=== PATIENT | female | born 1950 | race Caucasian/White ===

== ENCOUNTER → 2017-05-03 | Outpatient (CLI) | payer BC, SELFPAY | PROVIDERS: Visit Provider Family Medicine | DX: I35.9 Nonrheumatic aortic valve disorder, unspecified (principal); Z79.01 Long term (current) use of anticoagulants; Z51.81 Encounter for therapeutic drug level monitoring | CPT/HCPCS: 36415; 85610; 85651; 86140 ==

== ENCOUNTER → 2017-05-12 13:24 | Outpatient (CLI) | payer BC, SELFPAY ==
[2017-05-12 14:46] LABS: INR 2.76 (0.9-1.1); Prothrombin Time 30.1 seconds (9.4-11.8)
== END ==
PROVIDERS: PCP Family Medicine; Visit Provider Family Medicine
DX: I35.9 Nonrheumatic aortic valve disorder, unspecified (principal)
CPT/HCPCS: 36415; 85610

== ENCOUNTER → 2017-05-18 11:58 | Outpatient (CLI) | payer BC, SELFPAY ==
[2017-05-18 13:49] LABS: INR 5.01 (0.9-1.1)
[2017-05-18 14:46] LABS: C-Reactive Protein 1.4 mg/L (0.0-0.9)
[2017-05-18 15:28] LABS: Erythrocyte Sedimentation Rate 68 mm/hr (0-30)
== END ==
PROVIDERS: PCP Family Medicine; Visit Provider Orthopaedic Surgery
DX: T84.84XA Pain due to internal orthopedic prosthetic devices, implants and grafts, initial encounter (principal)
CPT/HCPCS: 36415; 85610; 85651; 86140

== ENCOUNTER → 2017-06-12 11:39 | Outpatient (CLI) | payer BC, SELFPAY ==
[2017-06-12 12:30] LABS: Basophils # 0.1 K/mm3 (0-0.2); Basophils % 0.6 % (0.1-2.0); Eosinophils # 0.3 K/mm3 (0.0-0.4); Eosinophils % 3.2 % (0.1-12.0); Hematocrit 36.3 % (37.0-47.0); Hemoglobin 11.8 g/dL (12.2-16.2); Lymphocytes # 1.3 K/mm3 (0.7-4.5); Lymphocytes % 16.1 K/mm3 (10-50); Mean Corpuscular HGB Conc 32.4 g/dL (31.8-35.4); Mean Corpuscular Hemoglobin 26.3 pg (27.0-31.2); Mean Corpuscular Volume 81.1 fl (81-99); Monocytes # 0.5 K/mm3 (0.1-1.0); Neutrophils # 6.1 K/mm3 (1.8-7.8); Neutrophils % 74.2 % (37.0-80.0); Platelet Count 300 K/mm3 (142-424); Red Blood Count 4.48 M/mm3 (4.20-5.40); White Blood Count 8.3 K/mm3 (4.8-10.8)
[2017-06-12 13:26] LABS: Creatinine,Urine Random 122 mg/dL (20-320); Total Protein,Urine Random 15.8 mg/dL (0.0-11.9)
[2017-06-12 13:35] LABS: Albumin Level 3.8 gm/dL (3.4-5.0); Anion Gap 11.2 mEq/L (5-15); Blood Urea Nitrogen 20 mg/dL (7-18); Calcium 8.7 mg/dL (8.5-10.1); Carbon Dioxide 29 mmol/L (21.0-32.0); Chloride 102 mmol/L (98-107); Creatinine,Serum 1.58 mg/dL (0.55-1.02); Estimated Glomerular Filt Rate 33 ml/min (>60); GFR (African American) 40 ML/MIN (>60); Glucose 98 mg/dL (74-106); Phosphorous 5.1 mg/dL (2.4-4.9); Potassium 4.2 mmoL/L (3.5-5.1); Sodium 138 mmol/L (136-145)
[2017-06-14 18:19] LABS: Antinuclear Antibodies, IFA Positive (.)
== END ==
PROVIDERS: PCP Family Medicine; Visit Provider Internal Medicine Nephrology
DX: N17.9 Acute kidney failure, unspecified (principal)
CPT/HCPCS: 36415; 80069; 82570; 84155; 85025; 86038; 87205

== ENCOUNTER 2017-08-09 08:25 | Outpatient (CLI) | payer MEDICARE, OTHER, SELFPAY ==
[2017-08-09] VITALS (21 sets, daily range): BP systolic 129–180; BP diastolic 66–84; PULSE 53–69; RESP 16–20; TEMP 36.3–36.8; O2SAT 95–98; BMI 29.2
[2017-08-09 08:54] LABS: Hematocrit 26.7 % (37.0-47.0); Hemoglobin 8.2 g/dL (12.2-16.2)
[2017-08-09 15:07] LABS: Hematocrit 32.1 % (37.0-47.0)
[2017-08-09 15:11] LABS: Hemoglobin 10.1 g/dL (12.2-16.2)
--- NOTE | 2017-08-09 15:17 | PC.NURSE ---
report called to [facility] and spoke with pt's nurse reji. updated report of pt condition given, pt is currently in route to the facility per private vehicle. 1 hour post h/h results noted as 10.1/32.1.
== END 2017-08-09 14:45 ==
PROVIDERS: Family Provider Family Medicine; PCP Family Medicine; Visit Provider Emergency Medicine
DX: D64.9 Anemia, unspecified (principal)
CPT/HCPCS: 36415; 36430; 85014; 85018; 86850; P9016

== ENCOUNTER → 2017-08-13 10:35 | Outpatient (REF) | payer MEDICARE, SELFPAY ==
[2017-08-13 11:06] LABS: Occult Blood,Stool Negative (Negative)
== END ==
LOC: LAB 10:35
PROVIDERS: Visit Provider Emergency Medicine
DX: D64.9 Anemia, unspecified (principal)
CPT/HCPCS: 82272; G0328

== ENCOUNTER → 2017-08-22 15:14 | Outpatient (CLI) | payer MEDICARE, SELFPAY ==
[2017-08-22 15:21] LABS: Microscopic, Urine URINE MICROSCOPIC (MICROSCOPIC)
[2017-08-22 15:38] LABS: Appearance,Urine CLEAR (Clear); Bilirubin,Urine Negative (Negative); Blood, Urine TRACE-L (Negative); Color,Urine YELLOW (Yellow); Glucose,Urine (UA) Negative (Negative); Ketones,Urine Negative (Negative); Leukocyte Esterase,Urine Negative (Negative); Nitrate,Urine Negative (Negative); PH,Urine 5.5 (5.0-8.5); Protein,Urine TRACE (Negative); Specific Gravity, Urine 1.015 (1.005-1.030); Urobilinogen,Urine 0.2 EU/dl (0.2)
[2017-08-22 15:42] LABS: Basophils % 0.4 % (0.1-2.0); Eosinophils # 0.2 K/mm3 (0.0-0.4); Eosinophils % 3.4 % (0.1-12.0); Hematocrit 35.3 % (37.0-47.0); Hemoglobin 11.1 g/dL (12.2-16.2); Lymphocytes # 1.2 K/mm3 (0.7-4.5); Lymphocytes % 17.6 K/mm3 (10-50); Mean Corpuscular HGB Conc 31.4 g/dL (31.8-35.4); Mean Corpuscular Volume 89.3 fl (81-99); Mean Platelet Volume 8.3 fl (7.4-10.4); Monocytes # 0.5 K/mm3 (0.1-1.0); Monocytes % 6.6 % (1.7-9.3); Neutrophils # 5.1 K/mm3 (1.8-7.8); Platelet Count 257 K/mm3 (142-424); Red Blood Count 3.95 M/mm3 (4.20-5.40); Red Cell Distribution Width 15.4 % (11.5-17.5)
[2017-08-22 16:06] LABS: Bacteria,Urine Trace /lpf; RBC,Urine Occasional #/hpf (0-3)
[2017-08-22 19:25] LABS: Albumin Level 3.7 gm/dL (3.4-5.0); Anion Gap 16.2 mEq/L (5-15); Blood Urea Nitrogen 15 mg/dL (7-18); Calcium 8.6 mg/dL (8.5-10.1); Carbon Dioxide 25 mmol/L (21.0-32.0); Chloride 104 mmol/L (98-107); Creatinine,Serum 1.18 mg/dL (0.55-1.02); Estimated Glomerular Filt Rate 46 ml/min (>60); GFR (African American) 56 ML/MIN (>60); Glucose 86 mg/dL (74-106); Phosphorous 4.2 mg/dL (2.4-4.9); Potassium 4.2 mmoL/L (3.5-5.1); Sodium 141 mmol/L (136-145)
== END ==
PROVIDERS: PCP Internal Medicine Nephrology; Visit Provider Internal Medicine Nephrology
DX: N17.9 Acute kidney failure, unspecified (principal)
CPT/HCPCS: 36415; 80069; 81001; 85025

== ENCOUNTER → 2017-09-22 12:54 | Outpatient (CLI) | payer MEDICARE, BC, SELFPAY ==
[2017-09-22 13:31] LABS: INR 1.55 (0.9-1.1); Prothrombin Time 16.8 seconds (9.4-11.8)
[2017-09-22 14:14] LABS: Erythrocyte Sedimentation Rate 66 mm/hr (0-30)
[2017-09-22 14:55] LABS: C-Reactive Protein 1.5 mg/L (0.0-0.9)
== END ==
PROVIDERS: Family Medicine; Visit Provider Orthopaedic Surgery
DX: Z79.01 Long term (current) use of anticoagulants (principal); Z51.81 Encounter for therapeutic drug level monitoring; I35.9 Nonrheumatic aortic valve disorder, unspecified; T84.84XA Pain due to internal orthopedic prosthetic devices, implants and grafts, initial encounter
CPT/HCPCS: 36415; 85610; 85651; 86140

== ENCOUNTER → 2017-09-28 15:02 | Outpatient (CLI) | payer MEDICARE, SELFPAY ==
[2017-09-28 15:29] LABS: INR 2.46 (0.9-1.1); Prothrombin Time 26.8 seconds (9.4-11.8)
[2017-09-28 16:42] LABS: Erythrocyte Sedimentation Rate 73 mm/hr (0-30)
[2017-09-28 17:28] LABS: C-Reactive Protein 3.3 mg/L (0.0-0.9)
== END ==
PROVIDERS: Family Medicine; Visit Provider Orthopaedic Surgery
DX: Z79.01 Long term (current) use of anticoagulants (principal); Z51.81 Encounter for therapeutic drug level monitoring; I35.9 Nonrheumatic aortic valve disorder, unspecified
CPT/HCPCS: 36415; 85610; 85651; 86140

== ENCOUNTER → 2018-01-23 14:25 | Outpatient (CLI) | payer MEDICARE, SELFPAY ==
[2018-01-23 14:56] LABS: INR 1.97 (0.9-1.1); Prothrombin Time 19.9 seconds (9.4-11.8)
== END ==
PROVIDERS: PCP Family Medicine; Visit Provider Family Medicine
DX: Z51.81 Encounter for therapeutic drug level monitoring (principal); Z79.01 Long term (current) use of anticoagulants; Z95.2 Presence of prosthetic heart valve; I35.9 Nonrheumatic aortic valve disorder, unspecified
CPT/HCPCS: 36415; 85610

== ENCOUNTER → 2018-02-05 10:12 | Outpatient (CLI) | payer MEDICARE, SELFPAY ==
[2018-02-05 10:51] LABS: INR 1.59 (0.9-1.1); Prothrombin Time 16.2 seconds (9.4-11.8)
== END ==
PROVIDERS: PCP Family Medicine; Visit Provider Family Medicine
DX: Z51.81 Encounter for therapeutic drug level monitoring (principal); Z79.01 Long term (current) use of anticoagulants; I35.9 Nonrheumatic aortic valve disorder, unspecified
CPT/HCPCS: 36415; 85610

== ENCOUNTER → 2018-02-16 10:13 | Outpatient (CLI) | payer MEDICARE, SELFPAY ==
[2018-02-16 10:44] LABS: INR 1.72 (0.9-1.1); Prothrombin Time 17.4 seconds (9.4-11.8)
== END ==
PROVIDERS: PCP Family Medicine; Visit Provider Family Medicine
DX: I35.9 Nonrheumatic aortic valve disorder, unspecified (principal)
CPT/HCPCS: 36415; 85610

== ENCOUNTER → 2018-02-26 15:20 | Outpatient (POV) | payer MEDICARE, SELFPAY ==
[2018-02-26 15:34] VITALS: BP 146/66; PULSE 67; RESP 18; O2SAT 98
--- NOTE | 2018-02-26 16:05 | HMH.PMCON ---
Assessment and Plan (1) Opioid dependence Current visit: Yes Status: Chronic Category: Medical Code(s): F11.20 - Opioid dependence, uncomplicated (2) Knee pain Current visit: Yes Status: Chronic Category: Medical Code(s): M25.569 - Pain in unspecified knee - Assessment and plan all Dx Assessment and Plan for all problems:: We will send the patient for urine drug screen after reviewing this I believe we can start her on 10 mg of oxycodone up to 5 times a day for 2 weeks after 2 weeks return and be reassessed and drop a pill every 2-4 weeks. I explained to the patient that I have to speak with Dr. Valderrama in regards to this also we have to review the drug screen. We will be in touch with the patient. This note was dictated using voice recognition software and may contain errors or omissions HPI - Data of Consult Consult date: 02/26/18 Requesting Physician: Janee Garay APRN Primary Care Provider: Lauren Mcbride - Consult Narrative Reason for consult: To wean off her oxycodone History of present illness: Ms. Tripp is a 67 year old female who presents today for a weaning schedule for her oxycodone. Patient had knee surgery back in 2017 with her most recent one being October 28, 2017. Dr. Sheets had put her on oxycodone she is taking 15 mg 1 p.o. 4 times a day. Patient states that she has no pain however she feels like it is difficult to cut down on her medication. Patient and I had a long discussion in regards to this. I discussed with the patient we do not typically take over medication however she is trying to get off of her medication I told her we would aggressively wean her. At any point if she was having issues we would immediately send her for psychological evaluation. Patient also understands that we are doing pill counts and urine drug screening at all times. 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 Gastrointestinal: no incontinence, normal bowel movements reported Genitourinary: no incontinence Musculoskeletal: Knee pain at times Psychiatric: normal mood/ affect Neurological: [denies weakness in extremities], [denies balance issues] Meds Home Medications Medication Instructions Recorded Confirmed Type Ceftriaxone in Is-Osm Dextrose 2 gm IV DAILY 08/09/17 09/04/17 History [Ceftriaxone 2 gm-D5w Bag] Escitalopram Oxalate [Lexapro] 10 mg PO DAILY 08/09/17 09/04/17 History Levothyroxine Sodium [Synthroid 175 mcg PO DAILY 08/09/17 09/04/17 History 175mcg (0.175mg) tablet] Metoprolol Succinate 100 mg PO DAILY 08/09/17 09/04/17 History Multivitamin [Multivitamins] 1 each PO DAILY 08/09/17 09/04/17 History Oxycodone HCl [Oxycodone (IR) 20mg 20 mg PO Q4HP PRN 08/09/17 09/04/17 History Tab] Pantoprazole Sodium [Protonix 40mg 40 mg PO DAILY 08/09/17 09/04/17 History tablet] Simvastatin [Zocor] 20 mg PO DAILY 08/09/17 09/04/17 History Tramadol HCl [Ultram 50mg 50 mg PO Q6HP PRN 08/09/17 09/04/17 History tablet] Warfarin Sodium [Coumadin 2mg 3 mg PO DAILY 08/09/17 09/04/17 History tablet]
--- NOTE | 2018-02-26 16:08 | P.CONS_ITS ---
Assessment and Plan (1) Opioid dependence Current visit: Yes Status: Chronic Category: Medical Code(s): F11.20 - Opioid dependence, uncomplicated (2) Knee pain Current visit: Yes Status: Chronic Category: Medical Code(s): M25.569 - Pain in unspecified knee - Assessment and plan all Dx Assessment and Plan for all problems:: We will send the patient for urine drug screen after reviewing this I believe we can start her on 10 mg of oxycodone up to 5 times a day for 2 weeks after 2 week s return and be reassessed and drop a pill every 2-4 weeks. I explained to the patient that I have to speak with Dr. Valderrama in regards to this also we have to review the drug screen. We will be in touch with the patient. This note was dictated using voice recognition software and may contain errors or omissions HPI - Data of Consult Consult date: 02/26/18 Requesting Physician: Janee Garay APRN Primary Care Provider: Lauren Mcbride - Consult Narrative Reason for consult: To wean off her oxycodone History of present illness: Ms. Tripp is a 67 year old female who presents today for a weaning schedule for her oxycodone. Patient had knee surgery back in 2017 with her most recent one being October 28, 2017. Dr. Sheets had put her on oxycodone she is taking 15 mg 1 p.o. 4 times a day. Patient states that she has no pain however she feels like it is difficult to cut down on her medication. Patient and I had a long discussion in regards to this. I discussed with the patient we do not typically take over medication however she is trying to get off of her medication I told her we would aggressively wean her. At any point if she was having issues we would immediately send her for psychological evaluation. Patient also understands that we are doing pill counts and urine drug screening at all times. 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 Gastrointestinal: no incontinence, normal bowel movements reported Genitourinary: no incontinence Musculoskeletal: Knee pain at times Psychiatric: normal mood/ affect Neurological: [denies weakness in extremities], [denies balance issues] Meds Home Medications Medication Instructions Recorded Confirmed Type Ceftriaxone in Is-Osm Dextrose 2 gm IV DAILY 08/09/17 09/04/17 History [Ceftriaxone 2 gm-D5w Bag] Escitalopram Oxalate [Lexapro] 10 mg PO DAILY 08/09/17 09/04/17 History Levothyroxine Sodium [Synthroid 175 mcg PO DAILY 08/09/17 09/04/17 History 175mcg (0.175mg) tablet] Metoprolol Succinate 100 mg PO DAILY 08/09/17 09/04/17 History
== END ==
PROVIDERS: PCP Nurse Practitioner Family; Visit Provider Clinical Nurse Specialist Family Health
DX: M25.569 Pain in unspecified knee (principal); F11.20 Opioid dependence, uncomplicated
CPT/HCPCS: 99202

== ENCOUNTER → 2018-02-26 16:35 | Outpatient (CLI) | payer MEDICARE, OTHER, SELFPAY ==
[2018-02-26 17:14] LABS: Amphetamine/Metha Screen,Urine Negative ng/mL (<1000); Barbiturates Screen,Urine Negative ng/mL (<200); Benzodiazepines Screen,Urine Negative ng/mL (<200); Cannabinoid Screen,Urine Negative ng/mL (<50); Cocaine Screen,Urine Negative ng/mL (<300); Methadone Screen,Urine Negative ng/mL (<300); Opiate Screen,Urine Positive ng/mL (<300); Phencyclidine Screen,Urine Negative ng/mL (<25)
[2018-03-04 18:16] LABS: Oxycodone (GC/MS) >3000 ng/mL (Cutoff=100)
[2018-03-06 06:29] LABS: Opiates Negative (Cutoff=100); Oxymorphone (GC/MS) >3000 ng/mL (Cutoff=100)
== END ==
PROVIDERS: PCP Family Medicine; Visit Provider Clinical Nurse Specialist Family Health
DX: I35.9 Nonrheumatic aortic valve disorder, unspecified (principal); Z79.899 Other long term (current) drug therapy
CPT/HCPCS: 80305; 80361; 80365; 99202; G0480

== ENCOUNTER → 2018-03-12 11:16 | Outpatient (POV) | payer MEDICARE, SELFPAY ==
[2018-03-12 11:32] VITALS: BP 100/54; PULSE 78; RESP 18; O2SAT 98; BMI 25.6
--- NOTE | 2018-03-12 11:45 | P.CONS_ITS ---
[facility] Pain Management SOAP Note Subjective:: Patient is a pleasant 67-year-old white male who presents today for follow-up. Patient has begun her weaning schedule off her oxycodone. Patient is currently on oxycodone milligrams 5 times a day. Patient states she was able to do several days of 4 times a day. We will decrease again today. She denies side effects and is doing well. Patient's ultimate goal is to be off of her oxycodone completely. She rates her pain a 0 out of 10 today. Patient's JAIME #[id number] reviewed and appropriate. Patient's urine drug screen has been appropriate. I spoke with Dr. Valderrama in regards to this and he is in agreement. ROS General: no recent weight change, no fever, no sleep disturbances Respiratory: no cough, no shortness of air, no recurring pulmonary infections Cardiovascular/Peripheral Vascular: No chest pain, No palpitations, no edema, no shortness of breath. Gastrointestinal: no incontinence, normal bowel movements reported Genitourinary: no incontinence Musculoskeletal: Knee pain at times Psychiatric: normal mood/ affect Neurological: [denies weakness in extremities], [denies balance issues] Objective:: Physical Exam General: Alert and oriented x3, no acute distress, pleasant and cooperative, [on room air] Lungs: Resps E/U, Symmetrical chest expansion, Eyes: PERRL Musculoskeletal: Range of motion right knee somewhat guarded secondary to pain, deep tendon reflexes normal, strength in upper and lower extremities [5/5], slightly antalgic gait noted Neurological: speech clear, land lease information clerk equal, no gross sensory deficits Assessment:: Opioid dependence, knee pain Plan:: We will decrease the patient today to oxycodone 10 mg 1 p.o. 4 times daily and give her 1 month worth of medication. I will follow-up with her in 1 month. Patient is going to try to drop another pill if she can during this time. Her goal will be to decrease a pill every month until she is completely weaned off her medication. Dr. Valderrama is reviewed this chart and agrees with this plan of care. Patient has been prescribed a controlled substance after being counseled on the medication, medication safety, and possible side effects. JAIME report has been obtained and reviewed prior to prescription and found to be appropriate. Opioid contract was reviewed and signed by the patient, and that they have agreed to all of the terms set forth by our compliance program. This note was dictated using voice recognition software and may contain errors or omissions
== END ==
PROVIDERS: PCP Family Medicine; Visit Provider Clinical Nurse Specialist Family Health
DX: F11.20 Opioid dependence, uncomplicated (principal); M25.569 Pain in unspecified knee
CPT/HCPCS: 99213

== ENCOUNTER → 2018-03-20 12:26 | Outpatient (CLI) | payer MEDICARE, SELFPAY ==
[2018-03-20 14:02] LABS: INR 5.33 (0.9-1.1); Prothrombin Time 52.3 seconds (9.4-11.8)
[2018-03-20 14:14] LABS: Thyroid Stimulating Hormone 2.46 uIU/ml (0.358-3.740)
== END ==
PROVIDERS: PCP Internal Medicine Adolescent Medicine; Visit Provider Nurse Practitioner Family
DX: Z51.81 Encounter for therapeutic drug level monitoring (principal); Z79.01 Long term (current) use of anticoagulants; E03.9 Hypothyroidism, unspecified
CPT/HCPCS: 36415; 84443; 85610; 99211; G0463

== ENCOUNTER 2018-03-23 12:22 | Outpatient (CLI) | payer MEDICARE, OTHER, SELFPAY ==
[2018-03-23 13:42] LABS: PHA INR Fingerstick 3.4 (0.9-1.1)
== END 2018-03-23 14:37 | disposition home or self-care (01) ==
PROVIDERS: PCP Nurse Practitioner Family; Visit Provider Nurse Practitioner Family
DX: Z51.81 Encounter for therapeutic drug level monitoring (principal); Z79.01 Long term (current) use of anticoagulants; Z95.2 Presence of prosthetic heart valve
CPT/HCPCS: 85610; 99211; G0463

== ENCOUNTER 2018-03-30 14:43 | Outpatient (CLI) | payer MEDICARE, OTHER, SELFPAY ==
--- NOTE | 2018-03-30 14:50 | MM_ITS ---
MM Dig screening mamm BI w/CAD CAD Screening COMPARISON: Outside Digital mammograms with CAD 02/26/2016 with no report attached INDICATION: There is a history of breast cancer in patient's sister diagnosed after menopause TECHNIQUE: Standard CC and MLO images were obtained. R2 CAD reviewed. FINDINGS: Scattered diffuse fibroglandular densities are seen throughout both breasts. There are numerous scattered benign-appearing microcalcifications in each breast along with minimal arterial calcification in each breast. There is a mole marker on each breast. There is a biopsy clip outer quadrant right breast. There is no suspicious lesion and there are no suspicious microcalcifications. IMPRESSION: Fibrofatty parenchyma with no suspicious lesion seen BI-RADS Category: 2 Benign Finding(s) RECOMMENDED FOLLOW-UP: 1YR - 1 YEAR FOLLOW-UP (A letter has been sent to the patient regarding results of the study.)
[2018-03-30 15:50] LABS: PHA INR Fingerstick 3.9 (0.9-1.1)
== END 2018-03-30 15:52 | disposition home or self-care (01) ==
LOC: RAD 14:44
PROVIDERS: Internal Medicine Adolescent Medicine; PCP Nurse Practitioner Family; Visit Provider Nurse Practitioner Family
DX: Z12.31 Encounter for screening mammogram for malignant neoplasm of breast (principal); Z51.81 Encounter for therapeutic drug level monitoring; Z79.01 Long term (current) use of anticoagulants; I35.9 Nonrheumatic aortic valve disorder, unspecified
CPT/HCPCS: 77067; 85610; 99211; G0463

== ENCOUNTER → 2018-04-02 13:23 | Outpatient (CLI) | payer MEDICARE, OTHER, SELFPAY ==
--- NOTE | 2018-04-02 13:26 | XR_ITS ---
XR DEXA axial skeleton HISTORY: ITS.REASON: POSTMENOPAUSAL ORDERING PHYSICIAN: Atiya Etienne PATIENT AGE: 67 years COMPARISON: None FINDINGS: The BMD measured at the left femoral neck is 0.805 g/cm squared with a T score of -1.7. This is considered Osteopenic according to the World Health Organization criteria. Fracture risk is Moderate. Treatment is advised. The L1 L4 density has a T score of 4.1 IMPRESSION: Osteopenia with moderate fracture risk. Treatment is advised. Recommend follow-up exam in March 2020
== END ==
PROVIDERS: PCP Nurse Practitioner Family; Visit Provider Nurse Practitioner Family
DX: Z13.820 Encounter for screening for osteoporosis (principal); Z78.0 Asymptomatic menopausal state
CPT/HCPCS: 77080

== ENCOUNTER → 2018-04-09 10:08 | Outpatient (POV) | payer MEDICARE, OTHER, SELFPAY ==
[2018-04-09 10:22] VITALS: BP 129/69; PULSE 78; RESP 18; O2SAT 98; BMI 28.1
--- NOTE | 2018-04-09 10:30 | HMH.PAINSOAP ---
[facility] Pain Management SOAP Note Subjective:: Patient is a pleasant 67-year-old white female who presents today for follow-up. Patient has begun her weaning schedule off her oxycodone. Patient is currently on oxycodone 10 mg 1 p.o. 4 times daily. We have decreased her twice so far. And she is doing well. She denies side effects. She rates her pain a 3 out of 10 however she recently fell on her knee that she had surgery. Patient is going to be calling the surgeon. Jaime reviewed and appropriate. Today we had a long discussion in regards to our next step weaning. ROS General: no recent weight change, no fever, no sleep disturbances Respiratory: no cough, no shortness of air, no recurring pulmonary infections Cardiovascular/Peripheral Vascular: No chest pain, No palpitations, no edema, no shortness of breath. Gastrointestinal: no incontinence, normal bowel movements reported Genitourinary: no incontinence Musculoskeletal: Knee pain Psychiatric: normal mood/ affect Neurological: [denies weakness in extremities], [denies balance issues] Objective:: Physical Exam General: Alert and oriented x3, no acute distress, pleasant and cooperative, [on room air] Lungs: Resps E/U, Symmetrical chest expansion, Eyes: PERRL Musculoskeletal: Range of motion left knee somewhat guarded secondary to pain, deep tendon reflexes normal, strength in upper and lower extremities [5/5], [abnormal gait noted] Neurological: speech clear, highway patrol commander equal, no gross sensory deficits Assessment:: Opioid dependence, knee pain Plan:: We will decrease the patient's oxycodone 10 mg 1 p.o. 3 times daily. We will give her a month 1 month worth of medication. Patient is going to try to take 5 mg at a time and see how she does with this. At her next visit we will decrease to 5 mg. Patient is in agreement. Dr. Valderrama is reviewed this chart is with this plan of care. Patient has been prescribed a controlled substance after being counseled on the medication, medication safety, and possible side effects. JAIME report has been obtained and reviewed prior to prescription and found to be appropriate. Opioid contract was reviewed and signed by the patient, and that they have agreed to all of the terms set forth by our compliance program. This note was dictated using voice recognition software and may contain errors or omissions
== END ==
PROVIDERS: PCP Nurse Practitioner Family; Visit Provider Clinical Nurse Specialist Family Health
DX: F11.20 Opioid dependence, uncomplicated; M25.569 Pain in unspecified knee
CPT/HCPCS: 99213

== ENCOUNTER 2018-04-12 14:28 | Outpatient (CLI) | payer MEDICARE, OTHER, SELFPAY ==
[2018-04-12 15:32] LABS: PHA INR Fingerstick 3.7 (0.9-1.1)
== END 2018-04-12 15:33 | disposition home or self-care (01) ==
LOC: ACC 14:28
PROVIDERS: PCP Nurse Practitioner Family; Visit Provider Nurse Practitioner Family
DX: Z51.81 Encounter for therapeutic drug level monitoring (principal); Z79.01 Long term (current) use of anticoagulants; I35.9 Nonrheumatic aortic valve disorder, unspecified
CPT/HCPCS: 85610; 99211; G0463

== ENCOUNTER 2018-05-02 13:53 | Outpatient (CLI) | payer MEDICARE, OTHER, SELFPAY ==
[2018-05-02 15:09] LABS: PHA INR Fingerstick 4.3 (0.9-1.1)
[2018-05-02 15:17] LABS: Prothrombin Time 46.2 seconds (9.4-11.8)
[2018-05-02 15:18] LABS: INR 4.69 (0.9-1.1)
== END 2018-05-02 15:11 | disposition home or self-care (01) ==
LOC: ACC 13:54
PROVIDERS: PCP Nurse Practitioner Family; Visit Provider Nurse Practitioner Family
DX: Z51.81 Encounter for therapeutic drug level monitoring (principal); Z79.01 Long term (current) use of anticoagulants; I35.9 Nonrheumatic aortic valve disorder, unspecified
CPT/HCPCS: 36415; 85610; 99211; G0463

== ENCOUNTER → 2018-05-07 10:07 | Outpatient (POV) | payer MEDICARE, OTHER, SELFPAY ==
[2018-05-07 10:26] VITALS: BP 126/76; PULSE 76; RESP 18; O2SAT 99; BMI 27.3
--- NOTE | 2018-05-07 10:39 | HMH.PAINSOAP ---
[facility] Pain Management SOAP Note Subjective:: Patient is a pleasant 67-year-old white female who presents today for follow-up. She is begin weaning off of her oxycodone. She is currently on oxycodone 10 mg 1 tab p.o. 4 times daily however she has been cutting it in half and doing well with this. She rates her pain a 3 out of 10 today. Jaime reviewed and appropriate. ROS General: no recent weight change, no fever, no sleep disturbances Respiratory: no cough, no shortness of air, no recurring pulmonary infections Cardiovascular/Peripheral Vascular: No chest pain, No palpitations, no edema, no shortness of breath. Gastrointestinal: no incontinence, normal bowel movements reported Genitourinary: no incontinence Musculoskeletal: Knee pain Psychiatric: normal mood/ affect, [denies depression], [denies anxiety] Neurological: [denies weakness in extremities], [denies balance issues] Objective:: Physical Exam General: Alert and oriented x3, no acute distress, pleasant and cooperative, [on room air] Lungs: Resps E/U, Symmetrical chest expansion, Eyes: PERRL Musculoskeletal: Range of Motion left knee somewhat guarded secondary to pain, deep tendon reflexes normal, strength in upper and lower extremities [5/5], [abnormal gait noted] Neurological: speech clear, surgical elastic knitter equal, no gross sensory deficits Assessment:: Opioid dependence, knee pain Plan:: We will change the patient's oxycodone to 5 mg 1 p.o. up to 5 times a day. We will give her 1 month worth of medication and we will see her back in 1 month at her next visit we will decrease her by one pill. Dr. Valderrama is reviewed this chart and agrees with this plan of care. Patient has been prescribed a controlled substance after being counseled on the medication, medication safety, and possible side effects. JAIME report has been obtained and reviewed prior to prescription and found to be appropriate. Opioid contract was reviewed and signed by the patient, and that they have agreed to all of the terms set forth by our compliance program. This note was dictated using voice recognition software and may contain errors or omissions
== END ==
PROVIDERS: PCP Nurse Practitioner Family; Visit Provider Clinical Nurse Specialist Family Health
DX: F11.20 Opioid dependence, uncomplicated; M25.562 Pain in left knee
CPT/HCPCS: 99213

== ENCOUNTER 2018-05-11 13:24 | Outpatient (CLI) | payer MEDICARE, OTHER, SELFPAY ==
[2018-05-11 14:24] LABS: PHA INR Fingerstick 1.9 (0.9-1.1)
== END 2018-05-11 14:37 | disposition home or self-care (01) ==
LOC: ACC 13:26
PROVIDERS: PCP Nurse Practitioner Family; Visit Provider Nurse Practitioner Family
DX: Z51.81 Encounter for therapeutic drug level monitoring (principal); Z79.01 Long term (current) use of anticoagulants; I35.9 Nonrheumatic aortic valve disorder, unspecified
CPT/HCPCS: 85610; 99211; G0463

== ENCOUNTER 2018-05-24 11:51 | Outpatient (CLI) | payer MEDICARE, OTHER, SELFPAY ==
[2018-05-24 13:50] LABS: PHA INR Fingerstick 3.3 (0.9-1.1)
== END 2018-05-24 15:02 | disposition home or self-care (01) ==
LOC: ACC 11:53
PROVIDERS: PCP Nurse Practitioner Family; Visit Provider Nurse Practitioner Family
DX: Z51.81 Encounter for therapeutic drug level monitoring (principal); Z79.01 Long term (current) use of anticoagulants; I35.9 Nonrheumatic aortic valve disorder, unspecified
CPT/HCPCS: 85610; 99211; G0463

== ENCOUNTER 2018-06-01 11:28 | Outpatient (CLI) | payer MEDICARE, OTHER, SELFPAY | END 2018-06-01 13:43 | disposition home or self-care (01) | LOC: ACC 11:29 | PROVIDERS: PCP Internal Medicine Adolescent Medicine; Visit Provider Nurse Practitioner Family | DX: Z51.81 Encounter for therapeutic drug level monitoring (principal); Z79.01 Long term (current) use of anticoagulants; I35.9 Nonrheumatic aortic valve disorder, unspecified | CPT/HCPCS: 99211; G0463 ==

== ENCOUNTER → 2018-06-04 11:09 | Outpatient (POV) | payer MEDICARE, OTHER, SELFPAY ==
[2018-06-04 11:23] VITALS: BP 158/69; PULSE 64; RESP 18; O2SAT 99; BMI 28.9
--- NOTE | 2018-06-04 11:23 | HMH.PAINSOAP ---
[facility] Pain Management SOAP Note Subjective:: Patient is a pleasant 67-year-old white female who presents today for follow-up. She is weaning off her oxycodone. She is currently on oxycodone 5 mg 1 p.o. 5 times a day. She states most of the day she only takes 4. She rates her pain a 0 out of 10 today and is excited because she will be going on a [place] cruise soon. ROS General: no recent weight change, no fever, no sleep disturbances Respiratory: no cough, no shortness of air, no recurring pulmonary infections Cardiovascular/Peripheral Vascular: No chest pain, No palpitations, no edema, no shortness of breath. Gastrointestinal: no incontinence, normal bowel movements reported Genitourinary: no incontinence Musculoskeletal: Knee pain at times Psychiatric: normal mood/ affect Neurological: [denies weakness in extremities], [denies balance issues] Objective:: Physical Exam General: Alert and oriented x3, no acute distress, pleasant and cooperative, [on room air] Lungs: Resps E/U, Symmetrical chest expansion, Eyes: PERRL Musculoskeletal: Range of motion bilateral knees somewhat guarded secondary to pain, deep tendon reflexes normal, strength in upper and lower extremities [5/5], slightly antalgic gait noted Neurological: speech clear, shower attendant equal, no gross sensory deficits Assessment:: Opioid dependence, knee pain Plan:: 1 month of oxycodone 5 mg 1 p.o. 4 times daily. We will see her back in 1 month and at that time we will change her to Percocet. Patient's been instructed to call the office if she has any issues prior to her next appointment. Patient has been prescribed a controlled substance after being counseled on the medication, medication safety, and possible side effects. JAIME report has been obtained and reviewed prior to prescription and found to be appropriate. Opioid contract was reviewed and signed by the patient, and that they have agreed to all of the terms set forth by our compliance program. Dr. Valderrama has reviewed this note and agrees with this plan of care. This note was dictated using voice recognition software and may contain errors or omissions
[2018-06-04 12:20] LABS: Amphetamine/Metha Screen,Urine Negative ng/mL (<1000); Barbiturates Screen,Urine Negative ng/mL (<200); Benzodiazepines Screen,Urine Negative ng/mL (<200); Cannabinoid Screen,Urine Negative ng/mL (<50); Cocaine Screen,Urine Negative ng/mL (<300); Methadone Screen,Urine Negative ng/mL (<300); Opiate Screen,Urine Negative ng/mL (<300); Phencyclidine Screen,Urine Negative ng/mL (<25)
[2018-06-09 03:37] LABS: Oxycodone (GC/MS) 471 ng/mL (Cutoff=100)
[2018-06-09 12:57] LABS: Opiates Negative (Cutoff=100); Oxymorphone (GC/MS) 460 ng/mL (Cutoff=100)
== END ==
PROVIDERS: PCP Nurse Practitioner Family; Visit Provider Clinical Nurse Specialist Family Health
DX: Z79.899 Other long term (current) drug therapy (principal); M25.569 Pain in unspecified knee; F11.20 Opioid dependence, uncomplicated; I35.9 Nonrheumatic aortic valve disorder, unspecified; I10 Essential (primary) hypertension
CPT/HCPCS: 80305; 80361; 80365; 99213; G0480

== ENCOUNTER 2018-06-22 11:36 | Outpatient (CLI) | payer MEDICARE, OTHER, SELFPAY ==
[2018-06-22 12:14] LABS: PHA INR Fingerstick 3.1 (0.9-1.1)
== END 2018-06-22 14:29 | disposition home or self-care (01) ==
LOC: ACC 11:38
PROVIDERS: PCP Nurse Practitioner Family; Visit Provider Nurse Practitioner Family
DX: Z51.81 Encounter for therapeutic drug level monitoring (principal); Z79.01 Long term (current) use of anticoagulants; I35.9 Nonrheumatic aortic valve disorder, unspecified
CPT/HCPCS: 85610; 99211; G0463

== ENCOUNTER → 2018-07-03 11:11 | Outpatient (POV) | payer MEDICARE, OTHER, SELFPAY ==
[2018-07-03 11:33] VITALS: BP 120/65; PULSE 81; RESP 18; O2SAT 98; BMI 29.6
--- NOTE | 2018-07-03 11:43 | P.CONS_ITS ---
[facility] Pain Management SOAP Note Subjective:: Patient is a pleasant 67-year-old white female who presents today for follow-up. She is weaning off her oxycodone. She is currently on oxycodone 5 mg 1 p.o. 4 times a day. She has been try to take 3 a day most times. Patient rates her pain at this time is 0 out of 10. Patient will be weaned Percocet today. ROS General: no recent weight change, no fever, no sleep disturbances Respiratory: no cough, no shortness of air, no recurring pulmonary infections Cardiovascular/Peripheral Vascular: No chest pain, No palpitations, no edema, no shortness of breath. Gastrointestinal: no incontinence, normal bowel movements reported Genitourinary: no incontinence Musculoskeletal: Knee pain at times Psychiatric: normal mood/ affect, Neurological: [denies weakness in extremities], [denies balance issues] Objective:: Physical Exam General: Alert and oriented x3, no acute distress, pleasant and cooperative, [on room air] Lungs: Resps E/U, Symmetrical chest expansion, [CTA bilateral] Eyes: PERRL Musculoskeletal: Range of motion bilateral knees somewhat guarded secondary to pain, deep tendon reflexes normal, strength in upper and lower extremities [5/5], slightly antalgic gait noted Neurological: speech clear, traffic maintenance officer equal, no gross sensory deficits Assessment:: Opioid dependence, knee pain Plan:: We will change patient to Percocet 5 mg 1 tab p.o. 4 times daily. We will follow-up with her in 1 month and reassess her symptoms at that time at her next visit we will decrease this to 2-3 times a day. Patient has been prescribed a controlled substance after being counseled on the medication, medication safety, and possible side effects. JAIME report has been obtained and reviewed prior to prescription and found to be appropriate. Opioid contract was reviewed and signed by the patient, and that they have agreed to all of the terms set forth by our compliance program. Dr. Valderrama has reviewed this note and agrees with this plan of care. This note was dictated using voice recognition software and may contain errors or omissions
== END ==
PROVIDERS: PCP Nurse Practitioner Family; Visit Provider Clinical Nurse Specialist Family Health
DX: F11.20 Opioid dependence, uncomplicated (principal); M25.569 Pain in unspecified knee
CPT/HCPCS: 99213

== ENCOUNTER 2018-07-19 12:41 | Outpatient (CLI) | payer MEDICARE, OTHER, SELFPAY ==
[2018-07-19 14:00] LABS: PHA INR Fingerstick 3.8 (0.9-1.1)
== END 2018-07-19 14:07 | disposition home or self-care (01) ==
LOC: ACC 12:41
PROVIDERS: PCP Internal Medicine Adolescent Medicine; Visit Provider Nurse Practitioner Family
DX: Z51.81 Encounter for therapeutic drug level monitoring (principal); Z79.01 Long term (current) use of anticoagulants; I35.9 Nonrheumatic aortic valve disorder, unspecified
CPT/HCPCS: 85610; 99211; G0463

== ENCOUNTER → 2018-07-31 11:00 | Outpatient (POV) | payer MEDICARE, OTHER, SELFPAY ==
[2018-07-31 11:07] VITALS: BP 144/78; PULSE 82; RESP 18; O2SAT 98; BMI 30.9
--- NOTE | 2018-07-31 11:07 | HMH.PAINSOAP ---
[facility] Pain Management SOAP Note Subjective:: Patient is a very pleasant 68-year-old white female who presents today for follow-up. Patient is being weaned off of her vacation. She is currently on Percocet 5 mg 1 p.o. 4 times daily. She is mostly taking 3 a day. She is doing quite well. She is down her morphine equivalent of 225-30. Patient rates her pain a 0 out of 10 today. We will wean her down more today. ROS General: no recent weight change, no fever, no sleep disturbances Respiratory: no cough, no shortness of air, no recurring pulmonary infections Cardiovascular/Peripheral Vascular: No chest pain, No palpitations, no edema, no shortness of breath. Gastrointestinal: no incontinence, normal bowel movements reported Genitourinary: no incontinence Musculoskeletal: Knee pain at times Psychiatric: normal mood/ affect Neurological: [denies weakness in extremities], [denies balance issues] Objective:: Physical Exam General: Alert and oriented x3, no acute distress, pleasant and cooperative, [on room air] Lungs: Resps E/U, Symmetrical chest expansion, Eyes: PERRL Musculoskeletal: Range of motion bilateral knees somewhat guarded secondary to pain, deep tendon reflexes normal, strength in upper and lower extremities [5/5], slightly antalgic gait noted Neurological: speech clear, basket hand weaver equal, no gross sensory deficits Assessment:: Opioid dependence, knee pain Plan:: We will decrease her to Percocet 5 mg 1 p.o. 3 times daily give her 1 month worth of medication. We will see her back in 1 month and decrease her down lower. Patient has been prescribed a controlled substance after being counseled on the medication, medication safety, and possible side effects. JAIME report has been obtained and reviewed prior to prescription and found to be appropriate. Opioid contract was reviewed and signed by the patient, and that they have agreed to all of the terms set forth by our compliance program. Dr. Valderrama has reviewed this note and agrees with this plan of care. This note was dictated using voice recognition software and may contain errors or omissions
--- NOTE | 2018-07-31 11:10 | P.CONS_ITS ---
[facility] Pain Management SOAP Note Subjective:: Patient is a very pleasant 68-year-old white female who presents today for follow-up. Patient is being weaned off of her vacation. She is currently on Percocet 5 mg 1 p.o. 4 times daily. She is mostly taking 3 a day. She is doing quite well. She is down her morphine equivalent of 225-30. Patient rates her pain a 0 out of 10 today. We will wean her down more today. ROS General: no recent weight change, no fever, no sleep disturbances Respiratory: no cough, no shortness of air, no recurring pulmonary infections Cardiovascular/Peripheral Vascular: No chest pain, No palpitations, no edema, no shortness of breath. Gastrointestinal: no incontinence, normal bowel movements reported Genitourinary: no incontinence Musculoskeletal: Knee pain at times Psychiatric: normal mood/ affect Neurological: [denies weakness in extremities], [denies balance issues] Objective:: Physical Exam General: Alert and oriented x3, no acute distress, pleasant and cooperative, [on room air] Lungs: Resps E/U, Symmetrical chest expansion, Eyes: PERRL Musculoskeletal: Range of motion bilateral knees somewhat guarded secondary to pain, deep tendon reflexes normal, strength in upper and lower extremities [5/5], slightly antalgic gait noted Neurological: speech clear, government program manager equal, no gross sensory deficits Assessment:: Opioid dependence, knee pain Plan:: We will decrease her to Percocet 5 mg 1 p.o. 3 times daily give her 1 month worth of medication. We will see her back in 1 month and decrease her down lower. Patient has been prescribed a controlled substance after being counseled on the medication, medication safety, and possible side effects. JAIME report has been obtained and reviewed prior to prescription and found to be appropriate. Opioid contract was reviewed and signed by the patient, and that they have agreed to all of the terms set forth by our compliance program. Dr. Valderrama has reviewed this note and agrees with this plan of care. This note was dictated using voice recognition software and may contain errors or omissions
== END ==
PROVIDERS: PCP Nurse Practitioner Family; Visit Provider Clinical Nurse Specialist Family Health
DX: F11.20 Opioid dependence, uncomplicated (principal); M25.569 Pain in unspecified knee
CPT/HCPCS: 99212; 99213

== ENCOUNTER 2018-08-02 10:52 | Outpatient (CLI) | payer MEDICARE, OTHER, SELFPAY ==
[2018-08-02 12:17] LABS: Prothrombin Time 44.6 seconds (9.4-11.8)
[2018-08-02 12:21] LABS: INR 4.52 (0.9-1.1)
[2018-08-02 13:49] LABS: PHA INR Fingerstick 4.4 (0.9-1.1)
== END 2018-08-02 13:52 | disposition home or self-care (01) ==
LOC: ACC 10:53
PROVIDERS: PCP Nurse Practitioner Family; Visit Provider Nurse Practitioner Family
DX: Z51.81 Encounter for therapeutic drug level monitoring (principal); Z79.01 Long term (current) use of anticoagulants; I35.9 Nonrheumatic aortic valve disorder, unspecified
CPT/HCPCS: 36415; 85610; 99211; G0463

== ENCOUNTER 2018-08-08 12:52 | Outpatient (CLI) | payer MEDICARE, OTHER, SELFPAY ==
[2018-08-08 15:43] LABS: PHA INR Fingerstick 2.5 (0.9-1.1)
== END 2018-08-08 15:45 | disposition home or self-care (01) ==
LOC: ACC 12:53
PROVIDERS: PCP Nurse Practitioner Family; Visit Provider Nurse Practitioner Family
DX: Z51.81 Encounter for therapeutic drug level monitoring (principal); Z79.01 Long term (current) use of anticoagulants; I35.9 Nonrheumatic aortic valve disorder, unspecified
CPT/HCPCS: 85610; 99211; G0463

== ENCOUNTER 2018-08-22 14:07 | Outpatient (CLI) | payer MEDICARE, OTHER, SELFPAY ==
[2018-08-22 15:07] LABS: PHA INR Fingerstick 4.5 (0.9-1.1)
[2018-08-22 16:36] LABS: Prothrombin Time 47.4 seconds (9.4-11.8)
[2018-08-22 16:39] LABS: INR 4.82 (0.9-1.1)
== END 2018-08-22 15:48 | disposition home or self-care (01) ==
LOC: ACC 14:08
PROVIDERS: PCP Internal Medicine Adolescent Medicine; Visit Provider Nurse Practitioner Family
DX: Z51.81 Encounter for therapeutic drug level monitoring (principal); Z79.01 Long term (current) use of anticoagulants; I35.9 Nonrheumatic aortic valve disorder, unspecified
CPT/HCPCS: 36415; 85610; 99211; G0463

== ENCOUNTER 2018-08-31 09:11 | Outpatient (CLI) | payer MEDICARE, OTHER, SELFPAY ==
[2018-08-31 10:36] LABS: PHA INR Fingerstick 3.9 (0.9-1.1)
== END 2018-08-31 10:42 | disposition home or self-care (01) ==
LOC: ACC 09:12
PROVIDERS: PCP Internal Medicine Adolescent Medicine; Visit Provider Nurse Practitioner Family
DX: Z51.81 Encounter for therapeutic drug level monitoring (principal); Z79.01 Long term (current) use of anticoagulants; I35.9 Nonrheumatic aortic valve disorder, unspecified
CPT/HCPCS: 85610; 99211; G0463

== ENCOUNTER → 2018-09-04 08:52 | Outpatient (POV) | payer MEDICARE, OTHER, SELFPAY ==
[2018-09-04 09:21] VITALS: BP 121/60; PULSE 114; RESP 18; O2SAT 99; BMI 29.9
--- NOTE | 2018-09-04 15:19 | HMH.PAINSOAP ---
[facility] Pain Management SOAP Note Subjective:: This is a pleasant 68-year-old white female who presents today for follow-up. Patient is being weaned off of her oxycodone. She is currently on Percocet 5 mg 1 p.o. 3 times daily. She is doing well we will decrease her to twice a day. She is down from a morphine equivalent of 225-23. Patient is done extremely well her only complaint today is some arthritis pain. Discussed topical anti-inflammatories due to the fact that she cannot have oral ones. ROS General: no recent weight change, no fever, no sleep disturbances Respiratory: no cough, no shortness of air, no recurring pulmonary infections Cardiovascular/Peripheral Vascular: No chest pain, No palpitations, no edema, no shortness of breath. Gastrointestinal: no incontinence, normal bowel movements reported Genitourinary: no incontinence Musculoskeletal: Knee pain, joint pain Psychiatric: normal mood/ affect Neurological: [denies weakness in extremities], [denies balance issues] Objective:: Physical Exam General: Alert and oriented x3, no acute distress, pleasant and cooperative, [on room air] Lungs: Resps E/U, Symmetrical chest expansion, Eyes: PERRL Musculoskeletal: Flexion and extension of lumbar spine somewhat guarded secondary to pain, deep tendon reflexes normal, strength in upper and lower extremities [5/5], [abnormal gait noted] Neurological: speech clear, core driller helper equal, no gross sensory deficits Assessment:: Opioid dependence, knee pain Plan:: We will decrease her today to Percocet 5 mg 1 p.o. twice daily. We will see her back in 1 month reassess her at that time. We talked about topical anti-inflammatories she can let us know if it is beneficial. Follow-up with her after this reassess her symptoms. Patient has been prescribed a controlled substance after being counseled on the medication, medication safety, and possible side effects. JAIME report has been obtained and reviewed prior to prescription and found to be appropriate. Opioid contract was reviewed and signed by the patient, and that they have agreed to all of the terms set forth by our compliance program. Dr. Valderrama has reviewed this note and agrees with this plan of care. This note was dictated using voice recognition software and may contain errors or omissions
--- NOTE | 2018-09-04 15:22 | P.CONS_ITS ---
[facility] Pain Management SOAP Note Subjective:: This is a pleasant 68-year-old white female who presents today for follow-up. Patient is being weaned off of her oxycodone. She is currently on Percocet 5 mg 1 p.o. 3 times daily. She is doing well we will decrease her to twice a day. She is down from a morphine equivalent of 225-23. Patient is done extremely well her only complaint today is some arthritis pain. Discussed topical anti- inflammatories due to the fact that she cannot have oral ones. ROS General: no recent weight change, no fever, no sleep disturbances Respiratory: no cough, no shortness of air, no recurring pulmonary infections Cardiovascular/Peripheral Vascular: No chest pain, No palpitations, no edema, no shortness of breath. Gastrointestinal: no incontinence, normal bowel movements reported Genitourinary: no incontinence Musculoskeletal: Knee pain, joint pain Psychiatric: normal mood/ affect Neurological: [denies weakness in extremities], [denies balance issues] Objective:: Physical Exam General: Alert and oriented x3, no acute distress, pleasant and cooperative, [on room air] Lungs: Resps E/U, Symmetrical chest expansion, Eyes: PERRL Musculoskeletal: Flexion and extension of lumbar spine somewhat guarded secondary to pain, deep tendon reflexes normal, strength in upper and lower extremities [5/5], [abnormal gait noted] Neurological: speech clear, harm reduction worker equal, no gross sensory deficits Assessment:: Opioid dependence, knee pain Plan:: We will decrease her today to Percocet 5 mg 1 p.o. twice daily. We will see her back in 1 month reassess her at that time. We talked about topical anti- inflammatories she can let us know if it is beneficial. Follow-up with her after this reassess her symptoms. Patient has been prescribed a controlled substance after being counseled on the medication, medication safety, and possible side effects. JAIME report has been obtained and reviewed prior to prescription and found to be appropriate. Opioid contract was reviewed and signed by the patient, and that they have agreed to all of the terms set forth by our compliance program. Dr. Valderrama has reviewed this note and agrees with this plan of care. This note was dictated using voice recognition software and may contain errors or omissions
== END ==
PROVIDERS: PCP Nurse Practitioner Family; Visit Provider Clinical Nurse Specialist Family Health
DX: M25.569 Pain in unspecified knee (principal); F11.20 Opioid dependence, uncomplicated
CPT/HCPCS: 99212

== ENCOUNTER 2018-09-14 09:19 | Outpatient (CLI) | payer MEDICARE, OTHER, SELFPAY ==
[2018-09-14 15:34] LABS: PHA INR Fingerstick 3.9 (0.9-1.1)
== END 2018-09-14 16:11 | disposition home or self-care (01) ==
LOC: ACC 09:21
PROVIDERS: PCP Internal Medicine Adolescent Medicine; Visit Provider Internal Medicine Adolescent Medicine
DX: Z51.81 Encounter for therapeutic drug level monitoring (principal); Z79.01 Long term (current) use of anticoagulants; I35.9 Nonrheumatic aortic valve disorder, unspecified
CPT/HCPCS: 85610; 99211; G0463

== ENCOUNTER → 2018-09-18 08:58 | Outpatient (CLI) | payer MEDICARE, OTHER, SELFPAY ==
[2018-09-18 09:20] LABS: Basophils % 0.5 % (0.1-2.0); Eosinophils # 0.1 K/mm3 (0.0-0.4); Eosinophils % 2.4 % (0.1-12.0); Hemoglobin 11.1 g/dL (12.2-16.2); Lymphocytes # 0.8 K/mm3 (0.7-4.5); Lymphocytes % 13.1 % (10-50); Mean Corpuscular HGB Conc 32.6 g/dL (31.8-35.4); Mean Corpuscular Hemoglobin 27.5 pg (27.0-31.2); Mean Corpuscular Volume 84.3 fl (81-99); Monocytes # 0.4 K/mm3 (0.1-1.0); Monocytes % 6.6 % (1.7-9.3); Neutrophils # 4.6 K/mm3 (1.8-7.8); Neutrophils % 77.5 % (37.0-80.0); Platelet Count 284 K/mm3 (142-424); Red Blood Count 4.04 M/mm3 (4.20-5.40); Red Cell Distribution Width 14.5 % (11.5-17.5)
[2018-09-18 11:00] LABS: Alanine Aminotransferase 17 U/L (12-78); Albumin Level 3.6 gm/dL (3.4-5.0); Albumin/Globulin Ratio 0.9 (1.1-1.8); Alkaline Phosphatase 80 U/L (46-116); Anion Gap 14.7 mEq/L (5-15); Aspartate Amino Transferase 19 U/L (15-37); Bilirubin,Total 0.3 mg/dL (0.2-1.0); Blood Urea Nitrogen 12 mg/dL (7-18); Calcium 8.2 mg/dL (8.5-10.1); Carbon Dioxide 24 mmol/L (21.0-32.0); Chloride 106 mmol/L (98-107); Chol/HDL Ratio 5.7 (1-3.5); Cholesterol 217 mg/dL (140-200); Creatinine,Serum 1.55 mg/dL (0.55-1.02); Estimated Glomerular Filt Rate 33 ml/min (>60); GFR (African American) 40 ML/MIN (>60); Glucose 108 mg/dL (74-106); HDL Cholesterol 38 mg/dL (29-89); LDL Cholesterol 138 mg/dL (0-130); Potassium 3.7 mmoL/L (3.5-5.1); Sodium 141 mmol/L (136-145); Thyroid Stimulating Hormone 0.19 uIU/ml (0.358-3.740); Total Protein,Serum 7.6 gm/dL (6.4-8.2); Triglycerides 206 mg/dL (30-200); VLDL Cholesterol 41 mg/dL (0-40)
[2018-09-19 08:18] LABS: Vitamin D 25 Hydroxy 38.3 ng/mL (30.0-100.0)
== END ==
PROVIDERS: Visit Provider Nurse Practitioner Family
DX: I10 Essential (primary) hypertension (principal); E03.9 Hypothyroidism, unspecified; L40.50 Arthropathic psoriasis, unspecified; M85.80 Other specified disorders of bone density and structure, unspecified site; Z95.2 Presence of prosthetic heart valve
CPT/HCPCS: 36415; 80053; 80061; 82652; 84443; 85025

== ENCOUNTER → 2018-09-20 09:05 | Outpatient (CLI) | payer MEDICARE, OTHER, SELFPAY ==
--- NOTE | 2018-09-20 09:18 | XR_ITS ---
XR wrist LT min 3V Ordering Physician: Atiya Etienne APRN Patient Age: 68 years: Female HISTORY: ITS.REASON: LT WRIST PAIN Left wrist pain and swelling. No injury reported TECHNIQUE: Left wrist 3 views COMPARISON :None FINDINGS Moderate pronounced degenerative Arthritic changes at the first carpal metacarpal joint. Narrowing, sclerosis and early hypertrophic changes about this joint. Appears to be moderate widening at the scaphoid-lunate joint. This measures up to 3.6 mm in its proximal aspect. This suggest scapholunate dissociation, and likely reflect underlying disruption or tear and result of the scapholunate ligament. The lunate does not appear to be abnormally tilted or rotated on the lateral view. I would question some subtle proximal positioning of the capitate towards this widened scapholunate joint.. Also note Slight foreshortening of the scaphoid which could reflect the changes at the scapholunate joint.. Slight tilt on this fair PA image which could exaggerate some these features. The distal radial ulna intact.. Radiocarpal joint well-maintained. Only Borderline negative ulnar variance . Fingers are only partially imaged on this wrist study-but note prominent degenerative arthritic changes at DIP joint of the index finger and notable arthritic changes at some of the PIP joints as well. Consider hand radiograph follow-up IMPRESSION: ......... 1. Moderately pronounced Degenerative changes first carpal-metacarpal joint 2... Widening at the scapholunate joint.-Suggest scapholunate dissociation. Suspect underlying scapholunate ligament injury/tear 3. Prominent arthritic changes within the IP joints of the fingers.
== END ==
PROVIDERS: PCP Internal Medicine Adolescent Medicine; Visit Provider Nurse Practitioner Family
DX: M25.532 Pain in left wrist (principal)
CPT/HCPCS: 73110

== ENCOUNTER 2018-09-27 11:31 | Outpatient (CLI) | payer MEDICARE, OTHER, SELFPAY ==
[2018-09-27 14:11] LABS: INR 5.01 (0.9-1.1); Prothrombin Time 48.3 seconds (9.4-11.8)
[2018-09-27 14:18] LABS: PHA INR Fingerstick 4.3 (0.9-1.1)
== END 2018-09-27 14:20 | disposition home or self-care (01) ==
LOC: ACC 11:35
PROVIDERS: PCP Nurse Practitioner Family; Visit Provider Internal Medicine Adolescent Medicine
DX: Z51.81 Encounter for therapeutic drug level monitoring (principal); Z79.01 Long term (current) use of anticoagulants
CPT/HCPCS: 36415; 85610; 99211; G0463

== ENCOUNTER → 2018-10-02 10:45 | Outpatient (POV) | payer MEDICARE, OTHER, SELFPAY ==
[2018-10-02 10:53] VITALS: BP 116/71; PULSE 80; RESP 18; O2SAT 98; BMI 30.9
--- NOTE | 2018-10-02 11:10 | P.CONS_ITS ---
[facility] Pain Management SOAP Note Subjective:: This is a pleasant 8-year-old female who presents today for follow-up. We are currently weaning her off of her oxycodone. She is currently on Percocet 5 mg 1 p.o. 2 times daily. She is doing well, however she is concerned about decreasing to 1 p.o. daily. She would like to go little slower this month as we wean her down. She is down from a morphine equivalent of 225?15. Patient has done extremely well, and rates her pain a 2 out of 10 today. ROS General: no recent weight change, no fever, no sleep disturbances Respiratory: no cough, no shortness of air, no recurring pulmonary infections Cardiovascular/Peripheral Vascular: No chest pain, No palpitations, no edema, no shortness of breath. Gastrointestinal: no incontinence, normal bowel movements reported Genitourinary: no incontinence Musculoskeletal: Knee pain, joint pain Psychiatric: normal mood/ affect, [denies depression], [denies anxiety] Neurological: [denies weakness in extremities], [denies balance issues] . Objective:: Physical Exam General: Alert and oriented x3, no acute distress, pleasant and cooperative, [on room air] Lungs: Resps E/U, Symmetrical chest expansion, Eyes: PERRL Musculoskeletal: Flexion and extension of bilateral knees somewhat guarded secondary to pain, deep tendon reflexes normal, strength in upper and lower extremities [5/5], [slightly antalgic gait noted] Neurological: speech clear, scientific research associate equal, no gross sensory deficits Assessment:: Opioid dependence, knee pain Plan:: We will decrease her Percocet today to 5 mg 1-1/2 tabs p.o. daily. We will see her back in 1 month to reassess her at that time. She has been instructed to call the office if she has any issues prior to her next appointment. Patient has been prescribed a controlled substance after being counseled on the medication, medication safety, and possible side effects. JAIME report has been obtained and reviewed prior to prescription and found to be appropriate. Opioid contract was reviewed and signed by the patient, and that they have agreed to all of the terms set forth by our compliance program. Dr. Valderrama has reviewed this note and agrees with this plan of care. This note was dictated using voice recognition software and may contain errors or omissions
== END ==
PROVIDERS: PCP Nurse Practitioner Family; Visit Provider Clinical Nurse Specialist Family Health
DX: M25.569 Pain in unspecified knee (principal); F11.20 Opioid dependence, uncomplicated
CPT/HCPCS: 99212

== ENCOUNTER 2018-10-09 11:09 | Outpatient (CLI) | payer MEDICARE, OTHER, SELFPAY ==
[2018-10-09 12:05] LABS: PHA INR Fingerstick 2.6 (0.9-1.1)
== END 2018-10-09 12:07 | disposition home or self-care (01) ==
LOC: ACC 11:10
PROVIDERS: PCP Nurse Practitioner Family; Visit Provider Nurse Practitioner Family
DX: Z51.81 Encounter for therapeutic drug level monitoring (principal); Z79.01 Long term (current) use of anticoagulants; Z95.2 Presence of prosthetic heart valve; I10 Essential (primary) hypertension; M00.9 Pyogenic arthritis, unspecified; L40.50 Arthropathic psoriasis, unspecified; Z79.2 Long term (current) use of antibiotics
CPT/HCPCS: 85610; 99211; G0463

== ENCOUNTER 2018-10-18 10:57 | Outpatient (CLI) | payer MEDICARE, OTHER, SELFPAY ==
[2018-10-18 14:26] LABS: PHA INR Fingerstick 3.6 (0.9-1.1)
== END 2018-10-18 14:28 | disposition home or self-care (01) ==
LOC: ACC 10:58
PROVIDERS: PCP Internal Medicine Adolescent Medicine; Visit Provider Internal Medicine Adolescent Medicine
DX: I35.9 Nonrheumatic aortic valve disorder, unspecified (principal)
CPT/HCPCS: 85610; 99211; G0463

== ENCOUNTER → 2018-10-30 10:09 | Outpatient (POV) | payer MEDICARE, OTHER, SELFPAY ==
[2018-10-30 10:45] VITALS: BP 152/73; PULSE 74; RESP 18; O2SAT 98; BMI 29.9
--- NOTE | 2018-10-30 10:53 | P.CONS_ITS ---
[facility] Pain Management SOAP Note Subjective:: Patient is a pleasant 68-year-old female who presents today for follow-up after medication change. We are currently weaning her off of her oxycodone. She is currently on Percocet 5 mg 1-1/2 tablets p.o. daily. She says she is doing well, and rates her pain a 0 out of 10 today. She does state that she has occasional knee pain with increased activity, that she is able to tolerate this. ROS General: no recent weight change, no fever, no sleep disturbances Respiratory: no cough, no shortness of air, no recurring pulmonary infections Cardiovascular/Peripheral Vascular: No chest pain, No palpitations, no edema, no shortness of breath. Gastrointestinal: no incontinence, normal bowel movements reported Genitourinary: no incontinence Musculoskeletal: Knee pain, joint pain Psychiatric: normal mood/ affect, [denies depression], [denies anxiety] Neurological: [denies weakness in extremities], [denies balance issues] Objective:: Physical Exam General: Alert and oriented x3, no acute distress, pleasant and cooperative, [on room air] Lungs: Resps E/U, Symmetrical chest expansion, Eyes: PERRL Musculoskeletal: Range of motion to left knee somewhat guarded secondary to pain, deep tendon reflexes normal, strength in upper and lower extremities [5/5], [abnormal gait noted] Neurological: speech clear, movie shot camera operator equal, no gross sensory deficits Assessment:: Opioid dependence, knee pain Plan:: The patient is in agreement that she would like to wean down further with her medication. We will change her Percocet to 5 mg 1 tablet p.o. daily. We will see her back in 1 month to reassess her symptoms at that time. Her Kyaw #[id number] has been reviewed and is appropriate. She is been instructed to call the office if she has any concerns prior to her next appointment.
== END ==
PROVIDERS: PCP Nurse Practitioner Family; Visit Provider Clinical Nurse Specialist Family Health
DX: M25.562 Pain in left knee (principal); F11.20 Opioid dependence, uncomplicated
CPT/HCPCS: 99212

== ENCOUNTER 2018-11-02 10:29 | Outpatient (CLI) | payer MEDICARE, OTHER, SELFPAY ==
[2018-11-02 15:21] LABS: PHA INR Fingerstick 2.7 (0.9-1.1)
== END 2018-11-02 15:59 | disposition home or self-care (01) ==
LOC: ACC 10:30
PROVIDERS: PCP Internal Medicine Adolescent Medicine; Visit Provider Nurse Practitioner Family
DX: Z51.81 Encounter for therapeutic drug level monitoring (principal); Z79.01 Long term (current) use of anticoagulants; I35.9 Nonrheumatic aortic valve disorder, unspecified
CPT/HCPCS: 85610; 99211; G0463

== ENCOUNTER 2018-11-13 13:57 | Outpatient (CLI) | payer MEDICARE, OTHER, SELFPAY ==
[2018-11-13 15:20] LABS: PHA INR Fingerstick 3.5 (0.9-1.1)
== END 2018-11-13 15:22 | disposition home or self-care (01) ==
LOC: ACC 13:58
PROVIDERS: PCP Nurse Practitioner Family; Visit Provider Nurse Practitioner Family
DX: Z51.81 Encounter for therapeutic drug level monitoring (principal); Z79.01 Long term (current) use of anticoagulants; I35.9 Nonrheumatic aortic valve disorder, unspecified
CPT/HCPCS: 85610; 99211; G0463

== ENCOUNTER → 2018-11-26 09:10 | Outpatient (POV) | payer MEDICARE, OTHER, SELFPAY ==
--- NOTE | 2018-11-26 09:23 | HMH.PAINSOAP ---
[facility] Pain Management SOAP Note Subjective:: Patient is a pleasant 68-year-old white female who presents today changes. She is currently weaning off of her oxycodone and is doing extremely well her Jaime #[id number] reviewed and appropriate. She is effectively wean down to 5 mg of Percocet daily. She is to cut this to half pill a day. She rates her pain a 1 out of 10 and she has occasional knee pain with increased activities. She is unable to take NSAIDs She denies any side effects from her medication her urine drug screens have been appropriate. Review of Systems General: No recent weight changes, no fever, no sleep disturbances Respiratory: No cough, no shortness of air, no recurring pulmonary infections Cardiovascular/peripheral vascular: No chest pain, no palpitations, no edema, no shortness of breath Gastrointestinal: No new onset incontinence, normal bowel movements reported Genitourinary: No new onset incontinence Musculoskeletal: Knee pain, joint pain Psychiatric: Normal mood/affect Neurological: [Denies weakness in extremities], [denies balance issues] Objective:: Physical exam General: Alert and oriented x3, no acute distress, pleasant and cooperative, [on room air] Lungs: Respirations even and unlabored, symmetrical chest expansion Eyes: PERRL Musculoskeletal: Flexion and extension of left knee somewhat guarded secondary to pain, deep tendon reflexes normal, strength in upper and lower extremities [5/5], [abnormal gait noted] Neurological: Speech clear, glass ribbon machine operator equal, no gross sensory deficit Assessment:: Opioid dependence, knee pain Plan:: We will refill the patient's Percocet 5 mg one half tab p.o. nightly. We will dispense 15. Patient is to be seen back in 1 month we will also add gabapentin 100 mg at bedtime. Patient's been instructed to call the office if she has any issues prior to her next appointment. Patient has been prescribed a controlled substance after being counseled on the medication, medication safety, and possible side effects. JAIME report has been obtained and reviewed prior to prescription and found to be appropriate. Opioid contract was reviewed and signed by the patient, and that they have agreed to all of the terms set forth by our compliance program. Dr. Valderrama has reviewed this note and agrees with this plan of care. This note was dictated using voice recognition software and make contain errors or omissions.
[2018-11-26 09:28] VITALS: BP 123/78; PULSE 83; RESP 18; O2SAT 98; BMI 30.7
--- NOTE | 2018-11-26 09:31 | P.CONS_ITS ---
[facility] Pain Management SOAP Note Subjective:: Patient is a pleasant 68-year-old white female who presents today changes. She is currently weaning off of her oxycodone and is doing extremely well her Jaime #[id number] reviewed and appropriate. She is effectively wean down to 5 mg of Percocet daily. She is to cut this to half pill a day. She rates her pain a 1 out of 10 and she has occasional knee pain with increased activities. She is unable to take NSAIDs She denies any side effects from her medication her urine drug screens have been appropriate. Review of Systems General: No recent weight changes, no fever, no sleep disturbances Respiratory: No cough, no shortness of air, no recurring pulmonary infections Cardiovascular/peripheral vascular: No chest pain, no palpitations, no edema, no shortness of breath Gastrointestinal: No new onset incontinence, normal bowel movements reported Genitourinary: No new onset incontinence Musculoskeletal: Knee pain, joint pain Psychiatric: Normal mood/affect Neurological: [Denies weakness in extremities], [denies balance issues] Objective:: Physical exam General: Alert and oriented x3, no acute distress, pleasant and cooperative, [on room air] Lungs: Respirations even and unlabored, symmetrical chest expansion Eyes: PERRL Musculoskeletal: Flexion and extension of left knee somewhat guarded secondary to pain, deep tendon reflexes normal, strength in upper and lower extremities [5/5], [abnormal gait noted] Neurological: Speech clear, promotions manager equal, no gross sensory deficit Assessment:: Opioid dependence, knee pain Plan:: We will refill the patient's Percocet 5 mg one half tab p.o. nightly. We will dispense 15. Patient is to be seen back in 1 month we will also add gabapentin 100 mg at bedtime. Patient's been instructed to call the office if she has any issues prior to her next appointment. Patient has been prescribed a controlled substance after being counseled on the medication, medication safety, and possible side effects. JAIME report has been obtained and reviewed prior to prescription and found to be appropriate. Opioid contract was reviewed and signed by the patient, and that they have agreed to all of the terms set forth by our compliance program. Dr. Valderrama has reviewed this note and agrees with this plan of care. This note was dictated using voice recognition software and make contain errors or omissions.
== END ==
PROVIDERS: PCP Nurse Practitioner Family; Visit Provider Clinical Nurse Specialist Family Health
DX: M25.569 Pain in unspecified knee (principal); F11.20 Opioid dependence, uncomplicated
CPT/HCPCS: 99212

== ENCOUNTER 2018-11-27 13:23 | Outpatient (CLI) | payer MEDICARE, OTHER, SELFPAY | END 2018-11-27 14:34 | disposition home or self-care (01) | LOC: ACC 13:25 | PROVIDERS: PCP Nurse Practitioner Family; Visit Provider Nurse Practitioner Family | DX: Z51.11 Encounter for antineoplastic chemotherapy (principal); Z79.01 Long term (current) use of anticoagulants; I35.9 Nonrheumatic aortic valve disorder, unspecified | CPT/HCPCS: 85610; 99211; G0463 ==

== ENCOUNTER → 2018-12-07 16:31 | Outpatient (CLI) | payer MEDICARE, OTHER, SELFPAY ==
--- NOTE | 2018-12-07 16:40 | XR_ITS ---
XR ribs RT min 3V w CXR1V HISTORY: Rib pain following injury ITS.REASON: CLOSED FRACTURE OF MULTIPLE RIBS ORDERING PHYSICIAN: Alex Claros MD PATIENT AGE: 68 years Comparison: None FINDINGS: Frontal view of the chest shows prior median sternotomy with aortic valve replacement. The lungs are clear. Multiple views of the right ribs show no displaced fracture. No evidence of pneumothorax or other significant anomalies. There is nondisplaced fracture of the superiormost median sternotomy wire age indeterminate. IMPRESSION: No acute finding, no displaced rib fracture evident. If pain persists, consider follow-up exam or CT with 3-D reformats for further evaluation
== END ==
PROVIDERS: PCP Internal Medicine Adolescent Medicine; Visit Provider Internal Medicine Adolescent Medicine
DX: S22.41XA Multiple fractures of ribs, right side, initial encounter for closed fracture (principal)
CPT/HCPCS: 71101

== ENCOUNTER → 2018-12-17 09:43 | Outpatient (POV) | payer MEDICARE, OTHER, SELFPAY ==
[2018-12-17 09:50] VITALS: BP 144/89; PULSE 84; RESP 18; O2SAT 99; BMI 30.7
--- NOTE | 2018-12-17 09:59 | HMH.PAINSOAP ---
[facility] Pain Management SOAP Note Subjective:: She is a pleasant 68-year-old white female who presents today for vacation refills. Patient is currently being weaned off of her oxycodone and is doing extremely well. Jaime #[id number] reviewed and appropriate. Patient's current lead taking 2.5 mg of Percocet daily. She rates her pain today 3 out of 10 however this is due to a fall she recently had she is unable to take NSAIDs. She is also doing well on her gabapentin 100 mg nightly. Her urine drug screens have been appropriate. ROS General: no recent weight change, no fever, no sleep disturbances Respiratory: no cough, no shortness of air, no recurring pulmonary infections Cardiovascular/Peripheral Vascular: No chest pain, No palpitations, no edema, no shortness of breath. Gastrointestinal: no incontinence, normal bowel movements reported Genitourinary: no incontinence Musculoskeletal: Knee pain Psychiatric: normal mood/ affect Neurological: [denies weakness in extremities], [denies balance issues] Objective:: Physical Exam General: Alert and oriented x3, no acute distress, pleasant and cooperative, [on room air] Lungs: Resps E/U, Symmetrical chest expansion, Eyes: PERRL Musculoskeletal: Flexion and extension of left knee spine somewhat guarded secondary to pain, deep tendon reflexes normal, strength in upper and lower extremities [5/5], [abnormal gait noted] Neurological: speech clear, hospice nurse equal, no gross sensory deficits Assessment:: Opioid dependence, knee pain Plan:: We will start with Percocet 2.5 mg every half a day we will prescribe Percocet 5 mg #10. Patient will increase her gabapentin to 200 mg at bedtime. She is instructed to call the office if she has any issues before her next appointment we will see her back in 1 month. Patient has been prescribed a controlled substance after being counseled on the medication, medication safety, and possible side effects. JAIME report has been obtained and reviewed prior to prescription and found to be appropriate. Opioid contract was reviewed and signed by the patient, and that they have agreed to all of the terms set forth by our compliance program. Dr. Valderrama has reviewed this note and agrees with this plan of care. This note was dictated using voice recognition software and may contain errors or omissions Pain Management Hx Components *Have you ever received a pneumonia vaccine?: Yes *Have you received a flu vaccine this season?: Yes - *Social History *Occupational Status:: other *Travel in the last 8 weeks: None
== END ==
PROVIDERS: PCP Nurse Practitioner Family; Visit Provider Clinical Nurse Specialist Family Health
DX: M25.569 Pain in unspecified knee (principal); F11.20 Opioid dependence, uncomplicated
CPT/HCPCS: 99212

== ENCOUNTER 2018-12-18 11:04 | Outpatient (CLI) | payer MEDICARE, OTHER, SELFPAY ==
[2018-12-18 15:40] LABS: PHA INR Fingerstick 2.6 (0.9-1.1)
== END 2018-12-18 15:46 | disposition home or self-care (01) ==
LOC: ACC 11:05
PROVIDERS: PCP Nurse Practitioner Family; Visit Provider Nurse Practitioner Family
DX: Z51.81 Encounter for therapeutic drug level monitoring (principal); Z79.01 Long term (current) use of anticoagulants; I35.9 Nonrheumatic aortic valve disorder, unspecified
CPT/HCPCS: 85610

== ENCOUNTER → 2019-01-14 14:20 | Outpatient (POV) | payer MEDICARE, OTHER, SELFPAY ==
[2019-01-14 15:03] VITALS: BP 141/78; PULSE 88; RESP 18; O2SAT 98; BMI 31.2
--- NOTE | 2019-01-15 08:27 | HMH.PAINSOAP ---
[facility] Pain Management SOAP Note Subjective:: Is a very pleasant 68-year-old white female who presents today for follow-up. Patient has been weaning off of her oxycodone and doing extremely well however this last wean has had some issues. Patient is disappointed with herself today. Patient and I talked about how good she is done coming down off of her narcotics. At this time she is taking Percocet half tab (2.5 mg) every other day. Patient states on the days that she did not take it she is suffered from quite a bit of anxiety. She states she is not having any pain however she feels that the anxiety is secondary to dependence. Patient and I also talked about adding oxazepam in the evenings to help with this she is interested in moving forward with this. ROS General: no recent weight change, no fever, no sleep disturbances Respiratory: no cough, no shortness of air, no recurring pulmonary infections Cardiovascular/Peripheral Vascular: No chest pain, No palpitations, no edema, no shortness of breath. Gastrointestinal: no incontinence, normal bowel movements reported Genitourinary: no incontinence Musculoskeletal: Knee pain at times Psychiatric: Anxious Neurological: [denies weakness in extremities], [denies balance issues] Objective:: Physical Exam General: Alert and oriented x3, no acute distress, pleasant and cooperative, [on room air] Lungs: Resps E/U, Symmetrical chest expansion, Eyes: PERRL Musculoskeletal: Flexion and extension of bilateral knees somewhat guarded secondary to pain, deep tendon reflexes normal, strength in upper and lower extremities [5/5], [abnormal gait noted] Neurological: speech clear, medical office manager equal, no gross sensory deficits Assessment:: Opioid dependence, knee pain Plan:: We will give her oxazepam 10 mg 1 p.o. nightly. We will see how this does for her we will see her back in a week reassess her symptoms at that time she is been instructed to call the office if she has any issues prior to her next appointment. Dr. Valderrama has reviewed this note and agrees with this plan of care. This note was dictated using voice recognition software and may contain errors or omissions Pain Management Hx Components *Have you ever received a pneumonia vaccine?: Yes *Have you received a flu vaccine this season?: Yes - *Social History *Occupational Status:: other *Travel in the last 8 weeks: None
== END ==
PROVIDERS: PCP Nurse Practitioner Family; Visit Provider Clinical Nurse Specialist Family Health
DX: F11.20 Opioid dependence, uncomplicated (principal); M25.569 Pain in unspecified knee
CPT/HCPCS: 99212

== ENCOUNTER 2019-01-16 13:32 | Outpatient (CLI) | payer MEDICARE, OTHER, SELFPAY ==
[2019-01-16 15:21] LABS: PHA INR Fingerstick 2.6 (0.9-1.1)
== END 2019-01-16 15:32 | disposition home or self-care (01) ==
PROVIDERS: PCP Internal Medicine Adolescent Medicine; Visit Provider Internal Medicine Adolescent Medicine
DX: Z51.81 Encounter for therapeutic drug level monitoring (principal); Z79.01 Long term (current) use of anticoagulants; I35.9 Nonrheumatic aortic valve disorder, unspecified
CPT/HCPCS: 85610; 99211; G0463

== ENCOUNTER → 2019-01-21 11:48 | Outpatient (POV) | payer MEDICARE, OTHER, SELFPAY ==
[2019-01-21 12:19] VITALS: BP 120/68; PULSE 78; RESP 18; O2SAT 98; BMI 30.7
--- NOTE | 2019-01-21 12:35 | HMH.PAINSOAP ---
[facility] Pain Management SOAP Note Subjective:: Patient is a pleasant 68-year-old white female who presents today for follow-up. Patient is being weaned off of her Percocet. Patient was having some anxiety on days that she was not taking her 2.5 mg of Percocet. We added oxazepam and she is doing much better. She is continuing to cut down to 2.5 mg every other day. She has no pain today ROS General: no recent weight change, no fever, no sleep disturbances Respiratory: no cough, no shortness of air, no recurring pulmonary infections Cardiovascular/Peripheral Vascular: No chest pain, No palpitations, no edema, no shortness of breath. Gastrointestinal: no incontinence, normal bowel movements reported Genitourinary: no incontinence Musculoskeletal: Knee pain intermittently Psychiatric: normal mood/ affect Neurological: [denies weakness in extremities], [denies balance issues] Objective:: Physical Exam General: Alert and oriented x3, no acute distress, pleasant and cooperative, [on room air] Lungs: Resps E/U, Symmetrical chest expansion, Eyes: PERRL Musculoskeletal: deep tendon reflexes normal, strength in upper and lower extremities [5/5], slightly antalgic gait noted Neurological: speech clear, drywall hanger equal, no gross sensory deficits Assessment:: Opioid dependence, knee pain Plan:: Patient is to continue to take her Percocet every other day along with her oxazepam I will follow-up with her in 2 weeks reassess her at that time. She is been instructed to call the office if she has any issues prior to her next appointment. Dr. Valderrama has reviewed this note and agrees with this plan of care. This note was dictated using voice recognition software and may contain errors or omissions [facility] History I have reviewed the patient's past medical history: Yes 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: Reports:: Asthma, Atherosclerotic Heart Disease, Cancer (thyroid), Heart Murmur, Hyperlipidemia, Hypertension, Renal Disease, Renal Insufficiency Denies:: Diabetes Mellitus Type 1, Diabetes Mellitus Type 2, MRSA *Have you ever received a pneumonia vaccine?: Yes *Have you received a flu vaccine this season?: Yes Other 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: Reports: Anemia, Arthritis, Thyroid Disease Laterality Cases: Left: Other, Right: Arthroscopy Knee Other Surgeries: Yes: Bariatric Surgery, Cardiac Surgery, Cholecystectomy, Hysterectomy-Partial (ovary), Thyroidectomy, Other Valve Replacement Amputation: No Fractures: No - *Social History Smoking Status: Never smoker Alcohol Intake: never Substance Use Type: painkillers *Occupational Status:: other Housing: house Household Members: other *Travel in the last 8 weeks: None Family Hx:: Cancer, Kidney Disease
--- NOTE | 2019-01-21 12:39 | P.CONS_ITS ---
[facility] Pain Management SOAP Note Subjective:: Patient is a pleasant 68-year-old white female who presents today for follow-up. Patient is being weaned off of her Percocet. Patient was having some anxiety on days that she was not taking her 2.5 mg of Percocet. We added oxazepam and she is doing much better. She is continuing to cut down to 2.5 mg every other day. She has no pain today ROS General: no recent weight change, no fever, no sleep disturbances Respiratory: no cough, no shortness of air, no recurring pulmonary infections Cardiovascular/Peripheral Vascular: No chest pain, No palpitations, no edema, no shortness of breath. Gastrointestinal: no incontinence, normal bowel movements reported Genitourinary: no incontinence Musculoskeletal: Knee pain intermittently Psychiatric: normal mood/ affect Neurological: [denies weakness in extremities], [denies balance issues] Objective:: Physical Exam General: Alert and oriented x3, no acute distress, pleasant and cooperative, [on room air] Lungs: Resps E/U, Symmetrical chest expansion, Eyes: PERRL Musculoskeletal: deep tendon reflexes normal, strength in upper and lower extremities [5/5], slightly antalgic gait noted Neurological: speech clear, heel seat sander equal, no gross sensory deficits Assessment:: Opioid dependence, knee pain Plan:: Patient is to continue to take her Percocet every other day along with her oxazepam I will follow-up with her in 2 weeks reassess her at that time. She is been instructed to call the office if she has any issues prior to her next appointment. Dr. Valderrama has reviewed this note and agrees with this plan of care. This note was dictated using voice recognition software and may contain errors or omissions [facility] History I have reviewed the patient's past medical history: Yes 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: Reports:: Asthma, Atherosclerotic Heart Disease, Cancer (thyroid), Heart Murmur, Hyperlipidemia, Hypertension, Renal Disease, Renal Insufficiency Denies:: Diabetes Mellitus Type 1, Diabetes Mellitus Type 2, MRSA *Have you ever received a pneumonia vaccine?: Yes *Have you received a flu vaccine this season?: Yes Other 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: Reports: Anemia, Arthritis, Thyroid Disease Laterality Cases: Left: Other, Right: Arthroscopy Knee Other Surgeries: Yes: Bariatric Surgery, Cardiac Surgery, Cholecystectomy, Hysterectomy-Partial (ovary), Thyroidectomy, Other Valve Replacement Amputation: No Fractures: No - *Social History Smoking Status: Never smoker Alcohol Intake: never Substance Use Type: painkillers *Occupational Status:: other Housing: house Household Members: other *Travel in the last 8 weeks: None Family Hx:: Cancer, Kidney Disease
== END ==
PROVIDERS: PCP Nurse Practitioner Family; Visit Provider Clinical Nurse Specialist Family Health
DX: F11.20 Opioid dependence, uncomplicated (principal); M25.569 Pain in unspecified knee
CPT/HCPCS: 99212

== ENCOUNTER → 2019-02-04 08:54 | Outpatient (POV) | payer MEDICARE, OTHER, SELFPAY ==
[2019-02-04 09:05] VITALS: BP 123/84; PULSE 80; RESP 18; O2SAT 98; BMI 31.2
--- NOTE | 2019-03-19 08:53 | HMH.PAINSOAP ---
[facility] Pain Management SOAP Note Subjective:: Patient is a pleasant 68-year-old white female who presents today for follow-up. We are continually weaning her Percocet. Patient also is starting CBD oil. Patient is doing overall well. Patient denies side effects to the medication. She does have difficulty with taking only half a pill every other day I encouraged her to utilize CBD oil and we may add some tramadol to help with this. Her overall goal to get her off the Percocet completely. She rates her pain today a 0 out of 10. ROS General: no recent weight change, no fever, no sleep disturbances Respiratory: no cough, no shortness of air, no recurring pulmonary infections Cardiovascular/Peripheral Vascular: No chest pain, No palpitations, no edema, no shortness of breath. Gastrointestinal: no new onset incontinence, normal bowel movements reported Genitourinary: no new onset incontinence Musculoskeletal: Knee pain at times Psychiatric: normal mood/ affect, [denies depression], [denies anxiety] Neurological: [denies new onset weakness in extremities], [denies new onset balance issues] Objective:: Physical Exam General: Alert and oriented x3, no acute distress, pleasant and cooperative, [on room air] Lungs: Resps E/U, Symmetrical chest expansion, Eyes: PERRL Musculoskeletal: Range of motion bilateral knees somewhat guarded secondary to pain, deep tendon reflexes normal, strength in upper and lower extremities [5/5], antalgic gait noted Neurological: speech clear, wolf hunter equal, no gross sensory deficits Assessment:: Opioid dependence, bilateral knee pain at times Plan:: Patient will continue on her Percocet 2.5 mg every other day. I will follow-up with the patient in 2 weeks reassess her symptoms at that time she is been instructed to call the office if she has any issues prior to her next appointment. Dr. Valderrama has reviewed this note and agrees with this plan of care. This note was dictated using voice recognition software and may contain errors or omissions [facility] History I have reviewed the patient's past medical history: Yes 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: Reports:: Asthma, Atherosclerotic Heart Disease, Cancer (thyroid), Heart Murmur, Hyperlipidemia, Hypertension, Renal Disease, Renal Insufficiency Denies:: Diabetes Mellitus Type 1, Diabetes Mellitus Type 2, MRSA *Have you ever received a pneumonia vaccine?: No *Have you received a flu vaccine this season?: No Other 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: Reports: Anemia, Arthritis, Thyroid Disease Laterality Cases: Left: Other, Right: Arthroscopy Knee Other Surgeries: Yes: Bariatric Surgery, Cardiac Surgery, Cholecystectomy, Hysterectomy-Partial (ovary), Thyroidectomy, Other Valve Replacement Amputation: No Fractures: No - *Social History Smoking Status: Never smoker Alcohol Intake: never Substance Use Type: painkillers *Occupational Status:: other Housing: house Household Members: other *Travel in the last 8 weeks: None Family Hx:: Cancer, Kidney Disease
--- NOTE | 2019-03-19 08:56 | P.CONS_ITS ---
[facility] Pain Management SOAP Note Subjective:: Patient is a pleasant 68-year-old white female who presents today for follow-up. We are continually weaning her Percocet. Patient also is starting CBD oil. Patient is doing overall well. Patient denies side effects to the medication. She does have difficulty with taking only half a pill every other day I encouraged her to utilize CBD oil and we may add some tramadol to help with this. Her overall goal to get her off the Percocet completely. She rates her pain today a 0 out of 10. ROS General: no recent weight change, no fever, no sleep disturbances Respiratory: no cough, no shortness of air, no recurring pulmonary infections Cardiovascular/Peripheral Vascular: No chest pain, No palpitations, no edema, no shortness of breath. Gastrointestinal: no new onset incontinence, normal bowel movements reported Genitourinary: no new onset incontinence Musculoskeletal: Knee pain at times Psychiatric: normal mood/ affect, [denies depression], [denies anxiety] Neurological: [denies new onset weakness in extremities], [denies new onset balance issues] Objective:: Physical Exam General: Alert and oriented x3, no acute distress, pleasant and cooperative, [on room air] Lungs: Resps E/U, Symmetrical chest expansion, Eyes: PERRL Musculoskeletal: Range of motion bilateral knees somewhat guarded secondary to pain, deep tendon reflexes normal, strength in upper and lower extremities [5/5], antalgic gait noted Neurological: speech clear, java security architect equal, no gross sensory deficits Assessment:: Opioid dependence, bilateral knee pain at times Plan:: Patient will continue on her Percocet 2.5 mg every other day. I will follow-up with the patient in 2 weeks reassess her symptoms at that time she is been instructed to call the office if she has any issues prior to her next appointment. Dr. Valderrama has reviewed this note and agrees with this plan of care. This note was dictated using voice recognition software and may contain errors or omissions [facility] History I have reviewed the patient's past medical history: Yes 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: Reports:: Asthma, Atherosclerotic Heart Disease, Cancer (thyroid), Heart Murmur, Hyperlipidemia, Hypertension, Renal Disease, Renal Insufficiency Denies:: Diabetes Mellitus Type 1, Diabetes Mellitus Type 2, MRSA *Have you ever received a pneumonia vaccine?: No *Have you received a flu vaccine this season?: No Other 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: Reports: Anemia, Arthritis, Thyroid Disease Laterality Cases: Left: Other, Right: Arthroscopy Knee Other Surgeries: Yes: Bariatric Surgery, Cardiac Surgery, Cholecystectomy, Hysterectomy-Partial (ovary), Thyroidectomy, Other Valve Replacement Amputation: No Fractures: No - *Social History Smoking Status: Never smoker Alcohol Intake: never Substance Use Type: painkillers *Occupational Status:: other Housing: house Household Members: other *Travel in the last 8 weeks: None Family Hx:: Cancer, Kidney Disease
== END ==
PROVIDERS: PCP Nurse Practitioner Family; Visit Provider Clinical Nurse Specialist Family Health
DX: M25.562 Pain in left knee (principal); F11.20 Opioid dependence, uncomplicated; M25.561 Pain in right knee
CPT/HCPCS: 99212

== ENCOUNTER → 2019-02-18 09:10 | Outpatient (POV) | payer MEDICARE, OTHER, SELFPAY ==
[2019-02-18 09:41] VITALS: BP 150/80; PULSE 87; RESP 18; O2SAT 98; BMI 24.8
--- NOTE | 2019-02-18 09:51 | P.CONS_ITS ---
[facility] Pain Management SOAP Note Subjective:: She is pleasant 68-year-old white female who presents today for follow-up. Patient is being weaned off of her narcotic medications. She is overall doing well she is currently on Percocet 2.5 mg every other day. In the meantime she is taking tramadol and oxazepam on the additional days. She also has started CBD oil which has been very beneficial for her. Patient rates her pain a 0 out of 10 today. Overall doing well ROS General: no recent weight change, no fever, no sleep disturbances Respiratory: no cough, no shortness of air, no recurring pulmonary infections Cardiovascular/Peripheral Vascular: No chest pain, No palpitations, no edema, no shortness of breath. Gastrointestinal: no incontinence, normal bowel movements reported Genitourinary: no incontinence Musculoskeletal: Knee pain at times Psychiatric: normal mood/ affect Neurological: [denies weakness in extremities], [denies balance issues] Objective:: Physical Exam General: Alert and oriented x3, no acute distress, pleasant and cooperative, [on room air] Lungs: Resps E/U, Symmetrical chest expansion, Eyes: PERRL Musculoskeletal: Flexion and extension of lumbar spine somewhat guarded secondary to pain, deep tendon reflexes normal, strength in upper and lower extremities [5/5], [abnormal gait noted] Neurological: speech clear, sap hana developer equal, no gross sensory deficits Assessment:: Opioid dependency, knee pain Plan:: We will refill her Percocet 5 mg which she is to cut in half and take every other day. We will also refill her tramadol 50 mg 1 p.o. daily and her oxazepam 10 mg 1 p.o. daily. We will see her back in 1 month reassess her symptoms at that time she is been instructed to call the office if she has any issues prior to her next appointment. Patient has been prescribed a controlled substance after being counseled on the medication, medication safety, and possible side effects. JAIME report has been obtained and reviewed prior to prescription and found to be appropriate. Opioid contract was reviewed and signed by the patient, and that they have agreed to all of the terms set forth by our compliance program. Dr. Valderrama has reviewed this note and agrees with this plan of care. This note was dictated using voice recognition software and may contain errors or omissions [facility] History I have reviewed the patient's past medical history: Yes 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: Reports:: Asthma, Atherosclerotic Heart Disease, Cancer (thyroid), Heart Murmur, Hyperlipidemia, Hypertension, Renal Disease, Renal Insufficiency Denies:: Diabetes Mellitus Type 1, Diabetes Mellitus Type 2, MRSA *Have you ever received a pneumonia vaccine?: Yes *Have you received a flu vaccine this season?: Yes Other 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: Reports: Anemia, Arthritis, Thyroid Disease Laterality Cases: Left: Other, Right: Arthroscopy Knee Other Surgeries: Yes: Bariatric Surgery, Cardiac Surgery, Cholecystectomy, Hysterectomy-Partial (ovary), Thyroidectomy, Other Valve Replacement Amputation: No Fractures: No - *Social History Smoking Status: Never smoker Alcohol Intake: never Substance Use Type: painkillers *Occupational Status:: other Housing: house Household Members: other *Travel in the last 8 weeks: None Family Hx:: Cancer, Kidney Disease
[2019-02-18 17:01] LABS: Amphetamine/Metha Screen,Urine Negative ng/mL (<1000); Barbiturates Screen,Urine Negative ng/mL (<200); Benzodiazepines Screen,Urine Negative ng/mL (<200); Cannabinoid Screen,Urine Negative ng/mL (<50); Cocaine Screen,Urine Negative ng/mL (<300); Methadone Screen,Urine Negative ng/mL (<300); Opiate Screen,Urine Negative ng/mL (<300); Phencyclidine Screen,Urine Negative ng/mL (<25)
[2019-02-23 16:14] LABS: Oxycodone (GC/MS) 161 ng/mL (Cutoff=100)
[2019-02-23 20:01] LABS: Opiates Negative (Cutoff=100); Oxymorphone (GC/MS) 233 ng/mL (Cutoff=100)
--- NOTE | 2019-03-25 14:08 | PC.NURSE ---
called in Rx for Tramadol HCL 50mg daily with no refills per provider order.
== END ==
PROVIDERS: PCP Nurse Practitioner Family; Visit Provider Clinical Nurse Specialist Family Health
DX: M25.569 Pain in unspecified knee (principal); F11.21 Opioid dependence, in remission; Z79.899 Other long term (current) drug therapy
CPT/HCPCS: 80305; 80361; 80365; 99212; G0480

== ENCOUNTER → 2019-02-23 10:28 | Outpatient (CLI) | payer MEDICARE, OTHER, SELFPAY ==
[2019-02-23 11:45] LABS: INR 1.26 (0.9-1.1)
== END ==
PROVIDERS: Visit Provider Internal Medicine Adolescent Medicine
DX: Z51.81 Encounter for therapeutic drug level monitoring (principal); Z79.01 Long term (current) use of anticoagulants
CPT/HCPCS: 36415; 85610

== ENCOUNTER 2019-02-26 10:24 | Outpatient (CLI) | payer MEDICARE, OTHER, SELFPAY ==
[2019-02-26 11:51] LABS: PHA INR Fingerstick 2.2 (0.9-1.1)
== END 2019-02-26 11:55 | disposition home or self-care (01) ==
LOC: ACC 10:25
PROVIDERS: PCP Nurse Practitioner Family; Visit Provider Nurse Practitioner Family
DX: Z51.81 Encounter for therapeutic drug level monitoring (principal); Z79.01 Long term (current) use of anticoagulants; I35.9 Nonrheumatic aortic valve disorder, unspecified
CPT/HCPCS: 85610; 99211; G0463

== ENCOUNTER 2019-03-01 08:58 | Outpatient (CLI) | payer MEDICARE, OTHER, SELFPAY | END 2019-03-01 13:54 | disposition home or self-care (01) | LOC: ACC 08:59 | PROVIDERS: PCP Internal Medicine Adolescent Medicine; Visit Provider Nurse Practitioner Family | DX: Z51.81 Encounter for therapeutic drug level monitoring (principal); Z79.01 Long term (current) use of anticoagulants; I35.9 Nonrheumatic aortic valve disorder, unspecified | CPT/HCPCS: 85610; 99211; G0463 ==

== ENCOUNTER 2019-03-05 11:03 | Outpatient (CLI) | payer MEDICARE, OTHER, SELFPAY ==
[2019-03-05 14:16] LABS: PHA INR Fingerstick 2.4 (0.9-1.1)
== END 2019-03-05 14:20 | disposition home or self-care (01) ==
LOC: ACC 11:06
PROVIDERS: PCP Nurse Practitioner Family; Visit Provider Nurse Practitioner Family
DX: Z51.81 Encounter for therapeutic drug level monitoring (principal); Z79.01 Long term (current) use of anticoagulants; I35.9 Nonrheumatic aortic valve disorder, unspecified
CPT/HCPCS: 85610; 99211; G0463

== ENCOUNTER 2019-03-11 10:23 | Outpatient (CLI) | payer MEDICARE, OTHER, SELFPAY ==
[2019-03-11 11:07] LABS: PHA INR Fingerstick 2.5 (0.9-1.1)
== END 2019-03-11 11:16 | disposition home or self-care (01) ==
LOC: ACC 10:24
PROVIDERS: PCP Nurse Practitioner Family; Visit Provider Nurse Practitioner Family
DX: Z51.81 Encounter for therapeutic drug level monitoring (principal); Z79.01 Long term (current) use of anticoagulants; I35.9 Nonrheumatic aortic valve disorder, unspecified
CPT/HCPCS: 85610; 99211; G0463

== ENCOUNTER 2019-03-18 10:01 | Outpatient (CLI) | payer MEDICARE, OTHER, SELFPAY ==
[2019-03-18 11:23] LABS: PHA INR Fingerstick 2.9 (0.9-1.1)
== END 2019-03-18 11:32 | disposition home or self-care (01) ==
LOC: ACC 10:02
PROVIDERS: PCP Nurse Practitioner Family; Visit Provider Nurse Practitioner Family
DX: Z79.01 Long term (current) use of anticoagulants (principal)
CPT/HCPCS: 85610; 99211; G0463

== ENCOUNTER → 2019-03-18 10:38 | Outpatient (POV) | payer MEDICARE, OTHER, SELFPAY ==
[2019-03-18 10:43] VITALS: BP 135/72; PULSE 74; RESP 18; O2SAT 98; BMI 31.2
--- NOTE | 2019-03-18 13:02 | P.CONS_ITS ---
[facility] Pain Management SOAP Note Subjective:: Patient is a pleasant 68-year-old white female who presents today for follow-up. Patient is being weaned off of her Percocet. Overall she is doing well she is been able to go up to 6 days without Percocet. She is currently on Percocet 2.5 mg every other day. Patient rates her pain a 2 out of 10 however it is due to the fact that she was recently kicked by horse. In the meantime she is also taking tramadol and oxazepam with her CBD oil. Overall doing well ROS General: no recent weight change, no fever, no sleep disturbances Respiratory: no cough, no shortness of air, no recurring pulmonary infections Cardiovascular/Peripheral Vascular: No chest pain, No palpitations, no edema, no shortness of breath. Gastrointestinal: no new onset incontinence, normal bowel movements reported Genitourinary: no new onset incontinence Musculoskeletal: Knee pain at times Psychiatric: normal mood/ affect Neurological: [denies new onset weakness in extremities], [denies new onset balance issues] Objective:: Physical Exam General: Alert and oriented x3, no acute distress, pleasant and cooperative, [on room air] Lungs: Resps E/U, Symmetrical chest expansion, Eyes: PERRL Musculoskeletal: Flexion and extension of lumbar spine somewhat guarded secondary to pain, deep tendon reflexes normal, strength in upper and lower extremities [5/5], slightly antalgic gait noted Neurological: speech clear, crayon grader equal, no gross sensory deficits Assessment:: Opioid dependence, knee pain Plan:: Patient is going to continue to wean. We will prescribe her 1 more month of Percocet 2.5 mg 1 p.o. 3 other night. I will follow-up with the patient 1 month reassess her symptoms at that time she is been instructed to call the office if she has any issues prior to her next appointment. Dr. Valderrama has reviewed this note and agrees with this plan of care. This note was dictated using voice recognition software and may contain errors or omissions [facility] History I have reviewed the patient's past medical history: Yes 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: Reports:: Asthma, Atherosclerotic Heart Disease, Cancer (thyroid), Heart Murmur, Hyperlipidemia, Hypertension, Renal Disease, Renal Insufficiency Denies:: Diabetes Mellitus Type 1, Diabetes Mellitus Type 2, MRSA *Have you ever received a pneumonia vaccine?: No *Have you received a flu vaccine this season?: No Other 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: Reports: Anemia, Arthritis, Thyroid Disease Laterality Cases: Left: Other, Right: Arthroscopy Knee Other Surgeries: Yes: Bariatric Surgery, Cardiac Surgery, Cholecystectomy, Hysterectomy-Partial (ovary), Thyroidectomy, Other Valve Replacement Amputation: No Fractures: No - *Social History Smoking Status: Never smoker Alcohol Intake: never Substance Use Type: painkillers *Occupational Status:: other Housing: house Household Members: other *Travel in the last 8 weeks: None Family Hx:: Cancer, Kidney Disease
== END ==
PROVIDERS: PCP Nurse Practitioner Family; Visit Provider Clinical Nurse Specialist Family Health
DX: F11.20 Opioid dependence, uncomplicated; M25.569 Pain in unspecified knee
CPT/HCPCS: 85610; 99211; 99212; G0463

== ENCOUNTER 2019-04-01 07:58 | Outpatient (CLI) | payer MEDICARE, OTHER, SELFPAY ==
--- NOTE | 2019-04-01 08:15 | CA_ITS ---
APPROVED REPORT EXAM: Comprehensive 2D, Doppler, and color-flow Echocardiogram Hand Shaper: Shoshana Sawant RVT Ht: 5 ft 5 in Wt: 188lbs BSA: 1.93 BP: 132/67 mmHg Indications: AV replacement 20 yrs ago, MVP Murmur, Hyperlipidemia, Hypertension 2D Dimensions LVOT 1.43 cm (M/F) 1.5-2.5 M-Mode Dimensions RVDd 1.61 cm (0.9-2.6) LA Diam 4.10 cm (1.9-4.0) LVDd 5.78 cm (3.5-5.7) Ao Diam 1.30 cm (2.0-3.7) LVDs 3.73 cm (3.5-5.7) IVSd 1.69 cm (0.6-1.1) PWd 1.22 cm (0.6-1.1) EF (Teich) 64.10% FS 35.50% EDV (Teich) 165.20 mL ESV (Teich) 59.30 mL LV Diastology E/A Ratio 1.09 Aortic Valve LVOT Max 257.00 (70-110 cm/s) LVOT VTI 60.83 cm Mitral Valve MV A Velocity 70.00 (40-130 cm/s) Left Ventricle Left atrium is mildly enlarged, left ventricle is normal size, mild concentric left ventricular hypertrophy, visually estimated ejection fraction 55% with no regional wall motion abnormality, endocardial surfaces are poorly visualized, grade 1 diastolic dysfunction seen with tissue Doppler evidence of raise left atrial pressure. Right Ventricle Right atrium and right ventricular normal size and contractility. Aortic Valve There is a bioprosthetic valve noted in the aortic position, the valve is well-seated, the mean gradient across valve is 22 mmHg, valve area is 1.3 cm???. Mitral Valve Mitral valve leaflets are minimally thickened, there is no mitral stenosis, there is mild mitral regurgitation. Tricuspid Valve Tricuspid valve is grossly normal, there is mild tricuspid regurgitation. Pulmonic Valve Pulmonic valve is poorly visualized. Great Vessels Aortic root is normal size. Pericardium No significant pericardial effusion noted. Conclusion 1. Mildly enlarged left atrium, normal left ventricular size, mild concentric left ventricular hypertrophy, visually estimated ejection fraction 55% with no regional wall motion abnormality, endocardial surfaces are poorly visualized, grade 1 diastolic dysfunction seen with tissue Doppler evidence of raise left atrial pressure. 2. Bioprosthetic valve in the aortic position, the valve is well-seated, the mean gradient across valve is 22 mmHg, valve area is 1.3 cm???. There is no aortic insufficiency. 3. Mild mitral and tricuspid regurgitation 4. No significant pericardial effusion noted. Electronically signed by : Neymar Lazo, 04/01/2019 20:54:13
[2019-04-01 09:42] LABS: Basophils % 0.6 % (0.1-2.0); Eosinophils # 0.2 K/mm3 (0.0-0.4); Eosinophils % 2.8 % (0.1-12.0); Hematocrit 34.1 % (37.0-47.0); Hemoglobin 10.6 g/dL (12.2-16.2); Lymphocytes # 0.7 K/mm3 (0.7-4.5); Lymphocytes % 13.2 % (10-50); Mean Corpuscular HGB Conc 31.2 g/dL (31.8-35.4); Mean Corpuscular Hemoglobin 26.4 pg (27.0-31.2); Mean Corpuscular Volume 84.8 fl (81-99); Mean Platelet Volume 7.9 fl (7.4-10.4); Monocytes # 0.3 K/mm3 (0.1-1.0); Monocytes % 5.5 % (1.7-9.3); Neutrophils # 4.3 K/mm3 (1.8-7.8); Neutrophils % 78.1 % (37.0-80.0); Platelet Count 277 K/mm3 (142-424); Red Blood Count 4.02 M/mm3 (4.20-5.40); Red Cell Distribution Width 15.5 % (11.5-17.5); White Blood Count 5.5 K/mm3 (4.8-10.8)
--- NOTE | 2019-04-01 10:00 | MM_ITS ---
PROCEDURE: MM DIG SCREENING MAMM BI W/CAD CLINICAL INDICATION: SCREENING There is a history of breast cancer patient's sister diagnosed after menopause and the patient's niece diagnosed before menopause. COMPARISON: [facility] MAMMO DIAG DIGITL RT from 09/08/2015 [facility] MAMMO SCRN DIGITL BILAT from 02/26/2016 [facility] MM Dig screening mamm BI w/CAD from 03/30/2018 TECHNIQUE: Standard CC and MLO images were obtained. R2 CAD reviewed. FINDINGS: Scattered fibroglandular densities are seen throughout both breasts. There are few scattered benign-appearing micro and macrocalcifications in each breast. There was a curious oval lesion superior aspect of the right breast just beneath the surface of the skin with a somewhat hypodense lesion and hyperdense rim measuring 2 point 1 by 1.1 cm. In view of its appearance and location this likely represents an evolving or developing oil cyst probably secondary to focal trauma at this location. This was not seen on last year's exam. Recommend the patient return for six-month follow-up right breast to evaluate for interval stability or resolution. There is no suspicious lesion and no suspicious microcalcifications. There is a biopsy clip right breast. There is a mole marker each breast. There is faint arterial calcification in each breast. IMPRESSION: Fibrofatty parenchyma with curious but benign-appearing lesion right breast BI-RAD Category: 3 Probably Benign Finding Short Term Follow-up FOLLOW-UP: 6M 6Month Follow-up (A letter has been sent to the patient regarding results of the study.) Dictated by: Dr. Louie Faria MD 04/02/2019 14:[address] Louie Faria MD in [place] 04/02/2019 14:59
[2019-04-01 11:05] LABS: PHA INR Fingerstick 3.6 (0.9-1.1)
[2019-04-01 11:46] LABS: Alanine Aminotransferase 14 U/L (12-78); Albumin Level 3.6 gm/dL (3.4-5.0); Albumin/Globulin Ratio 0.9 (1.1-1.8); Alkaline Phosphatase 91 U/L (46-116); Anion Gap 11.1 mEq/L (5-15); Aspartate Amino Transferase 23 U/L (15-37); Bilirubin,Total 0.2 mg/dL (0.2-1.0); Blood Urea Nitrogen 19 mg/dL (7-18); Calcium 8.3 mg/dL (8.5-10.1); Carbon Dioxide 28 mmol/L (21.0-32.0); Chloride 104 mmol/L (98-107); Chol/HDL Ratio 6.7 (1-3.5); Cholesterol 242 mg/dL (140-200); Creatinine,Serum 1.63 mg/dL (0.55-1.02); Estimated Glomerular Filt Rate 32 ml/min (>60); GFR (African American) 38 ML/MIN (>60); Globulin 3.8 gm/dl (1.3-3.2); Glucose 93 mg/dL (74-106); HDL Cholesterol 36 mg/dL (29-89); LDL Cholesterol 155 mg/dL (0-130); Potassium 4.1 mmoL/L (3.5-5.1); Sodium 139 mmol/L (136-145); Thyroid Stimulating Hormone 3.52 uIU/ml (0.358-3.740); Total Protein,Serum 7.4 gm/dL (6.4-8.2); Triglycerides 253 mg/dL (30-200); VLDL Cholesterol 51 mg/dL (0-40)
[2019-04-03 08:17] LABS: Iron 39 ug/dL (27-139); Iron Saturation 14 % (15-55); UIBC 240 ug/dL (118-369)
[2019-04-03 11:45] LABS: Vitamin B12 589 pg/mL (232-1245)
[2019-04-03 11:46] LABS: Folate >20.0 ng/mL (>3.0)
== END 2019-04-01 11:08 | disposition home or self-care (01) ==
PROVIDERS: PCP Nurse Practitioner Family; Visit Provider Nurse Practitioner Family
DX: Z95.2 Presence of prosthetic heart valve (principal); Z12.31 Encounter for screening mammogram for malignant neoplasm of breast; L40.50 Arthropathic psoriasis, unspecified; N18.3 Chronic kidney disease, stage 3 (moderate); E03.9 Hypothyroidism, unspecified; D64.9 Anemia, unspecified; Z51.81 Encounter for therapeutic drug level monitoring; Z79.01 Long term (current) use of anticoagulants
CPT/HCPCS: 36415; 77067; 80053; 80061; 82607; 82746; 83540; 83550; 84443; 85025; 85610; 93306; 99211; G0463

== ENCOUNTER 2019-04-12 11:01 | Outpatient (CLI) | payer MEDICARE, OTHER, SELFPAY ==
[2019-04-12 14:33] LABS: PHA INR Fingerstick 2.8 (0.9-1.1)
== END 2019-04-12 14:34 | disposition home or self-care (01) ==
LOC: ACC 11:03
PROVIDERS: PCP Nurse Practitioner Family; Visit Provider Nurse Practitioner Family
DX: Z51.81 Encounter for therapeutic drug level monitoring (principal); Z79.01 Long term (current) use of anticoagulants; I35.9 Nonrheumatic aortic valve disorder, unspecified
CPT/HCPCS: 85610; 99211; G0463

== ENCOUNTER → 2019-04-23 10:42 | Outpatient (POV) | payer MEDICARE, OTHER, SELFPAY ==
[2019-04-23 10:51] VITALS: BP 147/76; PULSE 78; RESP 18; O2SAT 98; BMI 31.2
--- NOTE | 2019-04-23 11:08 | HMH.PAINSOAP ---
[facility] Pain Management SOAP Note Subjective:: Patient is a pleasant 68-year-old white female who presents today for medication refill. She is being treated for bilateral knee pain. Patient has been waiting on her Percocets, and is taking CBD oil. She is also taking tramadol and gabapentin. Patient is medically managed with gabapentin 100 mg 1 tablet p.o. daily, Percocet 5 mg 1 tablet p.o. daily and tramadol 50 mg 1 tablet p.o. daily. Patient was given 15 pills at her last visit and says that she is tolerating this without complications. She denies any side effects to the medicines. Her Kyaw #[id number] has been reviewed and is appropriate. She rates her pain a 0 out of 10 today. Review of Systems General: No recent weight changes, no fever, no sleep disturbances Respiratory: No cough, no shortness of air, no recurring pulmonary infections Cardiovascular/peripheral vascular: No chest pain, no palpitations, no edema, no shortness of breath Gastrointestinal: No new onset incontinence, normal bowel movements reported Genitourinary: No new onset incontinence Musculoskeletal: Bilateral knee pain Psychiatric: Normal mood/affect Neurological: [Denies weakness in extremities], [denies balance issues] Objective:: Physical exam General: Alert and oriented x3, no acute distress, pleasant and cooperative, [on room air] Lungs: Respirations even and unlabored, symmetrical chest expansion Eyes: PERRL Musculoskeletal: Flexion and extension of lumbar spine somewhat guarded secondary to pain, deep tendon reflexes normal, strength in upper and lower extremities [5/5], [abnormal gait noted] Neurological: Speech clear, casting molder equal, no gross sensory deficit Assessment:: Bilateral knee pain Plan:: We will refill the patient's tramadol 50 mg 1 tablet p.o. daily, gabapentin 100 mg 1 tablet p.o. daily, and Percocet 5 mg 1 tablet p.o. with 15 pills given. We will see the patient back in 1 month to reassess her symptoms. She will continue with anti-inflammatories and a home stretching program. Patient has been instructed to contact clinic if she has any concerns before next appointment. Dr. Valderrama has reviewed this note and agrees with this plan of care. This note was dictated using voice recognition software and make contain errors or omissions. [facility] History I have reviewed the patient's past medical history: Yes 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: Reports:: Asthma, Atherosclerotic Heart Disease, Cancer (thyroid), Heart Murmur, Hyperlipidemia, Hypertension, Renal Disease, Renal Insufficiency Denies:: Diabetes Mellitus Type 1, Diabetes Mellitus Type 2, MRSA *Have you ever received a pneumonia vaccine?: Yes *Have you received a flu vaccine this season?: Yes Other 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: Reports: Anemia, Arthritis, Thyroid Disease Laterality Cases: Left: Other, Right: Arthroscopy Knee, Bilateral: Carpal Tunnel Release Other Surgeries: Yes: Bariatric Surgery, Cardiac Surgery, Cholecystectomy, Hysterectomy-Partial (ovary), Thyroidectomy, Other Valve Replacement Amputation: No Fractures: No - *Social History Smoking Status: Never smoker Alcohol Intake: never Substance Use Type: painkillers *Occupational Status:: other Housing: house Household Members: other *Travel in the last 8 weeks: None Family Hx:: Cancer, Kidney Disease
== END ==
PROVIDERS: PCP Nurse Practitioner Family; Visit Provider Clinical Nurse Specialist Family Health
DX: M25.561 Pain in right knee; M25.562 Pain in left knee
CPT/HCPCS: 99212

== ENCOUNTER 2019-04-26 11:06 | Outpatient (CLI) | payer MEDICARE, OTHER, SELFPAY ==
[2019-04-26 11:41] LABS: PHA INR Fingerstick 2.8 (0.9-1.1)
== END 2019-04-26 11:43 | disposition home or self-care (01) ==
LOC: ACC 11:07
PROVIDERS: PCP Nurse Practitioner Family; Visit Provider Nurse Practitioner Family
DX: Z51.81 Encounter for therapeutic drug level monitoring (principal); Z79.01 Long term (current) use of anticoagulants
CPT/HCPCS: 85610; 99211; G0463

== ENCOUNTER 2019-05-20 09:26 | Outpatient (CLI) | payer MEDICARE, OTHER, SELFPAY ==
[2019-05-20 11:19] LABS: INR 3.55 (0.9-1.1); Prothrombin Time 34.8 seconds (9.4-11.8)
[2019-05-20 13:14] LABS: Amphetamine/Metha Screen,Urine Negative ng/mL (<1000); Barbiturates Screen,Urine Negative ng/mL (<200); Benzodiazepines Screen,Urine Negative ng/mL (<200); Cannabinoid Screen,Urine Positive ng/mL (<50); Cocaine Screen,Urine Negative ng/mL (<300); Methadone Screen,Urine Negative ng/mL (<300); Opiate Screen,Urine Negative ng/mL (<300); Phencyclidine Screen,Urine Negative ng/mL (<25)
[2019-05-24 16:06] LABS: Opiates Negative (Cutoff=100)
== END 2019-05-20 16:14 | disposition home or self-care (01) ==
PROVIDERS: Clinical Nurse Specialist Family Health; PCP Internal Medicine Adolescent Medicine; Visit Provider Nurse Practitioner Family
DX: Z51.81 Encounter for therapeutic drug level monitoring (principal); Z79.01 Long term (current) use of anticoagulants
CPT/HCPCS: 36415; 80305; 80361; 80365; 85610; 99211; G0463; G0480

== ENCOUNTER → 2019-05-20 09:51 | Outpatient (POV) | payer MEDICARE, OTHER, SELFPAY ==
[2019-05-20 10:05] VITALS: BP 114/75; PULSE 75; RESP 18; O2SAT 98; BMI 31.7
--- NOTE | 2019-05-20 10:19 | P.CONS_ITS ---
[facility] Pain Management SOAP Note Subjective:: Patient is a very pleasant 68-year-old white female who presents today for follow-up. Patient is being treated for bilateral knee pain. Patient has been taking Percocets and we have been weaning her down gradually. She has now transitioned completely to tramadol 50 mg 1 tab daily and gabapentin 100 mg twice daily. Patient still continuing her CBD oil and overall doing extremely well. She rates her pain today a 0 out of 10 her Kyaw #[id number] reviewed and appropriate. ROS General: no recent weight change, no fever, no sleep disturbances Respiratory: no cough, no shortness of air, no recurring pulmonary infections Cardiovascular/Peripheral Vascular: No chest pain, No palpitations, no edema, no shortness of breath. Gastrointestinal: no new onset incontinence, normal bowel movements reported Genitourinary: no new onset incontinence Musculoskeletal: Knee pain at times Psychiatric: normal mood/ affect Neurological: [denies new onset weakness in extremities], [denies new onset balance issues] Objective:: Physical Exam General: Alert and oriented x3, no acute distress, pleasant and cooperative, [on room air] Lungs: Resps E/U, Symmetrical chest expansion, Eyes: PERRL Musculoskeletal: deep tendon reflexes normal, strength in upper and lower extremities [5/5], slightly antalgic gait noted Neurological: speech clear, protection specialist equal, no gross sensory deficits Assessment:: Knee pain Plan:: We will refill her tramadol 50 mg 1 p.o. daily and gabapentin 100 mg twice daily see her back in 3 months reassess her symptoms at that time she is been instructed to call the office if she has any issues prior to her next appointment. Dr. Valderrama has reviewed this note and agrees with this plan of care. This note was dictated using voice recognition software and may contain errors or omissions [facility] History I have reviewed the patient's past medical history: Yes 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: Reports:: Asthma, Atherosclerotic Heart Disease, Cancer (thyroid), Heart Murmur, Hyperlipidemia, Hypertension, Renal Disease, Renal Insufficiency Denies:: Diabetes Mellitus Type 1, Diabetes Mellitus Type 2, MRSA *Have you ever received a pneumonia vaccine?: Yes *Have you received a flu vaccine this season?: Yes Other 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: Reports: Anemia, Arthritis, Thyroid Disease Laterality Cases: Left: Other, Right: Arthroscopy Knee, Bilateral: Carpal Tunnel Release Other Surgeries: Yes: Bariatric Surgery, Cardiac Surgery, Cholecystectomy, Hysterectomy-Partial (ovary), Thyroidectomy, Other Valve Replacement Amputation: No Fractures: No - *Social History Smoking Status: Never smoker Alcohol Intake: never Substance Use Type: painkillers *Occupational Status:: other Housing: house Household Members: other *Travel in the last 8 weeks: None Family Hx:: Cancer, Kidney Disease
== END ==
PROVIDERS: PCP Nurse Practitioner Family; Visit Provider Clinical Nurse Specialist Family Health
DX: M25.569 Pain in unspecified knee (principal); J45.909 Unspecified asthma, uncomplicated; I25.10 Atherosclerotic heart disease of native coronary artery without angina pectoris; R01.1 Cardiac murmur, unspecified; E78.5 Hyperlipidemia, unspecified; I10 Essential (primary) hypertension; N28.9 Disorder of kidney and ureter, unspecified
CPT/HCPCS: 36415; 80305; 80361; 80365; 85610; 99211; 99212; G0463; G0480

== ENCOUNTER → 2019-05-23 09:45 | Outpatient (CLI) | payer MEDICARE, OTHER, SELFPAY ==
[2019-05-23 09:48] LABS: Microscopic, Urine URINE MICROSCOPIC (MICROSCOPIC)
[2019-05-23 10:18] LABS: Appearance,Urine CLEAR (Clear); Blood, Urine Negative (Negative); Color,Urine DK YELLOW (Yellow); Glucose,Urine (UA) Negative (Negative); Ketones,Urine Negative (Negative); Leukocyte Esterase,Urine Negative (Negative); Nitrate,Urine Negative (Negative); PH,Urine 5.5 (5.0-8.5); Protein,Urine TRACE (Negative); Specific Gravity, Urine 1.025 (1.005-1.030); Urobilinogen,Urine 0.2 EU/dl (0.2)
[2019-05-23 10:20] LABS: Bilirubin,Urine Negative (Negative)
[2019-05-23 10:27] LABS: Bacteria,Urine Trace /lpf; Mucus,Urine 1+ /lpf; RBC,Urine Occasional #/hpf (0-3)
[2019-05-23 10:38] LABS: Basophils % 0.4 % (0.1-2.0); Eosinophils # 0.1 K/mm3 (0.0-0.4); Hematocrit 30.8 % (37.0-47.0); Hemoglobin 9.6 g/dL (12.2-16.2); Lymphocytes # 0.5 K/mm3 (0.7-4.5); Lymphocytes % 6.6 % (10-50); Mean Corpuscular HGB Conc 31.1 g/dL (31.8-35.4); Mean Corpuscular Hemoglobin 25.4 pg (27.0-31.2); Mean Corpuscular Volume 81.9 fl (81-99); Mean Platelet Volume 8.2 fl (7.4-10.4); Monocytes # 0.4 K/mm3 (0.1-1.0); Monocytes % 4.7 % (1.7-9.3); Neutrophils # 7.2 K/mm3 (1.8-7.8); Neutrophils % 87.3 % (37.0-80.0); Platelet Count 306 K/mm3 (142-424); Red Blood Count 3.76 M/mm3 (4.20-5.40); Red Cell Distribution Width 15.2 % (11.5-17.5); White Blood Count 8.2 K/mm3 (4.8-10.8)
[2019-05-23 10:42] LABS: MANUAL DIFFERENTIAL MANUAL DIFFERENTIAL (MANUAL DIFF)
[2019-05-23 12:14] LABS: Alanine Aminotransferase 16 U/L (12-78); Albumin Level 3.3 gm/dL (3.4-5.0); Albumin/Globulin Ratio 0.9 (1.1-1.8); Alkaline Phosphatase 82 U/L (46-116); Anion Gap 14.6 mEq/L (5-15); Aspartate Amino Transferase 21 U/L (15-37); Bilirubin,Total 0.2 mg/dL (0.2-1.0); Blood Urea Nitrogen 22 mg/dL (7-18); Calcium 8.2 mg/dL (8.5-10.1); Carbon Dioxide 26 mmol/L (21.0-32.0); Chloride 104 mmol/L (98-107); Creatinine,Serum 1.92 mg/dL (0.55-1.02); Estimated Glomerular Filt Rate 26 ml/min (>60); GFR (African American) 32 ML/MIN (>60); Globulin 3.7 gm/dl (1.3-3.2); Glucose 107 mg/dL (74-106); Potassium 3.6 mmoL/L (3.5-5.1); Sodium 141 mmol/L (136-145)
[2019-05-23 12:18] LABS: Lymphocytes % 11 % (10-50); Monocytes % 7 % (2-9); Neutrophils % 80 % (42-76); Total Cells Counted 100
[2019-05-23 12:19] LABS: Acanthocytes 1+; Hypochromasia 1+; Platelet Estimate Normal; Poikilocytosis 1+
== END ==
PROVIDERS: Visit Provider Nurse Practitioner Family
DX: R50.9 Fever, unspecified (principal)
CPT/HCPCS: 36415; 80053; 81001; 85007; 85025; 87040; 87086; 87088; 87186

== ENCOUNTER 2019-05-31 10:18 | Observation (INO) ==
[2019-05-31 14:31] LABS: Basophils % 0.6 % (0.1-2.0); Eosinophils # 0.1 K/mm3 (0.0-0.4); Eosinophils % 1.1 % (0.1-12.0); Hematocrit 31.4 % (37.0-47.0); Hemoglobin 9.6 g/dL (12.2-16.2); Lymphocytes # 0.7 K/mm3 (0.7-4.5); Lymphocytes % 9.2 % (10-50); Mean Corpuscular HGB Conc 30.6 g/dL (31.8-35.4); Mean Corpuscular Volume 77.7 fl (81-99); Mean Platelet Volume 7.7 fl (7.4-10.4); Monocytes # 0.4 K/mm3 (0.1-1.0); Monocytes % 4.5 % (1.7-9.3); Neutrophils # 6.7 K/mm3 (1.8-7.8); Neutrophils % 84.7 % (37.0-80.0); Platelet Count 387 K/mm3 (142-424); Red Blood Count 4.05 M/mm3 (4.20-5.40); Red Cell Distribution Width 16.3 % (11.5-17.5); White Blood Count 7.9 K/mm3 (4.8-10.8)
[2019-05-31 14:36] LABS: Albumin Level 3.6 gm/dL (3.4-5.0); Albumin/Globulin Ratio 0.9 (1.1-1.8); Anion Gap 13.9 mEq/L (5-15); Bilirubin,Total 0.3 mg/dL (0.2-1.0); Calcium 8.6 mg/dL (8.5-10.1); Globulin 4.2 gm/dl (1.3-3.2); Total Protein,Serum 7.8 gm/dL (6.4-8.2)
[2019-05-31 17:17] LABS: Microscopic, Urine URINE MICROSCOPIC (MICROSCOPIC)
[2019-05-31 17:20] LABS: Appearance,Urine CLEAR (Clear); Bilirubin,Urine Negative (Negative); Blood, Urine TRACE-L (Negative); Color,Urine YELLOW (Yellow); Glucose,Urine (UA) Negative (Negative); Ketones,Urine Negative (Negative); Leukocyte Esterase,Urine Negative (Negative); Protein,Urine Negative (Negative); Specific Gravity, Urine 1.025 (1.005-1.030); Urobilinogen,Urine 0.2 EU/dl (0.2)
[2019-05-31 17:28] LABS: RBC,Urine Occasional #/hpf (0-3)
--- NOTE | 2019-05-31 18:18 | History & Physical Report ---
*Admission Date: 05/31/19 *Chief complaint: generalized pain, suspected kidney infection *History of present illness: Ms. Tripp is a 68-year-old female with multiple comorbidities consisting of aortic valve replacement, stage III chronic kidney disease, hypertension, psoriatic arthritis, who presented to clinic due to continued myalgia and chills. Of note she was seen last week in our office where she was diagnosed with a UTI and started on a course of doxycycline, urine culture showed sensitivity to this antibiotic. She completed antibiotics and however still feels ill. States she still getting feverish at night. Denies any nausea, dysuria, vomiting, diarrhea, shortness of breath, chest pain. She is on daily amoxicillin for infection prophylaxis with her prosthetic valve and history of infected prosthetic knee. She states her pain hurts all the way into her shoulders. Was found to have some CVA tenderness on exam and given her general appearance of being ill and concern for failure of outpatient therapy for UTI, decision was made for direct admission for further work-up, fluid resuscitation, and monitoring overnight. Of note she follows with pain management for history of chronic pain issues. Has been weaned off of her pain meds over the past several months and is no longer on opiate therapy. Work-up with chronic anemia, no elevation in white count, afebrile. Kidney disease stable at baseline creatinine. CT abdomen pending. [facility] History I have reviewed the patient's past medical history: Yes 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: Reports:: Asthma, Atherosclerotic Heart Disease, Cancer (thyroid), Heart Murmur, Hyperlipidemia, Hypertension, Renal Disease, Renal Insufficiency Denies:: Diabetes Mellitus Type 1, Diabetes Mellitus Type 2, MRSA *Have you ever received a pneumonia vaccine?: Yes *Have you received a flu vaccine this season?: Yes Other 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: Reports: Anemia, Arthritis, Thyroid Disease Laterality Cases: Left: Other, Right: Arthroscopy Knee, Bilateral: Carpal Tunnel Release Other Surgeries: Yes: Bariatric Surgery, Cardiac Surgery, Cholecystectomy, Hyste rectomy-Partial (ovary), Thyroidectomy, Other Valve Replacement Amputation: No Fractures: No - *Social History Smoking Status: Never smoker Alcohol Intake: never Substance Use Type: painkillers *Occupational Status:: other Housing: house Household Members: other *Travel in the last 8 weeks: None Family Hx:: Cancer, Kidney Disease Review of Systems - Review of Systems Review of systems:: pertinent systems reviewed and negative unless documented below (14 point review of systems performed, pertinent positives and negatives per HPI) Meds Home Medications Medication Instructions Recorded Confirmed Type Levothyroxine Sodium [Synthroid 150 mcg PO DAILY 08/09/17 05/31/19 History 175mcg (0.175mg) tablet] Multivitamin [Multivitamins] 1 each PO DAILY 08/09/17 09/04/17 History Tramadol HCl [Ultram 50mg 50 mg PO HS 08/09/17 05/31/19 History tablet] Warfarin Sodium [Coumadin 2mg 3 mg PO DAILY 08/09/17 09/04/17 History tablet] hydroCHLOROthiazide 12.5 mg PO DAILYP PRN 08/09/17 09/04/17 History [Hydrochlorothiazide 12.5mg Tab] Amlodipine Besylate 10 mg PO DAILY 05/31/19 05/31/19 History Amoxicillin [Amoxicillin 875MG 875 mg PO HS 05/31/19 05/31/19 History Tab] Gabapentin [Neurontin 100mg 100 mg PO HS 05/31/19 05/31/19 History cap] Hydralazine HCl [Apresoline 10mg 5 mg PO BID 05/31/19 05/31/19 History tablet] Pantoprazole Sodium [Protonix 40mg 40 mg PO DAILY 05/31/19 05/31/19 History tablet] Rosuvastatin Calcium 5 mg PO HS 05/31/19 05/31/19 History Sertraline HCl [Zoloft] 50 mg PO DAILY 05/31/19 05/31/19 History Tramadol HCl [Tramadol 50mg 50 mg PO DAILY 05/31/19 History Tab] Trazodone HCl 150 mg PO HS 05/31/19 05/31/19 History Allergies Allergy/AdvReac Type Severity Reaction Status Date / Time No Known Allergies Allergy Verified 09/04/17 21:38 Exam Vital signs and Labs for Last 24 Hours: Temp Pulse Resp BP Pulse Ox 98.6 F 85 18 153/94 H 96 05/31/19 13:43 05/31/19 13:43 05/31/19 13:43 05/31/19 13:43 05/31/19 13:43 Laboratory Results - last 24 hr 05/31/19 14:00: WBC 7.9, RBC 4.05 L, Hgb 9.6 L, Hct 31.4 L, MCV 77.7 L, MCH 23.8 L, MCHC 30.6 L, RDW 16.3, Plt Count 387, MPV 7.7, Neut % (Auto) 84.7 H, Lymph % (Auto) 9.2 L, [place] % (Auto) 4.5, Eos % (Auto) 1.1, Baso % (Auto) 0.6, Neut # (Auto) 6.7, Lymph # (Auto) 0.7, [place] # (Auto) 0.4, Eos # (Auto) 0.1, Baso # (Auto) 0.0 05/31/19 14:00: Sodium 141, Potassium 3.9, Chloride 105, Carbon Dioxide 26, An ion Gap 13.9, BUN 22 H, Creatinine 1.82 H, Estimated Creat Clear 42, Estimated GFR 28 L, Est GFR ( Amer) 34 L, Glucose 102, Calcium 8.6, Magnesium 1.9, Total Bilirubin 0.3, AST 25, ALT 18, Alkaline Phosphatase 76, Total Protein 7.8, Albumin 3.6, Globulin 4.2 H, Albumin/Globulin Ratio 0.9 L 05/31/19 14:00: INR (Fingerstick) 3.0 H 05/31/19 17:10: Urine Color Yellow, Urine Appearance Clear, Urine pH 6.0, Ur Specific [place] 1.025, Urine Protein Negative, Urine Glucose (UA) Negative, Urine Ketones Negative, Urine Blood Trace-l, Urine Nitrate Negative, Urine Bilirubin Negative, Urine Urobilinogen 0.2, Ur Leukocyte Esterase Negative, Urine RBC Occasional, Urine WBC 3-5, Ur Squamous Epith Cells 3-5, Urine Bacteria None I & O for Last 24 hours: Intake & Output 05/28/19 05/29/19 05/30/19 05/31/19 23:59 23:59 23:59 23:59 Weight 86.806 kg - Constitutional mild distress, obese, chronically ill appearing - *Routine HEENT Exam Head: Present: normocephalic Eye: Present: EOMI, PERRL ENT: Present: mucous membranes moist - *Routine Neck Exam Present: supple. Absent: lymphadenopathy - *Routine Respiratory Exam Present: CTA bilaterally - *Routine Cardiovascular Exam Present: RRR - *Routine Abdominal Exam Present: soft, normoactive bowel sounds, tenderness (Diffuse tenderness, worse in epigastric region and right lower quadrant.) - *Routine Extremities Exam Absent: cyanosis, clubbing, edema - Routine Back/Spine/Pelvis Exam Back/Spine: Present: CVA tenderness (Positive on the right, negative on the left), paraspinal tenderness - *Routine Skin Exam Present: warm. Absent: rash - *Routine Neurological Exam Present: alert, oriented X3. Absent: altered mental status Assessment and Plan (1) Flank pain Current visit: Yes Status: Acute Category: Medical Code(s): R10.9 - Unspecified abdominal pain Recent UTI, completed doxycycline. Repeat UA pending that showed trace red cells, no white cells. Does not appear to have recurrent UTI or pyelonephritis. CT abdomen pending to assess for Pyelo or stones. Further management pending report. Will add inflammatory markers consisting of CRP and ESR to assess for inflammation. (2) Anemia Current visit: No Status: Chronic Qualifiers: Anemia type: unspecified type Qualified Code(s): D64.9 - Anemia, unspecified Category: Medical Code(s): D64.9 - Anemia, unspecified Microcytic. Suspect iron deficient in the setting of mechanical heart valve. Stable however. Will monitor with labs. No transfusion indicated, hemoglobin goal greater than 7 (3) HTN (hypertension) Current visit: No Status: Chronic Qualifiers: Hypertension type: other secondary hypertension Qualified Code(s): I15.8 - Other secondary hypertension Category: Medical Code(s): I10 - Essential (primary) hypertension Continue home regimen (4) Hypothyroid Current visit: No Status: Chronic Qualifiers: Hypothyroidism type: other Qualified Code(s): E03.8 - Other specified hypothyroidism Category: Medical Code(s): E03.9 - Hypothyroidism, unspecified Continue home regimen (5) Mechanical heart valve present Problem details: add lovenox until theraputic with coumidin Current visit: No Status: Chronic Category: Surgical Code(s): Z95.2 - Presence of prosthetic heart valve Continue warfarin., INR in AM, therapeutic on admission in 2.5-3.5 range (6) Obesity (BMI 30.0-34.9) Current visit: Yes Status: Chronic Category: Medical Code(s): E66.9 - Obesity, unspecified Complicates all aspects of her care - Assessment and plan all Dx Assessment and Plan for all problems:: 68-year-old female with flank pain, concern for recurrent infection or failure of outpatient treatment. Will monitor overnight, fluid resuscitation. Await formal read from CT. If no new source of infection is found, plan for discharge home tomorrow. Remains hemodynamically stable. Cardiac diet ordered.
[2019-06-01 06:39] LABS: Basophils % 0.3 % (0.1-2.0); Eosinophils # 0.1 K/mm3 (0.0-0.4); Eosinophils % 1.7 % (0.1-12.0); Hematocrit 27.4 % (37.0-47.0); Hemoglobin 8.8 g/dL (12.2-16.2); Lymphocytes # 0.7 K/mm3 (0.7-4.5); Lymphocytes % 11.7 % (10-50); Mean Corpuscular HGB Conc 32.3 g/dL (31.8-35.4); Mean Corpuscular Volume 77.6 fl (81-99); Mean Platelet Volume 8.9 fl (7.4-10.4); Monocytes # 0.3 K/mm3 (0.1-1.0); Monocytes % 4.7 % (1.7-9.3); Neutrophils # 4.9 K/mm3 (1.8-7.8); Neutrophils % 81.6 % (37.0-80.0); Platelet Count 282 K/mm3 (142-424); Red Blood Count 3.52 M/mm3 (4.20-5.40); Red Cell Distribution Width 15.1 % (11.5-17.5)
[2019-06-01 06:47] LABS: Anion Gap 11.9 mEq/L (5-15); Calcium 8.1 mg/dL (8.5-10.1)
[2019-06-01 06:54] LABS: INR 2.42 (0.9-1.1); Prothrombin Time 24.1 seconds (9.4-11.8)
--- NOTE | 2019-06-01 09:02 | Discharge Summary ---
General - General Admission date:: 05/31/19 Discharge date: 06/01/19 HPI HPI: Ms. Tripp is a 68-year-old female with multiple comorbidities consisting of aortic valve replacement, stage III chronic kidney disease, hypertension, psoriatic arthritis, who presented to clinic due to continued myalgia and chills. Of note she was seen last week in our office where she was diagnosed with a UTI and started on a course of doxycycline, urine culture showed sensitivity to this antibiotic. She completed antibiotics and however still feels ill. States she still getting feverish at night. Denies any nausea, dysuria, vomiting, diarrhea, shortness of breath, chest pain. She is on daily amoxicillin for infection prophylaxis with her prosthetic valve and history of infected prosthetic knee. She states her pain hurts all the way into her monika ulders. Was found to have some CVA tenderness on exam and given her general appearance of being ill and concern for failure of outpatient therapy for UTI, decision was made for direct admission for further work-up, fluid resuscitation, and monitoring overnight. Of note she follows with pain management for history of chronic pain issues. Has been weaned off of her pain meds over the past several months and is no longer on opiate therapy. Work-up with chronic anemia, no elevation in white count, afebrile. Kidney disease stable at baseline creatinine. CT abdomen pending. Hospital Course Hospital Course: Patient was admitted, CT of abdomen was done which revealed no evidence of pyelonephritis or urinary tract obstruction or stone. Patient did well, white count remained normal, she remained afebrile. Urine culture is pending at the time of discharge but so far is negative. This morning patient was comfortable. She will be discharged home to finish up her outpatient course of doxycycline and we will follow her in the office on Monday to reassess other etiologies of back pain besides kidney disease. Objective Vital signs: Temp Pulse Resp BP Pulse Ox 97.9 F 76 16 128/68 95 06/01/19 08:00 06/01/19 08:00 06/01/19 08:00 06/01/19 08:00 06/01/19 08:00 Narrative: Pleasant, oriented x3, comfortable, breathing easily. Normal vital signs. Lungs have smoker's rhonchi but otherwise good air movement. Heart rate regular. Abdomen soft and nontender. No CVA tenderness. No edema or clubbing. Neurologically intact. ENT exam clear. No JVD. Results Labs on day of discharge: Labs from last 24 hours 06/01/19 06/01/19 06/01/19 06:15 06:15 06:15 WBC 6.0 RBC 3.52 L Hgb 8.8 L Hct 27.4 L MCV 77.6 L MCH 25.1 L MCHC 32.3 RDW 15.1 Plt Count 282 D MPV 8.9 Neut % (Auto) 81.6 H Lymph % (Auto) 11.7 [place] % (Auto) 4.7 Eos % (Auto) 1.7 Baso % (Auto) 0.3 Neut # (Auto) 4.9 Lymph # (Auto) 0.7 [place] # (Auto) 0.3 Eos # (Auto) 0.1 Baso # (Auto) 0.0 ESR PT 24.1 H INR (Fingerstick) INR 2.42 H Sodium 141 Potassium 3.9 Chloride 105 Carbon Dioxide 28 Anion Gap 11.9 BUN 19 H Creatinine 1.53 H Estimated Creat Clear 49 Estimated GFR 34 L Est GFR ( Amer) 41 L D Glucose 88 Calcium 8.1 L Magnesium Total Bilirubin AST ALT Alkaline Phosphatase C-Reactive Protein Total Protein Albumin Globulin Albumin/Globulin Ratio Urine Color Urine Appearance Urine pH Ur Specific [place] Urine Protein Urine Glucose (UA) Urine Ketones Urine Blood Urine Nitrate Urine Bilirubin Urine Urobilinogen Ur Leukocyte Esterase Urine RBC Urine WBC Ur Squamous Epith Cells Urine Bacteria 05/31/19 05/31/19 05/31/19 17:10 14:00 14:00 WBC RBC Hgb Hct MCV MCH MCHC RDW Plt Count MPV Neut % (Auto) Lymph % (Auto) [place] % (Auto) Eos % (Auto) Baso % (Auto) Neut # (Auto) Lymph # (Auto) [place] # (Auto) Eos # (Auto) Baso # (Auto) ESR > 140 H PT INR (Fingerstick) INR Sodium Potassium Chloride Carbon Dioxide Anion Gap BUN Creatinine Estimated Creat Clear Estimated GFR Est GFR ( Amer) Glucose Calcium Magnesium Total Bilirubin AST ALT Alkaline Phosphatase C-Reactive Protein 3.2 H Total Protein Albumin Globulin Albumin/Globulin Ratio Urine Color Yellow Urine Appearance Clear Urine pH 6.0 Ur Specific [place] 1.025 Urine Protein Negative Urine Glucose (UA) Negative Urine Ketones Negative Urine Blood Trace-l Urine Nitrate Negative Urine Bilirubin Negative Urine Urobilinogen 0.2 Ur Leukocyte Esterase Negative Urine RBC Occasional Urine WBC 3-5 Ur Squamous Epith Cells 3-5 Urine Bacteria None 05/31/19 05/31/19 05/31/19 14:00 14:00 14:00 WBC 7.9 RBC 4.05 L Hgb 9.6 L Hct 31.4 L MCV 77.7 L MCH 23.8 L MCHC 30.6 L RDW 16.3 Plt Count 387 MPV 7.7 Neut % (Auto) 84.7 H Lymph % (Auto) 9.2 L [place] % (Auto) 4.5 Eos % (Auto) 1.1 Baso % (Auto) 0.6 Neut # (Auto) 6.7 Lymph # (Auto) 0.7 [place] # (Auto) 0.4 Eos # (Auto) 0.1 Baso # (Auto) 0.0 ESR PT INR (Fingerstick) 3.0 H INR Sodium 141 Potassium 3.9 Chloride 105 Carbon Dioxide 26 Anion Gap 13.9 BUN 22 H Creatinine 1.82 H Estimated Creat Clear 42 Estimated GFR 28 L Est GFR ( Amer) 34 L Glucose 102 Calcium 8.6 Magnesium 1.9 Total Bilirubin 0.3 AST 25 ALT 18 Alkaline Phosphatase 76 C-Reactive Protein Total Protein 7.8 Albumin 3.6 Globulin 4.2 H Albumin/Globulin Ratio 0.9 L Urine Color Urine Appearance Urine pH Ur Specific [place] Urine Protein Urine Glucose (UA) Urine Ketones Urine Blood Urine Nitrate Urine Bilirubin Urine Urobilinogen Ur Leukocyte Esterase Urine RBC Urine WBC Ur Squamous Epith Cells Urine Bacteria DS: Diagnosis - Discharge Diagnosis (1) Flank pain Status: Chronic (2) Anemia Status: Chronic (3) HTN (hypertension) Status: Chronic (4) Hypothyroid Status: Chronic (5) Mechanical heart valve present Status: Chronic Problem details: add lovenox until theraputic with coumidin (6) Obesity (BMI 30.0-34.9) Status: Chronic Discharge Plan - Patient Discharge Instructions ACTIVITY: Continue current activity DIET: continue same diet Patient Instructions: DI for Flank Pain - Follow up Plan Follow up with: Atiya Etienne APRN [Nurse Practitioner] - 06/03/19 Disposition: Home, Self-Intermediate Medications: Home Medications Medication Instructions Recorded Confirmed Type Levothyroxine Sodium [Synthroid 150 mcg PO DAILY 08/09/17 05/31/19 History 175mcg (0.175mg) tablet] Multivitamin [Multivitamins] 1 each PO DAILY 08/09/17 09/04/17 History Tramadol HCl [Ultram 50mg 50 mg PO HS 08/09/17 05/31/19 History tablet] Warfarin Sodium [Coumadin 2mg 3 mg PO HS 08/09/17 09/04/17 History tablet] Amlodipine Besylate 10 mg PO DAILY 05/31/19 05/31/19 History Amoxicillin [Amoxicillin 875MG 875 mg PO HS 05/31/19 05/31/19 History Tab] Gabapentin [Neurontin 100mg 100 mg PO HS 05/31/19 05/31/19 History cap] Hydralazine HCl [Apresoline 10mg 5 mg PO BID 05/31/19 05/31/19 History tablet] Pantoprazole Sodium [Protonix 40mg 40 mg PO DAILY 05/31/19 05/31/19 History tablet] Rosuvastatin Calcium 5 mg PO HS 05/31/19 05/31/19 History Sertraline HCl [Zoloft] 50 mg PO DAILY 05/31/19 05/31/19 History Tramadol HCl [Tramadol 50mg 50 mg PO DAILY 05/31/19 History Tab] Trazodone HCl 150 mg PO HS 05/31/19 05/31/19 History Prescriptions/Medication Reconciliation: Continued Warfarin Sodium [Coumadin 2mg tablet] 3 mg PO HS Tramadol HCl [Ultram 50mg tablet] 50 mg PO HS Multivitamin [Multivitamins] 1 each PO DAILY Levothyroxine Sodium [Synthroid 175mcg (0.175mg) tablet] 150 mcg PO DAILY Gabapentin [Neurontin 100mg cap] 100 mg PO HS Pantoprazole Sodium [Protonix 40mg tablet] 40 mg PO DAILY Trazodone HCl 150 mg PO HS Rosuvastatin Calcium 5 mg PO HS Amlodipine Besylate 10 mg PO DAILY Amoxicillin [Amoxicillin 875MG Tab] 875 mg PO HS Tramadol HCl [Tramadol 50mg Tab] 50 mg PO DAILY Sertraline HCl [Zoloft] 50 mg PO DAILY Hydralazine HCl [Apresoline 10mg tablet] 5 mg PO BID - Problem Reconciliation Problems Reviewed?: Yes
== END 2019-06-01 09:58 | disposition home or self-care (01) ==
LOC: ACC 10:18 → 2ND 12:20 → INTOOBSV 13:26
PROVIDERS: ADMIT Internal Medicine Adolescent Medicine; ATTEND Internal Medicine Adolescent Medicine
CPT/HCPCS: 36415; 74176; 80048; 80053; 81001; 83735; 85025; 85610; 85651; 86140; 87086; 99211; G0378; G0463

== ENCOUNTER → 2019-06-03 10:08 | Outpatient (CLI) | payer MEDICARE, OTHER, SELFPAY ==
--- NOTE | 2019-06-03 10:14 | XR_ITS ---
PROCEDURE: XR MULTIPLE SPINE 6+V CLINICAL INDICATION: SEVERE BACK PAIN, FEVER, PSORIATIC ARTRITIS COMPARISON: No exams were available for comparison FINDINGS: The thoracic spine: AP and lateral views of the thoracic spine show multilevel degenerative disc disease throughout the thoracic spine worse in the mid lower aspect. No obvious fracture or dislocation. There is ankylosis in the lower thoracic spine anteriorly. No lytic or blastic change. There is slight loss of height anteriorly involving what appears to represent T2. This may be chronic. Lumbar spine: Five views of lumbar spine show prominent left paravertebral osteophyte at T12-L1. no obvious fracture or dislocation. There is mild degenerative disc disease at T12-L1. There is mild anterolisthesis of L4 on L5 6 mm with facet arthritic changes at L4-L5 and S1. There are mild degenerative changes of the SI joints. Hyperdensity noted within the feces within a nondistended rectum. IMPRESSION: Degenerative changes, no acute finding Dictated by: Dustin Booth MD 06/03/2019 12:22 Electronically signed by Dustin Booth MD in [place] 06/03/2019 12:22
== END ==
PROVIDERS: PCP Nurse Practitioner Family; Visit Provider Nurse Practitioner Family
DX: M54.9 Dorsalgia, unspecified (principal); R50.9 Fever, unspecified; L40.50 Arthropathic psoriasis, unspecified
CPT/HCPCS: 72084

== ENCOUNTER → 2019-06-07 10:24 | Outpatient (CLI) | payer MEDICARE, OTHER, SELFPAY ==
--- NOTE | 2019-06-07 10:29 | US_ITS ---
PROCEDURE: US TRANSVAGINAL CLINICAL INDICATION: LT OVARIAN ENLARGEMENT Follow-up enlarged ovary COMPARISON: CT ABDOMEN PELVIS WO CON from 05/31/2019 FINDINGS: UTERUS: 6cm x 5cmx 3cm with a combined endometrial thickness of 4.2mm LEFT OVARY: [id number] with a volume of 7.2ml. Prior right oophorectomy There is a 2.7 x 2 cm left ovarian cyst. There is a 0.7 cm hyperechoic nodule along the posterior aspect of the cyst. IMPRESSION: 1. There is a complex left ovarian cyst measuring 2.7 x 2 cm with a hyperechoic mural nodule. Recommend 8-12 week follow-up to confirm stability of this complex lesion. Dictated by: Dustin Booth MD 06/07/2019 12:31 Electronically signed by Dustin Booth MD in [place] 06/07/2019 12:31
--- NOTE | 2019-06-07 10:29 | US_ITS ---
PROCEDURE: US ABDOMEN COMPLETE CLINICAL INDICATION: LESION OF SPLEEN COMPARISON: CT ABDOMEN PELVIS WO CON from 05/31/2019 FINDINGS: PANCREAS: Unremarkable. No obvious mass or abnormal fluid collection. No ductal dilatation LIVER: No focal liver lesions demonstrated. Homogeneous echogenicity. No intrahepatic biliary ductal dilatation evident. There is appropriate direction of blood flow within a non dilated portal vein RIGHT KIDNEY: There is a 9 mm right cyst in the mid polar region LEFT KIDNEY: Unremarkable. Normal size and echogenicity. No hydronephrosis GALLBLADDER: Prior cholecystectomy without ductal dilatation AORTA: No evidence of aneurysmal dilatation. SPLEEN: Normal spleen size. There is a 1 cm by 1.2 cm cystic nodule within the anterior aspect of the spleen with some peripheral calcifications. This is nonspecific. ASCITES: None demonstrated. IMPRESSION: 1. Nonspecific cystic lesion of the spleen with some peripheral calcifications. Recommend 3 to six-month follow-up to confirm short term stability. 2. Prior cholecystectomy Dictated by: Dustin Booth MD 06/07/2019 12:09 Electronically signed by Dustin Booth MD in [place] 06/07/2019 12:09
== END ==
PROVIDERS: PCP Nurse Practitioner Family; Visit Provider Nurse Practitioner Family
DX: N83.8 Other noninflammatory disorders of ovary, fallopian tube and broad ligament (principal); D73.9 Disease of spleen, unspecified
CPT/HCPCS: 76700; 76830

== ENCOUNTER → 2019-06-26 11:54 | Outpatient (CLI) | payer MEDICARE, OTHER, SELFPAY ==
[2019-06-26 12:29] LABS: Hematocrit 32.4 % (37.0-47.0); Hemoglobin 10.2 g/dL (12.2-16.2)
[2019-06-26 15:34] LABS: Prothrombin Time 32.4 seconds (9.4-11.8)
== END ==
PROVIDERS: Visit Provider Nurse Practitioner Family
DX: D64.9 Anemia, unspecified (principal); D50.9 Iron deficiency anemia, unspecified
CPT/HCPCS: 36415; 85014; 85018; 85610

== ENCOUNTER 2019-07-15 09:37 | Outpatient (CLI) | payer MEDICARE, OTHER, SELFPAY ==
[2019-07-15 11:24] LABS: INR 2.43 (0.9-1.1); Prothrombin Time 24.2 seconds (9.4-11.8)
[2019-07-15 15:22] LABS: PHA INR Fingerstick 6.4 (0.9-1.1)
== END 2019-07-15 15:25 | disposition home or self-care (01) ==
PROVIDERS: PCP Nurse Practitioner Family; Visit Provider Nurse Practitioner Family
DX: Z51.81 Encounter for therapeutic drug level monitoring (principal); Z79.01 Long term (current) use of anticoagulants; I35.9 Nonrheumatic aortic valve disorder, unspecified
CPT/HCPCS: 36415; 85610; 99211; G0463

== ENCOUNTER → 2019-07-22 11:47 | Outpatient (POV) | payer MEDICARE, OTHER, SELFPAY ==
[2019-07-22 12:09] VITALS: BP 125/73; PULSE 73; RESP 18; O2SAT 99; BMI 23.9
--- NOTE | 2019-07-22 12:32 | HMH.PAINSOAP ---
[facility] Pain Management SOAP Note Subjective:: Patient is a very pleasant 68-year-old white female who presents today for follow-up. Since her last visit she has been diagnosed with colon cancer. Patient has a procedure to remove this next month. Patient is continuing her CBD oil and tramadol. She is also on gabapentin. She did begin to take half of a Percocet 5 nightly. I discussed with her that we will continue this for 1 month. She is then get a wean back off of it. She rates her pain a 0 out of 10 at this time. ROS General: no recent weight change, no fever, no sleep disturbances Respiratory: no cough, no shortness of air, no recurring pulmonary infections Cardiovascular/Peripheral Vascular: No chest pain, No palpitations, no edema, no shortness of breath. Gastrointestinal: no new onset incontinence, normal bowel movements reported Genitourinary: no new onset incontinence Musculoskeletal: Abdominal pain Psychiatric: normal mood/ affect Neurological: [denies new onset weakness in extremities], [denies new onset balance issues] Objective:: Physical Exam General: Alert and oriented x3, no acute distress, pleasant and cooperative, [on room air] Lungs: Resps E/U, Symmetrical chest expansion, Eyes: PERRL Musculoskeletal: Flexion and extension of spine within normal limits deep tendon reflexes normal, strength in upper and lower extremities [5/5], slightly antalgic gait noted Neurological: speech clear, armed security guard equal, no gross sensory deficits Assessment:: Colon cancer, status post knee replacements. Opioid use Plan:: Patient and I had a long discussion about weaning back off of her Percocet. We will give her one prescription for Percocet 5 mg a half tab p.o. nightly. I will follow-up with her in 1 month. I also discussed with her to have a flory discussion with the surgeon prior to her being prescribed any pain medication from her surgery. Dr. Valderrama has reviewed this note and agrees with this plan of care. This note was dictated using voice recognition software and may contain errors or omissions [facility] History I have reviewed the patient's past medical history: Yes 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: Reports:: Asthma, Atherosclerotic Heart Disease, Gastroesophageal Reflux Disease(GERD), Heart Murmur, Hyperlipidemia, Hypertension, Renal Disease, Renal Insufficiency, Valvular Heart Disease Denies:: Cancer, Diabetes Mellitus Type 1, Diabetes Mellitus Type 2, Internal Pacemaker, MRSA, Seizures *Have you ever received a pneumonia vaccine?: Yes *Have you received a flu vaccine this season?: Yes Other 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: Reports: Anemia, Arthritis, Hypothyroidism, Thyroid Disease Laterality Cases: Left: Other, Bilateral: Arthroscopy Knee, Carpal Tunnel Release Other Surgeries: Yes: Bariatric Surgery, Cardiac Surgery, Cholecystectomy, Hysterectomy-Partial, Thyroidectomy, Tubal Ligation, Other Valve Replacement. No: Pacemaker Amputation: No Fractures: No - *Social History Smoking Status: Never smoker Alcohol Intake: never Substance Use Type: marijuana, painkillers *Occupational Status:: other Housing: house Household Members: other *Travel in the last 8 weeks: None Family Hx:: Cancer
--- NOTE | 2019-07-26 14:05 | PC.PHONENOTE ---
called in Rx for Tramadol HCL 50mg one PO daily with 2 refills to [facility] per provider order.
== END ==
PROVIDERS: PCP Nurse Practitioner Family; Visit Provider Clinical Nurse Specialist Family Health
DX: Z96.659 Presence of unspecified artificial knee joint (principal); C18.9 Malignant neoplasm of colon, unspecified; F11.90 Opioid use, unspecified, uncomplicated
CPT/HCPCS: 99212

== ENCOUNTER 2019-07-22 14:27 | Outpatient (CLI) | payer MEDICARE, OTHER, SELFPAY ==
[2019-07-22 16:39] LABS: PHA INR Fingerstick 2.5 (0.9-1.1)
== END 2019-07-22 16:41 | disposition home or self-care (01) ==
LOC: ACC 14:28
PROVIDERS: PCP Nurse Practitioner Family; Visit Provider Nurse Practitioner Family
DX: Z51.81 Encounter for therapeutic drug level monitoring (principal); Z79.01 Long term (current) use of anticoagulants; I35.9 Nonrheumatic aortic valve disorder, unspecified
CPT/HCPCS: 85610; 99211; 99212; G0463

== ENCOUNTER 2019-08-12 14:31 | Outpatient (CLI) | payer MEDICARE, OTHER, SELFPAY | END 2019-08-12 16:52 | disposition home or self-care (01) | LOC: ACC 14:32 | PROVIDERS: PCP Internal Medicine Adolescent Medicine; Visit Provider Internal Medicine Adolescent Medicine | DX: Z51.81 Encounter for therapeutic drug level monitoring (principal); Z79.01 Long term (current) use of anticoagulants; I35.9 Nonrheumatic aortic valve disorder, unspecified | CPT/HCPCS: 85610; 99211; G0463 ==

== ENCOUNTER → 2019-08-19 09:37 | Outpatient (POV) | payer MEDICARE, OTHER, SELFPAY ==
--- NOTE | 2019-08-19 09:44 | HMH.VVPMSO ---
[facility] PM Virtual Visit SOAP Consent for virtual visit:: With the recent concerns about the COVID-19, we are trying to minimize exposure to you by shifting to telehealth appointments whenever possible. It restricts me from seeing you in person, but the trade off is protecting you during this pandemic. Can you see and hear me okay, and do you consent to this option? If not, I would be happy to see if we can reschedule your appointment in the future, when feasible. Has patient consented to this virtual visit?: Yes Subjective:: Patient is a pleasant 69-year-old white female who presents today for follow-up. Patient has been diagnosed with colon cancer and due to the pandemic she is currently awaiting treatment. Patient has continued her CBD oil tramadol gabapentin and 2.5 mg of Percocet nightly. Her total morphine equivalent today is 9. Patient is doing overall well. Patient rates her pain a 0 out of 10 at this time. Patient and I discussed waiting till after her surgery for cancer removal to start decreasing her Percocet again. ROS General: no recent weight change, no fever, no sleep disturbances Respiratory: no cough, no shortness of air, no recurring pulmonary infections Cardiovascular/Peripheral Vascular: No chest pain, No palpitations, no edema, no shortness of breath. Gastrointestinal: no new onset incontinence, normal bowel movements reported Genitourinary: no new onset incontinence Musculoskeletal: Back pain, knee pain Psychiatric: normal mood/ affect Neurological: [denies new onset weakness in extremities], [denies new onset balance issues] Objective:: Physical exam: Constitutional: Healthy appearing, well-developed, alert, in no acute distress Psychiatric: Judgment and insight intact, Alert and oriented x4 Mood and affect: Mood normal, affect appropriate Head and face: Inspection: Normocephalic atraumatic, extraocular movement intact Respiratory: Breathing nonlabored, nondyspneic Cardiovascular: No cyanosis, clubbing, or edema observed Skin: Head and neck: Skin with no lesions or rash observed Gait: Able to walk without assistive device: Able to heel and toe walk Neurologic: Sensation grossly intact per patient Musculoskeletal: Range of motion bilateral knees appear within normal limits Assessment:: Chronic opioid use, colon cancer, status post knee replacement Plan:: We will continue her medications as is for the time being. After her cancer removal surgery we will decrease her Percocet use. I will see the patient back in 2 months reassess her symptoms at that time she has been instructed to call the office if she has any issues prior to her next appointment. This encounter was performed as a telemedicine visit via secure 2 way video and audio to minimize risk and transmission of Covid-19. The patient and we understand the limitations of a telemedicine visit including inability to check reflexes, possibly missing subtle findings on physical exam. Alternative options were presented to the patient and the patient elected to proceed with the visit. We specifically discussed risk factors for Covid-19 including age, heart or lung disease, diabetes, immunosuppression and travel. We also discussed that NSAIDs may worsen Covid-19 infection symptoms and that they should not be used to treat Covid-19 symptoms. Patient was also informed that corticosteroids in any form oral or injectable will decrease immune response and may increase risk of Covid-[address] Valderrama has reviewed this patient's chart and this note and agrees with plan of care. Patient has been instructed to call the office if they have any issues prior to the next appointment. This note was dictated using voice recognition software and may contain errors or omissions Time In:: 09:25 Time Out:: 09:35 [facility] History I have reviewed the patient's past medical history: Yes 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: Reports:: Asthma, Atherosclerotic Heart Disease, Gastroesopha
== END ==
PROVIDERS: Visit Provider Clinical Nurse Specialist Family Health
DX: F11.20 Opioid dependence, uncomplicated (principal); C18.9 Malignant neoplasm of colon, unspecified; Z96.659 Presence of unspecified artificial knee joint
CPT/HCPCS: 99212

== ENCOUNTER 2019-09-23 14:31 | Outpatient (CLI) | payer MEDICARE, OTHER, SELFPAY ==
[2019-09-23 15:38] LABS: INR 4.95 (0.9-1.1); Prothrombin Time 47.7 seconds (9.4-11.8)
[2019-09-23 16:05] LABS: PHA INR Fingerstick 5.5 (0.9-1.1)
== END 2019-09-23 16:06 | disposition home or self-care (01) ==
PROVIDERS: PCP Nurse Practitioner Family; Visit Provider Internal Medicine Adolescent Medicine
DX: Z51.81 Encounter for therapeutic drug level monitoring (principal); Z79.01 Long term (current) use of anticoagulants; I35.9 Nonrheumatic aortic valve disorder, unspecified
CPT/HCPCS: 36415; 85610; 99211; G0463

== ENCOUNTER 2019-10-03 11:32 | Outpatient (CLI) | payer MEDICARE, OTHER, SELFPAY ==
[2019-10-03 16:06] LABS: PHA INR Fingerstick 3.4 (0.9-1.1)
== END 2019-10-03 16:09 | disposition home or self-care (01) ==
LOC: ACC 11:33
PROVIDERS: PCP Nurse Practitioner Family; Visit Provider Nurse Practitioner Family
DX: Z51.81 Encounter for therapeutic drug level monitoring (principal); Z79.01 Long term (current) use of anticoagulants; I35.9 Nonrheumatic aortic valve disorder, unspecified
CPT/HCPCS: 85610; 99211; G0463

== ENCOUNTER → 2019-10-07 13:06 | Outpatient (CLI) | payer MEDICARE, OTHER, SELFPAY ==
--- NOTE | 2019-10-07 13:07 | US_ITS ---
PROCEDURE: US TRANSVAGINAL CLINICAL INDICATION: US T/V- Left Ovarian Cyst f/u COMPARISON: US TRANSVAGINAL from 06/07/2019 FINDINGS: UTERUS: 6cm x x 3cm with a combined endometrial thickness of 4.6mm LEFT OVARY: [id number] with a volume of 19.2ml. RIGHT OVARY: Removed No cul-de-sac fluid evident. There remains a 2 cm cystic area in the left ovary with hyperechoic focus which is not significantly changed IMPRESSION: Stable appearance of the pelvis with a small 2 cm left ovarian cyst with small hyperechoic nodule. Continued six-month follow-up suggested Dictated by: Dustin Booth MD 10/07/2019 14:39 Electronically signed by Dustin Booth MD in [place] 10/07/2019 14:39
== END ==
PROVIDERS: PCP Internal Medicine Adolescent Medicine; Visit Provider Obstetrics & Gynecology
DX: N83.202 Unspecified ovarian cyst, left side (principal)
CPT/HCPCS: 76830

== ENCOUNTER 2019-10-18 11:30 | Outpatient (CLI) | payer MEDICARE, OTHER, SELFPAY ==
[2019-10-18 13:57] LABS: PHA INR Fingerstick 3.3 (0.9-1.1)
== END 2019-10-18 14:03 | disposition home or self-care (01) ==
LOC: ACC 11:32
PROVIDERS: PCP Nurse Practitioner Family; Visit Provider Nurse Practitioner Family
DX: Z51.81 Encounter for therapeutic drug level monitoring (principal); Z79.01 Long term (current) use of anticoagulants; I35.9 Nonrheumatic aortic valve disorder, unspecified
CPT/HCPCS: 85610; 99211; G0463

== ENCOUNTER → 2019-10-21 09:25 | Outpatient (POV) | payer MEDICARE, OTHER, SELFPAY ==
--- NOTE | 2019-10-21 09:42 | HMH.VVPMSO ---
[facility] PM Virtual Visit SOAP Consent for virtual visit:: With the recent concerns about the COVID-19, we are trying to minimize exposure to you by shifting to telehealth appointments whenever possible. It restricts me from seeing you in person, but the trade off is protecting you during this pandemic. Can you see and hear me okay, and do you consent to this option? If not, I would be happy to see if we can reschedule your appointment in the future, when feasible. Has patient consented to this virtual visit?: Yes Subjective:: Patient is a pleasant 69-year-old white female who presents today for follow-up. She is been diagnosed with colon cancer and due to the pandemic she still awaiting treatment. She has surgery scheduled for December 02. She is continuing her CBD oil/tramadol/gabapentin and 2.5 mg of Percocet nightly. Her total morphine equivalent is 9 overall doing well. She rates her pain a 0 out of 10. She is having increased knee pain she is in a touch base with her surgeon to see if there are any underlying issues. [facility] #[id number] ROS General: no recent weight change, no fever, no sleep disturbances Respiratory: no cough, no shortness of air, no recurring pulmonary infections Cardiovascular/Peripheral Vascular: No chest pain, No palpitations, no edema, no shortness of breath. Gastrointestinal: no new onset incontinence, normal bowel movements reported Genitourinary: no new onset incontinence Musculoskeletal: Knee pain at times Psychiatric: normal mood/ affect Neurological: [denies new onset weakness in extremities], [denies new onset balance issues] Objective:: Physical exam: Constitutional: Healthy appearing, well-developed, alert, in no acute distress Psychiatric: Judgment and insight intact, Alert and oriented x4 Mood and affect: Mood normal, affect appropriate Head and face: Inspection: Normocephalic atraumatic, extraocular movement intact Respiratory: Breathing nonlabored, nondyspneic Cardiovascular: No cyanosis, clubbing, or edema observed Skin: Head and neck: Skin with no lesions or rash observed Gait: Able to walk without assistive device: Able to heel and toe walk Neurologic: Sensation grossly intact per patient Musculoskeletal: Decreased range of motion knees noted Assessment:: Bilateral knee pain, chronic opioid use, colon cancer Plan:: We will continue her medications for the time being. After cancer removal surgery we will decrease her Percocet use. I will see the patient back in 2 months in the office. If she has any issues prior to her next appointment she has been instructed to call the office. This encounter was performed as a telemedicine visit via secure 2 way video and audio to minimize risk and transmission of Covid-19. The patient and we understand the limitations of a telemedicine visit including inability to check reflexes, possibly missing subtle findings on physical exam. Alternative options were presented to the patient and the patient elected to proceed with the visit. We specifically discussed risk factors for Covid-19 including age, heart or lung disease, diabetes, immunosuppression and travel. We also discussed that NSAIDs may worsen Covid-19 infection symptoms and that they should not be used to treat Covid-19 symptoms. Patient was also informed that corticosteroids in any form oral or injectable will decrease immune response and may increase risk of Covid-[address] Valderrama has reviewed this patient's chart and this note and agrees with plan of care. Patient has been instructed to call the office if they have any issues prior to the next appointment. Time In:: 09:30 Time Out:: 09:40 [facility] History I have reviewed the patient's past medical history: Yes 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: Reports:: Asthma, Atherosclerotic Heart Disease, Gastroesophageal Reflux Disease(GERD), Heart Murmur, Hyperlipidemia, Hypertension, Renal Disease, Renal Insufficiency, Valvular Heart Disease Denies::
== END ==
PROVIDERS: Visit Provider Clinical Nurse Specialist Family Health
DX: M25.561 Pain in right knee (principal); M25.562 Pain in left knee; C18.9 Malignant neoplasm of colon, unspecified; Z79.891 Long term (current) use of opiate analgesic
CPT/HCPCS: 99212

== ENCOUNTER → 2019-11-27 07:23 | Outpatient (CLI) | payer MEDICARE, OTHER, SELFPAY ==
--- NOTE | 2019-11-27 | CA_ITS ---
APPROVED REPORT Exam: Pharmacologic Technologist: Kasandra Farmer, Ht: 5 ft 5 in Wt: 203 lbs BSA: 1.99 m2 HR: 71 bpm BP: 128/65 mmHg Rhythm: NSR,PAC,NS IVCD,LAD,,CANNOT R/O OLD SEPTAL HI 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: HTN, Hyperlipidemia Medications: Amlodipine,,,,, Levothyroxine,,,,, Hydralazine,,,,, Warfarin,,,,, Trazadone,,,,, Gabapentin,,,,, Tramadol,,,,, Calcium,,,,, Protonix,,,,, OxYCODONE,,,,, MVA,,,,, VoRtioxetine,,,,, Allergies: No known drug allergies Cardiac Risk Factors: HTN, Hyperlipidemia Stress Test Details Test: LEXISCAN HR Resting HR: 76 bpm Max Heart Rate (APMHR): 153 bpm Max HR Achieved: 114 bpm Target HR (85% APMHR): 130 bpm % of APMHR: 74 Recovery HR: 94 bpm BP Resting BP: 128.0/65.0 mmHg Max BP: 139.0/61.0 mmHg Recovery BP: 123.0/57.0 mmHg ECG Resting ECG: NSR,PAC,NS IVCD,LAD,CANNOT R/O OLD SEPTAL HI Clinical Exercise duration: 04:03 min Highest Stage Achieved: Stress ECG Conclusion DURING INFUSION PATIENT HAD NO SYMPTOMS. OCCASIONAL PAC. RARE PVC. NO SIGNIFICANT ST-T CHANGES. UNREMARKABLE LEXISCAN STRESS. MYOVIEW IMAGES REPORTED SEPARATELY. Electronically signed by : Neymar Lazo, 11/28/2019 09:14:17
--- NOTE | 2019-11-27 07:23 | NM_ITS ---
APPROVED REPORT Exam: Nuclear Stress Test Indication: short of breath..fatigue Patient Location: Outpatient Stress Tech: Divya Farmer NM Tech:KRYSTLE Aguilera RT(R)(N) Ht: 5 ft 5 in Wt: 203 lbs Bra Size: 42dd HR: 71 bpm BP: 128/65 mmHg BSA: 1.99 m2 BMI: 33.7 History: short of breath..fatigue Procedure: Patient received a 0.4 mg of intravenous Lexiscan, resting heart rate 71 bpm, resting blood pressure 128/65 mmHg, with Lexiscan maximum heart rate achived was 111 bpm which is Less than 85 % of the maximum predicted heart rate and blood pressure was 135/62 mmHg. With Lexiscan, patient denied any complaint of chest pain. Electrocardiogram Resting electrocardiogram showed sinus rhythm, with Lexiscan there is less than 1.[address] segment depression noted from the baseline EKG. the EKG portion of the Lexiscan Myoview is nondiagnostic. Cardiac Stress and Resting SPECT Images: Cardiac Stress and Resting SPECT images were obtained using technetium 99m Myoview 30.9 mCi stress and 10.08 mCi at rest. Gated SPECT for the analysis of segmental wall motion and calculation of the ejection fraction also done. Cardiac stress and resting SPECT images show large area of fixed defect involving the anterior, anterolateral and lateral wall consistent with area of myocardial scarring computer derived ejection fraction 32% with marked hypokinesis involving the anterior, anterolateral and lateral wall. Right ventricle is not well visualized. This is study is technically very limited due to patient's body habitus. Conclusion: 1. The EKG portion of the Lexiscan Myoview is nondiagnostic. 2. Scintigraphic evidence of myocardial scarring involving the anterior, anterolateral and lateral wall without significant mary-infarct ischemia, computer derived ejection fraction 32% with segmental wall motion abnormality described above, right ventricle is not well visualized. This study is technically very limited due to patient's body habitus. 3. Likely abnormal Lexiscan Myoview study. Electronically signed by : Neymar Lazo, 11/28/2019 09:22:15
--- NOTE | 2019-11-27 11:00 | HMH.ITSHM ---
Current Home Medications as stated by this patient Elba Tripp or outbound telemarketing representative. [] warfarin tramadol protonix neurontin amlodipine
== END ==
PROVIDERS: PCP Nurse Practitioner Family; Visit Provider Urology
DX: E78.5 Hyperlipidemia, unspecified (principal); I10 Essential (primary) hypertension; R94.31 Abnormal electrocardiogram [ECG] [EKG]; Z01.810 Encounter for preprocedural cardiovascular examination; Z86.79 Personal history of other diseases of the circulatory system; Z95.2 Presence of prosthetic heart valve
CPT/HCPCS: 78452; 93017; A9502; J2785

== ENCOUNTER 2019-11-29 09:00 | Outpatient (RCR) | payer MEDICARE, OTHER, SELFPAY | END 2019-11-29 09:05 | disposition home or self-care (01) | LOC: PT 09:00 | PROVIDERS: Visit Provider Orthopaedic Surgery | DX: M25.562 Pain in left knee (principal); Z96.652 Presence of left artificial knee joint | CPT/HCPCS: 97010; 97014; 97110; 97163; G0283 ==

== ENCOUNTER 2019-12-16 11:24 | Outpatient (CLI) | payer MEDICARE, OTHER, SELFPAY ==
[2019-12-16 14:40] LABS: PHA INR Fingerstick 2.5 (0.9-1.1)
== END 2019-12-16 14:41 | disposition home or self-care (01) ==
LOC: ACC 11:27
PROVIDERS: PCP Nurse Practitioner Family; Visit Provider Nurse Practitioner Family
DX: Z51.81 Encounter for therapeutic drug level monitoring (principal); Z79.01 Long term (current) use of anticoagulants; I35.9 Nonrheumatic aortic valve disorder, unspecified
CPT/HCPCS: 85610; 99211; G0463

== ENCOUNTER → 2019-12-17 13:49 | Outpatient (CLI) | payer MEDICARE, OTHER, SELFPAY ==
[2019-12-17 13:58] LABS: Microscopic, Urine URINE MICROSCOPIC (MICROSCOPIC)
[2019-12-17 14:14] LABS: Appearance,Urine CLEAR (Clear); Bilirubin,Urine Negative (Negative); Blood, Urine 2+ (Negative); Color,Urine YELLOW (Yellow); Glucose,Urine (UA) Negative (Negative); Ketones,Urine Negative (Negative); Leukocyte Esterase,Urine Negative (Negative); Nitrate,Urine Negative (Negative); PH,Urine 5.5 (5.0-8.5); Protein,Urine Negative (Negative); Urobilinogen,Urine 0.2 EU/dl (0.2)
[2019-12-17 14:38] LABS: Bacteria,Urine 1+ /lpf
== END ==
PROVIDERS: Visit Provider Nurse Practitioner Family
DX: M54.5 Low back pain (principal); Z87.440 Personal history of urinary (tract) infections; R82.90 Unspecified abnormal findings in urine
CPT/HCPCS: 81001; 87086

== ENCOUNTER → 2019-12-23 10:40 | Outpatient (POV) | payer MEDICARE, OTHER, SELFPAY ==
[2019-12-23 10:50] VITALS: BP 142/78; PULSE 85; RESP 18; TEMP 36.9; O2SAT 99; BMI 32.9
--- NOTE | 2019-12-23 12:36 | HMH.PAINSOAP ---
[facility] Pain Management SOAP Note Subjective:: Patient is a pleasant 69-year-old white female who presents today for follow-up. Since her last visit patient has undergone 2 colon resections due to neoplasm. Patient had issues with her H&H post her first surgery which led to her second. Patient rates her pain today 2 out of 10 however it does worsen at nighttime. She is currently on Percocet 5 mg a half a tab at bedtime. She is also on tramadol 50 mg daily and gabapentin 100 mg 1 p.o. twice daily. Patient and I discussed increasing her tramadol for short amount of time. She is interested in doing this. ROS General: no recent weight change, no fever, no sleep disturbances Respiratory: no cough, no shortness of air, no recurring pulmonary infections Cardiovascular/Peripheral Vascular: No chest pain, No palpitations, no edema, no shortness of breath. Gastrointestinal: no new onset incontinence, normal bowel movements reported Genitourinary: no new onset incontinence Musculoskeletal: Abdominal pain, knee pain at times Psychiatric: normal mood/ affect Neurological: [denies new onset weakness in extremities], [denies new onset balance issues] Objective:: Physical Exam General: Alert and oriented x3, no acute distress, pleasant and cooperative, [on room air] Lungs: Resps E/U, Symmetrical chest expansion, Eyes: PERRL Musculoskeletal: Flexion and extension of lumbar spine somewhat guarded secondary to pain, deep tendon reflexes normal, strength in upper and lower extremities [5/5], [abnormal gait noted] Neurological: speech clear, infirmary attendant equal, no gross sensory deficits Assessment:: Colon cancer, chronic opioid use, bilateral knee pain Plan:: We will schedule the patient for a follow-up in 2 months reassess her symptoms at that time we will continue her Percocet 5 mg 1/2 pill daily, will increase her tramadol 50 mg to 3 times a day and will continue her gabapentin 100 mg twice daily. Patient's Jaime #[id number] reviewed and appropriate urine drug screens have been appropriate. She has been instructed to call the office if she has any issues prior to her next appointment. D Patient has been prescribed a controlled substance after being counseled on the medication, medication safety, and possible side effects. JAIME report has been obtained and reviewed prior to prescription and found to be appropriate. Opioid contract was reviewed and signed by the patient, and that they have agreed to all of the terms set forth by our compliance program.juan [email or web address] Valderrama has reviewed this note and agrees with this plan of care. This note was dictated using voice recognition software and may contain errors or omissions [facility] History I have reviewed the patient's past medical history: Yes 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: Reports:: Asthma, Atherosclerotic Heart Disease, Atrial Fibrillation, Cancer, Gastroesophageal Reflux Disease(GERD), Heart Murmur, Hyperlipidemia, Hypertension, Renal Disease, Renal Insufficiency, Valvular Heart Disease Denies:: Diabetes Mellitus Type 1, Diabetes Mellitus Type 2, Internal Pacemaker, MRSA, Seizures *Have you ever received a pneumonia vaccine?: Yes *Have you received a flu vaccine this season?: Yes Other 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: Reports: Anemia, Arthritis, Hypothyroidism, Thyroid Disease Laterality Cases: Left: Other, Bilateral: Arthroscopy Knee, Carpal Tunnel Release Other Surgeries: Yes: Bariatric Surgery, Cardiac Surgery, Cholecystectomy, Hysterectomy-Partial, Thyroidectomy, Tubal Ligation, Other Valve Replacement. No: Pacemaker Amputation: No Fractures: No - *Social History Smoking Status: Former smoker Alcohol Intake: never Substance Use Type: painkillers *Occupational Status:: other Housing: house Household Members: other *Travel in the last 8 weeks: None Family Hx:: Cancer
== END ==
PROVIDERS: PCP Nurse Practitioner Family; Visit Provider Clinical Nurse Specialist Family Health
DX: C18.9 Malignant neoplasm of colon, unspecified (principal); Z79.891 Long term (current) use of opiate analgesic; M25.562 Pain in left knee; M25.561 Pain in right knee
CPT/HCPCS: 99212

== ENCOUNTER 2019-12-30 11:28 | Outpatient (CLI) | payer MEDICARE, OTHER, SELFPAY ==
[2019-12-30 13:06] LABS: PHA INR Fingerstick 3.6 (0.9-1.1)
== END 2019-12-30 13:07 | disposition home or self-care (01) ==
LOC: ACC 11:30
PROVIDERS: PCP Nurse Practitioner Family; Visit Provider Nurse Practitioner Family
DX: Z51.81 Encounter for therapeutic drug level monitoring (principal); Z79.01 Long term (current) use of anticoagulants; I35.9 Nonrheumatic aortic valve disorder, unspecified
CPT/HCPCS: 85610; 99211; G0463

== ENCOUNTER → 2020-01-14 11:48 | Outpatient (CLI) | payer MEDICARE, OTHER, SELFPAY ==
[2020-01-14 12:08] LABS: Basophils # 0.1 K/mm3 (0-0.2); Basophils % 0.8 % (0.1-2.0); Eosinophils # 0.3 K/mm3 (0.0-0.4); Eosinophils % 3.7 % (0.1-12.0); Hematocrit 36.4 % (37.0-47.0); Hemoglobin 12.1 g/dL (12.2-16.2); Lymphocytes % 12.7 % (10-50); Mean Corpuscular HGB Conc 33.3 g/dL (31.8-35.4); Mean Corpuscular Hemoglobin 28.7 pg (27.0-31.2); Mean Corpuscular Volume 86.1 fl (81-99); Mean Platelet Volume 8.3 fl (7.4-10.4); Monocytes # 0.4 K/mm3 (0.1-1.0); Monocytes % 4.5 % (1.7-9.3); Neutrophils % 78.2 % (37.0-80.0); Platelet Count 269 K/mm3 (142-424); Red Blood Count 4.22 M/mm3 (4.20-5.40); Red Cell Distribution Width 14.8 % (11.5-17.5); White Blood Count 7.7 K/mm3 (4.8-10.8)
[2020-01-14 12:18] LABS: INR 2.79 (0.9-1.1); Prothrombin Time 26.9 seconds (9.4-11.8)
[2020-01-14 14:02] LABS: Alanine Aminotransferase 14 U/L (12-78); Albumin Level 4.4 g/dl (3.5-5.0); Albumin/Globulin Ratio 1.5 (1.1-1.8); Alkaline Phosphatase 68 U/L (38-126); Anion Gap 14.8 mEq/L (5-15); Aspartate Amino Transferase 34 U/L (14-36); Bilirubin,Total 0.4 mg/dl (0.2-1.3); Blood Urea Nitrogen 18 mg/dl (7-17); Calcium 9.6 mg/dl (8.4-10.2); Carbon Dioxide 30 mmol/L (22.0-30.0); Chloride 100 mmol/L (98-107); Estimated Glomerular Filt Rate 38 ml/min (>60); GFR (African American) 45 ML/MIN (>60); Glucose 102 mg/dl (74-100); Potassium 4.8 mmoL/L (3.5-5.1); Sodium 140 mmol/L (136-145); Total Protein,Serum 7.4 g/dl (6.3-8.2)
== END ==
PROVIDERS: Visit Provider Nurse Practitioner Family
DX: R53.81 Other malaise (principal); N18.3 Chronic kidney disease, stage 3 (moderate); D50.9 Iron deficiency anemia, unspecified; Z79.01 Long term (current) use of anticoagulants; E03.9 Hypothyroidism, unspecified; Z95.2 Presence of prosthetic heart valve
CPT/HCPCS: 36415; 80053; 84443; 85025; 85610

== ENCOUNTER 2020-02-04 10:54 | Outpatient (CLI) | payer MEDICARE, OTHER, SELFPAY ==
[2020-02-04 15:11] LABS: Prothrombin Time 40.1 seconds (9.4-11.8)
[2020-02-04 15:12] LABS: INR 4.11 (0.9-1.1)
[2020-02-04 15:30] LABS: PHA INR Fingerstick 4.2 (0.9-1.1)
== END 2020-02-04 15:34 | disposition home or self-care (01) ==
PROVIDERS: PCP Nurse Practitioner Family; Visit Provider Internal Medicine Adolescent Medicine
DX: Z51.81 Encounter for therapeutic drug level monitoring (principal); Z79.01 Long term (current) use of anticoagulants; I35.9 Nonrheumatic aortic valve disorder, unspecified
CPT/HCPCS: 36415; 85610; 99211; G0463

== ENCOUNTER 2020-02-19 13:19 | Outpatient (CLI) | payer MEDICARE, OTHER, SELFPAY ==
[2020-02-19 13:55] LABS: PHA INR Fingerstick 3.3 (0.9-1.1)
== END 2020-02-19 13:57 | disposition home or self-care (01) ==
LOC: ACC 13:21
PROVIDERS: PCP Internal Medicine Adolescent Medicine; Visit Provider Internal Medicine Adolescent Medicine
DX: Z51.81 Encounter for therapeutic drug level monitoring (principal); Z79.01 Long term (current) use of anticoagulants; I35.9 Nonrheumatic aortic valve disorder, unspecified
CPT/HCPCS: 85610; 99211; G0463

== ENCOUNTER → 2020-02-24 10:11 | Outpatient (POV) | payer MEDICARE, OTHER, SELFPAY ==
[2020-02-24 10:22] VITALS: BP 138/89; PULSE 89; RESP 18; O2SAT 98; BMI 29.9
--- NOTE | 2020-02-24 10:48 | P.CONS_ITS ---
[facility] Pain Management SOAP Note Subjective:: Patient is a pleasant 69-year-old white female who presents today for follow-up. Patient is undergone 2 colon resections due to neoplasm today she is doing well with no current neoplasm. Patient rates her pain a 0 out of 10. She has weaned herself completely off her Percocet she is taking 2 tramadol 50 mg at bedtime and 1 during the day. Patient is also on gabapentin 100 mg 1 p.o. twice daily. [facility] #[id number] reviewed and appropriate. Urine drug screens have been appropriate. ROS General: no recent weight change, no fever, no sleep disturbances Respiratory: no cough, no shortness of air, no recurring pulmonary infections Cardiovascular/Peripheral Vascular: No chest pain, No palpitations, no edema, no shortness of breath. Gastrointestinal: no new onset incontinence, normal bowel movements reported Genitourinary: no new onset incontinence Musculoskeletal: Knee pain, back pain Psychiatric: normal mood/ affect Neurological: [denies new onset weakness in extremities], [denies new onset balance issues] Objective:: Physical Exam General: Alert and oriented x3, no acute distress, pleasant and cooperative, [on room air] Lungs: Resps E/U, Symmetrical chest expansion, Eyes: PERRL Musculoskeletal: Flexion and extension of lumbar spine somewhat guarded secondary to pain, deep tendon reflexes normal, strength in upper and lower extremities [5/5], antalgic gait noted Neurological: speech clear, clinical applications specialist equal, no gross sensory deficits Assessment:: Back pain, chronic opioid use, colon cancer history, bilateral knee pain Plan:: We will continue her tramadol and her gabapentin we will give her 3 months worth of medication. We will see her back in 3 months reassess her symptoms at that time she has been instructed to call the office if she has any issues prior to next appointment. Dr. Valderrama has reviewed this note and agrees with this plan of care. This note was dictated using voice recognition software and may contain errors or omissions [facility] History I have reviewed the patient's past medical history: Yes 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: Reports:: Asthma, Atherosclerotic Heart Disease, Atrial Fibrillation, Cancer, Gastroesophageal Reflux Disease(GERD), Heart Murmur, Hyperlipidemia, Hypertension, Renal Disease, Renal Insufficiency, Valvular Heart Disease Denies:: Diabetes Mellitus Type 1, Diabetes Mellitus Type 2, Internal P acemaker, MRSA, Seizures *Have you ever received a pneumonia vaccine?: Yes *Have you received a flu vaccine this season?: Yes Other 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: Reports: Anemia, Arthritis, Hypothyroidism, Thyroid Disease Laterality Cases: Left: Other, Bilateral: Arthroscopy Knee, Carpal Tunnel Release Other Surgeries: Yes: Bariatric Surgery, Cardiac Surgery, Cholecystectomy, Hysterectomy-Partial, Thyroidectomy, Tubal Ligation, Other Valve Replacement. No: Pacemaker Amputation: No Fractures: No - *Social History Smoking Status: Former smoker Alcohol Intake: never Substance Use Type: painkillers *Occupational Status:: other Housing: house Household Members: other *Travel in the last 8 weeks: None Family Hx:: Cancer
== END ==
PROVIDERS: PCP Internal Medicine Adolescent Medicine; Visit Provider Clinical Nurse Specialist Family Health
DX: M54.9 Dorsalgia, unspecified (principal); M25.562 Pain in left knee; M25.561 Pain in right knee; Z85.038 Personal history of other malignant neoplasm of large intestine; Z79.891 Long term (current) use of opiate analgesic
CPT/HCPCS: 99212

== ENCOUNTER 2020-03-19 11:00 | Outpatient (CLI) | payer MEDICARE, OTHER, SELFPAY ==
[2020-03-19 13:19] LABS: PHA INR Fingerstick 3.3 (0.9-1.1)
== END 2020-03-19 13:25 | disposition home or self-care (01) ==
LOC: ACC 11:02
PROVIDERS: Internal Medicine Adolescent Medicine; PCP Nurse Practitioner Family; Visit Provider Nurse Practitioner Family
DX: I35.9 Nonrheumatic aortic valve disorder, unspecified (principal)
CPT/HCPCS: 85610; 99211; G0463

== ENCOUNTER 2020-04-29 10:55 | Outpatient (CLI) | payer MEDICARE, OTHER, SELFPAY ==
[2020-04-29 13:39] LABS: PHA INR Fingerstick 3.5 (0.9-1.1)
== END 2020-04-29 13:48 | disposition home or self-care (01) ==
LOC: ACC 10:58
PROVIDERS: PCP Nurse Practitioner Family; Visit Provider Nurse Practitioner Family
DX: Z51.81 Encounter for therapeutic drug level monitoring (principal); Z79.01 Long term (current) use of anticoagulants; I35.9 Nonrheumatic aortic valve disorder, unspecified
CPT/HCPCS: 85610; 99211; G0463

== ENCOUNTER → 2020-04-30 11:48 | Outpatient (CLI) | payer MEDICARE, OTHER, SELFPAY ==
--- NOTE | 2020-04-30 11:52 | XR_ITS ---
PROCEDURE: XR HUMERUS LT CLINICAL INDICATION: CONTUSION OF LT UPPER ARM, PAIN OF LT UPPER EXTREMITY Posttraumatic pain COMPARISON: No exams were available for comparison FINDINGS: There are mild osteoarthritic changes of the glenohumeral joint and acromioclavicular joint. There is hypertrophic change of the inferior aspect of the acromion with subacromial stenosis. No acute fracture or dislocation. At the elbow, there is a well-circumscribed rounded calcific density overlying the olecranon fossa measuring 14 mm consistent with a loose body. Osteoarthritic changes are present at the elbow joint with an ununited ossification center or old fracture at the radial head region. 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 No acute fracture Dictated by: Dustin Booth MD 05/01/2020 07:10 Dustin Booth MD in [place] 05/01/2020 07:10
== END ==
PROVIDERS: PCP Nurse Practitioner Family; Visit Provider Nurse Practitioner Family
DX: S40.022A Contusion of left upper arm, initial encounter (principal); M79.602 Pain in left arm
CPT/HCPCS: 73060

== ENCOUNTER → 2020-05-18 10:42 | Outpatient (POV) | payer MEDICARE, OTHER, SELFPAY ==
--- NOTE | 2020-05-18 11:09 | P.CONS_ITS ---
[facility] Pain Management SOAP Note Subjective:: Patient is a pleasant 69-year-old white female who presents today for follow-up. Patient is undergone 2 colon resections due to neoplasm today she is doing well with no current problems. Patient rates her pain today a 3 out of 10. Mostly in her left shoulder. Patient hurt her left shoulder getting out of a truck sometime back. She has had x-rays that showed arthritis. She has difficulty lifting her arm. Patient has completely weaned off her Percocet she is taking 2 tramadol 50 mg at bedtime and 1 during the day. She is also beginning to wean this as well. She is also on gabapentin 100 mg 1 p.o. twice daily. Her [facility] #[id number] reviewed and appropriate. Drug screens of been appropriate. She is interested in potentially a left shoulder injection prior to going to see sports medicine in [place]. ROS General: no recent weight change, no fever, no sleep disturbances Respiratory: no cough, no shortness of air, no recurring pulmonary infections Cardiovascular/Peripheral Vascular: No chest pain, No palpitations, no edema, no shortness of breath. Gastrointestinal: no new onset incontinence, normal bowel movements reported Genitourinary: no new onset incontinence Musculoskeletal: Shoulder pain Psychiatric: normal mood/ affect Neurological: [denies new onset weakness in extremities], [denies new onset balance issues] Objective:: Physical Exam General: Alert and oriented x3, no acute distress, pleasant and cooperative, [on room air] Lungs: Resps E/U, Symmetrical chest expansion, Eyes: PERRL Musculoskeletal: Range of motion left shoulder guarded secondary to pain, deep tendon reflexes normal, strength in upper and lower extremities [5/5], slightly antalgic gait noted Neurological: speech clear, 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 We will also continue her tramadol and gabapentin. We will see her back after her injection reassess her symptoms at that time she has been instructed to call the office if she has any issues prior to her next appointment. Dr. Valderrama has reviewed this note and agrees with this plan of care. This note was dictated using voice recognition software and may contain errors or omissions [facility] History I have reviewed the patient's past medical history: Yes 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: Reports:: Asthma, Atherosclerotic Heart Disease, Atrial Fibrillation, Cancer (thryoid ca), Gastroesophageal Reflux Disease(GERD), Heart Murmur, Hyperlipidemia, Hypertension, Renal Disease, Renal Insufficiency, Valvular Heart Disease Denies:: Diabetes Mellitus Type 1, Diabetes Mellitus Type 2, Internal Pacemaker, MRSA, Seizures *Have you ever received a pneumonia vaccine?: Yes *Have you received a flu vaccine this season?: Yes Other 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: Reports: Anemia, Arthritis, Hypothyroidism, Thyroid Disease Laterality Cases: Left: Other, Bilateral: Arthroscopy Knee, Carpal Tunnel Release Other Surgeries: Yes: Bariatric Surgery, Cardiac Surgery, Cholecystectomy, Hysterectomy-Partial, Thyroidectomy, Tubal Ligation, Other Valve Replacement. No: Pacemaker Amputation: No Fractures: No - *Social History Smoking Status: Never smoker Alcohol Intake: never Substance Use Type: painkillers *Occupational Status:: retired, other Housing: house Household Members: none, other *Travel in the last 8 weeks: None Family Hx:: Cancer, Unable to obtain
[2020-05-18 12:34] VITALS: BP 128/75; PULSE 88; RESP 18; TEMP 36.6; O2SAT 98; BMI 35.2
== END ==
PROVIDERS: PCP Nurse Practitioner Family; Visit Provider Clinical Nurse Specialist Family Health
DX: M54.9 Dorsalgia, unspecified (principal); F11.90 Opioid use, unspecified, uncomplicated; C18.9 Malignant neoplasm of colon, unspecified; M25.562 Pain in left knee; M25.561 Pain in right knee; M25.512 Pain in left shoulder
CPT/HCPCS: 99212; G0463

== ENCOUNTER 2020-05-20 10:55 | Outpatient (CLI) | payer MEDICARE, OTHER, SELFPAY ==
[2020-05-20 14:05] LABS: PHA INR Fingerstick 4.2 (0.9-1.1)
== END 2020-05-20 14:13 | disposition home or self-care (01) ==
LOC: ACC 10:56
PROVIDERS: PCP Nurse Practitioner Family; Visit Provider Internal Medicine Adolescent Medicine
DX: Z51.81 Encounter for therapeutic drug level monitoring (principal); Z79.01 Long term (current) use of anticoagulants; Z95.2 Presence of prosthetic heart valve
CPT/HCPCS: 36415; 85610; 99211; G0463

== ENCOUNTER → 2020-05-20 11:16 | Outpatient (CLI) | payer MEDICARE, OTHER, SELFPAY ==
[2020-05-20 12:14] LABS: INR 3.75 (0.9-1.1); Prothrombin Time 36.9 seconds (9.4-11.8)
== END ==
PROVIDERS: Visit Provider Internal Medicine Adolescent Medicine
DX: Z51.81 Encounter for therapeutic drug level monitoring (principal)
CPT/HCPCS: 36415; 85610

== ENCOUNTER 2020-05-22 11:08 | Day surgery (SDC) | payer MEDICARE, OTHER, SELFPAY ==
[2020-05-22 12:15] VITALS: BP 134/79; PULSE 91; RESP 18; TEMP 36.7; O2SAT 94; BMI 29.9
[2020-05-22 13:07] VITALS: BP 142/78; BP 143/79; PULSE 79; PULSE 89; RESP 18; O2SAT 98; O2SAT 99
[2020-05-22 13:15] VITALS: BP 135/84; PULSE 92; RESP 20; O2SAT 94
--- NOTE | 2020-05-22 13:51 | HMH.PMPROC ---
- Procedure Date: 05/22/20 Time: 13:51 Anesthesiologist:: Daniel Valderrama MD Complications:: None Pre-procedure Diagnosis:: Left shoulder pain Post-procedure Diagnosis:: Same Indications for Procedure:: This patient is a pleasant 69-year-old white female who we are treating for left shoulder pain. We are currently prescribing her gabapentin 1 mg twice a day and tramadol. She did have a urine drug screen which showed a positive for oxycodone. I did confront the patient about this. She says she did take an old Percocet that was prescribed by us back in January. I told her she cannot take any of her old medications. She is only to take what is currently prescribed. We will continue to monitor her urine and do a random pill count. We will also do a left shoulder injection today and suprascapular nerve block. Procedure Details:: Left shoulder injection Informed consent was obtained and the risk and benefits of the procedure were explained to the patient. The patient was taken to the procedure room left shoulder was prepped using ChloraPrep. 25-gauge needle was used first anteriorly and laterally and over the left suprascapular nerve to inject 10 mL bupivacaine 0.25% and Depo-Medrol 40 mg into the left shoulder and left suprascapular nerve area. Patient tolerated procedure well with no complications. Plan and Disposition:: We will follow-up with her in 2 weeks. Will reevaluate symptoms at that time. We will continue to monitor her urine to monitor for any discrepancies. I told her not to take any old medication and to only take what is currently prescribed.
== END 2020-05-22 13:15 | disposition home or self-care (01) ==
PROVIDERS: PCP Nurse Practitioner Family; Visit Provider Anesthesiology
DX: M25.512 Pain in left shoulder (principal); I10 Essential (primary) hypertension; E78.5 Hyperlipidemia, unspecified; E03.9 Hypothyroidism, unspecified; I48.91 Unspecified atrial fibrillation; N28.9 Disorder of kidney and ureter, unspecified; F41.9 Anxiety disorder, unspecified; F32.9 Major depressive disorder, single episode, unspecified
CPT/HCPCS: 20610; J1040

== ENCOUNTER 2020-06-10 11:11 | Outpatient (CLI) | payer MEDICARE, OTHER, SELFPAY ==
[2020-06-10 14:56] LABS: PHA INR Fingerstick 2.8 (0.9-1.1)
== END 2020-06-10 14:57 | disposition home or self-care (01) ==
LOC: ACC 11:12
PROVIDERS: PCP Internal Medicine Adolescent Medicine; Visit Provider Internal Medicine Adolescent Medicine
DX: Z51.81 Encounter for therapeutic drug level monitoring (principal); Z79.01 Long term (current) use of anticoagulants; Z95.2 Presence of prosthetic heart valve
CPT/HCPCS: 85610; 99211; G0463

== ENCOUNTER → 2020-06-11 12:58 | Outpatient (POV) | payer MEDICARE, OTHER, SELFPAY ==
--- NOTE | 2020-06-11 13:34 | P.CONS_ITS ---
[facility] Pain Management SOAP Note Subjective:: Patient is a pleasant 69-year-old white female who we are treating for opiate dependency and left shoulder pain. Patient had a left shoulder injection with no relief. Patient is going to see a specialist in the coming weeks. She rates the pain a 0 out of 10. She is weaning off her tramadol taking 1 a day. She is also on gabapentin 100 mg 1 p.o. twice daily. Patient did throw away her old oxycodone. We will continue to monitor this. ROS General: no recent weight change, no fever, no sleep disturbances Respiratory: no cough, no shortness of air, no recurring pulmonary infections Cardiovascular/Peripheral Vascular: No chest pain, No palpitations, no edema, no shortness of breath. Gastrointestinal: no new onset incontinence, normal bowel movements reported Genitourinary: no new onset incontinence Musculoskeletal: Left shoulder pain Psychiatric: normal mood/ affect Neurological: [denies new onset weakness in extremities], [denies new onset balance issues] Objective:: Physical Exam General: Alert and oriented x3, no acute distress, pleasant and cooperative, [on room air] Lungs: Resps E/U, Symmetrical chest expansion, Eyes: PERRL Musculoskeletal: Range of motion left shoulder somewhat guarded secondary to pain, deep tendon reflexes normal, strength in upper and lower extremities [5/5], [abnormal gait noted] Neurological: speech clear, a and p mechanic equal, no gross sensory deficits Assessment:: Left shoulder pain, opioid dependence Plan:: At her next refill we will decrease her tramadol to 50 mg 1 p.o. twice daily. We will continue her gabapentin 100 mg 1 p.o. twice daily. Patient instructed to call the office if she has any issues prior to her next appointment. Dr. Valderrama has reviewed this note and agrees with this plan of care. This note was dictated using voice recognition software and may contain errors or omissions [facility] History I have reviewed the patient's past medical history: Yes 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: Reports:: Asthma, Atherosclerotic Heart Disease, Atrial Fibrillation, Gastroesophageal Reflux Disease(GERD), Heart Murmur, Hyperlipidemia, Hypertension, Renal Disease, Renal Insufficiency, Valvular Heart Disease Denies:: Cancer, Diabetes Mellitus Type 1, Diabetes Mellitus Type 2, Internal Pacemaker, MRSA, Seizures *Have you ever received a pneumonia vaccine?: No *Have you received a flu vaccine this season?: No Other 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: Reports: Anemia, Arthritis, Hypothyroidism, Thyroid Disease Laterality Cases: Left: Other, Bilateral: Arthroscopy Knee, Carpal Tunnel Release Other Surgeries: Yes: Bariatric Surgery, Cancer Surgery (thyroid and colon), Cardiac Catheterization, Cardiac Surgery, Cholecystectomy, Colonoscopy, Colon Resection, Hysterectomy-Partial, Thyroidectomy, Tubal Ligation, Other Valve Replacement, Other. No: Pacemaker Amputation: No Fractures: No - *Social History Smoking Status: Never smoker Alcohol Intake: never Substance Use Type: painkillers *Occupational Status:: retired Housing: house Household Members: none, other *Travel in the last 8 weeks: None Family Hx:: Cancer, Unable to obtain
[2020-06-11 14:08] VITALS: BP 132/88; PULSE 85; RESP 18; TEMP 36.8; O2SAT 99; BMI 30.7
== END ==
PROVIDERS: PCP Nurse Practitioner Family; Visit Provider Clinical Nurse Specialist Family Health
DX: M25.512 Pain in left shoulder (principal); F11.20 Opioid dependence, uncomplicated
CPT/HCPCS: 99212; G0463

== ENCOUNTER 2020-07-07 13:00 | Outpatient (CLI) | payer MEDICARE, OTHER, SELFPAY ==
[2020-07-07 14:00] LABS: PHA INR Fingerstick 2.7 (0.9-1.1)
== END 2020-07-07 14:01 | disposition home or self-care (01) ==
LOC: ACC 13:01
PROVIDERS: PCP Internal Medicine Adolescent Medicine; Visit Provider Internal Medicine Adolescent Medicine
DX: Z51.81 Encounter for therapeutic drug level monitoring (principal); Z79.01 Long term (current) use of anticoagulants; Z95.2 Presence of prosthetic heart valve
CPT/HCPCS: 85610; 99211; G0463

== ENCOUNTER 2020-08-18 10:54 | Outpatient (CLI) | payer MEDICARE, OTHER, SELFPAY ==
[2020-08-18 11:41] LABS: PHA INR Fingerstick 3.9 (0.9-1.1)
== END 2020-08-18 11:43 | disposition home or self-care (01) ==
LOC: ACC 10:55
PROVIDERS: PCP Internal Medicine Adolescent Medicine; Visit Provider Internal Medicine Adolescent Medicine
DX: Z51.81 Encounter for therapeutic drug level monitoring (principal); Z79.01 Long term (current) use of anticoagulants; Z95.2 Presence of prosthetic heart valve
CPT/HCPCS: 85610; 99211; G0463

== ENCOUNTER 2020-08-27 12:12 | Outpatient (CLI) | payer MEDICARE, OTHER, SELFPAY ==
[2020-08-27 15:13] LABS: PHA INR Fingerstick 2.6 (0.9-1.1)
== END 2020-08-27 15:33 | disposition home or self-care (01) ==
LOC: ACC 12:12
PROVIDERS: PCP Internal Medicine Adolescent Medicine; Visit Provider Internal Medicine Adolescent Medicine
DX: Z51.81 Encounter for therapeutic drug level monitoring (principal); Z79.01 Long term (current) use of anticoagulants; Z95.2 Presence of prosthetic heart valve
CPT/HCPCS: 85610; 99211; G0463

== ENCOUNTER → 2020-09-07 12:50 | Outpatient (POV) | payer MEDICARE, OTHER, SELFPAY ==
[2020-09-07 12:59] VITALS: BP 132/88; PULSE 85; RESP 18; TEMP 36.8; O2SAT 98; BMI 31.2
--- NOTE | 2020-09-07 13:14 | P.CONS_ITS ---
[facility] Pain Management SOAP Note Subjective:: Patient is a pleasant 70-year-old white female who presents today for medication refills. Patient is being treated for opiate dependency. Patient is doing extremely well rating her pain a 0 out of 10 she is currently taking tramadol twice daily and gabapentin 100 mg twice daily. Her Kyaw #[id number] reviewed and appropriate. She would like to discuss the potential decrease in her tramadol. ROS General: no recent weight change, no fever, no sleep disturbances Respiratory: no cough, no shortness of air, no recurring pulmonary infections Cardiovascular/Peripheral Vascular: No chest pain, No palpitations, no edema, no shortness of breath. Gastrointestinal: no new onset incontinence, normal bowel movements reported Genitourinary: no new onset incontinence Musculoskeletal: Knee pain at times Psychiatric: normal mood/ affect Neurological: [denies new onset weakness in extremities], [denies new onset balance issues] Objective:: Physical Exam General: Alert and oriented x3, no acute distress, pleasant and cooperative, [on room air] Lungs: Resps E/U, Symmetrical chest expansion, Eyes: PERRL Musculoskeletal: deep tendon reflexes normal, strength in upper and lower extremities [5/5], antalgic gait noted Neurological: speech clear, railroad track 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 twice daily and gabapentin 100 mg 1 p.o. twice daily. She is going to self wean to 1 tramadol a day. We will see her back in 3 months reassess her symptoms at that time. Dr. Valderrama has reviewed this note and agrees with this plan of care. This note was dictated using voice recognition software and may contain errors or omissions [facility] History I have reviewed the patient's past medical history: Yes 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: Reports:: Asthma, Atherosclerotic Heart Disease, Atrial Fibrillation, Gastroesophageal Reflux Disease(GERD), Heart Murmur, Hyperlipidemia, Hypertension, Renal Disease, Renal Insufficiency, Valvular Heart Disease Denies:: Cancer, Diabetes Mellitus Type 1, Diabetes Mellitus Type 2, Internal Pacemaker, MRSA, Seizures *Have you ever received a pneumonia vaccine?: Yes *Have you received a flu vaccine this season?: Yes Other 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: Reports: Anemia, Arthritis, Hypothyroidism, Thyroid Disease Laterality Cases: Left: Other, Bilateral: Arthroscopy Knee, Carpal Tunnel Release Other Surgeries: Yes: Bariatric Surgery, Cancer Surgery (thyroid and colon), Cardiac Catheterization, Cardiac Surgery, Cholecystectomy, Colonoscopy, Colon Resection, Hysterectomy-Partial, Thyroidectomy, Tubal Ligation, Other Valve Replacement, Other. No: Pacemaker Amputation: No Fractures: No - *Social History Smoking Status: Never smoker Alcohol Intake: never Substance Use Type: painkillers *Occupational Status:: other Housing: house Household Members: none, other *Travel in the last 8 weeks: None Family Hx:: Cancer, Unable to obtain
== END ==
PROVIDERS: Visit Provider Clinical Nurse Specialist Family Health
DX: M25.569 Pain in unspecified knee (principal); F11.20 Opioid dependence, uncomplicated
CPT/HCPCS: 99212; G0463

== ENCOUNTER 2020-09-21 12:41 | Outpatient (CLI) | payer MEDICARE, OTHER, SELFPAY ==
[2020-09-21 14:56] LABS: PHA INR Fingerstick 2.5 (0.9-1.1)
== END 2020-09-21 13:23 | disposition home or self-care (01) ==
LOC: ACC 12:42
PROVIDERS: PCP Nurse Practitioner Family; Visit Provider Internal Medicine Adolescent Medicine
DX: Z51.81 Encounter for therapeutic drug level monitoring (principal); Z79.01 Long term (current) use of anticoagulants
CPT/HCPCS: 85610; 99211; G0463

== ENCOUNTER 2020-10-19 12:21 | Outpatient (CLI) | payer MEDICARE, OTHER, SELFPAY ==
[2020-10-19 13:23] LABS: PHA INR Fingerstick 3.1 (0.9-1.1)
== END 2020-10-19 14:56 | disposition home or self-care (01) ==
LOC: ACC 12:22
PROVIDERS: PCP Internal Medicine Adolescent Medicine; Visit Provider Internal Medicine Adolescent Medicine
DX: Z51.81 Encounter for therapeutic drug level monitoring (principal); Z79.01 Long term (current) use of anticoagulants
CPT/HCPCS: 85610; 99211; G0463

== ENCOUNTER 2020-10-23 14:21 | Outpatient (CLI) | payer MEDICARE, OTHER, SELFPAY ==
[2020-10-23 14:48] LABS: PHA INR Fingerstick 3.3 (0.9-1.1)
== END 2020-10-23 14:49 | disposition home or self-care (01) ==
LOC: ACC 14:22
PROVIDERS: PCP Internal Medicine Adolescent Medicine; Visit Provider Internal Medicine Adolescent Medicine
DX: Z51.81 Encounter for therapeutic drug level monitoring (principal); Z79.01 Long term (current) use of anticoagulants; Z95.2 Presence of prosthetic heart valve
CPT/HCPCS: 85610; 99211; G0463

== ENCOUNTER → 2020-11-18 08:20 | Outpatient (CLI) | payer MEDICARE, OTHER, SELFPAY ==
--- NOTE | 2020-11-18 08:25 | MM_ITS ---
PROCEDURE: MM DIG SCREENING MAMM BI W/CAD Digital Breast Tomosynthesis Included CLINICAL INDICATION: SCREENING COMPARISON: MG MA MAMMO SCRN DIGITL BILAT from 02/26/2016 MG SCBI MM Dig screening mamm BI w/CAD from 03/30/2018 MG MM DIG SCREENING MAMM BI W/CAD from 04/01/2019 TECHNIQUE: Standard CC and MLO images and 3D Tomosynthesis was obtained. R2 CAD reviewed. FINDINGS: Average fibroglandular tissue. Bilateral benign-appearing nodules and calcifications. 2 x 1.4 cm lucent lesion involves the right breast in the upper outer aspect consistent with a lipoma. This is smaller compared to the previous exam.. Skin fold artifact present in the axillary region of both breasts. No malignant appearing mass or malignant-appearing microcalcification. IMPRESSION: Benign findings BI-RAD Category: 2 Benign Finding FOLLOW-UP: 1 YR 1 Year Follow-up (A letter has been sent to the patient regarding results of the study.) Dictated by: Dustin Booth MD 11/19/2020 08:41 Dustin Booth MD in [place] 11/19/2020 08:41
--- NOTE | 2020-11-18 08:26 | XR_ITS ---
PROCEDURE: XR DEXA AXIAL SKELETON CLINICAL HISTORY: POST MENOPAUSAL COMPARISON: CR DEXAAX XR DEXA axial skeleton from 04/02/2018 FINDINGS: The right hip BMD is 0.727 with a T-score of -1.1. The left hip BMD is 0.676 with a T-score of -1.6. The lumbar spine BMD is 1.319 with a T-score of 2.5. IMPRESSION: This patient is considered osteopenic according to the World Health Organization criteria. Bone density is between 10 and 25 percent below young normal. Fracture risk is moderate. Treatment is advised. Based on these results a follow-up exam is recommended in 2 year. Dictated by: Dusitn Booth MD 11/18/2020 20:10 Dustin Booth MD in [place] 11/19/2020 07:31
[2020-11-18 09:51] LABS: Basophils # 0.1 K/mm3 (0-0.2); Basophils % 0.9 % (0.1-2.0); Eosinophils # 0.2 K/mm3 (0.0-0.4); Eosinophils % 2.6 % (0.1-12.0); Hematocrit 35.6 % (37.0-47.0); Hemoglobin 11.7 g/dL (12.2-16.2); Lymphocytes # 1.5 K/mm3 (0.7-4.5); Lymphocytes % 20.5 % (10-50); Mean Corpuscular HGB Conc 32.7 g/dL (31.8-35.4); Mean Corpuscular Volume 79.5 fl (81-99); Monocytes # 0.4 K/mm3 (0.1-1.0); Monocytes % 5.3 % (1.7-9.3); Neutrophils # 5.2 K/mm3 (1.8-7.8); Neutrophils % 70.8 % (37.0-80.0); Platelet Count 308 K/mm3 (142-424); Red Blood Count 4.49 M/mm3 (4.20-5.40); Red Cell Distribution Width 15.9 % (11.5-17.5); White Blood Count 7.4 K/mm3 (4.8-10.8)
[2020-11-18 11:14] LABS: Alanine Aminotransferase 19 U/L (12-78); Albumin Level 4.9 g/dl (3.5-5.0); Albumin/Globulin Ratio 1.5 (1.1-1.8); Alkaline Phosphatase 81 U/L (38-126); Anion Gap 14.8 mEq/L (5-15); Aspartate Amino Transferase 34 U/L (14-36); Bilirubin,Total 0.5 mg/dl (0.2-1.3); Blood Urea Nitrogen 17 mg/dl (7-17); Calcium 8.7 mg/dl (8.4-10.2); Carbon Dioxide 27 mmol/L (22.0-30.0); Chloride 106 mmol/L (98-107); Chol/HDL Ratio 2.9 (1-3.5); Cholesterol 198 mg/dl (140-200); Estimated Glomerular Filt Rate 41 ml/min (>60); GFR (African American) 49 ML/MIN (>60); Globulin 3.3 g/dL (1.3-3.2); Glucose 98 mg/dl (74-100); HDL Cholesterol 69 mg/dl (40-60); Potassium 3.8 mmoL/L (3.5-5.1); Sodium 144 mmol/L (136-145); Total Protein,Serum 8.2 g/dl (6.3-8.2); Triglycerides 163 mg/dl (30-150); VLDL Cholesterol 33 mg/dL (0-40)
[2020-11-18 11:26] LABS: Direct LDL Cholesterol 82.89 mg/dL (100-129)
[2020-11-18 11:32] LABS: 25-OH Vitamin D, Total 56.5 ng/mL (30-100)
== END ==
PROVIDERS: PCP Nurse Practitioner Family; Visit Provider Nurse Practitioner Family
DX: Z12.31 Encounter for screening mammogram for malignant neoplasm of breast (principal); Z13.820 Encounter for screening for osteoporosis; Z78.0 Asymptomatic menopausal state; I10 Essential (primary) hypertension; E78.2 Mixed hyperlipidemia; E03.9 Hypothyroidism, unspecified; E66.3 Overweight; Z68.30 Body mass index [BMI] 30.0-30.9, adult
CPT/HCPCS: 36415; 77063; 77067; 77080; 80053; 80061; 82306; 84443; 85025

== ENCOUNTER 2020-12-01 15:52 | Outpatient (CLI) | payer MEDICARE, OTHER, SELFPAY ==
[2020-12-01 16:41] LABS: PHA INR Fingerstick 2.4 (0.9-1.1)
== END 2020-12-01 16:45 | disposition home or self-care (01) ==
LOC: ACC 15:53
PROVIDERS: PCP Nurse Practitioner Family; Visit Provider Nurse Practitioner Family
DX: Z51.81 Encounter for therapeutic drug level monitoring (principal); Z79.01 Long term (current) use of anticoagulants
CPT/HCPCS: 85610; 99211; G0463

== ENCOUNTER → 2020-12-07 13:32 | Outpatient (POV) | payer MEDICARE, OTHER, SELFPAY ==
--- NOTE | 2020-12-07 13:49 | P.CONS_ITS ---
[facility] Pain Management SOAP Note Subjective:: Patient is a pleasant 70-year-old white female who presents today for follow-up and medication refills. She is currently being treated for knee pain as well as opioid dependency. Patient states that her pain is well controlled today. She has been weaned in the past from a Percocet prescription she is now prescribed tramadol twice daily and gabapentin 100 mg twice a day. Patient denies any side effects from this medication. Overall she is doing well with her current regimen and does not request any changes today. Her Kyaw number is [id number] she has an active morphine equivalent of 10 her previous drug screens have been reviewed and appropriate Review of Systems General: No recent weight changes, no fever, no sleep disturbances Respiratory: No cough, no shortness of air, no recurring pulmonary infections Cardiovascular/peripheral vascular: No chest pain, no palpitations, no edema, no shortness of breath Gastrointestinal: No new onset incontinence, normal bowel movements reported Genitourinary: No new onset incontinence Musculoskeletal: [Knee pain] Psychiatric: [Normal mood/affect] Neurological: [Denies weakness in extremities], [denies balance issues] Objective:: Physical exam General: Alert and oriented x3 no acute distress, pleasant and cooperative, [on room air] Lungs: Respirations even and unlabored, symmetrical chest expansion Eyes: PERRL Musculoskeletal: Flexion and extension of the right knee spine nonguarded, deep tendon reflexes normal, strength in upper and lower extremities 5 out of 5 normal gait noted, patient is wearing a brace today on the right Neurological: Speech clear, printer's assistant equal, no gross sensory deficit Assessment:: Opioid dependency, knee pain Plan:: We will continue the patient's tramadol 50 mg twice daily and gabapentin 100 mg twice a day. We will give the patient 3 months worth of medication refills. She will need to follow-up in 3 months. If she has any questions or concerns she is welcome to contact the clinic prior to her next appointment date. Dr. Valderrama has reviewed this note and agrees with this plan of care. This note was dictated using voice recognition software and make contain errors or omissions. [facility] History 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: Reports:: Asthma, Atherosclerotic Heart Disease, Atrial Fibrillation, Gastroesophageal Reflux Disease(GERD), Heart Murmur, Hyperlipidemia, Hypertension, Renal Disease, Renal Insufficiency, Valvular Heart Disease Denies:: Cancer, Diabetes Mellitus Type 1, Diabetes Mellitus Type 2, Internal Pacemaker, MRSA, Seizures *Have you ever received a pneumonia vaccine?: Yes *Have you received a flu vaccine this season?: Yes Other 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: Reports: Anemia, Arthritis, Hypothyroidism, Thyroid Disease Laterality Cases: Left: Other, Bilateral: Arthroscopy Knee, Carpal Tunnel Release Other Surgeries: Yes: Bariatric Surgery, Cancer Surgery (thyroid and colon), Cardiac Catheterization, Cardiac Surgery, Cholecystectomy, Colonoscopy, Colon Resection, Hysterectomy-Partial, Thyroidectomy, Tubal Ligation, Other Valve Replacement, Other. No: Pacemaker Amputation: No Fractures: No - *Social History Smoking Status: Never smoker Alcohol Intake: never Substance Use Type: painkillers *Occupational Status:: other Housing: house Household Members: none, other *Travel in the last 8 weeks: None Family Hx:: Cancer, Unable to obtain
[2020-12-07 13:58] VITALS: BP 137/80; PULSE 79; RESP 18; O2SAT 98; BMI 29.9
== END ==
PROVIDERS: Visit Provider Family Medicine
DX: M25.569 Pain in unspecified knee (principal); F11.20 Opioid dependence, uncomplicated
CPT/HCPCS: 99212; G0463

== ENCOUNTER → 2021-01-06 17:55 | Outpatient (CLI) | payer MEDICARE, OTHER, SELFPAY ==
[2021-01-06 18:36] LABS: Prothrombin Time 22.7 seconds (10.1-12.5)
[2021-01-06 18:37] LABS: INR 2.03 (0.9-1.1)
== END ==
PROVIDERS: Visit Provider Internal Medicine Adolescent Medicine
DX: Z51.81 Encounter for therapeutic drug level monitoring (principal); Z79.01 Long term (current) use of anticoagulants; Z95.2 Presence of prosthetic heart valve
CPT/HCPCS: 36415; 85610

== ENCOUNTER → 2021-01-25 16:29 | Outpatient (CLI) | payer MEDICARE, OTHER, SELFPAY ==
[2021-01-25 17:10] LABS: Basophils % 0.3 % (0.1-2.0); Eosinophils % 0.1 % (0.1-12.0); Hematocrit 35.1 % (37.0-47.0); Hemoglobin 11.1 g/dL (12.2-16.2); Lymphocytes # 1.2 K/mm3 (0.7-4.5); Lymphocytes % 10.4 % (10-50); Mean Corpuscular HGB Conc 31.6 g/dL (31.8-35.4); Mean Corpuscular Hemoglobin 26.3 pg (27.0-31.2); Mean Corpuscular Volume 83.3 fl (81-99); Mean Platelet Volume 8.6 fl (7.4-10.4); Monocytes # 0.4 K/mm3 (0.1-1.0); Monocytes % 3.4 % (1.7-9.3); Neutrophils # 9.9 K/mm3 (1.8-7.8); Neutrophils % 85.8 % (37.0-80.0); Platelet Count 353 K/mm3 (142-424); Red Blood Count 4.21 M/mm3 (4.20-5.40); Red Cell Distribution Width 15.7 % (11.5-17.5); White Blood Count 11.5 K/mm3 (4.8-10.8)
[2021-01-25 17:15] LABS: MANUAL DIFFERENTIAL MANUAL DIFFERENTIAL (MANUAL DIFF); Prothrombin Time 43.9 seconds (10.1-12.5)
[2021-01-25 17:18] LABS: INR 4.13 (0.9-1.1)
[2021-01-25 17:40] LABS: Chloride 102 mmol/L (98-107); Potassium 3.9 mmoL/L (3.5-5.1); Sodium 137 mmol/L (136-145)
[2021-01-25 17:43] LABS: Alanine Aminotransferase 20 U/L (12-78); Albumin Level 4.1 g/dl (3.5-5.0); Albumin/Globulin Ratio 1.5 (1.1-1.8); Alkaline Phosphatase 71 U/L (38-126); Anion Gap 14.9 mEq/L (5-15); Aspartate Amino Transferase 34 U/L (14-36); Bilirubin,Total 0.2 mg/dl (0.2-1.3); Blood Urea Nitrogen 17 mg/dl (7-17); Carbon Dioxide 24 mmol/L (22.0-30.0); Cholesterol 178 mg/dl (140-200); Estimated Glomerular Filt Rate 45 ml/min (>60); GFR (African American) 54 ML/MIN (>60); Globulin 2.8 g/dL (1.3-3.2); Total Protein,Serum 6.9 g/dl (6.3-8.2); Triglycerides 204 mg/dl (30-150); VLDL Cholesterol 41 mg/dL (0-40)
[2021-01-25 17:44] LABS: Calcium 9.2 mg/dl (8.4-10.2); Glucose 123 mg/dl (74-100); HDL Cholesterol 65 mg/dl (40-60)
[2021-01-25 17:53] LABS: Chol/HDL Ratio 2.7 (1-3.5)
[2021-01-25 17:59] LABS: 25-OH Vitamin D, Total 55.8 ng/mL (30-100)
[2021-01-25 18:03] LABS: Lymphocytes % 6 % (10-50); Microcytosis 1+; Monocytes % 2 % (2-9); Neutrophils % 92 % (42-76); Platelet Estimate Normal; Spherocytes 1+; Total Cells Counted 100
[2021-01-25 18:15] LABS: Thyroid Stimulating Hormone 0.04 uIU/mL (0.465-4.68)
--- NOTE | 2021-01-27 10:41 | HMH.PHAINT ---
01/27/21-ACC INR 4.13 ON 01/25/21 VIA VENIPUNCTURE. RECOMMENDED PATIENT TAKE 1.5 MG TODAY, THEN SWITCH DOSE TO 3 MG ON MON/MON/MON; 1.5 MG ON MON/MON/MON/MON. WILL FOLLOW UP NEXT WEEK.
== END ==
PROVIDERS: Nurse Practitioner Family; Visit Provider Internal Medicine Adolescent Medicine
DX: I10 Essential (primary) hypertension (principal); E78.2 Mixed hyperlipidemia; E03.9 Hypothyroidism, unspecified; Z86.2 Personal history of diseases of the blood and blood-forming organs and certain disorders involving the immune mechanism; M85.89 Other specified disorders of bone density and structure, multiple sites
CPT/HCPCS: 36415; 80053; 80061; 82306; 84443; 85007; 85025; 85610

== ENCOUNTER 2021-02-04 08:41 | Outpatient (CLI) | payer MEDICARE, OTHER, SELFPAY ==
[2021-02-04 10:48] LABS: Prothrombin Time 55.5 seconds (9.2-12.1)
[2021-02-04 16:39] LABS: PHA INR Fingerstick 5.7 (0.9-1.1)
== END 2021-02-04 17:04 | disposition home or self-care (01) ==
PROVIDERS: Internal Medicine Adolescent Medicine; PCP Nurse Practitioner Family; Visit Provider Nurse Practitioner Family
DX: Z51.81 Encounter for therapeutic drug level monitoring (principal); Z79.01 Long term (current) use of anticoagulants; Z95.2 Presence of prosthetic heart valve
CPT/HCPCS: 36415; 85610; 99211; G0463

== ENCOUNTER → 2021-02-08 12:15 | Outpatient (CLI) | payer MEDICARE, OTHER, SELFPAY ==
[2021-02-08 13:04] LABS: INR 2.62 (0.9-1.1); Prothrombin Time 27.6 seconds (10.1-12.5)
== END ==
PROVIDERS: Visit Provider Internal Medicine Adolescent Medicine
DX: Z51.81 Encounter for therapeutic drug level monitoring (principal); Z79.01 Long term (current) use of anticoagulants; Z95.2 Presence of prosthetic heart valve; R79.1 Abnormal coagulation profile
CPT/HCPCS: 36415; 85610

== ENCOUNTER → 2021-02-16 17:14 | Outpatient (CLI) | payer MEDICARE, OTHER, SELFPAY ==
[2021-02-16 17:39] LABS: INR 3.17 (0.9-1.1); Prothrombin Time 32.9 seconds (10.1-12.5)
== END ==
PROVIDERS: Visit Provider Internal Medicine Adolescent Medicine
DX: Z51.81 Encounter for therapeutic drug level monitoring (principal); Z79.01 Long term (current) use of anticoagulants; Z95.2 Presence of prosthetic heart valve
CPT/HCPCS: 36415; 85610

== ENCOUNTER 2021-02-23 10:31 | Outpatient (CLI) | payer MEDICARE, OTHER, SELFPAY ==
[2021-02-23 15:26] LABS: PHA INR Fingerstick 3.2 (0.9-1.1)
== END 2021-02-23 16:06 | disposition home or self-care (01) ==
LOC: ACC 10:33
PROVIDERS: PCP Nurse Practitioner Family; Visit Provider Nurse Practitioner Family
DX: Z51.81 Encounter for therapeutic drug level monitoring (principal); Z79.01 Long term (current) use of anticoagulants; Z95.2 Presence of prosthetic heart valve
CPT/HCPCS: 85610; 99211; G0463

== ENCOUNTER 2021-03-05 16:25 | Emergency (ER) | payer OTHER, SELFPAY ==
[2021-03-05] VITALS (7 sets, daily range): BP systolic 145–179; BP diastolic 78–94; PULSE 68–93; RESP 16–18; TEMP 36.8–37.1; O2SAT 95–97; BMI 29.4
--- NOTE | 2021-03-05 17:14 | CT_ITS ---
PROCEDURE INFORMATION: Exam: CT Cervical Spine Without Contrast Exam date and time: 03/05/2021 5:14 PM Age: 70 years old Clinical indication: Injury or trauma; Fall; Blunt trauma TECHNIQUE: Imaging protocol: Computed tomography images of the cervical spine without contrast. Radiation optimization: All CT scans at this facility use at least one of these dose optimization techniques: automated exposure control; mA and/or kV adjustment per patient size (includes targeted exams where dose is matched to clinical indication); or iterative reconstruction. COMPARISON: No comparison studies were made available at the time of interpretation. FINDINGS: Vertebrae: Diffuse bony demineralization. Grade 1 retrolisthesis of C5 on C6. No acute fracture detected on this study. Multilevel degenerative changes of the visualized spine including facet and uncovertebral arthropathy. Multilevel disc degenerative disease of the visualized spine. Other bones/joints: Degenerative changes of the acromioclavicular joints. Soft tissues: Ossification within the nuchal ligament. Thyroid: The thyroid gland is not clearly visualized and may be diminutive or absent. Vasculature: Atherosclerosis of the visualized portion of the aortic arch. Atherosclerosis of the great vessels. Atherosclerotic calcification of the bilateral carotid bifurcation and internal carotid artery. Airways and lungs: The visualized airway is patent. The visualized lung apices are unremarkable. IMPRESSION: No acute fracture of the cervical spine detected on this study. Grade 1 retrolisthesis of C5 on C6. Multilevel spondylosis and disc degenerative disease. Other findings noted above.
--- NOTE | 2021-03-05 17:14 | CT_ITS ---
PROCEDURE INFORMATION: Exam: CT Head Without Contrast Exam date and time: 03/05/2021 5:14 PM Age: 70 years old Clinical indication: Injury or trauma; Fall; Blunt trauma (contusions or hematomas) TECHNIQUE: Imaging protocol: Computed tomography of the head without contrast. Radiation optimization: All CT scans at this facility use at least one of these dose optimization techniques: automated exposure control; mA and/or kV adjustment per patient size (includes targeted exams where dose is matched to clinical indication); or iterative reconstruction. COMPARISON: No comparison studies were made available at the time of interpretation. FINDINGS: Brain: Low attenuating white matter changes, most pronounced in the bilateral parietal lobes. 2 x 3 x 5 mm (AP x TRV x CC) hyperattenuation located in the subcortical white matter of the right frontal lobe could reflect intra-axial mineralization or blood products. No acute, large vascular territory ischemic infarct detected on this CT study. No evidence for a mass on this noncontrast head CT. No midline shift. Globus pallidus mineralization noted bilaterally. Cerebral ventricles: Slightly prominent ventricles, prominent sulci and cisterns are suggestive of mild brain atrophy. Paranasal sinuses: Mucosal thickening in the bilateral maxillary sinus and right frontal lobe. Mastoid air cells: Opacification of multiple right mastoid air cells, which could be a sign of Eustachian tube dysfunction or be infectious/inflammatory in etiology. Vasculature: Atherosclerosis of the vessels at the skull base. Bones/joints: Postsurgical changes of the occipital skull causing mild, obscuring beam hardening artifact. No acute fracture detected on this study. Soft tissues: Unremarkable. Dental: The patient is edentulous. IMPRESSION: 2 x 3 x 5 mm (AP x TRV x CC) hyperattenuation located in the subcortical white matter of the right frontal lobe could reflect intra-axial mineralization or blood products. Comparison with prior studies is recommended. Low attenuating white matter changes, most pronounced in the bilateral parietal lobes, a nonspecific finding that could reflect sequela of chronic small vessel ischemic disease; posterior reversible encephalopathy syndrome (PRES) could also have this appearance in the appropriate clinical setting. Other findings noted above.
--- NOTE | 2021-03-05 18:12 | PC.NURSE ---
SUSAN JARQUIN speaking with ALFONZO
--- NOTE | 2021-03-05 18:20 | PC.NURSE ---
placed call to [facility] for trauma transfer
--- NOTE | 2021-03-05 18:23 | PC.NURSE ---
Dr Gomes speaking with [facility]
--- NOTE | 2021-03-05 18:24 | HMH.EDGENADL ---
ED Disposition Condition on Discharge: Good - Critical Care Critical Care Time: No <Darien Gomes - Last Filed: 03/05/21 18:59> <Paulino Jett - Last Filed: 03/05/21 22:11> Clinical Impression: Abnormal CT of brain Fall Qualifiers: Encounter type: initial encounter Qualified Code(s): W19.XXXA - Unspecified fall, initial encounter Disposition: Home, Self-Care Instructions: DI for Concussion Additional Instructions: continue meds and see pcp for follow up Referrals: Atiya Etienne APRN [Primary Care Provider] - Attestation: On 03/05/21, the high probability of a clinically significant, sudden or life threatening deterioration of the following system(s) required my full and direct attention, intervention and personal management. The time I documented below is in addition to time spent performing reported procedures but includes the following listed in this critical care notation. Medical Decision Making - Medical Records Medical records reviewed: Yes: I reviewed the patient's medical records. - Kyaw Inquiry Pt receiving controlled substance: No - Lab Data Result diagrams: 03/05/21 18:27 03/05/21 18:27 <Darien Gomes - Last Filed: 03/05/21 18:59> - Lab Data Lab results reviewed: Yes: I reviewed the patient's lab results. Result diagrams: 03/05/21 18:27 03/05/21 18:27 - CT Data CT Scan: Head Time Received: 22:[address] Reviewed: Yes: I have viewed the radiologist's interpretation Preliminary Findings: Abnormal (unchanged) <Paulino Jett - Last Filed: 03/05/21 22:11> Vital Signs: 03/05/21 16:27 03/05/21 18:22 03/05/21 18:31 Temperature 98.7 F Temperature Source Oral Pulse Rate 82 78 Pulse Rate [Right] 93 H Respiratory Rate 16 18 Blood Pressure 170/91 H 171/90 H Blood Pressure [Right Arm] 172/90 H Blood Pressure Mean 118 Blood Pressure Mean [Right Arm] 117 Blood Pressure Source [Right Arm] Automatic Cuff Blood Pressure Position [Right Arm] Sitting 02 Sat by Pulse Oximetry 95 96 97 Oxygen Delivery Method Room Air Room Air 03/05/21 19:01 03/05/21 19:30 03/05/21 21:41 Temperature Temperature Source Pulse Rate 71 68 72 Pulse Rate [Right] Respiratory Rate Blood Pressure 179/94 H 176/89 H 145/78 H Blood Pressure [Right Arm] Blood Pressure Mean 122 Blood Pressure Mean [Right Arm] Blood Pressure Source [Right Arm] Blood Pressure Position [Right Arm] 02 Sat by Pulse Oximetry 97 96 96 Oxygen Delivery Method Room Air Room Air Room Air - Lab Data Lab Results 03/05/21 18:27: WBC 10.4, RBC 4.13 L, Hgb 11.0 L, Hct 35.6 L, MCV 86.2, MCH 26.6 L, MCHC 30.9 L, RDW 16.8, Plt Count 330, MPV 8.4, Neut % (Auto) 78.4, Lymph % (Auto) 15.4, Brewster % (Auto) 4.8, Eos % (Auto) 1.0, Baso % (Auto) 0.4, Neut # (Auto) 8.1 H, Lymph # (Auto) 1.6, Brewster # (Auto) 0.5, Eos # (Auto) 0.1, Baso # (Auto) 0.0 03/05/21 18:27: PT 18.7 H, INR 1.72 H 03/05/21 18:27: Sodium 141, Potassium 3.9, Chloride 104, Carbon Dioxide 28, Anion Gap 12.9, BUN 20 H, Creatinine 1.20 H, Estimated Creat Clear 57, Estimated GFR 45 L, Est GFR ( Amer) 54 L, Glucose 90, Calcium 8.7 Orders (Tests/Meds): ED MEDICATIONS Discontinued Medications Generic Name Dose Route Start Last Admin Trade Name Freq PRN Reason Stop Dose Admin Tetanus/Diphtheria Toxoids 0.5 ml 03/05/21 18:32 03/05/21 19:25 Tetanus-Diphth Toxoid, Adult 0.5ml Syr IM 03/05/21 18:33 0.5 ml .ONCE ONE Administration Medical Decision Narrative: 70yo F presents emergency department after a fall. Patient no acute distress on initial evaluation. 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 Sent for CT of the head and C-spine. CT concerning for possible 5 mm bleed in the right frontal lobe. Case discussed with neurosurgery at the [facility] for possible trauma transfer. Radiologist notes that in 1 plane of the imaging, this seems more mineralized deposits but in
[2021-03-05 18:34] LABS: Basophils % 0.4 % (0.1-2.0); Eosinophils # 0.1 K/mm3 (0.0-0.4); Hematocrit 35.6 % (37.0-47.0); Lymphocytes # 1.6 K/mm3 (0.7-4.5); Lymphocytes % 15.4 % (10-50); Mean Corpuscular HGB Conc 30.9 g/dL (31.8-35.4); Mean Corpuscular Hemoglobin 26.6 pg (27.0-31.2); Mean Corpuscular Volume 86.2 fl (81-99); Mean Platelet Volume 8.4 fl (7.4-10.4); Monocytes # 0.5 K/mm3 (0.1-1.0); Monocytes % 4.8 % (1.7-9.3); Neutrophils # 8.1 K/mm3 (1.8-7.8); Neutrophils % 78.4 % (37.0-80.0); Platelet Count 330 K/mm3 (142-424); Red Blood Count 4.13 M/mm3 (4.20-5.40); Red Cell Distribution Width 16.8 % (11.5-17.5); White Blood Count 10.4 K/mm3 (4.8-10.8)
[2021-03-05 18:42] LABS: Chloride 104 mmol/L (98-107); Potassium 3.9 mmoL/L (3.5-5.1); Sodium 141 mmol/L (136-145)
[2021-03-05 18:45] LABS: Anion Gap 12.9 mEq/L (5-15); Blood Urea Nitrogen 20 mg/dl (7-17); Calcium 8.7 mg/dl (8.4-10.2); Carbon Dioxide 28 mmol/L (22.0-30.0); Creatinine Clearance Estimated 57 mL/min (50-200); Estimated Glomerular Filt Rate 45 ml/min (>60); GFR (African American) 54 ML/MIN (>60); Glucose 90 mg/dl (74-100)
[2021-03-05 18:47] LABS: INR 1.72 (0.9-1.1); Prothrombin Time 18.7 seconds (10.1-12.5)
--- NOTE | 2021-03-05 19:59 | PC.NURSE ---
Patient was ordered a tetanus vaccination. Consent was signed and patient was educated on injection and possible side effects. Patient had no questions or concerns. Patient tolerated injection well.
--- NOTE | 2021-03-05 20:07 | PC.NURSE ---
Dr. Gomes placed order for repeat CT to be completed at 2115, 4 hr per [facility]. Radiology notified.
--- NOTE | 2021-03-05 21:15 | CT_ITS ---
PROCEDURE INFORMATION: Exam: CT Head Without Contrast Exam date and time: 03/05/2021 9:15 PM Age: 70 years old Clinical indication: Injury or trauma; Fall; Blunt trauma (contusions or hematomas); Without loss of consciousness; Injury date: 03/05/2021; Additional info: Repeat eval, R frontal lesion TECHNIQUE: Imaging protocol: Computed tomography of the head without contrast. Radiation optimization: All CT scans at this facility use at least one of these dose optimization techniques: automated exposure control; mA and/or kV adjustment per patient size (includes targeted exams where dose is matched to clinical indication); or iterative reconstruction. COMPARISON: 1. CT HEAD/BRAIN WO CON 03/05/2021 5:28 PM 2. No other comparison studies were made available at the time of interpretation. FINDINGS: Brain: Low attenuating white matter changes, most pronounced in the bilateral parietal lobes. 2 x 3 x 5 mm (AP x TRV x CC) hyperattenuation located in the subcortical white matter of the right frontal lobe could reflect intra-axial mineralization or acute intra-axial blood products, unchanged compared to the prior head CT performed earlier today. No acute, large vascular territory ischemic infarct detected on this CT study. No evidence for a mass on this noncontrast head CT. No midline shift. Globus pallidus mineralization noted bilaterally. Cerebral ventricles: Slightly prominent ventricles, prominent sulci and cisterns are suggestive of mild brain atrophy. Paranasal sinuses: Mucosal thickening in the bilateral maxillary sinus and right frontal lobe. Mastoid air cells: Opacification of multiple right mastoid air cells, which could be a sign of Eustachian tube dysfunction or be infectious/inflammatory in etiology. Vasculature: Atherosclerosis of the vessels at the skull base. Bones/joints: Postsurgical changes of the occipital skull causing mild obscuring beam hardening artifact. No acute fracture detected on this study. Soft tissues: Unremarkable. Dental: The patient is edentulous. IMPRESSION: 2 x 3 x 5 mm (AP x TRV x CC) hyperattenuation located in the subcortical white matter of the right frontal lobe could reflect intra-axial mineralization or acute intra-axial blood products, unchanged compared to the prior head CT performed earlier today. Low attenuating white matter changes, most pronounced in the bilateral parietal lobes, a nonspecific finding that could reflect sequela of chronic small vessel ischemic disease; posterior reversible encephalopathy syndrome (PRES) could also have this appearance in the appropriate clinical setting. Please correlate clinically. Other findings noted above.
== END 2021-03-05 22:23 | disposition home or self-care (01) ==
PROVIDERS: Emergency Provider Family Medicine; PCP Nurse Practitioner Family
DX: S01.511A Laceration without foreign body of lip, initial encounter (principal); W10.9XXA Fall (on) (from) unspecified stairs and steps, initial encounter; Y92.019 Unspecified place in single-family (private) house as the place of occurrence of the external cause; Z23 Encounter for immunization
CPT/HCPCS: 12011; 70450; 72125; 80048; 85025; 85610; 90714; 99283

== ENCOUNTER 2021-03-08 13:22 | Outpatient (CLI) | payer MEDICARE, OTHER, SELFPAY ==
[2021-03-08 14:08] LABS: INR 3.07 (0.9-1.1); Prothrombin Time 31.9 seconds (10.1-12.5)
[2021-03-08 16:03] LABS: PHA INR Fingerstick 3.8 (0.9-1.1)
== END 2021-03-08 16:07 | disposition home or self-care (01) ==
PROVIDERS: PCP Nurse Practitioner Family; Visit Provider Internal Medicine Adolescent Medicine
DX: Z51.81 Encounter for therapeutic drug level monitoring (principal); Z79.01 Long term (current) use of anticoagulants; Z95.2 Presence of prosthetic heart valve
CPT/HCPCS: 36415; 85610; 99211; G0463

== ENCOUNTER → 2021-03-11 13:53 | Outpatient (POV) | payer MEDICARE, OTHER, SELFPAY ==
[2021-03-11 14:24] VITALS: BP 175/94; PULSE 100; RESP 18; O2SAT 96; BMI 33.0
--- NOTE | 2021-03-11 14:37 | HMH.PAINSOAP ---
[facility] Pain Management SOAP Note Subjective:: Patient is a 70 year old white female who presents today for medication refills. Patient does rate pain a 5 out of 10. The patient does have chronic pain in her bilateral knees. She is doing well with the medication. She denies any side effects. She is managed with tramadol 50 mg 1 tablet p.o. twice daily and gabapentin 9 mg 1 tablet p.o. twice daily. Emergency room. She does report that she did have a fall at work striking her face. She did have to go to the patient has tried conservative therapies of physical therapy, home stretching, and ice and heat therapies. Minimal relief was achieved with these therapies. Patient's medication regimen helps at [address] [facility] number [id number] has been reviewed and is appropriate. Morphine equivalent is 10. Drug screens have been appropriate. Review of Systems General: No recent weight changes, no fever, no sleep disturbances Respiratory: No cough, no shortness of air, no recurring pulmonary infections Cardiovascular/peripheral vascular: No chest pain, no palpitations, no edema, no shortness of breath Gastrointestinal: No new onset incontinence, normal bowel movements reported Genitourinary: No new onset incontinence Musculoskeletal: Bilateral knee pain Psychiatric: [Normal mood/affect] Neurological: [Denies weakness in extremities], [denies balance issues] Objective:: Physical exam General: Alert and oriented x3, no acute distress, pleasant and cooperative Lungs: Respirations even and unlabored, symmetrical chest expansion Eyes: PERRL Musculoskeletal: Flexion and extension of bilateral lower extremities somewhat guarded secondary to pain, [antalgic gait noted] Neurological: Speech clear, no gross sensory deficit Assessment:: Degenerative osteoarthritis bilateral knees Plan:: We will continue the patient on tramadol 50 mg 1 tablet p.o. twice daily and gabapentin 9 mg 1 tablet p.o. twice daily. We will give the patient 3 months of medication and plan to see her back in the clinic in 3 months. Risks and benefits of the medication have been explained in detail to the patient. The patient does understand the risk of dependence on the medication when given over a prolonged period. Patient has been advised of risks of oversedation with the prescribed medication. Narcan has been offered to the paitent in the event of oversedation. Patient has been advised that a family member should also be educated regarding administration of Narcan. The patient has been advised to consult with his/her primary care provider and pharmacist regarding drug-drug interaction of medications currently prescribed. Patient has been prescribed a controlled substance after being counseled on the medication, medication safety, and possible side effects. JAIME report has been obtained and reviewed prior to prescription and found to be appropriate. Opioid contract was reviewed and signed by the patient, and that they have agreed to all of the terms set forth by our compliance program. Patient has been instructed to contact the clinic with any concerns before the next appointment. Dr. Valderrama has reviewed this note and agrees with this plan of care. This note was dictated using voice recognition software and make contain errors or omissions. [facility] History I have reviewed the patient's past medical history: Yes 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: Reports:: Asthma, Atherosclerotic Heart Disease, Atrial Fibrillation, Gastroesophageal Reflux Disease(GERD), Heart Murmur, Hyperlipidemia, Hypertension, Renal Disease, Renal Insufficiency, Valvular Heart Disease Denies:: Cancer, Diabetes Mellitus Type 1, Diabetes Mellitus Type 2, Internal Pacemaker, MRSA, Seizures *Have you ever received a pneumonia vaccine?: Yes *Have you received a flu vaccine this season?: Yes Other 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: Reports: Anemia, Arthritis, Hypothyroidism, Thyroid Disease Laterality Cases: Left: Other, Bilat
== END ==
PROVIDERS: Visit Provider Clinical Nurse Specialist Family Health
DX: M17.0 Bilateral primary osteoarthritis of knee (principal)
CPT/HCPCS: 99212; G0463

== ENCOUNTER 2021-03-16 11:13 | Outpatient (CLI) | payer MEDICARE, OTHER, SELFPAY ==
[2021-03-16 15:05] LABS: PHA INR Fingerstick 3.8 (0.9-1.1)
== END 2021-03-16 15:15 | disposition home or self-care (01) ==
LOC: ACC 11:14
PROVIDERS: PCP Internal Medicine Adolescent Medicine; Visit Provider Internal Medicine Adolescent Medicine
DX: Z51.81 Encounter for therapeutic drug level monitoring (principal); Z79.01 Long term (current) use of anticoagulants; Z95.2 Presence of prosthetic heart valve
CPT/HCPCS: 85610; 99211; G0463

== ENCOUNTER 2021-03-25 09:47 | Outpatient (CLI) | payer MEDICARE, OTHER, SELFPAY ==
[2021-03-25 10:51] LABS: PHA INR Fingerstick 3.2 (0.9-1.1)
== END 2021-03-25 10:54 | disposition home or self-care (01) ==
LOC: ACC 09:48
PROVIDERS: PCP Internal Medicine Adolescent Medicine; Visit Provider Internal Medicine Adolescent Medicine
DX: Z51.81 Encounter for therapeutic drug level monitoring (principal); Z79.01 Long term (current) use of anticoagulants; Z95.2 Presence of prosthetic heart valve
CPT/HCPCS: 85610; 99211; G0463

== ENCOUNTER 2021-03-30 16:28 | Emergency (ER) | payer MEDICARE, OTHER, SELFPAY ==
[2021-03-30 16:53] VITALS: BP 163/94; PULSE 91; RESP 20; TEMP 36.6; O2SAT 98; BMI 29.9
--- NOTE | 2021-03-30 17:01 | HMH.EDUTC ---
[facility] Impression: Sciatic leg pain Disposition: Home, Self-Care Condition on Discharge: Good Instructions: Sciatica, DI for Sciatica, DI for Chronic Pain -- Adult, Methocarbamol Additional Instructions: * Tylenol every 4 hours as needed for pain *Ice 20 minutes every 2 hours for the first 48 hours after the initial injury followed by moist heat every 20 minutes 3-4 times a day to affected area *Muscle relaxer every 12 hours as needed for muscle spasms but remember, it WILL cause drowsiness You cannot take it and drive, operate machinery or care for small children. *Keep this area active, no movement leads to more stiffness, However take it easy and avoid heavy lifting pushing or pulling *Follow up with you family doctor if no improvement for further treatment Warm soak in warm water and epson salt may help with pain Follow up with Family Doctor or Dr Valderrama office if pain continues and no improvement Prescriptions: methocarbamoL [Methocarbamol 500mg Tablet] 500 mg PO BID PRN #10 tab PRN Reason: Muscle Spasm Transmission Status: Received by [facility] Referrals: Atiya Etienne APRN [Primary Care Provider] - As needed Forms: Work/School Release Time of Disposition: 17:16 Medical Decision Making - Kyaw Inquiry Pt receiving controlled substance: No Kyaw was queried for this patient: No Vital Signs: 03/30/21 16:53 03/30/21 17:15 Temperature 97.8 F 97.8 F Temperature Source Oral Pulse Rate 91 H Pulse Rate [Left] 91 H Respiratory Rate 20 20 Blood Pressure 163/94 H Blood Pressure [Right Arm] 163/94 H Blood Pressure Mean [Right Arm] 117 02 Sat by Pulse Oximetry 98 Orders (Tests/Meds): ED MEDICATIONS Discontinued Medications Generic Name Dose Route Start Last Admin Trade Name Freq PRN Reason Stop Dose Admin Methylprednisolone Sodium Succinate 125 mg 03/30/21 17:08 03/30/21 17:14 Methylprednisolone Sod Succ 125mg Vial IM 03/30/21 17:09 125 mg ONCE ONE Administration [facility] [place] - General Stated complaint: Pain left leg Time Seen by Provider: 03/30/21 17:01 Mode of Arrival: Ambulatory Source of Information: Patient Limitations: No Limitations Description of Symptoms (Recalled from Triage Doc. by RN): pt c/o pain in her L buttocks radiating down her L leg. this has been ongoing x3 days. pt states the pain is exacerbated with ambulation. HEENT Symptoms (Recalled from RN notes): No Resp Symptoms (Recalled from RN notes): No Skin Symptoms (Recalled from RN notes): No MS Symptoms (Recalled from RN notes): Yes (L buttock pain radiating down L leg pain) Functional Status (Recalled from RN notes): wnl - History of Present Illness Provider Complaint: Patient states that she was at work and turned to walk and started having pain in her left buttock area that radiates down left upper leg States that pain is worse when she is walking or sitting on that side States that she come in because someone told her she may have sciatica - Related Data Home Medications Medication Instructions Recorded Confirmed Multivitamin [Multivitamins] 1 each PO DAILY 08/09/17 05/22/20 Amlodipine Besylate 10 mg PO DAILY 05/31/19 05/22/20 Rosuvastatin Calcium 5 mg PO HS 05/31/19 05/22/20 Trazodone HCl 150 mg PO HS 05/31/19 05/22/20 Hydralazine HCl 50 mg PO DAILY 07/03/19 05/22/20 Levothyroxine Sodium 150 mcg PO DAILY 07/03/19 05/22/20 [Levothyroxine 150mcg (0.15mg) Tab] Warfarin Sodium [Jantoven] 3 mg PO 5XDAY 07/03/19 05/22/20 Warfarin Sodium [Jantoven] 4 mg PO 5XDAY 07/03/19 05/22/20 calcium carbonate 600 mg calcium 600 mg PO DAILY 11/25/19 05/22/20 (1,500 mg) tablet vortioxetine 10 mg tablet 10 mg PO DAILY 11/25/19 05/22/20 Gabapentin [Neurontin 100mg 100 mg PO BID 05/22/20 05/22/20 cap] Amlodipine Besylate [Amlodipine 10 mg PO DAILY 03/05/21 03/05/21 10mg Tab] Amoxicillin [Amoxicillin 875MG 875 mg PO DAILY 03/05/21 03/05/21 Tab] Hydralazine HCl 5
[2021-03-30 17:15] VITALS: BP 163/94; PULSE 91; RESP 20; TEMP 36.6
== END 2021-03-30 17:32 | disposition home or self-care (01) ==
PROVIDERS: Emergency Provider Nurse Practitioner; PCP Nurse Practitioner Family
DX: M54.32 Sciatica, left side (principal); I48.0 Paroxysmal atrial fibrillation; K21.9 Gastro-esophageal reflux disease without esophagitis; R01.1 Cardiac murmur, unspecified; I10 Essential (primary) hypertension; E03.9 Hypothyroidism, unspecified; E78.5 Hyperlipidemia, unspecified
CPT/HCPCS: G0463; 96372; 99202

== ENCOUNTER → 2021-04-05 12:41 | Outpatient (CLI) | payer MEDICARE, OTHER, SELFPAY ==
--- NOTE | 2021-04-05 12:45 | XR_ITS ---
PROCEDURE: XR FEMUR LT 2V XR hip left two views the CLINICAL INDICATION: LT HIP PAIN COMPARISON: CR XR HIP LT 2-3V W/PELVIS from 04/05/2021 FINDINGS: AP view of the pelvis demonstrates mild osteoarthritic changes of both hips. Two views of the left hip show mild osteoarthritic change. No acute fracture or dislocation. No lytic or blastic change. There is generalized vascular calcification. Left femur: There is a total knee prosthesis present with along femoral stem extending to the midshaft of the femur. There is good alignment of the prosthesis at least at the femoral component. The tibial component is incompletely imaged. No acute fracture or dislocation. IMPRESSION: 1. Mild osteoarthritic change of the hips 2. Status post total knee replacement. No acute femur abnormality. Dictated by: Dustin Booth MD 04/05/2021 13:23 Dustin Booth MD in [place] 04/05/2021 13:23
== END ==
PROVIDERS: PCP Nurse Practitioner Family; Visit Provider Nurse Practitioner Family
DX: M25.552 Pain in left hip (principal)
CPT/HCPCS: 73502; 73552

== ENCOUNTER 2021-04-08 09:50 | Outpatient (CLI) | payer MEDICARE, OTHER, SELFPAY ==
[2021-04-08 14:28] LABS: PHA INR Fingerstick 3.5 (0.9-1.1)
== END 2021-04-08 14:57 | disposition home or self-care (01) ==
PROVIDERS: Internal Medicine Adolescent Medicine; PCP Nurse Practitioner Family; Visit Provider Nurse Practitioner Family
DX: Z51.81 Encounter for therapeutic drug level monitoring (principal); Z79.01 Long term (current) use of anticoagulants
CPT/HCPCS: 85610; 99211; G0463

== ENCOUNTER 2021-04-29 12:50 | Outpatient (CLI) | payer MEDICARE, OTHER, SELFPAY ==
[2021-04-29 16:44] LABS: PHA INR Fingerstick 2.3 (0.9-1.1)
== END 2021-04-29 16:46 | disposition home or self-care (01) ==
LOC: ACC 12:51
PROVIDERS: PCP Nurse Practitioner Family; Visit Provider Nurse Practitioner Family
DX: Z51.81 Encounter for therapeutic drug level monitoring (principal); Z79.01 Long term (current) use of anticoagulants; Z95.2 Presence of prosthetic heart valve
CPT/HCPCS: 85610; 99211; G0463

== ENCOUNTER 2021-05-13 09:30 | Outpatient (RCR) | payer MEDICARE, OTHER, SELFPAY ==
--- NOTE | 2021-04-08 09:37 | HMH.PTOPEV ---
PT Outpatient Evaluation Rehab PT Outpatient Evaluation Start: 04/08/21 09:05 Freq: Status: Active Protocol: Document 04/08/21 09:18 TRIXIEGERDA (Rec: 04/08/21 09:37 TRIXIEGERDA [email or web address]) Electronically Signed By Edgar Williamson PT 04/08/21 09:18 Outpatient Therapy Subjective History Subjective History This is the initial OP PT evaluation for Elba Tripp. Pt is a 70 y/o female referred to PT for c/o L post hip/ buttocks pain. Pt reports ~ 10 days ago she was standing at work at [employer] and bam, just had a sharp pain in L posterior leg/thigh. Pt rpeorts she went to MD and was diagnosed with muscle strain. Pt reports she has taken muscle relaxers for last week w/out relief. Pt does report pain has moved up into L gluteal muscle area now. Chief Complaint Pain,Stiff Symptom Type Sharp,Stabbing Symptoms Relieved By Rest/Positioning,Ice Symptoms Aggravated By Physical Activity,Walking Prior Functional Limitations None Current Functional Limitations Housework,Squatting,Recreation Activity,Walking,Stairs Symptom Description Intermittent Level of pain today (0-10) 8 Pain scale - at its best (0-10) 0 Pain scale - at its worst (0-10) 8 Lumbopelvic Eval Palapation tenderness left buttock tenderness Yes: piriformis muscle Lumbar/Sacral Palpation Findings Tenderness Lumbar/Sacral Palpation Overall Comment TTP along L SIJ Range of Motion Lumbar Spine ROM Reason Not Measured Within Functional Limits Manual Muscle Test Bilateral Knee Extension Strength Grade 5 Normal Knee Flexion Strength Grade 5 Normal Hip Abduction Strength Grade 4 Good Hip Adduction Strength Grade 4 Good Hip External Rotation Strength Grade 4 Good Hip Internal Rotation Strength Grade 4 Good Special Tests Lumbar Spine Screen Negative Forward Bending Test- Sitting Negative Left,Negative Right Hip Scouring (Quadrant) Test Negative Left Hip Piriformis Test Positive Left Sciatic Nerve Tension Test Negative Left Hip 90-90 Straight Leg Raise Test Negative Left Unilateral Straight Leg Raise (Lasegue) Negative Left Test Sacroiliac Joint Compression Test Positive Left Sacroiliac Joint Distraction Test Positive Left Outpatient Therapy Assessment Impairments Problems/Impairmments Palpation Tenderness,Impaired
== END 2021-05-13 09:35 | disposition home or self-care (01) ==
LOC: PT 09:30
PROVIDERS: PCP Nurse Practitioner Family; Visit Provider Nurse Practitioner Family
DX: S76.012A Strain of muscle, fascia and tendon of left hip, initial encounter (principal)
CPT/HCPCS: 97010; 97014; 97110; 97140; 97163; 97164; G0283

== ENCOUNTER 2021-05-25 09:59 | Outpatient (CLI) | payer MEDICARE, OTHER, SELFPAY ==
[2021-05-25 10:28] LABS: PHA INR Fingerstick 3.1 (0.9-1.1)
== END 2021-05-25 10:30 | disposition home or self-care (01) ==
LOC: ACC 10:00
PROVIDERS: PCP Internal Medicine Adolescent Medicine; Visit Provider Internal Medicine Adolescent Medicine
DX: Z51.81 Encounter for therapeutic drug level monitoring (principal); Z79.01 Long term (current) use of anticoagulants; Z95.2 Presence of prosthetic heart valve
CPT/HCPCS: 85610; 99211; G0463

== ENCOUNTER → 2021-05-31 13:00 | Outpatient (CLI) | payer MEDICARE, OTHER, SELFPAY ==
[2021-05-31 13:33] LABS: Basophils # 0.1 K/mm3 (0-0.2); Basophils % 0.7 % (0.1-2.0); Eosinophils # 0.1 K/mm3 (0.0-0.4); Eosinophils % 0.5 % (0.1-12.0); Hemoglobin 9.3 g/dL (12.2-16.2); Lymphocytes # 1.5 K/mm3 (0.7-4.5); Lymphocytes % 12.8 % (10-50); Mean Corpuscular HGB Conc 30.1 g/dL (31.8-35.4); Mean Corpuscular Hemoglobin 24.1 pg (27.0-31.2); Mean Corpuscular Volume 80.3 fl (81-99); Mean Platelet Volume 8.6 fl (7.4-10.4); Monocytes # 0.5 K/mm3 (0.1-1.0); Neutrophils # 9.3 K/mm3 (1.8-7.8); Neutrophils % 81.9 % (37.0-80.0); Platelet Count 320 K/mm3 (142-424); Red Blood Count 3.86 M/mm3 (4.20-5.40); Red Cell Distribution Width 16.9 % (11.5-17.5); White Blood Count 11.3 K/mm3 (4.8-10.8)
[2021-05-31 13:39] LABS: INR 1.59 (0.9-1.1); Prothrombin Time 17.4 seconds (10.1-12.5)
[2021-05-31 15:07] LABS: Alanine Aminotransferase 19 U/L (12-78); Albumin Level 4.1 g/dl (3.5-5.0); Albumin/Globulin Ratio 1.7 (1.1-1.8); Alkaline Phosphatase 144 U/L (38-126); Anion Gap 10.3 mEq/L (5-15); Aspartate Amino Transferase 34 U/L (14-36); Bilirubin,Total 0.3 mg/dl (0.2-1.3); Blood Urea Nitrogen 22 mg/dl (7-17); Calcium 8.8 mg/dl (8.4-10.2); Carbon Dioxide 30 mmol/L (22.0-30.0); Chloride 102 mmol/L (98-107); Estimated Glomerular Filt Rate 41 ml/min (>60); GFR (African American) 49 ML/MIN (>60); Globulin 2.4 g/dL (1.3-3.2); Glucose 147 mg/dl (74-100); Potassium 3.3 mmoL/L (3.5-5.1); Sodium 139 mmol/L (136-145); Total Protein,Serum 6.5 g/dl (6.3-8.2)
[2021-05-31 15:38] LABS: Thyroid Stimulating Hormone 2.01 uIU/mL (0.465-4.68)
[2021-05-31 17:00] LABS: Free T4 (Free Thyroxine) 1.55 ng/dl (0.78-2.19)
== END ==
PROVIDERS: PCP Nurse Practitioner Family; Visit Provider Internal Medicine
DX: Z01.812 Encounter for preprocedural laboratory examination (principal); Z11.52 Encounter for screening for COVID-19; Z51.81 Encounter for therapeutic drug level monitoring; Z79.01 Long term (current) use of anticoagulants; Z12.11 Encounter for screening for malignant neoplasm of colon; Z79.899 Other long term (current) drug therapy
CPT/HCPCS: 36415; 80053; 84439; 84443; 85025; 85610; C9803; U0003; U0005

== ENCOUNTER 2021-06-02 08:02 | Day surgery (SDC) | payer MEDICARE, OTHER, SELFPAY ==
--- NOTE | 2021-05-17 12:51 | SUR.PREOP ---
05/17/21-@ [id number] spoke with Marysol @ [facility] ordered Cristo palencia prep for Dr Whittaker
[2021-05-17 14:11] VITALS: BMI 29.4
--- NOTE | 2021-05-17 14:22 | SUR.PREOP ---
05/17/21 @ [phone]- called Demetri with [facility] after speaking with patient wanted to switch pharmacy to [facility]. Spoke with [facility] pharmicist. Called [facility] to void prep order there
[2021-05-31 10:36] VITALS: BMI 29.9
[2021-06-02 08:22] VITALS: BP 162/69; PULSE 94; RESP 18; TEMP 36.4; O2SAT 99
[2021-06-02 09:05] VITALS: O2SAT 98
[2021-06-02 09:25] VITALS: BP 144/93; PULSE 81; RESP 16; TEMP 36.6; O2SAT 98
--- NOTE | 2021-06-02 09:26 | HMH.SCOPE ---
- Procedure: Date: 06/02/21 Patient Date of :: 1950 Procedure Performed:: Colonoscopy Indications:: 70 year old female with history of colon cancer. She had a ascending colon mass found on colonoscopy in July 2019 determined to be adenocarinoma. She has had right hemicolectomy. Performing Provider:: Christopher Whittaker MD Referring Provider:: Nancy Etienne APRN Sedation:: See RN notes Procedure:: After placing the patient in the left lateral decubitus position, the colonoscopy was gently inserted into the rectum and under direct visualization advanced to the surgical anastamosis. Color, texture, mucosa, and anatomy of the colon were carefully examined with the scope. Findings:: Anal canal: normal Rectum: normal Sigmoid colon: Diverticulosis. Fair bowel preparation. Time was spent irrigating and cleansing mucosa Descending colon: normal without polyps or inflammatory changes. Fair bowel preparation. Time was spent irrigating and cleansing mucosa Splenic flexure: normal Transverse colon: normal without polyps or inflammatory changes Hepatic flexure: Surgical changes Ascending colon: Resected Terminal ileum: not visualized Recommendations:: Repeat colonoscopy in 2 years Complications:: None Estimated blood obtained (mL): 0
--- NOTE | 2021-06-02 09:33 | P.PN_ITS ---
[facility] Anesthesia Checklist - Structural Data Admitted From: Home Planned Operative Procedure/s: colonoscopy Consent for Planned Operative Procedure(s) Verified: Yes - Additional verifications Anesthesia Reactions: No Hx Blood Transfusions: No - Airway Assessment C-Spine Mobility Assessed: Yes TMJ Mobility Assessed: Yes Dentition: Edentulous - Neurological Assessment Level of Consciousness: Awake, Alert, Appropriate - Anesthesia Plan Anesthesia Risk discussed: Yes Anesthesia Plan: Verified ASA Class: III Anesthesia Type: MAC [facility] History I have reviewed the patient's past medical history: Yes 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: Reports:: Asthma, Atherosclerotic Heart Disease, Atrial Fibrillation, Gastroesophageal Reflux Disease(GERD), Heart Murmur, Hyperlipidemia, Hypertension, Renal Disease, Renal Insufficiency, Valvular Heart Disease Denies:: Cancer, Diabetes Mellitus Type 1, Diabetes Mellitus Type 2, Internal Pacemaker, MRSA, Seizures *Have you ever received a pneumonia vaccine?: Yes *Have you received a flu vaccine this season?: Yes Other 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: Reports: Anemia, Arthritis, Hypothyroidism, Thyroid Disease Anesthesia experience/problems:: none Laterality Cases: Left: Other, Bilateral: Arthroscopy Knee, Carpal Tunnel Release, Total Knee Replacement Other Surgeries: Yes: Bariatric Surgery, Cancer Surgery (thyroid and colon), Cardiac Catheterization, Cardiac Surgery, Cholecystectomy, Colonoscopy, Colon Resection, Hysterectomy-Partial, Thyroidectomy, Tubal Ligation, Other Valve Replacement, Other. No: Pacemaker Amputation: No Fractures: No - *Social History Last grade of school completed: High school graduate Smoking Status: Never smoker Alcohol Intake: never Substance Use Type: painkillers *Occupational Status:: unemployed Housing: house Household Members: none *Travel in the last 8 weeks: None Family Hx:: Cancer, Kidney Disease
[2021-06-02 09:35] VITALS: BP 149/93; PULSE 84; RESP 18; O2SAT 99
[2021-06-02 09:45] VITALS: BP 144/93; PULSE 84; RESP 18; O2SAT 99
[2021-06-02 10:05] VITALS: BP 142/90; PULSE 86; RESP 16; O2SAT 98
== END 2021-06-02 10:05 | disposition home or self-care (01) ==
LOC: OUTP 08:03
PROVIDERS: PCP Nurse Practitioner Family; Visit Provider Internal Medicine
PROC: 0DJD8ZZ Inspection of Lower Intestinal Tract, Via Natural or Artificial Opening Endoscopic (ICD-10-PCS; CPT 45378; principal; 2021-06-02 09:00)
DX: Z12.11 Encounter for screening for malignant neoplasm of colon (principal); Z85.038 Personal history of other malignant neoplasm of large intestine; Z90.49 Acquired absence of other specified parts of digestive tract; J45.909 Unspecified asthma, uncomplicated; I25.10 Atherosclerotic heart disease of native coronary artery without angina pectoris; I48.91 Unspecified atrial fibrillation; K21.9 Gastro-esophageal reflux disease without esophagitis; R01.1 Cardiac murmur, unspecified; E78.5 Hyperlipidemia, unspecified; I10 Essential (primary) hypertension; N18.9 Chronic kidney disease, unspecified; E03.9 Hypothyroidism, unspecified
CPT/HCPCS: G0105

== ENCOUNTER 2021-06-07 12:49 | Outpatient (CLI) | payer MEDICARE, OTHER, SELFPAY ==
[2021-06-07 14:54] LABS: PHA INR Fingerstick 2.4 (0.9-1.1)
== END 2021-06-07 15:25 | disposition home or self-care (01) ==
LOC: ACC 12:50
PROVIDERS: PCP Nurse Practitioner Family; Visit Provider Internal Medicine Adolescent Medicine
DX: Z51.81 Encounter for therapeutic drug level monitoring (principal); Z79.01 Long term (current) use of anticoagulants
CPT/HCPCS: 85610; 99211; G0463

== ENCOUNTER → 2021-06-15 10:00 | Outpatient (POV) | payer MEDICARE, OTHER, SELFPAY ==
--- NOTE | 2021-06-15 10:30 | HMH.PAINSOAP ---
[facility] Pain Management SOAP Note Subjective:: Patient is a 70-year-old white female who presents today for medication refills. She is managed with tramadol 50 mg 1 tablet p.o. twice daily and gabapentin 100 mg 1 tablet p.o. twice daily. She denies any side effects and is doing well with medications at this time. Patient rates her pain as 4 out of 10. She is treated for chronic knee pain. She has tried physical therapy in the past with minimal relief. She does continue with home stretching. Review of Systems General: No recent weight changes, no fever, no sleep disturbances Respiratory: No cough, no shortness of air, no recurring pulmonary infections Cardiovascular/peripheral vascular: No chest pain, no palpitations, no edema, no shortness of breath Gastrointestinal: No new onset incontinence, normal bowel movements reported Genitourinary: No new onset incontinence Musculoskeletal: [] Intermittent low back pain, intermittent knee pain Psychiatric: [Normal mood/affect] Neurological: [Denies weakness in extremities], [denies balance issues] Objective:: Physical exam General: Alert and oriented x3, no acute distress, pleasant and cooperative Lungs: Respirations even and unlabored, symmetrical chest expansion Eyes: PERRL Musculoskeletal: Flexion and extension of lumbar [spine] and bilateral knees somewhat guarded secondary to pain, [antalgic gait noted] Neurological: Speech clear, no gross sensory deficit Assessment:: Bilateral knee pain, osteoarthritis bilateral knee Plan:: We will continue patient's tramadol 50 mg 1 tablet p.o. twice daily and gabapentin 100 mg 1 tablet p.o. twice daily. Jaime #[id number] has been reviewed and is appropriate. Drug screen is appropriate. Risks and benefits of the medication have been explained in detail to the patient. The patient does understand the risk of dependence on the medication when given over a prolonged period. Patient has been advised of risks of oversedation with the prescribed medication. Narcan has been offered to the paitent in the event of oversedation. Patient has been advised that a family member should also be educated regarding administration of Narcan. The patient has been advised to consult with his/her primary care provider and pharmacist regarding drug-drug interaction of medications currently prescribed. Patient has been prescribed a controlled substance after being counseled on the medication, medication safety, and possible side effects. JAIME report has been obtained and reviewed prior to prescription and found to be appropriate. Opioid contract was reviewed and signed by the patient, and that they have agreed to all of the terms set forth by our compliance program. Patient has been instructed to contact the clinic with any concerns before the next appointment. Dr. Valderrama has reviewed this note and agrees with this plan of care. This note was dictated using voice recognition software and make contain errors or omissions. [facility] History I have reviewed the patient's past medical history: Yes 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: Reports:: Asthma, Atherosclerotic Heart Disease, Atrial Fibrillation, Gastroesophageal Reflux Disease(GERD), Heart Murmur, Hyperlipidemia, Hypertension, Renal Disease, Renal Insufficiency, Valvular Heart Disease Denies:: Cancer, Diabetes Mellitus Type 1, Diabetes Mellitus Type 2, Internal Pacemaker, MRSA, Seizures *Have you ever received a pneumonia vaccine?: Yes *Have you received a flu vaccine this season?: Yes Other 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: Reports: Anemia, Arthritis, Hypothyroidism, Thyroid Disease Laterality Cases: Left: Other, Bilateral: Arthroscopy Knee, Carpal Tunnel Release Other Surgeries: Yes: Bariatric Surgery, Cancer Surgery (thyroid and colon), Cardiac Catheterization, Cardiac Surgery, Cholecystectomy, Colonoscopy, Colon Resection, Hysterectomy-Partial, Thyroidectomy, Tubal Ligation, Other Valve Replacement, Other. No: Pacemaker Amputat
[2021-06-15 10:32] VITALS: BP 151/91; PULSE 88; RESP 18; O2SAT 98; BMI 29.9
== END ==
PROVIDERS: Visit Provider Clinical Nurse Specialist Family Health
DX: M17.0 Bilateral primary osteoarthritis of knee (principal)
CPT/HCPCS: 99212; G0463

== ENCOUNTER 2021-07-01 12:54 | Outpatient (CLI) | payer MEDICARE, OTHER, SELFPAY | END 2021-07-01 14:17 | disposition home or self-care (01) | LOC: ACC 12:55 | PROVIDERS: Internal Medicine Adolescent Medicine; PCP Nurse Practitioner Family; Visit Provider Nurse Practitioner Family | DX: Z51.81 Encounter for therapeutic drug level monitoring (principal); Z79.01 Long term (current) use of anticoagulants; Z95.2 Presence of prosthetic heart valve | CPT/HCPCS: 85610; 99211; G0463 ==

== ENCOUNTER → 2021-08-02 11:08 | Outpatient (CLI) | payer MEDICARE, OTHER, SELFPAY ==
[2021-08-02 12:16] LABS: Basophils % 0.4 % (0.1-2.0); Eosinophils # 0.1 K/mm3 (0.0-0.4); Eosinophils % 0.5 % (0.1-12.0); Hematocrit 31.6 % (37.0-47.0); Lymphocytes # 1.2 K/mm3 (0.7-4.5); Lymphocytes % 12.4 % (10-50); Mean Corpuscular HGB Conc 31.8 g/dL (31.8-35.4); Monocytes # 0.4 K/mm3 (0.1-1.0); Monocytes % 4.3 % (1.7-9.3); Neutrophils # 7.6 K/mm3 (1.8-7.8); Neutrophils % 82.3 % (37.0-80.0); Platelet Count 295 K/mm3 (142-424); Red Blood Count 3.86 M/mm3 (4.20-5.40); Red Cell Distribution Width 18.9 % (11.5-17.5); White Blood Count 9.2 K/mm3 (4.8-10.8)
[2021-08-02 12:20] LABS: INR 2.32 (0.9-1.1); Prothrombin Time 24.6 seconds (10.1-12.5)
[2021-08-02 16:38] LABS: Anion Gap 7.4 mEq/L (5-15); Blood Urea Nitrogen 17 mg/dl (7-17); Carbon Dioxide 32 mmol/L (22.0-30.0); Chloride 104 mmol/L (98-107); Estimated Glomerular Filt Rate 41 ml/min (>60); GFR (African American) 49 ML/MIN (>60); Glucose 90 mg/dl (74-100); Potassium 3.4 mmoL/L (3.5-5.1); Sodium 140 mmol/L (136-145)
== END ==
PROVIDERS: PCP Nurse Practitioner Family; Visit Provider Nurse Practitioner Family
DX: S00.03XA Contusion of scalp, initial encounter (principal); Z51.81 Encounter for therapeutic drug level monitoring; Z79.01 Long term (current) use of anticoagulants; Z95.2 Presence of prosthetic heart valve
CPT/HCPCS: 36415; 80048; 85025; 85610

== ENCOUNTER 2021-08-12 12:52 | Outpatient (CLI) | payer MEDICARE, OTHER, SELFPAY ==
[2021-08-12 13:30] LABS: PHA INR Fingerstick 1.7 (0.9-1.1)
== END 2021-08-12 13:33 | disposition home or self-care (01) ==
LOC: ACC 12:53
PROVIDERS: PCP Nurse Practitioner Family; Visit Provider Internal Medicine Adolescent Medicine
DX: Z51.81 Encounter for therapeutic drug level monitoring (principal); Z79.01 Long term (current) use of anticoagulants; Z95.2 Presence of prosthetic heart valve
CPT/HCPCS: 85610; 99211; G0463

== ENCOUNTER 2021-08-18 12:59 | Outpatient (CLI) | payer MEDICARE, OTHER, SELFPAY ==
[2021-08-18 13:20] LABS: PHA INR Fingerstick 2.3 (0.9-1.1)
== END 2021-08-18 13:22 | disposition home or self-care (01) ==
LOC: ACC 13:00
PROVIDERS: PCP Nurse Practitioner Family; Visit Provider Nurse Practitioner Family
DX: Z51.81 Encounter for therapeutic drug level monitoring (principal); Z79.01 Long term (current) use of anticoagulants; Z95.2 Presence of prosthetic heart valve
CPT/HCPCS: 85610; 99211; G0463

== ENCOUNTER 2021-09-01 12:55 | Outpatient (CLI) | payer MEDICARE, OTHER, SELFPAY ==
[2021-09-01 14:47] LABS: INR 4.31 (0.9-1.1); Prothrombin Time 43.7 seconds (10.1-12.5)
== END 2021-09-01 15:08 | disposition home or self-care (01) ==
PROVIDERS: PCP Internal Medicine Adolescent Medicine; Visit Provider Internal Medicine Adolescent Medicine
DX: Z51.81 Encounter for therapeutic drug level monitoring (principal); Z79.01 Long term (current) use of anticoagulants
CPT/HCPCS: 36415; 85610; 99211; G0463

== ENCOUNTER 2021-09-14 08:39 | Outpatient (CLI) | payer MEDICARE, OTHER, SELFPAY ==
[2021-09-14 10:38] LABS: PHA INR Fingerstick 3.5 (0.9-1.1)
== END 2021-09-14 10:42 | disposition home or self-care (01) ==
LOC: ACC 08:40
PROVIDERS: PCP Internal Medicine Adolescent Medicine; Visit Provider Internal Medicine Adolescent Medicine
DX: Z51.81 Encounter for therapeutic drug level monitoring (principal); Z79.01 Long term (current) use of anticoagulants; Z95.2 Presence of prosthetic heart valve
CPT/HCPCS: 85610; 99211; G0463

== ENCOUNTER → 2021-09-16 09:10 | Outpatient (POV) | payer MEDICARE, OTHER, SELFPAY ==
[2021-09-16 09:38] VITALS: BP 162/88; PULSE 78; RESP 18; TEMP 36; O2SAT 100; BMI 29.9
--- NOTE | 2021-09-16 10:06 | HMH.PAINSOAP ---
[facility] Pain Management SOAP Note Subjective:: Patient is a pleasant 71-year-old female who is here for medication refill and follow-up. Patient is currently being treated for osteoarthritis of bilateral knees. Patient is being managed with tramadol 50 mg twice a day and gabapentin 100 mg twice a day. Patient denies any side effects from the medications. Patient denies any changes to the location and type of pain. Patient states that this is adequately helping manage their pain. Rates pain as 0 out of 10. [facility] [place] number [id number] with an active morphine equivalent 10. Drug screens have been reviewed and appropriate. Review of Systems: General: No recent weight changes, no fever, no sleep disturbances Respiratory: No cough, no shortness of air, no recurring pulmonary infections Cardiovascular/peripheral vascular: No chest pain, no palpitations, no edema, no shortness of breath Gastrointestinal: No new onset incontinence, normal bowel movements reported Genitourinary: No new onset incontinence Musculoskeletal: Bilateral knee pain Psychiatric: [Normal mood/affect] Neurological: [Denies weakness in extremities], [denies balance issues] Objective:: Physical Exam: General: Alert and oriented x3, no acute distress, pleasant and cooperative Lungs: Respirations even and unlabored, symmetrical chest expansion Eyes: PERRL Musculoskeletal: Limited range of motion of bilateral knees secondary to pain Neurological: Speech clear, no gross sensory deficit Assessment:: Osteoarthritis of bilateral knees Plan:: We will continue the patient's tramadol 50 mg twice a day and gabapentin 100 mg twice a day. We will provide the patient with 3 months of refills. We would like to see the patient back in 3 months for follow-up and reevaluation of chronic pain syndrome. Patient has been advised of risks of oversedation with the prescribed medication. Narcan has been offered to the patient in the event of oversedation. Patient has been advised that a family member should also be educated regarding administration of Narcan. Patient has been instructed to contact the clinic with any concerns before the next appointment. Dr. Valderrama has reviewed this note and agrees with this plan of care. This note was dictated using voice recognition software and make contain errors or omissions. [facility] History 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: Reports:: Asthma, Atherosclerotic Heart Disease, Atrial Fibrillation, Gastroesophageal Reflux Disease(GERD), Heart Murmur, Hyperlipidemia, Hypertension, Renal Disease, Renal Insufficiency, Valvular Heart Disease Denies:: Cancer, Diabetes Mellitus Type 1, Diabetes Mellitus Type 2, Internal Pacemaker, MRSA, Seizures *Have you ever received a pneumonia vaccine?: Yes *Have you received a flu vaccine this season?: Yes Other 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: Reports: Anemia, Arthritis, Hypothyroidism, Thyroid Disease Laterality Cases: Left: Other, Bilateral: Arthroscopy Knee, Carpal Tunnel Release Other Surgeries: Yes: Bariatric Surgery, Cancer Surgery (thyroid and colon), Cardiac Catheterization, Cardiac Surgery, Cholecystectomy, Colonoscopy, Colon Resection, Hysterectomy-Partial, Thyroidectomy, Tubal Ligation, Other Valve Replacement, Other. No: Pacemaker Amputation: No Fractures: No - *Social History Smoking Status: Never smoker Alcohol Intake: never Substance Use Type: painkillers *Occupational Status:: retired Housing: house Household Members: none *Travel in the last 8 weeks: None Family Hx:: Cancer, Kidney Disease
== END ==
PROVIDERS: Visit Provider Student in an Organized Health Care Education/Training Program
DX: M17.0 Bilateral primary osteoarthritis of knee (principal)
CPT/HCPCS: 99212; G0463

== ENCOUNTER 2021-10-05 12:25 | Outpatient (CLI) | payer MEDICARE, OTHER, SELFPAY | END 2021-10-05 13:56 | disposition home or self-care (01) | LOC: ACC 12:26 | PROVIDERS: PCP Nurse Practitioner Family; Visit Provider Internal Medicine Adolescent Medicine | DX: Z51.81 Encounter for therapeutic drug level monitoring (principal); Z79.01 Long term (current) use of anticoagulants; Z95.2 Presence of prosthetic heart valve | CPT/HCPCS: 85610; 99211; G0463 ==

== ENCOUNTER → 2021-10-12 13:12 | Outpatient (CLI) | payer MEDICARE, OTHER, SELFPAY ==
[2021-10-12 14:02] LABS: Basophils # 0.1 K/mm3 (0-0.2); Basophils % 0.9 % (0.1-2.0); Eosinophils % 0.4 % (0.1-12.0); Hematocrit 34.8 % (37.0-47.0); Hemoglobin 11.2 g/dL (12.2-16.2); Lymphocytes # 0.6 K/mm3 (0.7-4.5); Mean Corpuscular HGB Conc 32.1 g/dL (31.8-35.4); Mean Corpuscular Hemoglobin 27.3 pg (27.0-31.2); Mean Corpuscular Volume 85.2 fl (81-99); Mean Platelet Volume 8.2 fl (7.4-10.4); Monocytes # 0.3 K/mm3 (0.1-1.0); Monocytes % 4.3 % (1.7-9.3); Neutrophils # 6.9 K/mm3 (1.8-7.8); Neutrophils % 86.4 % (37.0-80.0); Platelet Count 242 K/mm3 (142-424); Red Blood Count 4.09 M/mm3 (4.20-5.40); Red Cell Distribution Width 16.6 % (11.5-17.5)
[2021-10-12 14:03] LABS: MANUAL DIFFERENTIAL MANUAL DIFFERENTIAL (MANUAL DIFF)
[2021-10-12 14:20] LABS: Alanine Aminotransferase 24 U/L (12-78); Albumin Level 3.6 g/dl (3.5-5.0); Alkaline Phosphatase 72 U/L (38-126); Aspartate Amino Transferase 42 U/L (14-36); Bilirubin,Unconjugated 0.3 mg/dL (0.0-1.1); Estimated Glomerular Filt Rate 49 ml/min (>60); GFR (African American) 60 ML/MIN (>60); Total Protein,Serum 6.1 g/dl (6.3-8.2)
[2021-10-12 14:22] LABS: Bilirubin,Total < 0.1 mg/dl (0.2-1.3)
[2021-10-12 14:40] LABS: Eosinophils % 1 % (0-3); Lymphocytes % 14 % (10-50); Monocytes % 2 % (2-9); Neutrophils % 83 % (42-76); Total Cells Counted 100
[2021-10-12 14:44] LABS: Bilirubin,Direct 0.1 mg/dl (0.0-0.4); Bilirubin,Indirect 0.2 mg/dL (0.0-0.9); Hypersegmented Neutrophils 2+; Platelet Estimate Normal
[2021-10-12 14:45] LABS: Ovalocytes 1+
== END ==
PROVIDERS: PCP Nurse Practitioner Family; Visit Provider Physician Assistant
DX: Z79.899 Other long term (current) drug therapy (principal)
CPT/HCPCS: 36415; 80076; 82565; 85007; 85025

== ENCOUNTER 2021-10-26 10:06 | Outpatient (CLI) | payer MEDICARE, OTHER, SELFPAY ==
[2021-10-26 12:17] LABS: PHA INR Fingerstick 2.7 (0.9-1.1)
== END 2021-10-26 14:51 | disposition home or self-care (01) ==
LOC: ACC 10:07
PROVIDERS: PCP Nurse Practitioner Family; Visit Provider Internal Medicine Adolescent Medicine
DX: Z51.81 Encounter for therapeutic drug level monitoring (principal); Z79.01 Long term (current) use of anticoagulants; Z95.2 Presence of prosthetic heart valve
CPT/HCPCS: 85610; 99211; G0463

== ENCOUNTER → 2021-11-13 13:19 | Outpatient (CLI) | payer MEDICARE, OTHER, SELFPAY | PROVIDERS: PCP Nurse Practitioner Family; Visit Provider Ophthalmology | DX: Z01.812 Encounter for preprocedural laboratory examination (principal); Z20.822 Contact with and (suspected) exposure to COVID-19 | CPT/HCPCS: C9803; U0003; U0005 ==

== ENCOUNTER 2021-11-16 08:21 | Day surgery (SDC) | payer MEDICARE, OTHER, SELFPAY ==
[2021-11-11 14:17] VITALS: BMI 29.9
[2021-11-16] VITALS (7 sets, daily range): BP systolic 158–185; BP diastolic 71–86; PULSE 63–76; RESP 16–18; TEMP 35.7–36.1; O2SAT 99–100
[2021-11-17 02:22] LABS: POC Glucose,Bedside 105 (70-110)
== END 2021-11-16 10:45 | disposition home or self-care (01) ==
LOC: OR 08:22
PROVIDERS: PCP Nurse Practitioner Family; Visit Provider Ophthalmology
DX: H25.813 Combined forms of age-related cataract, bilateral (principal); I10 Essential (primary) hypertension; I48.91 Unspecified atrial fibrillation; E78.00 Pure hypercholesterolemia, unspecified
CPT/HCPCS: 66984; 82962; V2632

== ENCOUNTER → 2021-11-19 16:19 | Outpatient (CLI) | payer MEDICARE, OTHER, SELFPAY ==
[2021-11-19 16:38] LABS: Basophils # 0.1 K/mm3 (0-0.2); Basophils % 0.7 % (0.1-2.0); Eosinophils # 0.1 K/mm3 (0.0-0.4); Eosinophils % 1.1 % (0.1-12.0); Hematocrit 31.4 % (37.0-47.0); Hemoglobin 9.9 g/dL (12.2-16.2); Lymphocytes # 0.9 K/mm3 (0.7-4.5); Lymphocytes % 8.6 % (10-50); Mean Corpuscular HGB Conc 31.4 g/dL (31.8-35.4); Mean Corpuscular Hemoglobin 27.9 pg (27.0-31.2); Mean Corpuscular Volume 88.8 fl (81-99); Monocytes # 0.5 K/mm3 (0.1-1.0); Monocytes % 4.3 % (1.7-9.3); Neutrophils # 9.3 K/mm3 (1.8-7.8); Neutrophils % 85.3 % (37.0-80.0); Platelet Count 298 K/mm3 (142-424); Red Blood Count 3.54 M/mm3 (4.20-5.40); Red Cell Distribution Width 17.3 % (11.5-17.5); White Blood Count 10.9 K/mm3 (4.8-10.8)
[2021-11-19 16:42] LABS: MANUAL DIFFERENTIAL MANUAL DIFFERENTIAL (MANUAL DIFF)
[2021-11-19 18:02] LABS: Eosinophils % 1 % (0-3); Hypochromasia 1+; Lymphocytes % 10 % (10-50); Monocytes % 2 % (2-9); Neutrophils % 87 % (42-76); Platelet Estimate Normal; Total Cells Counted 100
[2021-11-19 18:31] LABS: Alanine Aminotransferase 26 U/L (12-78); Albumin Level 3.6 g/dl (3.5-5.0); Alkaline Phosphatase 71 U/L (38-126); Aspartate Amino Transferase 42 U/L (14-36); Bilirubin,Unconjugated 0.4 mg/dL (0.0-1.1); Estimated Glomerular Filt Rate 34 ml/min (>60); GFR (African American) 42 ML/MIN (>60); Total Protein,Serum 6.2 g/dl (6.3-8.2)
[2021-11-19 18:33] LABS: Bilirubin,Total < 0.1 mg/dl (0.2-1.3)
[2021-11-19 18:51] LABS: Bilirubin,Direct < 0.1 mg/dl (0.0-0.4)
== END ==
PROVIDERS: PCP Nurse Practitioner Family; Visit Provider Physician Assistant
DX: Z79.899 Other long term (current) drug therapy (principal)
CPT/HCPCS: 36415; 80076; 82565; 85007; 85025

== ENCOUNTER 2021-11-23 16:59 | Emergency (ER) | payer MEDICARE, OTHER, SELFPAY ==
[2021-11-23 17:15] VITALS: BP 106/72; PULSE 76; RESP 17; TEMP 37.6; O2SAT 98; BMI 31.2
--- NOTE | 2021-11-23 17:40 | HMH.EDUTC ---
[facility] [place] Clinical Impression: Viral syndrome, Encounter for laboratory testing for COVID-19 virus Disposition: Home, Self-Care Condition on Discharge: Good Instructions: DI for Fever (Symptom) -- Adult, DI for COVID-19 (Suspected or Confirmed ), Preventing the Spread of Coronavirus Discharge Instructions Additional Instructions: *Monitor Temp, Over the counter Motrin or Tylenol as directed/as needed Tylenol every 4 hours and Motrin every 6 hours (as long as your family doctor has told you that you can take it) for fever or pain. and straight to ER if unable to lower temp less than 101.0 after medication given *Warm salt water gargles may help to soothe the throat *Throat Lozenges *Warm fluids like tea with honey may help to soothe the throat *Sleep elevated *Humidifier/Vaporizer Follow up IMMEDIATELY for new or worsening symptoms or no Noticeable improvement over the next 48-72 hours. 911 for difficulty breathing or swallowing You were tested for today for COVID19 your test result should be back in the next 24-48 hours, you may check your results on the [facility] My Health Portal Make sure to take your Vitamins Vit. C Vit D and Zinc if you can take them Referrals: Atiya Etienne APRN [Primary Care Provider] - As needed Forms: Work/School Release Medical Decision Making - Kyaw Inquiry Pt receiving controlled substance: No Kyaw was queried for this patient: No Vital Signs: 11/23/21 17:15 Temperature 99.7 F H Temperature Source Oral Pulse Rate [Left Brachial] 76 Respiratory Rate 17 Blood Pressure [Left Arm] 106/72 L Blood Pressure Mean [Left Arm] 83 Blood Pressure Source [Left Arm] Automatic Cuff Blood Pressure Position [Left Arm] Sitting 02 Sat by Pulse Oximetry 98 Oxygen Delivery Method Room Air Orders (Tests/Meds): ORDERS Category Date Time Status Covid-19 Nasal PCR ([facility]) Routine Lab 11/23/21 17:08 Ordered [facility] [place] - General Stated complaint: covid test Time Seen by Provider: 11/23/21 17:40 Mode of Arrival: Ambulatory Source of Information: Patient Limitations: No Limitations Description of Symptoms (Recalled from Triage Doc. by RN): PATIENT C/O FATIGUE AND WEAKNESS SINCE YESTERDAY. REQUESTING COVID TEST HEENT Symptoms (Recalled from RN notes): No Resp Symptoms (Recalled from RN notes): No Skin Symptoms (Recalled from RN notes): No MS Symptoms (Recalled from RN notes): No Functional Status (Recalled from RN notes): WNL - History of Present Illness Provider Complaint: Patient states she was recently around someone at work that has since tested positive for COVID States that she has been feeling achy, fatigued and weak so she took an at home test and it was positive so she came in to get checked - Related Data Home Medications Medication Instructions Recorded Confirmed Multivitamin [Multivitamins] 1 each PO DAILY 08/09/17 11/16/21 Amlodipine Besylate 5 mg PO BID 05/31/19 11/16/21 Rosuvastatin Calcium 5 mg PO HS 05/31/19 11/16/21 Trazodone HCl 150 mg PO HS 05/31/19 11/16/21 Levothyroxine Sodium 175 mcg PO DAILY 07/03/19 11/16/21 [Levothyroxine 150mcg (0.15mg) Tab] calcium carbonate 600 mg calcium 600 mg PO DAILY 11/25/19 11/16/21 (1,500 mg) tablet Amoxicillin [Amoxicillin 875MG 875 mg PO DAILY 03/05/21 11/16/21 Tab] Hydralazine HCl 50 mg PO DAILY 03/05/21 11/16/21 Warfarin Sodium [Coumadin 3mg 3 mg PO SUTUWETHFRSA 03/05/21 11/16/21 tablet] Warfarin Sodium 3 mg PO MO 09/01/21 11/16/21 Gabapentin [Neurontin 100mg 100 mg PO BID 09/16/21 11/16/21 cap] Tramadol HCl [Tramadol 50mg 50 mg PO BID 09/16/21 11/16/21 Tab] Ferrous Sulfate 325 mg PO DAILY 11/11/21 11/16/21 Leflunomide 20 mg PO DAILY 11/11/21 11/16/21 predniSONE [Prednisone 20mg 20 mg PO DAILY 11/11/21 11/16/21 Tab] Allergies Allergy/AdvReac Type Severity Reaction Status Date / Time No Known Allergies Allergy Verified 11/16/21 09:15 - Worker's Comp Is this a Worker'
[2021-11-23 17:54] VITALS: BP 106/72; PULSE 76; RESP 17; TEMP 37.6; O2SAT 98
== END 2021-11-23 17:58 | disposition home or self-care (01) ==
PROVIDERS: Emergency Provider Nurse Practitioner; PCP Nurse Practitioner Family
DX: U07.1 COVID-19 (principal)
CPT/HCPCS: 99212; C9803; G0463; U0003; U0005

== ENCOUNTER → 2021-11-26 10:57 | Outpatient (CLI) | payer MEDICARE, OTHER, SELFPAY ==
[2021-11-26 11:30] LABS: INR 2.76 (0.9-1.1); Prothrombin Time 28.9 seconds (10.1-12.5)
== END ==
PROVIDERS: PCP Internal Medicine Adolescent Medicine; Visit Provider Internal Medicine Adolescent Medicine
DX: Z51.81 Encounter for therapeutic drug level monitoring (principal); Z79.01 Long term (current) use of anticoagulants; Z95.2 Presence of prosthetic heart valve
CPT/HCPCS: 36415; 85610

== ENCOUNTER 2021-12-02 15:34 | Emergency (ER) | payer MEDICARE, OTHER, SELFPAY ==
[2021-12-02 16:27] VITALS: BP 125/80; PULSE 90; RESP 18; TEMP 37.2; O2SAT 100; BMI 29.7
--- NOTE | 2021-12-02 16:41 | HMH.EDUTC ---
[facility] [place] Disposition Clinical Impression: Encounter for laboratory testing for COVID-19 virus Disposition: Home, Self-Care Condition on Discharge: Good Instructions: DI for COVID-19 (Suspected or Confirmed ), Preventing the Spread of Coronavirus Discharge Instructions Referrals: Atiya Etienne APRN [Primary Care Provider] - As needed Medical Decision Making - Kyaw Inquiry Pt receiving controlled substance: No Kyaw was queried for this patient: No Vital Signs: 12/02/21 16:27 Temperature 99.0 F Temperature Source Oral Pulse Rate [Radial] 90 Respiratory Rate 18 Blood Pressure [Right Arm] 125/80 Blood Pressure Mean [Right Arm] 95 Blood Pressure Source [Right Arm] Automatic Cuff 02 Sat by Pulse Oximetry 100 Oxygen Delivery Method Room Air Orders (Tests/Meds): ORDERS Category Date Time Status Covid-19 Nasal PCR ([facility]) Routine Lab 12/02/21 16:10 Received Medical Decision Narrative: Patient educated that since she was positive for COVID a week ago she may show positive on COVID swab for up to 3mths and today is day 8 so she may still have symptoms on and off for several weeks and patient advised she was not aware of that but still wanted to do a repeat swab [facility] [place] HPI - General Stated complaint: covid test Time Seen by Provider: 12/02/21 16:41 Mode of Arrival: Ambulatory Source of Information: Patient Description of Symptoms (Recalled from Triage Doc. by RN): BODY ACHES AND CHILLS HEENT Symptoms (Recalled from RN notes): Yes Resp Symptoms (Recalled from RN notes): No Skin Symptoms (Recalled from RN notes): No MS Symptoms (Recalled from RN notes): No Functional Status (Recalled from RN notes): N/A - History of Present Illness Provider Complaint: Patient states that she was positive for COVID about a week ago and today she was feeling tired, achy and having nausea worried that she had been infected with COVID again so she took a home test and it was still positive so she was worried - Related Data Home Medications Medication Instructions Recorded Confirmed Multivitamin [Multivitamins] 1 each PO DAILY 08/09/17 11/16/21 Amlodipine Besylate 5 mg PO BID 05/31/19 11/16/21 Rosuvastatin Calcium 5 mg PO HS 05/31/19 11/16/21 Trazodone HCl 150 mg PO HS 05/31/19 11/16/21 Levothyroxine Sodium 175 mcg PO DAILY 07/03/19 11/16/21 [Levothyroxine 150mcg (0.15mg) Tab] calcium carbonate 600 mg calcium 600 mg PO DAILY 11/25/19 11/16/21 (1,500 mg) tablet Amoxicillin [Amoxicillin 875MG 875 mg PO DAILY 03/05/21 11/16/21 Tab] Hydralazine HCl 50 mg PO DAILY 03/05/21 11/16/21 Warfarin Sodium [Coumadin 3mg 3 mg PO SUTUWETHFRSA 03/05/21 11/16/21 tablet] Warfarin Sodium 3 mg PO MO 09/01/21 11/16/21 Gabapentin [Neurontin 100mg 100 mg PO BID 09/16/21 11/16/21 cap] Tramadol HCl [Tramadol 50mg 50 mg PO BID 09/16/21 11/16/21 Tab] Ferrous Sulfate 325 mg PO DAILY 11/11/21 11/16/21 Leflunomide 20 mg PO DAILY 11/11/21 11/16/21 predniSONE [Prednisone 20mg 20 mg PO DAILY 11/11/21 11/16/21 Tab] Allergies Allergy/AdvReac Type Severity Reaction Status Date / Time No Known Allergies Allergy Verified 11/16/21 09:15 - Worker's Comp Is this a Worker's Comp case?: No [facility] History - Hepatitis A Screen Attestation statement:: This patient has been screened for Hepatitis A risk factors. I have reviewed the patient's past medical history: Yes 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: Reports:: Asthma, Atherosclerotic Heart Disease, Atrial Fibrillation, Cancer, Gastroesophageal Reflux Disease(GERD), Heart Murmur, Hyperlipidemia, Hypertension, MRSA (l knee), Renal Disease, Renal Insufficiency, Valvular Heart Disease Denies:: Diabetes Mellitus Type 1, Diabetes Mellitus Type 2, Internal Pacemaker, Seizures Other 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: Reports: Anemia, Arthritis, Hypothyroidism, Thyroid Disease Comment: chronic pain Laterality Cases: Left: Other, Bilateral: Arthroscopy Knee, Carpal Tunnel Release, Myringotomy (Ear
[2021-12-02 17:01] VITALS: BP 125/80; PULSE 90; RESP 18; TEMP 37.2; O2SAT 100
== END 2021-12-02 17:02 | disposition home or self-care (01) ==
PROVIDERS: Emergency Provider Nurse Practitioner; PCP Nurse Practitioner Family
DX: U07.1 COVID-19 (principal)
CPT/HCPCS: 99212; C9803; G0463; U0003; U0005

== ENCOUNTER 2021-12-13 11:59 | Outpatient (CLI) | payer MEDICARE, OTHER, SELFPAY ==
[2021-12-13 14:47] LABS: PHA INR Fingerstick 7.8 (0.9-1.1)
== END 2021-12-13 15:16 | disposition home or self-care (01) ==
PROVIDERS: PCP Nurse Practitioner Family; Visit Provider Internal Medicine Adolescent Medicine
DX: Z51.81 Encounter for therapeutic drug level monitoring (principal); Z79.01 Long term (current) use of anticoagulants; Z95.2 Presence of prosthetic heart valve
CPT/HCPCS: 36415; 85610; 99211; G0463

== ENCOUNTER 2021-12-15 11:07 | Outpatient (CLI) | payer MEDICARE, OTHER, SELFPAY ==
[2021-12-15 11:39] LABS: PHA INR Fingerstick 4.5 (0.9-1.1)
== END 2021-12-15 11:40 | disposition home or self-care (01) ==
LOC: ACC 11:08
PROVIDERS: PCP Nurse Practitioner Family; Visit Provider Nurse Practitioner Family
DX: Z51.81 Encounter for therapeutic drug level monitoring (principal); Z79.01 Long term (current) use of anticoagulants; Z95.2 Presence of prosthetic heart valve
CPT/HCPCS: 85610; 99211; G0463

== ENCOUNTER → 2021-12-16 08:34 | Outpatient (POV) | payer MEDICARE, OTHER, SELFPAY ==
[2021-12-16 08:39] VITALS: BP 147/74; PULSE 88; RESP 20; BMI 28.3
--- NOTE | 2021-12-16 08:53 | P.CONS_ITS ---
[facility] Pain Management SOAP Note Subjective:: Pleasant 71-year-old female that presents today for medication refill and follow-up. We are currently treating the patient for osteoarthritis of bilateral knees. Today she rates her pain a 0 out of 10. She is being managed with tramadol 50 mg twice a day and gabapentin 100 mg twice a day. Patient denies any side effects from this medication. She denies any change to the location or type of pain she experiences. She states these medications are adequately managing her pain. She did state today that she is feeling rundown and fatigued. She has been to see her primary care provider Evelia Etienne and is anemic and is scheduled to get 2 units of blood tomorrow morning. Her Kyaw is [phone]. It has been reviewed and appropriate. Review of Systems: General: No recent weight changes, no fever, no sleep disturbances Respiratory: No cough, no shortness of air, no recurring pulmonary infections Cardiovascular/peripheral vascular: No chest pain, no palpitations, no edema, no shortness of breath Gastrointestinal: No new onset incontinence, normal bowel movements reported Genitourinary: No new onset incontinence Musculoskeletal: Bilateral knee pain Psychiatric: [Normal mood/affect] Neurological: [Denies weakness in extremities], [denies balance issues] Objective:: Physical Exam: General: Alert and oriented x3, no acute distress, pleasant and cooperative Lungs: Respirations even and unlabored, symmetrical chest expansion Eyes: PERRL Musculoskeletal: Flexion and extension of bilateral knees somewhat guarded secondary to pain, [antalgic gait noted] Neurological: Speech clear, no gross sensory deficit Assessment:: Osteoarthritis of bilateral knees Plan:: Patient's pain today is doing well. I will refill the patient's tramadol 50 mg twice a day and gabapentin 100 mg twice a day. I will give a 3-month supply of this medication. Patient will return to clinic in 3 months for follow-up and reevaluation of symptoms. Patient has been advised of risk of oversedation with the prescribed medication. Patient has been instructed to contact the clinic with any concerns before the next appointment. Dr. Valderrama has reviewed this note and agrees with this plan of care. This note was dictated using voice recognition software and make contain errors or omissions. [facility] History I have reviewed the patient's past medical history: Yes 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: Reports:: Asthma, Atherosclerotic Heart Disease, Atrial Fibrillation, Cancer, Gastroesophageal Reflux Disease(GERD), Heart Murmur, Hyperlipidemia, Hypertension, MRSA (l knee), Renal Disease, Renal Insufficiency, Valvular Heart Disease Denies:: Diabetes Mellitus Type 1, Diabetes Mellitus Type 2, Internal Pacemaker, Seizures *Have you ever received a pneumonia vaccine?: Yes *Have you received a flu vaccine this season?: Yes Other 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: Reports: Anemia, Arthritis, Hypothyroidism, Thyroid Dise ase Laterality Cases: Left: Other, Bilateral: Arthroscopy Knee, Carpal Tunnel Release, Myringotomy (Ear Tubes), Tonsillectomy Other Surgeries: Yes: Bariatric Surgery, Cancer Surgery (thyroid and colon), Cardiac Catheterization, Cardiac Surgery, Cholecystectomy, Colonoscopy, Colon Resection, Hysterectomy-Partial, Thyroidectomy, Tubal Ligation, Other Valve Replacement, Other. No: Pacemaker Amputation: No Fractures: No - *Social History Smoking Status: Never smoker Alcohol Intake: never Substance Use Type: painkillers *Occupational Status:: other Housing: house Household Members: none *Travel in the last 8 weeks: None Family Hx:: Cancer, Kidney Disease
== END ==
PROVIDERS: PCP Nurse Practitioner Family; Visit Provider Nurse Practitioner Family
DX: M17.0 Bilateral primary osteoarthritis of knee (principal)
CPT/HCPCS: 99212; G0463

== ENCOUNTER → 2021-12-16 08:52 | Outpatient (CLI) | payer MEDICARE, OTHER, SELFPAY ==
[2021-12-16 12:45] LABS: Amphetamine/Metha Screen,Urine Negative ng/ml (<1000)
[2021-12-16 12:46] LABS: Barbiturates Screen,Urine Negative ng/ml (<200)
[2021-12-16 12:47] LABS: Benzodiazepines Screen,Urine Negative ng/ml (<200); Cannabinoid Screen,Urine Negative ng/ml (<50)
[2021-12-16 12:48] LABS: Cocaine Screen,Urine Negative ng/ml (<300); Methadone Screen,Urine Negative ng/ml (<300)
[2021-12-16 12:49] LABS: Opiate Screen,Urine Negative ng/ml (<300)
[2021-12-16 12:50] LABS: Phencyclidine Screen,Urine Negative ng/ml (<25)
[2021-12-22 18:09] LABS: Opiates Negative (Cutoff=100)
== END ==
PROVIDERS: PCP Nurse Practitioner Family; Visit Provider Nurse Practitioner Family
DX: Z79.891 Long term (current) use of opiate analgesic (principal); D64.9 Anemia, unspecified
CPT/HCPCS: 36415; 80305; 80361; 80365; 86850; 99212; G0463; G0480

== ENCOUNTER 2021-12-17 08:26 | Outpatient (CLI) | payer MEDICARE, OTHER, SELFPAY ==
[2021-12-17] VITALS (20 sets, daily range): BP systolic 120–164; BP diastolic 52–90; PULSE 51–95; RESP 18; TEMP 35.9–36.3; O2SAT 95–99; BMI 28.4
[2021-12-17 08:59] LABS: Hematocrit 22.4 % (37.0-47.0)
[2021-12-17 09:02] LABS: Hemoglobin 6.6 g/dL (12.2-16.2)
--- NOTE | 2021-12-17 09:19 | PC.NURSE ---
critical lab result called from robbie in lab. Hgb 6.6, lab result, and name repeated and verified. aware, 2 units PRBC ordered.
[2021-12-17 14:33] LABS: Hematocrit 29.2 % (37.0-47.0)
[2021-12-17 14:35] LABS: Hemoglobin 8.9 g/dL (12.2-16.2)
[2022-01-23 19:43] LABS: Gabapentin,Urine 28.3
== END 2021-12-17 14:22 | disposition home or self-care (01) ==
PROVIDERS: Nurse Practitioner Family; PCP Nurse Practitioner Family; Visit Provider Internal Medicine Adolescent Medicine
DX: D64.9 Anemia, unspecified (principal); Z79.899 Other long term (current) drug therapy
CPT/HCPCS: 36430; 80307; 85014; 85018; P9016

== ENCOUNTER 2021-12-20 10:28 | Outpatient (CLI) | payer MEDICARE, OTHER, SELFPAY ==
[2021-12-20 11:11] LABS: PHA INR Fingerstick 1.9 (0.9-1.1)
== END 2021-12-20 11:16 | disposition home or self-care (01) ==
LOC: ACC 10:29
PROVIDERS: PCP Nurse Practitioner Family; Visit Provider Nurse Practitioner Family
DX: Z51.81 Encounter for therapeutic drug level monitoring (principal); Z79.01 Long term (current) use of anticoagulants; Z95.2 Presence of prosthetic heart valve
CPT/HCPCS: 85610; 99211; G0463

== ENCOUNTER → 2021-12-28 12:43 | Outpatient (CLI) | payer MEDICARE, OTHER, SELFPAY ==
[2021-12-28 13:48] LABS: INR 3.38 (0.9-1.1); Prothrombin Time 34.9 seconds (10.1-12.5)
[2021-12-28 16:32] LABS: Hematocrit 32.4 % (37.0-47.0); Hemoglobin 9.7 g/dL (12.2-16.2)
== END ==
PROVIDERS: Internal Medicine Adolescent Medicine; PCP Nurse Practitioner Family; Visit Provider Nurse Practitioner Family
DX: D62 Acute posthemorrhagic anemia (principal)
CPT/HCPCS: 36415; 85014; 85018; 85610

== ENCOUNTER 2022-01-11 15:26 | Outpatient (CLI) | payer MEDICARE, OTHER, SELFPAY ==
[2022-01-11 16:01] LABS: PHA INR Fingerstick 3.1 (0.9-1.1)
== END 2022-01-11 16:02 ==
LOC: ACC 15:27
PROVIDERS: PCP Nurse Practitioner Family; Visit Provider Internal Medicine Adolescent Medicine
DX: Z51.81 Encounter for therapeutic drug level monitoring (principal); Z79.01 Long term (current) use of anticoagulants
CPT/HCPCS: 85610; 99211; G0463

== ENCOUNTER → 2022-01-29 10:17 | Outpatient (CLI) | payer MEDICARE, OTHER, SELFPAY | PROVIDERS: Visit Provider Ophthalmology | DX: Z01.812 Encounter for preprocedural laboratory examination (principal); Z20.822 Contact with and (suspected) exposure to COVID-19; H25.011 Cortical age-related cataract, right eye | CPT/HCPCS: C9803; U0003; U0005 ==

== ENCOUNTER 2022-01-31 08:06 | Outpatient (CLI) | payer MEDICARE, OTHER, SELFPAY ==
[2022-01-31 08:54] LABS: INR 2.87 (0.9-1.1); Prothrombin Time 29.2 seconds (10.1-12.5)
== END 2022-01-31 10:49 ==
PROVIDERS: Pharmacist; PCP Nurse Practitioner Family; Visit Provider Internal Medicine Adolescent Medicine
DX: Z51.81 Encounter for therapeutic drug level monitoring (principal); Z79.01 Long term (current) use of anticoagulants
CPT/HCPCS: 36415; 85610; 99211; G0463

== ENCOUNTER 2022-02-01 06:32 | Day surgery (SDC) | payer MEDICARE, OTHER, SELFPAY ==
[2022-01-27 09:21] VITALS: BMI 28.9
[2022-02-01 06:57] VITALS: BP 167/86; PULSE 94; RESP 18; TEMP 36.4; O2SAT 95
[2022-02-01 08:03] VITALS: BP 170/88; PULSE 70; RESP 16; O2SAT 97
[2022-02-01 08:08] VITALS: BP 175/81; PULSE 72; RESP 16; O2SAT 100
[2022-02-01 08:13] VITALS: BP 183/91; PULSE 74; RESP 16; O2SAT 100
[2022-02-01 08:15] VITALS: BP 176/95; PULSE 72; RESP 16; O2SAT 100
[2022-02-01 08:17] VITALS: BP 126/76; PULSE 80; RESP 16; TEMP 36.3; O2SAT 98
== END 2022-02-01 08:28 | disposition home or self-care (01) ==
LOC: OR 06:33
PROVIDERS: PCP Nurse Practitioner Family; Visit Provider Ophthalmology
DX: H26.9 Unspecified cataract (principal); Z79.899 Other long term (current) drug therapy
CPT/HCPCS: 66984; V2632

== ENCOUNTER 2022-02-18 12:22 | Outpatient (CLI) | payer MEDICARE, OTHER, SELFPAY ==
[2022-02-18 16:07] LABS: PHA INR Fingerstick 3.4 (0.9-1.1)
== END 2022-02-18 16:09 ==
LOC: ACC 12:23
PROVIDERS: PCP Nurse Practitioner Family; Visit Provider Internal Medicine Adolescent Medicine
DX: Z51.81 Encounter for therapeutic drug level monitoring (principal); Z79.01 Long term (current) use of anticoagulants; Z95.2 Presence of prosthetic heart valve
CPT/HCPCS: 85610; 99211; G0463

== ENCOUNTER → 2022-03-17 15:01 | Outpatient (POV) | payer MEDICARE, OTHER, SELFPAY ==
--- NOTE | 2022-03-17 15:21 | EXP.PAIN.SOA ---
[facility] Pain Management SOAP Note Subjective:: Patient is a pleasant 71-year-old female who presents today for medication refill and follow-up. We are currently treating the patient for osteoarthritis of bilateral knees. Today she rates her pain a 3 out of 10. Patient denies any new trauma or injury to the site. Patient denies any change location or type of pain she experiences. Patient is currently prescribed tramadol 50 mg twice a day and gabapentin 100 mg twice a day. Patient denies any side effects from this medication. She states these medications do adequately help manage her pain symptoms. She is requesting a refill at today's visit. At our last visit the patient did have increased feelings of fatigue and was scheduled to get 2 units of blood. Today the patient states she does feel much better since her last visit. Her Kyaw is [id number]. It has been reviewed and appropriate. Review of Systems: General: No recent weight changes, no fever, no sleep disturbances Respiratory: No cough, no shortness of air, no recurring pulmonary infections Cardiovascular/peripheral vascular: No chest pain, no palpitations, no edema, no shortness of breath Gastrointestinal: No new onset incontinence, normal bowel movements reported Genitourinary: No new onset incontinence Musculoskeletal: Bilateral knee pain Psychiatric: [Normal mood/affect] Neurological: [Denies weakness in extremities], [denies balance issues] Objective:: Physical Exam: General: Alert and oriented x3, no acute distress, pleasant and cooperative Lungs: Respirations even and unlabored, symmetrical chest expansion Eyes: PERRL Musculoskeletal: Flexion and extension of bilateral knees somewhat guarded secondary to pain, [antalgic gait noted] Neurological: Speech clear, no gross sensory deficit Assessment:: Osteoarthritis bilateral knees Plan:: Patient continues to have pain in her bilateral knees due to osteoarthritis however she is currently managed well with her current medication regimen. I will refill the patient's tramadol 50 mg twice a day and gabapentin 100 mg twice a day and provide a 1 month supply of these medications. Patient will return to clinic in 1 month for reevaluation of symptoms, medication refill and follow-up. Patient has been advised of risks of oversedation with the prescribed medication. Narcan has been offered to the patient in the event of oversedation. Patient has been advised that a family member should also be educated regarding administration of Narcan. Patient has been instructed to contact the clinic with any concerns before the next appointment. Dr. Valderrama has reviewed this note and agrees with this plan of care. This note was dictated using voice recognition software and make contain errors or omissions. [facility] 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 Arthritis Cataract Cholecystectomy planned Colon cancer Dyslipidemia History of anemia History of cataract HTN (hypertension) Hyperlipidemia Hypothyroid Infection and inflammatory reaction due to internal left knee prosthesis, initial encounter Infection of prosthetic left knee joint Thyroid cancer Urinary retention Surgical History History of carpal tunnel surgery of left wrist History of carpal tunnel surgery of right wrist History of colon resection History of total left knee replacement History of total right knee replacement Hx of thyroidectomy Mechanical heart valve present Status post aortic valve replacement Family History Brother Hypertension Mother Kidney disease Father Cancer Sister Breast cancer Social History Smoking Status: Never smoker second hand exposure: No alcohol intake: never substance use type: prescription drug current occupational status: employed and r
[2022-03-17 15:26] VITALS: BP 138/84; PULSE 98; RESP 18; O2SAT 92; BMI 30.4
== END | disposition home or self-care (01) ==
PROVIDERS: PCP Nurse Practitioner Family; Visit Provider Nurse Practitioner Family
DX: M17.0 Bilateral primary osteoarthritis of knee (principal)
CPT/HCPCS: 99212; G0463

== ENCOUNTER 2022-03-18 11:57 | Outpatient (CLI) | payer MEDICARE, OTHER, SELFPAY ==
[2022-03-18 12:39] LABS: Prothrombin Time 36.2 seconds (10.1-12.5)
[2022-03-18 15:10] LABS: PHA INR Fingerstick 4.3 (0.9-1.1)
== END 2022-03-18 15:39 ==
PROVIDERS: PCP Nurse Practitioner Family; Visit Provider Internal Medicine Adolescent Medicine
DX: Z51.81 Encounter for therapeutic drug level monitoring (principal); Z79.01 Long term (current) use of anticoagulants; I35.9 Nonrheumatic aortic valve disorder, unspecified
CPT/HCPCS: 36415; 85610; 99211; G0463

== ENCOUNTER 2022-03-20 14:32 | Emergency (ER) | payer MEDICARE, OTHER, SELFPAY ==
[2022-03-20 15:57] VITALS: BP 0/0; PULSE 0; RESP 0; TEMP -17.7; TEMP 0
== END 2022-03-20 16:00 | disposition left against medical advice (07) ==
LOC: UTC 14:36
PROVIDERS: Emergency Provider Nurse Practitioner Family; PCP Nurse Practitioner Family
DX: Z53.21 Procedure and treatment not carried out due to patient leaving prior to being seen by health care provider (principal)

== ENCOUNTER 2022-03-20 18:05 | Emergency (ER) | payer MEDICARE, OTHER, SELFPAY ==
[2022-03-20 18:06] VITALS: BP 102/63; PULSE 70; RESP 16; TEMP 36.8; O2SAT 97; BMI 30.4
[2022-03-20 21:00] VITALS: BP 105/61; PULSE 85; O2SAT 97
--- NOTE | 2022-03-20 21:19 | PC.NURSE ---
Labs obtained via straight stick
[2022-03-20 21:30] VITALS: BP 112/72; PULSE 94; O2SAT 98
[2022-03-20 21:32] LABS: Basophils # 0.1 K/mm3 (0-0.2); Eosinophils # 0.1 K/mm3 (0.0-0.4); Eosinophils % 0.4 % (0.1-12.0); Lymphocytes # 1.3 K/mm3 (0.7-4.5); Monocytes # 0.4 K/mm3 (0.1-1.0); Monocytes % 3.5 % (1.7-9.3)
[2022-03-20 21:33] LABS: Basophils % 0.8 % (0.1-2.0); Hematocrit 27.7 % (37.0-47.0); Hemoglobin 8.7 g/dL (12.2-16.2); Lymphocytes % 10.8 % (10-50); Mean Corpuscular HGB Conc 31.4 g/dL (31.8-35.4); Mean Corpuscular Hemoglobin 25.9 pg (27.0-31.2); Mean Corpuscular Volume 82.5 fl (81-99); Mean Platelet Volume 8.4 fl (7.4-10.4); Neutrophils # 10.1 K/mm3 (1.8-7.8); Neutrophils % 84.5 % (37.0-80.0); Platelet Count 292 K/mm3 (142-424); Red Blood Count 3.36 M/mm3 (4.20-5.40); Red Cell Distribution Width 17.6 % (11.5-17.5)
[2022-03-20 21:37] LABS: Alanine Aminotransferase 19 U/L (12-78); Albumin Level 3.2 g/dl (3.5-5.0); Albumin/Globulin Ratio 1.3 (1.1-1.8); Alkaline Phosphatase 76 U/L (38-126); Anion Gap 11.2 mEq/L (5-15); Aspartate Amino Transferase 27 U/L (14-36); Blood Urea Nitrogen 41 mg/dl (7-17); Calcium 8.1 mg/dl (8.4-10.2); Carbon Dioxide 31 mmol/L (22.0-30.0); Chloride 100 mmol/L (98-107); Creatinine Clearance Estimated 48 mL/min (50-200); Estimated Glomerular Filt Rate 37 ml/min (>60); GFR (African American) 45 ML/MIN (>60); Globulin 2.4 g/dL (1.3-3.2); Glucose 155 mg/dl (74-100); Potassium 3.2 mmoL/L (3.5-5.1); Sodium 139 mmol/L (136-145); Total Protein,Serum 5.6 g/dl (6.3-8.2)
[2022-03-20 21:40] LABS: Bilirubin,Total 0.1 mg/dl (0.2-1.3)
[2022-03-20 21:42] LABS: INR 4.74 (0.9-1.1)
[2022-03-20 21:45] LABS: Prothrombin Time 46.9 seconds (10.1-12.5)
--- NOTE | 2022-03-20 21:49 | PC.NURSE ---
Dr. Jett at
--- NOTE | 2022-03-20 21:57 | HMH.EDEPIS ---
Discharge Plan Disposition Patient Disposition: Home, Self-Care Chief Complaint: Epistaxis Prescriptions Prescriptions: No Action calcium carbonate 600 mg calcium (1,500 mg) tablet 600 mg PO DAILY leflunomide 10 mg tablet 10 mg PO DAILY levothyroxine 150 MCG tablet 225 mcg PO DAILY multivitamin 1 EACH capsule 1 each PO DAILY trazodone 150 MG tablet 150 mg PO HS Rx Instructions: PT STATES SHE TAKES 2 TABLETS AT BEDTIME rosuvastatin 5 MG tablet 5 mg PO HS amlodipine 10 mg tablet 10 mg PO DAILY prednisone 20 MG tablet 10 mg PO DAILY hydralazine 50 MG tablet 50 mg PO DAILY warfarin 3 MG tablet 3 mg PO SUTUWETHSA Rx Instructions: 1.5 MG ON MONDAYS AND FRIDAYS, 3 MG DAILY REST OF THE WEEK. warfarin 3 MG tablet 1.5 mg PO MOFR Rx Instructions: 1.5 MG ON MONDAYS AND MONDAY; 3 MG DAILY REST OF THE WEEK. tramadol 50 MG tablet 50 mg PO BID Qty: 60 0RF gabapentin 100 mg capsule 100 mg PO BID Qty: 60 0RF ferrous fumarate 55 mg (18 mg iron) Tablet Extended Release 65 mg PO DAILY Referrals Follow up/Referrals: Atiya Etienne APRN [Primary Care Provider] - See instructions Clinical Impressions Clinical Impression: Epistaxis, Anemia, Mechanical heart valve present, Prolonged pt (prothrombin time), Prolonged INR Instructions Patient Instructions: DI for Nosebleed Discharge ED Provider: Paulino Jett Epistaxis HPI General Chief complaint: Epistaxis Stated complaint: nosebleed Time Seen by Provider: 03/20/22 21:57 Mode of Arrival: Ambulatory Source of Information: Patient, Spouse and Medical Record Limitations: No Limitations Description of Symptoms (Recalled from ER Triage Doc. by RN): pt states that she had a nose bleed that started at noon today the bleeding stopped aprox anhour ago. the pt reports to be on blood thinners for an artifical heart valve the pt reports spiting up blood clots and that she knows alot got into her stomach because of the change in her stool History of Present Illness HPI Narrative: has nosebleed w/o trauma - on coumadin - complaint: epistaxis Location: bilateral nostril Onset (ago): hour(s) Duration: now resolved Context: warfarin use Related Data Home Medications Medication Instructions Recorded Confirmed multivitamin 1 each PO DAILY Supplement 08/09/17 03/17/22 rosuvastatin 5 mg tablet 5 mg PO HS Cholesterol 05/31/19 03/17/22 trazodone 150 mg tablet 150 mg PO HS SLEEP 05/31/19 03/17/22 levothyroxine 150 mcg tablet 225 mcg PO DAILY thyroid 07/03/19 03/17/22 calcium carbonate 600 mg calcium 600 mg PO DAILY Supplement 11/25/19 03/17/22 (1,500 mg) tablet hydralazine 50 mg tablet 50 mg PO DAILY htn 03/05/21 03/17/22 warfarin 3 mg tablet 3 mg PO SUTUWETHSA mechanical valve 03/05/21 03/17/22 warfarin 3 mg tablet 1.5 mg PO MOFR MECHANICAL HEART 09/01/21 03/17/22 VALVE prednisone 20 mg tablet 10 mg PO DAILY Arthritis 11/11/21 03/17/22 ferrous fumarate 55 mg (18 mg 65 mg PO DAILY Supplement 01/27/22 03/17/22 iron) tablet,extended release amlodipine 10 mg tablet 10 mg PO DAILY BLOOD PRESSURE 03/04/22 03/17/22 leflunomide 10 mg tablet 10 mg PO DAILY Rapid heart rate 03/04/22 03/17/22 Previous Rx's Medication Instructions Recorded gabapentin 100 mg capsule 100 mg PO BID Pain #60 caps 03/17/22 tramadol 50 mg tablet 50 mg PO BID Pain #60 tabs 03/17/22 Allergies Allergy/AdvReac Type Severity Reaction Status Date / Time No Known Allergies Allergy Verified 03/07/22 09:07 [facility] 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 Arthritis Cataract Cholecystectomy planned Colon cancer Dyslipidemia History of anemia History of cataract HTN (hypertension) Hyperlipidemia Hypothyroid Infection and inflammatory reaction due to internal left knee prosthesis, initial encounter Infection of prosthetic left knee joint Thyroid cancer U
[2022-03-20 23:14] VITALS: BP 112/72; PULSE 98; RESP 16; TEMP 36.6; O2SAT 98
== END 2022-03-20 21:57 | disposition home or self-care (01) ==
PROVIDERS: Emergency Provider Emergency Medicine; PCP Nurse Practitioner Family
DX: R04.0 Epistaxis (principal); R79.1 Abnormal coagulation profile; D64.9 Anemia, unspecified; Z95.2 Presence of prosthetic heart valve; Z79.899 Other long term (current) drug therapy; I10 Essential (primary) hypertension; M19.90 Unspecified osteoarthritis, unspecified site; E07.9 Disorder of thyroid, unspecified; E78.5 Hyperlipidemia, unspecified; Z85.850 Personal history of malignant neoplasm of thyroid; Z85.038 Personal history of other malignant neoplasm of large intestine; Z80.3 Family history of malignant neoplasm of breast
CPT/HCPCS: 80053; 85025; 85610; 99282

== ENCOUNTER → 2022-03-21 10:37 | Outpatient (CLI) | payer MEDICARE, OTHER, SELFPAY ==
[2022-03-21 11:55] LABS: Basophils # 0.1 K/mm3 (0-0.2); Basophils % 0.7 % (0.1-2.0); Eosinophils # 0.1 K/mm3 (0.0-0.4); Eosinophils % 0.4 % (0.1-12.0); Hematocrit 30.1 % (37.0-47.0); Hemoglobin 9.5 g/dL (12.2-16.2); Lymphocytes # 1.1 K/mm3 (0.7-4.5); Lymphocytes % 8.7 % (10-50); Mean Corpuscular HGB Conc 31.7 g/dL (31.8-35.4); Mean Corpuscular Hemoglobin 26.6 pg (27.0-31.2); Mean Corpuscular Volume 83.8 fl (81-99); Mean Platelet Volume 8.6 fl (7.4-10.4); Monocytes # 0.4 K/mm3 (0.1-1.0); Monocytes % 3.3 % (1.7-9.3); Neutrophils # 10.5 K/mm3 (1.8-7.8); Neutrophils % 86.9 % (37.0-80.0); Platelet Count 303 K/mm3 (142-424); Red Blood Count 3.59 M/mm3 (4.20-5.40); Red Cell Distribution Width 17.7 % (11.5-17.5)
[2022-03-21 12:02] LABS: MANUAL DIFFERENTIAL MANUAL DIFFERENTIAL (MANUAL DIFF)
[2022-03-21 12:05] LABS: INR 3.69 (0.9-1.1)
[2022-03-21 12:07] LABS: Chloride 101 mmol/L (98-107)
[2022-03-21 12:08] LABS: Potassium 3.6 mmoL/L (3.5-5.1); Sodium 140 mmol/L (136-145)
[2022-03-21 12:11] LABS: Anion Gap 11.6 mEq/L (5-15); Blood Urea Nitrogen 43 mg/dl (7-17); Calcium 8.7 mg/dl (8.4-10.2); Carbon Dioxide 31 mmol/L (22.0-30.0); Estimated Glomerular Filt Rate 37 ml/min (>60); GFR (African American) 45 ML/MIN (>60); Glucose 81 mg/dl (74-100)
[2022-03-21 13:06] LABS: Hypochromasia 1+; Lymphocytes % 9 % (10-50); Monocytes % 2 % (2-9); Neutrophils % 88 % (42-76); Platelet Estimate Normal; Total Cells Counted 100
[2022-03-21 13:08] LABS: Ferritin 35.1 ng/ml (11.1-264)
== END ==
PROVIDERS: PCP Nurse Practitioner Family; Visit Provider Nurse Practitioner Family
DX: Z51.81 Encounter for therapeutic drug level monitoring (principal); Z79.01 Long term (current) use of anticoagulants; R04.0 Epistaxis; Z86.2 Personal history of diseases of the blood and blood-forming organs and certain disorders involving the immune mechanism
CPT/HCPCS: 36415; 80048; 82728; 85007; 85025; 85610

== ENCOUNTER 2022-03-29 11:36 | Outpatient (CLI) | payer MEDICARE, OTHER, SELFPAY ==
[2022-03-29 12:02] LABS: PHA INR Fingerstick 1.8 (0.9-1.1)
== END 2022-03-29 12:04 ==
LOC: ACC 11:37
PROVIDERS: PCP Internal Medicine Adolescent Medicine; Visit Provider Internal Medicine Adolescent Medicine
DX: Z51.81 Encounter for therapeutic drug level monitoring (principal); Z79.01 Long term (current) use of anticoagulants
CPT/HCPCS: 85610; 99211; G0463

== ENCOUNTER 2022-04-05 11:23 | Outpatient (CLI) | payer MEDICARE, OTHER, SELFPAY ==
[2022-04-05 15:51] LABS: PHA INR Fingerstick 3.4 (0.9-1.1)
== END 2022-04-05 15:50 ==
PROVIDERS: PCP Nurse Practitioner Family; Visit Provider Internal Medicine Adolescent Medicine
DX: Z51.81 Encounter for therapeutic drug level monitoring (principal); Z79.01 Long term (current) use of anticoagulants; Z95.2 Presence of prosthetic heart valve
CPT/HCPCS: 85610; 99211; G0463

== ENCOUNTER 2022-04-14 14:30 | Observation (INO) | payer MEDICARE, OTHER, SELFPAY ==
[2022-04-14] VITALS (11 sets, daily range): BP systolic 86–142; BP diastolic 48–74; PULSE 83–114; RESP 18–21; TEMP 36.6–38.5; O2SAT 92–95; BMI 30.4; BMI 27.8
--- NOTE | 2022-04-14 14:29 | ECG_ITS ---
APPROVED REPORT Exam: Resting ECG HR:114 bpm ECG Measurements Heart Rate 114 AXES OR 152 P 57 QRSd 133 QRS -43 QT 372 T 128 QTc 440 Conclusion SINUS TACHYCARDIA WITH OCCASIONAL SUPRAVENTRICULAR PREMATURE COMPLEXES LEFT AXIS DEVIATION [QRS AXIS < -30] INTRAVENTRICULAR CONDUCTION DELAY [130+ ms QRS DURATION] LEFT VENTRICULAR HYPERTROPHY AND ST-T CHANGE [VOLTAGE CRITERIA PLUS ST/T ABNORMALITY] ABNORMAL ECG UNCONFIRMED REPORT Electronically signed by : Tal Pantoja MD 04/14/2022 20:15:39
[2022-04-14 14:41] LABS: Coronavirus 19, PCR Not Detected (NotDetected); Influenza A, PCR Not Detected (NotDetected); Influenza B, PCR Not Detected (NotDetected)
--- NOTE | 2022-04-14 14:43 | HMH.EDGENADL ---
Discharge Plan Disposition Patient Disposition: Admitted as Observation Condition: Fair Prescriptions Prescriptions: No Action calcium carbonate 600 mg calcium (1,500 mg) tablet 600 mg PO DAILY leflunomide 10 mg tablet 10 mg PO DAILY levothyroxine 150 MCG tablet 225 mcg PO DAILY multivitamin 1 EACH capsule 1 each PO DAILY trazodone 150 MG tablet 150 mg PO HS Rx Instructions: PT STATES SHE TAKES 2 TABLETS AT BEDTIME rosuvastatin 5 MG tablet 5 mg PO HS amlodipine 10 mg tablet 10 mg PO DAILY prednisone 20 MG tablet 10 mg PO DAILY hydralazine 50 MG tablet 50 mg PO DAILY warfarin 3 MG tablet 3 mg PO SUTUWETHSA Rx Instructions: 1.5 MG ON MONDAYS AND FRIDAYS, 3 MG DAILY REST OF THE WEEK. warfarin 3 MG tablet 1.5 mg PO MOFR Rx Instructions: 1.5 MG ON MONDAYS AND MONDAY; 3 MG DAILY REST OF THE WEEK. tramadol 50 MG tablet 50 mg PO BID Qty: 60 0RF gabapentin 100 mg capsule 100 mg PO BID Qty: 60 0RF ferrous fumarate 55 mg (18 mg iron) Tablet Extended Release 65 mg PO DAILY Clinical Impressions Clinical Impression: Community acquired pneumonia, Sepsis Discharge ED Provider: Justino Azar General Adult HPI General Chief complaint: Shortness of Breath/Dyspnea Stated complaint: Shortness of Breath Time Seen by Provider: 04/14/22 14:50 Mode of Arrival: EMS Source of Information: Patient and EMS Limitations: No Limitations Description of Symptoms (Recalled from ER Triage Doc. by RN): pt states she hasn't felt well for a few days, fever, body aches, nonproductive cough, sob started today History of Present Illness HPI narrative: Patient is brought in by ambulance. States that she started getting sick a couple of days ago. Initially just had a cough., However since waking up this morning feels terrible. She has body aches, fever, shortness of breath, worse cough. 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 She has been vaccinated against flu and COVID. Slight rhinorrhea. Denies sore throat. Denies chest pain. Denies vomiting and diarrhea. She has had pneumonia once many years ago. She is a former smoker, but quit 40 years ago. She has an artificial heart valve and is anticoagulated with Coumadin. She does not have any lung disease. She was given Tylenol and Motrin by EMS during transport. Related Data Home Medications Medication Instructions Recorded Confirmed multivitamin 1 each PO DAILY Supplement 08/09/17 04/14/22 rosuvastatin 5 mg tablet 5 mg PO HS Cholesterol 05/31/19 04/14/22 trazodone 150 mg tablet 150 mg PO HS SLEEP 05/31/19 04/14/22 levothyroxine 150 mcg tablet 225 mcg PO DAILY thyroid 07/03/19 04/14/22 calcium carbonate 600 mg calcium 600 mg PO DAILY Supplement 11/25/19 04/14/22 (1,500 mg) tablet hydralazine 50 mg tablet 50 mg PO DAILY htn 03/05/21 03/17/22 warfarin 3 mg tablet 3 mg PO SUTUWETHSA mechanical valve 03/05/21 04/14/22 warfarin 3 mg tablet 1.5 mg PO MOFR MECHANICAL HEART 09/01/21 03/17/22 VALVE prednisone 20 mg tablet 10 mg PO DAILY Arthritis 11/11/21 04/14/22 ferrous fumarate 55 mg (18 mg 65 mg PO DAILY Supplement 01/27/22 04/14/22 iron) tablet,extended release amlodipine 10 mg tablet 10 mg PO DAILY BLOOD PRESSURE 03/04/22 04/14/22 leflunomide 10 mg tablet 10 mg PO DAILY Rapid heart rate 03/04/22 04/14/22 Previous Rx's Medication Instructions Recorded gabapentin 100 mg capsule 100 mg PO BID Pain #60 caps 03/17/22 tramadol 50 mg tablet 50 mg PO BID Pain #60 tabs 03/17/22 Allergies Allergy/AdvReac Type Severity Reaction Status Date / Time No Known Allergies Allergy Verified 03/07/22 09:07 [facility] Disclaimer: The information contained in this section may have been updated after the patient was seen, as this information can be updated by other users. 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 (Reviewed 03/07/22 @ 09:00 by Nishi
--- NOTE | 2022-04-14 14:55 | XR_ITS ---
FINAL REPORT TECHNIQUE: Chest PA & Lateral CLINICAL HISTORY: cough, fever, soa FINDINGS: 2 views of the chest were performed. The heart size is normal. Postoperative changes are seen from median sternotomy. The mediastinum is within normal limits. There are left lung opacities consistent with pneumonia. There are no pleural effusions. There is no pneumothorax. There is moderate degenerative change of the thoracic spine and right shoulder. IMPRESSION: Left lung pneumonia. Reviewed, Interpreted and Dictated by Rosendo Jean III, MD Transcribed by Neeraj Mercado Authenticated and [facility]
[2022-04-14 15:19] LABS: Basophils # 0.1 K/mm3 (0-0.2); Basophils % 0.6 % (0.1-2.0); Eosinophils # 0.1 K/mm3 (0.0-0.4); Eosinophils % 1.2 % (0.1-12.0); Hemoglobin 8.6 g/dL (12.2-16.2); Lymphocytes # 0.4 K/mm3 (0.7-4.5); Lymphocytes % 3.5 % (10-50); Mean Corpuscular Hemoglobin 26.5 pg (27.0-31.2); Mean Platelet Volume 8.8 fl (7.4-10.4); Monocytes # 0.4 K/mm3 (0.1-1.0); Monocytes % 3.5 % (1.7-9.3); Neutrophils # 9.1 K/mm3 (1.8-7.8); Neutrophils % 91.1 % (37.0-80.0); Platelet Count 227 K/mm3 (142-424); Red Blood Count 3.25 M/mm3 (4.20-5.40); Red Cell Distribution Width 17.5 % (11.5-17.5)
[2022-04-14 15:20] LABS: MANUAL DIFFERENTIAL MANUAL DIFFERENTIAL (MANUAL DIFF)
[2022-04-14 15:21] LABS: Chloride 104 mmol/L (98-107); Sodium 138 mmol/L (136-145)
[2022-04-14 15:22] LABS: Potassium 3.2 mmoL/L (3.5-5.1)
[2022-04-14 15:24] LABS: Alanine Aminotransferase 21 U/L (12-78); Alkaline Phosphatase 76 U/L (38-126); Anion Gap 8.2 mEq/L (5-15); Aspartate Amino Transferase 38 U/L (14-36); Bilirubin,Total 0.6 mg/dl (0.2-1.3); Blood Urea Nitrogen 18 mg/dl (7-17); Carbon Dioxide 29 mmol/L (22.0-30.0); Creatinine Clearance Estimated 48 mL/min (50-200); Estimated Glomerular Filt Rate 37 ml/min (>60); GFR (African American) 45 ML/MIN (>60); Lactic Acid 1.1 mmol/L (0.7-2.1)
[2022-04-14 15:25] LABS: Albumin Level 3.4 g/dl (3.5-5.0); Albumin/Globulin Ratio 1.4 (1.1-1.8); Calcium 7.6 mg/dl (8.4-10.2); Globulin 2.5 g/dL (1.3-3.2); Glucose 95 mg/dl (74-100); Total Protein,Serum 5.9 g/dl (6.3-8.2)
--- NOTE | 2022-04-14 15:31 | PC.NURSE ---
Notified lab of PT/INR add on
[2022-04-14 15:40] LABS: Hypochromasia 1+; Lymphocytes % 6 % (10-50); Monocytes % 2 % (2-9); Neutrophils % 91 % (42-76); Platelet Estimate Normal; Total Cells Counted 100
[2022-04-14 15:41] LABS: INR 2.77 (0.9-1.1); Prothrombin Time 28.2 seconds (10.1-12.5)
--- NOTE | 2022-04-14 16:51 | PC.NURSE ---
Dr. Azar speaking with Dr. Alvarado at this time
--- NOTE | 2022-04-14 16:56 | PC.NURSE ---
Spoke with Vicky MERCHANT, KULDIP regarding patient admission
--- NOTE | 2022-04-14 17:51 | PC.NURSE ---
Called report to Heidi MERCHANT.
--- NOTE | 2022-04-14 19:05 | PC.NURSE ---
Pt to floor @ 0828.
[2022-04-15] VITALS (9 sets, daily range): BP systolic 101–145; BP diastolic 56–76; PULSE 75–107; RESP 16–20; TEMP 36.7–37.3; O2SAT 90–94; BMI 28.0
[2022-04-15 06:44] LABS: Basophils % 0.4 % (0.1-2.0); Eosinophils # 0.1 K/mm3 (0.0-0.4); Eosinophils % 1.2 % (0.1-12.0); Lymphocytes # 0.7 K/mm3 (0.7-4.5); Lymphocytes % 8.7 % (10-50); Mean Corpuscular HGB Conc 30.9 g/dL (31.8-35.4); Mean Corpuscular Hemoglobin 26.4 pg (27.0-31.2); Mean Corpuscular Volume 85.3 fl (81-99); Monocytes # 0.3 K/mm3 (0.1-1.0); Monocytes % 4.2 % (1.7-9.3); Neutrophils # 6.9 K/mm3 (1.8-7.8); Neutrophils % 85.5 % (37.0-80.0); Platelet Count 200 K/mm3 (142-424); Red Blood Count 2.81 M/mm3 (4.20-5.40); Red Cell Distribution Width 17.4 % (11.5-17.5); White Blood Count 8.1 K/mm3 (4.8-10.8)
[2022-04-15 06:46] LABS: Chloride 106 mmol/L (98-107); Potassium 3.5 mmoL/L (3.5-5.1); Sodium 139 mmol/L (136-145)
[2022-04-15 06:49] LABS: Anion Gap 7.5 mEq/L (5-15); Blood Urea Nitrogen 19 mg/dl (7-17); Carbon Dioxide 29 mmol/L (22.0-30.0); Creatinine Clearance Estimated 46 mL/min (50-200); Estimated Glomerular Filt Rate 37 ml/min (>60); GFR (African American) 45 ML/MIN (>60)
[2022-04-15 06:50] LABS: Calcium 7.1 mg/dl (8.4-10.2); Glucose 81 mg/dl (74-100)
[2022-04-15 06:54] LABS: Hematocrit 25.9 % (37.0-47.0)
[2022-04-15 06:56] LABS: MANUAL DIFFERENTIAL MANUAL DIFFERENTIAL (MANUAL DIFF)
--- NOTE | 2022-04-15 07:04 | PC.NURSE ---
NO ACUTE CHANGES SINCE PREVIOUS ASSESSMENT. PT HAS RESTED WELL THIS SHIFT. REMAINS ON ROOM AIR AND IS TOLERATING WELL. PT HAS AMBULATED TO THE BATHROOM THIS AM WITH STANDBY ASSIST. SHE HAD ONE EPISODE OF INCONTINENCE OF STOOL THIS SHIFT. SHE STATED, I FEEL LIKE I HAVE GAS BUT THEN IT'S NOT. CALL HOBBS WITHIN REACH. VSS.
[2022-04-15 08:00] LABS: Anisocytosis 1+; Eosinophils % 2 % (0-3); Hypochromasia 1+; Lymphocytes % 9 % (10-50); Monocytes % 3 % (2-9); Neutrophils % 86 % (42-76); Platelet Estimate Normal; Total Cells Counted 100
--- NOTE | 2022-04-15 08:58 | EXP.HP ---
History of Present Illness *Admission Date: 04/14/22 *Reason for visit:: Cough/fever/congestion *History of present illness: 71-year-old female with history of A. fib and anemia, who presented to the emergency department with cough, congestion, was noted to have infiltrate, elevated white count and was admitted to hospital for community-acquired pneumonia with poor p.o. intake and multiple comorbidities. [facility] Disclaimer: The information contained in this section may have been updated after the patient was seen, as this information can be updated by other users. 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 (Updated 04/15/22 @ 09:00 by Tal Pantoja MD) Arthritis Cataract Cholecystectomy planned Colon cancer Dyslipidemia History of anemia History of cataract HTN (hypertension) Hyperlipidemia Hypothyroid Infection and inflammatory reaction due to internal left knee prosthesis, initial encounter Infection of prosthetic left knee joint Thyroid cancer Urinary retention Surgical History (Updated 04/15/22 @ 09:00 by Tal Pantoja MD) History of carpal tunnel surgery of left wrist History of carpal tunnel surgery of right wrist History of colon resection History of total left knee replacement History of total right knee replacement Hx of thyroidectomy Mechanical heart valve present Status post aortic valve replacement Family History Brother Hypertension Mother Kidney disease Father Cancer Sister Breast cancer Social History (Updated 04/14/22 @ 18:26 by Jose Pires RN) Smoking Status: Never smoker second hand exposure: No alcohol intake: never substance use type: prescription drug current occupational status: retired Travel in the last 8 weeks: None household members: none housing: house 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 Review of Systems Review of Systems Review of systems:: pertinent systems reviewed and negative unless documented below Constitutional Constitutional: Reports weakness *Musculoskeletal Musculoskeletal: Denies numbness *Neurologic Neurologic: Denies numbness and Reports weakness Meds Home Medications and Allergies Home Medications Medication Instructions Recorded Confirmed Type multivitamin 1 each PO DAILY Supplement 08/09/17 04/14/22 History rosuvastatin 5 mg tablet 5 mg PO HS Cholesterol 05/31/19 04/14/22 History trazodone 150 mg tablet 300 mg PO HS SLEEP 05/31/19 04/15/22 History calcium carbonate 600 mg calcium 600 mg PO DAILY Supplement 11/25/19 04/14/22 History (1,500 mg) tablet hydralazine 50 mg tablet 50 mg PO BID Hypertension 03/05/21 04/15/22 History warfarin 3 mg tablet 3 mg PO MOWEFR mechanical valve 03/05/21 04/15/22 History ferrous fumarate 55 mg (18 mg 55 mg PO DAILY Supplement 01/27/22 04/15/22 History iron) tablet,extended release amlodipine 10 mg tablet 10 mg PO DAILY Hypertension 03/04/22 04/14/22 History leflunomide 10 mg tablet 10 mg PO DAILY Arthritis 03/04/22 04/14/22 History gabapentin 100 mg capsule 100 mg PO BID Pain #60 caps 03/17/22 04/14/22 Rx tramadol 50 mg tablet 50 mg PO BID Pain #60 tabs 03/17/22 04/14/22 Rx prednisone 10 mg tablet 10 mg PO DAILY STEROID 04/14/22 04/14/22 History levothyroxine 200 mcg tablet 200 mcg PO DAILY THYROID 04/15/22 04/15/22 History warfarin 3 mg tablet 1.5 mg PO SUTUTHSA MECHANICAL VALVE 04/15/22 04/15/22 History New Prescriptions to Start Prescriptions: Allergies Allergy/AdvReac Type Severity Reaction Status Date / Time No Known Allergies Allergy Verified 03/07/22 09:07 Exam Data for Last 24 hours Vital signs and Labs for Last 24 Hours: Temp Pulse Resp BP Pulse Ox 98.0 F 90 19 108/68 L 90 L 04/15/22 04:00 04/15/22 04:00 04/15/22 04:00 04/15/22 04:00 04/15/22 04:00 Laboratory Results - last 24 hr 04/14/22 14:32: SARS-CoV-2 (PCR) Not detected, Influenza A Untyp
--- NOTE | 2022-04-15 11:09 | HMH.OTEV ---
OT Inpatient Evaluation Rehab OT IP Evaluation Start: 04/15/22 08:45 Freq: ONCE Status: Complete Protocol: Document 04/15/22 09:58 MAGDALENOKALYANI (Rec: 04/15/22 11:09 YEMI [id number]) Rehab OT IP Assessment Subjective History 71-year-old female with history of A. fib and anemia, who presented to the emergency department with cough, congestion, was noted to have infiltrate, elevated white count and was admitted to hospital for community- acquired pneumonia with poor p .o. intake and multiple comorbidities. PMH: Arthritis Cataract Cholecystectomy planned Colon cancer Dyslipidemia History of anemia History of cataract HTN (hypertension) Hyperlipidemia Hypothyroid Infection and inflammatory reaction due to internal left knee prosthesis, initial encounter Infection of prosthetic left knee joint Thyroid cancer Urinary retention Patient lives at home alone. Independent with ADLs and fx'l mobility. Works at [employer]. Continues to drive. Subjective I can get up. Analysis Patient's safety, transfers, bed mobility and fx 'l mobility. Patient completed all tasks independently. No LOB. Patient appears to be at baseline at this time. Objective Patient Orientation Person,Name,Age,Year Upper Extremity Gross ROM WFL Bed Mobility bed mobility - supine/sit Assist Level Independent Transfer Training Sit/Stand/Pivot Transfer Assist Level Independent Chair Transfer Ability Independent Chair Transfer Technique Sit to/from Ambulatory Chair Transfer Assistive
--- NOTE | 2022-04-15 11:55 | HMH.PTEV ---
Physical Therapy Evaluation Rehab PT IP Evaluation Start: 04/15/22 08:42 Freq: .once Status: Active Protocol: Document 04/15/22 09:35 JAMES (Rec: 04/15/22 11:55 PHOBRENDAN [id number]) Subjective/History History History 71 yowf adm to [facility] with PNA. She reports she lives alone, 1 step to enter the home, she is independent with all mobility without AD. I still work. Subjective Subjective Pt c/o feeling tired and weak this am, but better overall. Rehab PT IP Eval Objective Appearance Patient Behavior Appropriate Patient Orientation Person,Place,Time Difficulty following instructions none Speech Pattern Clear Ambulation Patient Able to Ambulate Yes Ambulation Observation IP General Gait Pattern Observation No Deviations/Normal Ambulation Distance (feet) 30 Ambulation Assistive Device None Ambulation Ability Independent Balance Ability to Arise Able, uses arms to help Sitting Balance Steady, safe Standing Balance Narrow stance w/o support Dynamic Sitting Balance Ability Good Dynamic Standing Balance Ability Good Transfers Bed Transfer Ability Independent Chair Transfer Ability Independent Sit to Stand Bed Transfer Ability Independent Sit to Stand Chair Transfer Ability Independent ROM All Extremities PT ROM Status WFL MMT All Extremities PT MMT WFL Rehab PT IP prob,goals,plan Problems Date of Evaluation: 04/15/22 Discharge Plan PT Discharge Plan Pt is independent with all mobility, mildly fatigued with ambulation. She is appropriate to return home once medically stable, no current inpatient therapy needs. G -code Required No Eval Complexity Eval Charge Codes 86052 - Moderate Complexity PHYSICIAN CERTIFICATION: I certify the specified therapy services for Elba Tripp are required, authorized, and reviewed every 30 days.
--- NOTE | 2022-04-15 20:40 | PC.NURSE ---
Pt is A/Ox4. She took a shower today. Her o2 dropped around 88 on RA. She was placed on 1 L NC and continuous pulse ox.
[2022-04-16] VITALS (11 sets, daily range): BP systolic 130–165; BP diastolic 60–80; PULSE 66–112; RESP 16–20; TEMP 36.6–36.9; O2SAT 88–96; BMI 28.1
--- NOTE | 2022-04-16 06:51 | PC.NURSE ---
PATIENT INDEPENDENT TO THE BATH ROOM. AMBULATED IN [address]. 02 AT 1 L NC. NO RESP DISTRESS NOTED. HAS HAD A FORCEFUL DRY COUGH. WILL NOT DRINK WATER. REQUIRES ORANGE JUICE TO DRINK. DENIES PAIN. BREATH SOUNDS COARSE BILAT UPPER LOBES/ DECREASED LOWER LOBES.
[2022-04-16 08:36] LABS: INR 4.52 (0.9-1.1); Prothrombin Time 44.8 seconds (10.1-12.5)
--- NOTE | 2022-04-16 09:33 | EXP.ACUTE.PN ---
Subjective *Date: 04/16/22 *Time: 09:33 Interval history: Overall patient did very nicely through the day yesterday. Did require oxygen overnight which is unusual for her. This morning she is able to come off of it and is low 90s on room air. She feels little better except for cough and significant fatigue. Pharmacy is helping monitor her INR levels. Medical Exam Vital signs and Labs for Last 24 Hours: Vital Signs Temp Pulse Pulse Resp BP Pulse Ox 04/16/22 08:00 97.9 F 89 18 130/60 95 04/16/22 06:50 104 H 04/16/22 06:50 112 H 04/16/22 06:50 88 L 04/16/22 04:00 98.1 F 87 16 132/74 91 L 04/15/22 23:56 98.1 F 90 18 125/68 93 L 04/15/22 20:00 90 L 04/15/22 19:03 93 H 04/15/22 19:03 98 H 04/15/22 19:03 90 L 04/15/22 16:00 98.0 F 93 H 18 101/59 L 93 L 04/15/22 14:19 78 18 04/15/22 14:08 78 04/15/22 14:08 82 Intake and Output 04/15/22 04/16/22 04/16/22 19:59 03:59 11:59 Intake Total 720 / 2063 120 / 2063 1223 / 2063 Output Total 0 / 0 0 / 0 0 / 0 Balance 720 / 2063 120 / 2063 1223 / 2063 Intake: Intake, Oral Amount 720 / 960 120 / 960 120 / 960 Intake, Total IV Amount 1103 / 1103 0.9 % Sodium Chloride 1,000 ml 1103 / 1103 @ 75 mls/hr IV .[id number] [facility] Rx# :[id number] Output: Output, Urine Amount 0 / 0 0 / 0 0 / 0 Other: Number of Unmeasured Voids 1 1 1 Weight 169 lb 1.513 oz Patient Weight 04/16/22 11:59 Weight 169 lb 1.513 oz Laboratory Results - last 24 hr 04/16/22 07:58: PT 44.8 H, INR 4.52 H I & O for Labs for Last 24 Hours: Intake & Output 12/07/04/14/22 04/15/22 04/16/22 11:59 11:59 11:59 11:59 Intake Total 360 / 360 2062 Output Total 0 / 0 0 / 0 Balance 360 / 360 2062 Weight 168 lb 3.403 oz 169 lb 1.513 oz Comment:: Patient is pleasant, talkative. Lungs have rhonchi and crackles in the left lower and middle lung field. Right side is fairly clear. Heart rate regular with mechanical valve sound. No extremity edema or clubbing. She is oriented x3. Assessment and Plan *Assessment and plan (1) Community acquired pneumonia: Status: Acute Category: Medical Code(s): J18.9 - Pneumonia, unspecified organism (2) Mechanical heart valve present: Status: Chronic Category: Surgical Code(s): Z95.2 - Presence of prosthetic heart valve (3) History of atrial fibrillation: Status: Chronic Category: Medical Code(s): Z86.79 - Personal history of other diseases of the circulatory system (4) HLD (hyperlipidemia): Status: Chronic Qualifiers: Hyperlipidemia type: mixed hyperlipidemia Qualified Code(s): E78.2 - Mixed hyperlipidemia Category: Medical Code(s): E78.5 - Hyperlipidemia, unspecified (5) HTN (hypertension): Status: Chronic Qualifiers: Hypertension type: other secondary hypertension Qualified Code(s): I15.8 - Other secondary hypertension Category: Medical Code(s): I10 - Essential (primary) hypertension (6) Morbid obesity: Status: Acute Category: Medical Code(s): E66.01 - Morbid (severe) obesity due to excess calories (7) Hypocalcemia: Status: Acute Category: Medical Code(s): E83.51 - Hypocalcemia Plan 1. Community-acquired pneumonia. Agree with admission for azithromycin and ceftriaxone. Sputum culture discussed, incentive spirometer. 2. We will try Mucomyst to help with sputum clearance. Multiple comorbid cardiac conditions that complicate all aspects of her care. We will watch carefully and restart her medications Plan addendum for 04/16/2022-continue antibiotics. Await culture results if she can cough up sputum. Hold warfarin per pharmacy recommendations. PT evaluation went well yesterday. If she maintains off oxygen today and overnight will co
--- NOTE | 2022-04-16 18:16 | PC.NURSE ---
pt had 3 unmeasured voids and 2 BM's this shift
--- NOTE | 2022-04-16 19:03 | PC.NURSE ---
Pt is A/ox4. She has walked around the unit twice today with out o2. She was off o2 for a few hours on RA and o2 sat 88. Placed her back on 1L NC and been doing fine. She has tolerated diet well.
[2022-04-17] VITALS (7 sets, daily range): BP systolic 135–151; BP diastolic 72–79; PULSE 90–111; RESP 18–20; TEMP 36.7–37.1; O2SAT 93–100
--- NOTE | 2022-04-17 02:38 | PC.NURSE ---
patient c/o being very soa. 02 was increased up to 2lnc along with neb treament which helped. patient continues to have a dry persistant cough. wheezes noted bilat lung armstrong. 02 sats 95-96%. patient is ambulatory in her room to the without difficulty. continues to recieve IVABs for pnuemonis.
[2022-04-17 08:05] LABS: Basophils % 0.3 % (0.1-2.0); Eosinophils # 0.2 K/mm3 (0.0-0.4); Eosinophils % 1.9 % (0.1-12.0); Hematocrit 26.6 % (37.0-47.0); Lymphocytes # 0.6 K/mm3 (0.7-4.5); Lymphocytes % 5.9 % (10-50); Mean Corpuscular HGB Conc 30.2 g/dL (31.8-35.4); Mean Corpuscular Hemoglobin 25.4 pg (27.0-31.2); Mean Corpuscular Volume 84.1 fl (81-99); Mean Platelet Volume 8.8 fl (7.4-10.4); Monocytes # 0.3 K/mm3 (0.1-1.0); Monocytes % 2.9 % (1.7-9.3); Neutrophils # 8.6 K/mm3 (1.8-7.8); Platelet Count 256 K/mm3 (142-424); Red Blood Count 3.16 M/mm3 (4.20-5.40); White Blood Count 9.7 K/mm3 (4.8-10.8)
[2022-04-17 08:09] LABS: MANUAL DIFFERENTIAL MANUAL DIFFERENTIAL (MANUAL DIFF)
[2022-04-17 08:13] LABS: Chloride 107 mmol/L (98-107); Potassium 3.9 mmoL/L (3.5-5.1); Sodium 142 mmol/L (136-145)
[2022-04-17 08:16] LABS: Anion Gap 8.9 mEq/L (5-15); Blood Urea Nitrogen 12 mg/dl (7-17); Carbon Dioxide 30 mmol/L (22.0-30.0); Creatinine Clearance Estimated 58 mL/min (50-200); Estimated Glomerular Filt Rate 49 ml/min (>60); GFR (African American) 60 ML/MIN (>60)
[2022-04-17 08:17] LABS: Calcium 7.8 mg/dl (8.4-10.2); Glucose 107 mg/dl (74-100)
[2022-04-17 08:29] LABS: INR 4.49 (0.9-1.1); Prothrombin Time 44.5 seconds (10.1-12.5)
--- NOTE | 2022-04-17 08:38 | XR_ITS ---
PROCEDURE INFORMATION: Exam: XR Chest Exam date and time: 04/17/2022 10:11 AM Age: 71 years old Clinical indication: Shortness of breath; Additional info: F/u icu exam TECHNIQUE: Imaging protocol: Radiologic exam of the chest. Views: 1 view. COMPARISON: CR XR CHEST 2V 04/14/2022 3:23 PM FINDINGS: Lungs: Improving aeration of the left lower lobe, with minimal patchy opacities remaining. Right lung remains clear. Pleural spaces: Unremarkable. No pleural effusion. No pneumothorax. Heart/Mediastinum: Valve prosthesis. Bones/joints: Median sternotomy wires. IMPRESSION: Improving aeration of the left lower lobe, with minimal patchy opacities remaining.
--- NOTE | 2022-04-17 08:39 | EXP.ACUTE.PN ---
Subjective *Date: 04/17/22 *Time: 08:39 Interval history: Patient states that she had a very bad night because she could not breathe. On further questioning it sounds like she feels like her chest is very tight. She continues to cough but is unable to bring up sputum. She relates a history that when she was a child she had some asthma exacerbations and also several years ago before she lost quite a bit of weight she would have asthma exacerbations. Medical Exam Vital signs and Labs for Last 24 Hours: Vital Signs Temp Pulse Pulse Resp BP Pulse Ox FiO2 04/17/22 06:23 90 04/17/22 06:23 92 H 04/17/22 06:23 100 04/17/22 04:00 98.0 F 100 H 20 140/78 97 04/16/22 23:42 97.8 F 99 H 20 165/77 H 95 04/16/22 20:00 95 04/16/22 19:58 98.4 F 101 H 18 138/72 95 04/16/22 18:56 28 04/16/22 18:56 71 04/16/22 18:55 66 04/16/22 16:00 97.9 F 97 H 18 145/80 H 93 L 04/16/22 12:00 98.2 F 94 H 18 132/64 96 04/16/22 13:06 102 H 04/16/22 13:06 97 H 04/16/22 13:06 91 L Intake and Output 04/16/22 04/17/22 04/17/22 19:59 03:59 11:59 Intake Total 840 / 3349 490 / 3349 2018 Output Total 0 / 0 0 / 0 0 / 0 Balance 840 / 3349 490 / 3349 2018 Intake: Intake, Oral Amount 840 / 1080 240 / 1080 Intake, Total IV Amount 250 / 2269 2018 0.9 % Sodium Chloride 1,000 ml 2018 @ 75 mls/hr IV .[id number] [facility] Rx# :[id number] Azithromycin 500 mg In 0.9 % 250 / 250 Sodium Chloride 250 ml @ 250 mls/hr IV Q24H [facility] Rx#:[id number] Output: Output, Urine Amount 0 / 0 0 / 0 0 / 0 Other: Number of Unmeasured Voids 2 1 1 Number of Bowel Movements 2 Laboratory Results - last 24 hr 04/16/22 07:58: PT 44.8 H, INR 4.52 H 04/17/22 07:52: PT 44.5 H, INR 4.49 H 04/17/22 07:52: WBC 9.7, RBC 3.16 L, Hgb 8.0 L, Hct 26.6 L, MCV 84.1, MCH 25.4 L, MCHC 30.2 L, RDW 17.0, Plt Count 256 D, MPV 8.8, Neut % (Auto) 89.0 H, Lymph % (Auto) 5.9 L, [place] % (Auto) 2.9, Eos % (Auto) 1.9, Baso % (Auto) 0.3, Neut # (Auto) 8.6 H, Lymph # (Auto) 0.6 L, [place] # (Auto) 0.3, Eos # (Auto) 0.2, Baso # (Auto) 0.0 04/17/22 07:52: Sodium 142, Potassium 3.9, Chloride 107, Carbon Dioxide 30, Anion Gap 8.9, BUN 12 D, Creatinine 1.10 H D, Estimated Creat Clear 58, Estimated GFR 49 L, Est GFR ( Amer) 60 D, Glucose 107 H, Calcium 7.8 L I & O for Labs for Last 24 Hours: Intake & Output 04/14/22 04/15/22 04/16/22 04/17/22 11:59 11:59 11:59 11:59 Intake Total 360 / 360 2062 3349 / 3349 Output Total 0 / 0 0 / 0 0 / 0 Balance 360 / 360 2062 3349 / 3349 Weight 168 lb 3.403 oz 169 lb 1.513 oz Microbiology Reports for the Last 24 Hours: Microbiology 04/14/22 15:10 Blood Blood Culture - Preliminary NO GROWTH AFTER 48 HOURS 04/14/22 15:10 Blood Blood Culture - Preliminary NO GROWTH AFTER 48 HOURS Comment:: Patient is alert, pleasant. Breathing easily but rhonchorous airway sounds. She does have some expiratory coarseness and tightness but overall air movement is good. Loose rhonchi in the left base. Heart rate regular. Perfusion is good. She continues to have a very minimal oxygen requirement which is not normal for her. Assessment and Plan *Assessment and plan (1) Community acquired pneumonia: Status: Acute Category: Medical Code(s): J18.9 - Pneumonia, unspecified organism (2) Mechanical heart valve present: Status: Chronic Category: Surgical Code(s): Z95.2 - Presence of prosthetic heart valve (3) History of atrial fibrillation: Status: Chronic Category: Medical Code(s): Z86.79 - Personal history of other diseases of the circulatory system (4) HLD (hyperlipidemia): Status: Chronic Qualifiers: Hyperlipidemia type: mixed hyperlipide
[2022-04-17 09:12] LABS: Hypochromasia 2+; Lymphocytes % 7 % (10-50); Neutrophils % 93 % (42-76); Platelet Estimate Normal; Total Cells Counted 100
[2022-04-17 09:57] LABS: Adenovirus,PCR Not Detected (NotDetected); Bordetella Pertussis Not Detected (NotDetected); Chlamydophila Pneumoniae, PCR Not Detected (NotDetected); Coronavirus 19, PCR Not Detected (NotDetected); Coronavirus 229E Not Detected (NotDetected); Coronavirus NL63 Not Detected (NotDetected); Coronavirus OC43 Not Detected (NotDetected); Coronovirus HKU1,PCR Not Detected (NotDetected); Human Metapneumovirus Not Detected (NotDetected); Influenza A, PCR Not Detected (NotDetected); Influenza AH1, 2009 Not Detected (NotDetected); Influenza AH1, PCR Not Detected (NotDetected); Influenza AH3,PCR Not Detected (NotDetected); Influenza B, PCR Not Detected (NotDetected); Mycoplasma Pneumoniae, PCR Not Detected (NotDetected); Parainfluenza 1, PCR Not Detected (NotDetected); Parainfluenza 2, PCR Not Detected (NotDetected); Parainfluenza 3, PCR Not Detected (NotDetected); Parainfluenza 4, PCR Not Detected (NotDetected); Respiratory Syncytial Virus Not Detected (NotDetected)
[2022-04-17 11:14] LABS: Rhinovirus/Enterovirus Detected (NotDetected)
--- NOTE | 2022-04-17 17:40 | PC.NURSE ---
No acute changes. Patient able to walk around the hallway three times during shift on 2LNC. VS stable and patient remained on 2LNC. Lung sounds coarse crackles on ascultation and patient is not producing any sputum when coughing.
[2022-04-18] VITALS: BP 156/83; PULSE 95; RESP 18; TEMP 36.8; O2SAT 96
[2022-04-18 04:00] VITALS: BP 152/88; PULSE 70; RESP 18; TEMP 36.6; O2SAT 96
[2022-04-18 06:40] LABS: Basophils % 0.1 % (0.1-2.0); Eosinophils # 0.1 K/mm3 (0.0-0.4); Eosinophils % 0.7 % (0.1-12.0); Hemoglobin 7.4 g/dL (12.2-16.2); Lymphocytes # 0.3 K/mm3 (0.7-4.5); Mean Corpuscular HGB Conc 31.8 g/dL (31.8-35.4); Mean Corpuscular Hemoglobin 26.1 pg (27.0-31.2); Mean Corpuscular Volume 81.9 fl (81-99); Mean Platelet Volume 8.5 fl (7.4-10.4); Monocytes # 0.4 K/mm3 (0.1-1.0); Monocytes % 3.4 % (1.7-9.3); Neutrophils # 10.3 K/mm3 (1.8-7.8); Neutrophils % 92.8 % (37.0-80.0); Platelet Count 272 K/mm3 (142-424); Red Blood Count 2.82 M/mm3 (4.20-5.40); Red Cell Distribution Width 16.8 % (11.5-17.5)
[2022-04-18 06:44] LABS: Hematocrit 23.1 % (37.0-47.0)
[2022-04-18 06:45] LABS: MANUAL DIFFERENTIAL MANUAL DIFFERENTIAL (MANUAL DIFF)
[2022-04-18 06:48] LABS: Chloride 104 mmol/L (98-107); Potassium 4.6 mmoL/L (3.5-5.1); Sodium 140 mmol/L (136-145)
[2022-04-18 06:50] LABS: INR 3.59 (0.9-1.1); Prothrombin Time 36.1 seconds (10.1-12.5)
[2022-04-18 06:51] LABS: Anion Gap 10.6 mEq/L (5-15); Blood Urea Nitrogen 20 mg/dl (7-17); Carbon Dioxide 30 mmol/L (22.0-30.0); Creatinine Clearance Estimated 64 mL/min (50-200); Estimated Glomerular Filt Rate 55 ml/min (>60); GFR (African American) 67 ML/MIN (>60)
[2022-04-18 06:52] LABS: Glucose 123 mg/dl (74-100)
[2022-04-18 06:55] VITALS: PULSE 94; O2SAT 94
--- NOTE | 2022-04-18 07:04 | PC.NURSE ---
Pt tolerated 2 L nc well with sats >90%. Pt did c/o SOA 2x. Duoneb administered and pt stated favorable results. Call light within reach.
[2022-04-18 08:00] VITALS: BP 154/82; PULSE 107; RESP 18; TEMP 36.6; O2SAT 97
--- NOTE | 2022-04-18 08:17 | EXP.DC.SUM ---
General Admission date:: 04/14/22 Discharge date: 04/18/22 HPI HPI HPI: 71-year-old female with history of A. fib and anemia, who presented to the emergency department with cough, congestion, was noted to have infiltrate, elevated white count and was admitted to hospital for community-acquired pneumonia with poor p.o. intake and multiple comorbidities. Hospital Course Hospital Course Hospital Course: Patient was admitted for community-acquired pneumonia. Given standard community-acquired pneumonia protocol and fluids. The patient really did not improve very much over the next 24 to 48 hours. Began to wheeze a little bit. Nebulizer treatments were started, she required some oxygen and steroids were administered which made her feel much better. Viral PCR was done which revealed a rhino enterovirus positive test which certainly makes sense and makes the diagnosis of viral pneumonitis with exacerbation of underlying asthma very reasonable. This morning the patient was doing much better, we will discharged home on higher dose prednisone than her baseline, Trelegy inhaler that we have instructed her on how to use. DuoNebs 3 times daily and oxygen therapy. We will see her back in the office this week. Close follow-up and we will do prednisone taper at that point. She is finished 5 days of antibiotics will not give antibacterial therapy at home given the viral pneumonia picture. Exam Data for Last 24 hours Vital signs and Labs for Last 24 Hours: Temp Pulse Resp BP Pulse Ox FiO2 97.8 F 94 H 18 152/88 H 94 L 28 04/18/22 04:00 04/18/22 06:55 04/18/22 04:00 04/18/22 04:00 04/18/22 06:55 04/16/22 18:56 Laboratory Results - last 24 hr 04/17/22 07:52: PT 44.5 H, INR 4.49 H 04/17/22 07:52: Total Counted 100, Neutrophils % (Manual) 93 H, Lymphocytes % (Manual) 7 L, Platelet Estimate Normal, Hypochromasia 2+ 04/17/22 07:52: Sodium 142, Potassium 3.9, Chloride 107, Carbon Dioxide 30, Anion Gap 8.9, BUN 12 D, Creatinine 1.10 H D, Estimated Creat Clear 58, Estimated GFR 49 L, Est GFR ( Amer) 60 D, Glucose 107 H, Calcium 7.8 L 04/17/22 09:56: Chlamy pneumoniae PCR Not detected, Adenovirus (PCR) Not detected, B. pertussis DNA (PCR) Not detected, Coronavirus OC43 (PCR) Not detected, Coronavirus HKU1 (PCR) Not detected, Coronavirus 229E (PCR) Not detected, SARS-CoV-2 (PCR) Not detected, Coronavirus NL63 (PCR) Not detected, Human Metapneumovir PCR Not detected, Influenza A (H1) PCR Not detected, Influ A (H1N1/09) PCR Not detected, Influenza A (H3) PCR Not detected, Influenza Type A (PCR) Not detected, Influenza Type B (PCR) Not detected, M. pneumoniae (PCR) Not detected, Parainfluenza 1 (PCR) Not detected, Parainfluenza 2 (PCR) Not detected, Parainfluenza 3 (PCR) Not detected, Parainfluenza 4 (PCR) Not detected, RSV (PCR) Not detected, Entero/Rhino (PCR) Detected A 04/18/22 06:25: PT 36.1 H, INR 3.59 H 04/18/22 06:25: WBC 11.0 H, RBC 2.82 L, Hgb 7.4 L, Hct 23.1 L, MCV 81.9, MCH 26.1 L, MCHC 31.8, RDW 16.8, Plt Count 272, MPV 8.5, Neut % (Auto) 92.8 H, Lymph % (Auto) 3.0 L, [place] % (Auto) 3.4, Eos % (Auto) 0.7, Baso % (Auto) 0.1, Neut # (Auto) 10.3 H, Lymph # (Auto) 0.3 L, [place] # (Auto) 0.4, Eos # (Auto) 0.1, Baso # (Auto) 0.0 04/18/22 06:25: Sodium 140, Potassium 4.6, Chloride 104, Carbon Dioxide 30, Anion Gap 10.6, BUN 20 H D, Creatinine 1.00, Estimated Creat Clear 64, Estimated GFR 55 L, Est GFR ( Amer) 67, Glucose 123 H, Calcium 8.0 L I & O for Last 24 hours: Intake & Output 04/15/22 04/16/22 04/17/22 04/18/22 11:59 11:59 11:59 11:59 Intake Total 360 / 360 2062 4069 / 4069 1320 / 1320 Output Total 0 / 0 0 / 0 0 / 0 0 / 0 Balance 360 / 360 2062 4069 / 4069 1320 / 1320 Weight 168 lb 3.403 oz 169 lb 1.513 oz Constitutional Constitutional: no acute distress *Routine HEENT Exam Head: Present normocephalic Eye: Present EOMI and PERRL ENT: Present mucous membranes moist *Routine Neck Exam Neck: Present suppl
[2022-04-18 08:30] LABS: Lymphocytes % 7 % (10-50); Monocytes % 2 % (2-9); Neutrophils % 91 % (42-76); Platelet Estimate Normal; RBC Morphology Normal; Total Cells Counted 100
--- NOTE | 2022-04-18 09:09 | PC.NURSE ---
pt walking around unit.
--- NOTE | 2022-04-18 09:56 | PC.NURSE ---
Patient stated her son would be able to pick her up but cant until between 4 and 5 pm today.
[2022-04-18 10:28] VITALS: O2SAT 95
--- NOTE | 2022-04-18 13:53 | PC.NURSE ---
pt laying in bed awake
[2022-04-18 16:00] VITALS: BP 147/77; PULSE 98; RESP 18; TEMP 36.9; O2SAT 93
--- NOTE | 2022-04-19 13:50 | CARE MANAGER ---
Spoke with patient related to hospital discharge. She states she is doing some better. She picked up all her meds and is aware of follow up appointment. She denies any questions or concerns at this time.SHONDA Sharma
== END 2022-04-18 17:25 | disposition home or self-care (01) ==
LOC: ER 16:32 → 2ND 17:34
PROVIDERS: Admitting Provider Family Medicine; Emergency Provider Emergency Medicine; PCP Nurse Practitioner Family; Visit Provider Internal Medicine Adolescent Medicine
DX: J18.9 Pneumonia, unspecified organism (principal); Z95.2 Presence of prosthetic heart valve; E78.2 Mixed hyperlipidemia; I48.20 Chronic atrial fibrillation, unspecified; Z79.01 Long term (current) use of anticoagulants; Z79.899 Other long term (current) drug therapy; E66.01 Morbid (severe) obesity due to excess calories; Z68.28 Body mass index [BMI] 28.0-28.9, adult; E83.51 Hypocalcemia; Z20.822 Contact with and (suspected) exposure to COVID-19; I10 Essential (primary) hypertension
CPT/HCPCS: G0378; 36415; 71045; 71046; 80048; 80053; 83605; 85007; 85025; 85610; 87040; 87581; 87632; 87798; 93005; 94640; 94761; 97116; 97162; 97165; 99285; C9803; J0456; J0696; U0003; U0005

== ENCOUNTER 2022-04-22 12:57 | Outpatient (CLI) | payer MEDICARE, OTHER, SELFPAY | END 2022-04-22 13:36 | LOC: ACC 12:58 | PROVIDERS: PCP Nurse Practitioner Family; Visit Provider Internal Medicine Adolescent Medicine | DX: Z51.81 Encounter for therapeutic drug level monitoring (principal); Z79.01 Long term (current) use of anticoagulants; Z95.2 Presence of prosthetic heart valve | CPT/HCPCS: 85610; 99211; G0463 ==

== ENCOUNTER → 2022-04-28 10:43 | Outpatient (POV) | payer MEDICARE, OTHER, SELFPAY ==
[2022-04-28 11:18] VITALS: BP 129/73; PULSE 92; RESP 18; O2SAT 97; BMI 28.5
--- NOTE | 2022-04-28 13:45 | EXP.PAIN.SOA ---
[facility] Pain Management SOAP Note Subjective:: Patient is a pleasant 71-year-old female who is here for medication refill and follow-up. Patient is currently being treated for osteoarthritis of bilateral knees. Patient is being managed with tramadol 50 mg twice a day and gabapentin 100 mg twice a day. Patient denies any side effects from the medications. Patient denies any changes to the location and type of pain. Patient states that this is adequately helping manage their pain. Rates pain as 0 out of 10. [facility] number [phone] with an active morphine equivalent 10. Drug screens have been reviewed and appropriate. Review of Systems: General: No recent weight changes, no fever, no sleep disturbances Respiratory: No cough, no shortness of air, no recurring pulmonary infections Cardiovascular/peripheral vascular: No chest pain, no palpitations, no edema, no shortness of breath Gastrointestinal: No new onset incontinence, normal bowel movements reported Genitourinary: No new onset incontinence Musculoskeletal: Knee pain Psychiatric: [Normal mood/affect] Neurological: [Denies weakness in extremities], [denies balance issues] Objective:: Physical Exam: General: Alert and oriented x3, no acute distress, pleasant and cooperative Lungs: Respirations even and unlabored, symmetrical chest expansion Eyes: PERRL Musculoskeletal: Flexion and extension of bilateral knees somewhat guarded secondary to pain, [antalgic gait noted] Neurological: Speech clear, no gross sensory deficit Assessment:: Osteoarthritis of bilateral knees Plan:: We will continue the patient's tramadol 50 mg twice a day and gabapentin 100 mg twice a day. We will provide the patient with 3 months of refills. We would like to see the patient back in 3 months for follow-up and reevaluation of chronic pain syndrome. Patient has been advised of risks of oversedation with the prescribed medication. Narcan has been offered to the patient in the event of oversedation. Patient has been advised that a family member should also be educated regarding administration of Narcan. Patient has been instructed to contact the clinic with any concerns before the next appointment. Dr. Valderrama has reviewed this note and agrees with this plan of care. This note was dictated using voice recognition software and make contain errors or omissions. [facility] Disclaimer: The information contained in this section may have been updated after the patient was seen, as this information can be updated by other users. 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 (Updated 04/22/22 @ 00:00 by Earline Rueda) Arthritis Cataract Cholecystectomy planned Colon cancer Dyslipidemia History of anemia History of cataract HTN (hypertension) Hyperlipidemia Hypothyroid Infection and inflammatory reaction due to internal left knee prosthesis, initial encounter Infection of prosthetic left knee joint Thyroid cancer Urinary retention Surgical History (Updated 04/15/22 @ 09:00 by Tal Pantoja MD) History of carpal tunnel surgery of left wrist History of carpal tunnel surgery of right wrist History of colon resection History of total left knee replacement History of total right knee replacement Hx of thyroidectomy Mechanical heart valve present Status post aortic valve replacement Family History Brother Hypertension Mother Kidney disease Father Cancer Sister Breast cancer Social History (Updated 04/14/22 @ 18:26 by Jose Pires RN) Smoking Status: Never smoker second hand exposure: No alcohol intake: never substance use type: prescription drug current occupational status: retired Travel in the last 8 weeks: None household members: none housing: house 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
--- NOTE | 2022-04-28 13:48 | A.OFFVIS_ITS ---
[facility] Disclaimer: The information contained in this section may have been updated after the patient was seen, as this information can be updated by other users. 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 (Updated 04/22/22 @ 00:00 by Earline Rueda) Arthritis Cataract Cholecystectomy planned Colon cancer Dyslipidemia History of anemia History of cataract HTN (hypertension) Hyperlipidemia Hypothyroid Infection and inflammatory reaction due to internal left knee prosthesis, initi al encounter Infection of prosthetic left knee joint Thyroid cancer Urinary retention Surgical History (Updated 04/15/22 @ 09:00 by Tal Pantoja MD) History of carpal tunnel surgery of left wrist History of carpal tunnel surgery of right wrist History of colon resection History of total left knee replacement History of total right knee replacement Hx of thyroidectomy Mechanical heart valve present Status post aortic valve replacement Family History Brother Hypertension Mother Kidney disease Father Cancer Sister Breast cancer Social History (Updated 04/14/22 @ 18:26 by Jose Pires RN) Smoking Status: Never smoker second hand exposure: No alcohol intake: never substance use type: prescription drug current occupational status: retired Travel in the last 8 weeks: None household members: none housing: house 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
== END ==
PROVIDERS: PCP Nurse Practitioner Family; Visit Provider Nurse Practitioner Family
DX: M17.0 Bilateral primary osteoarthritis of knee (principal)
CPT/HCPCS: 99212; G0463

== ENCOUNTER → 2022-05-03 09:28 | Outpatient (CLI) | payer MEDICARE, OTHER, SELFPAY ==
--- NOTE | 2022-05-03 09:33 | XR_ITS ---
FINAL REPORT CLINICAL HISTORY: PERSISTENT COUGH, COMPARISON: April 17, 2022 FINDINGS: Two views of the chest were obtained. There are postoperative changes from median sternotomy. The heart size and pulmonary vascularity are within normal limits. The mediastinum is normal. There are partially improved left base opacities. The right lung is clear. There is no pneumothorax. There are postoperative changes in upper right abdomen. The bony thorax is intact. IMPRESSION: Partially improved left base opacities. Reviewed, Interpreted and Dictated by Rosendo Jean III, MD Transcribed by Jessica Bowling Authenticated and . [facility]
[2022-05-03 14:53] LABS: Basophils % 0.4 % (0.1-2.0); Eosinophils # 0.1 K/mm3 (0.0-0.4); Eosinophils % 0.6 % (0.1-12.0); Hematocrit 27.7 % (37.0-47.0); Hemoglobin 8.7 g/dL (12.2-16.2); Lymphocytes # 0.7 K/mm3 (0.7-4.5); Lymphocytes % 6.5 % (10-50); Mean Corpuscular HGB Conc 31.3 g/dL (31.8-35.4); Mean Corpuscular Hemoglobin 25.5 pg (27.0-31.2); Mean Corpuscular Volume 81.5 fl (81-99); Monocytes # 0.4 K/mm3 (0.1-1.0); Neutrophils # 9.3 K/mm3 (1.8-7.8); Neutrophils % 88.6 % (37.0-80.0); Platelet Count 277 K/mm3 (142-424); Red Blood Count 3.41 M/mm3 (4.20-5.40); Red Cell Distribution Width 17.4 % (11.5-17.5); White Blood Count 10.5 K/mm3 (4.8-10.8)
[2022-05-03 14:56] LABS: MANUAL DIFFERENTIAL MANUAL DIFFERENTIAL (MANUAL DIFF)
[2022-05-03 15:00] LABS: INR 2.78 (0.9-1.1); Prothrombin Time 28.3 seconds (10.1-12.5)
[2022-05-03 15:43] LABS: Alanine Aminotransferase 18 U/L (12-78); Albumin Level 3.6 g/dl (3.5-5.0); Albumin/Globulin Ratio 1.4 (1.1-1.8); Alkaline Phosphatase 66 U/L (38-126); Anion Gap 8.1 mEq/L (5-15); Aspartate Amino Transferase 28 U/L (14-36); Bilirubin,Total 0.3 mg/dl (0.2-1.3); Blood Urea Nitrogen 22 mg/dl (7-17); Calcium 8.6 mg/dl (8.4-10.2); Carbon Dioxide 26 mmol/L (22.0-30.0); Chloride 110 mmol/L (98-107); Estimated Glomerular Filt Rate 32 ml/min (>60); GFR (African American) 39 ML/MIN (>60); Globulin 2.5 g/dL (1.3-3.2); Glucose 112 mg/dl (74-100); Potassium 3.1 mmoL/L (3.5-5.1); Sodium 141 mmol/L (136-145); Total Protein,Serum 6.1 g/dl (6.3-8.2)
[2022-05-03 16:03] LABS: Hypochromasia 1+; Lymphocytes % 7 % (10-50); Monocytes % 1 % (2-9); Neutrophils % 90 % (42-76); Platelet Estimate Normal; Total Cells Counted 100
== END ==
PROVIDERS: Nurse Practitioner Family; PCP Nurse Practitioner Family; Visit Provider Nurse Practitioner Family
DX: R05.3 Chronic cough (principal); R53.83 Other fatigue; Z51.81 Encounter for therapeutic drug level monitoring; Z79.01 Long term (current) use of anticoagulants
CPT/HCPCS: 36415; 71046; 80053; 85007; 85025; 85610

== ENCOUNTER 2022-05-05 09:21 | Outpatient (CLI) | payer MEDICARE, OTHER, SELFPAY ==
[2022-05-05 09:27] VITALS: BMI 28.5
[2022-05-05 09:48] VITALS: BP 157/80; PULSE 78; RESP 16; TEMP 36.4; O2SAT 98
[2022-05-05 09:51] LABS: Basophils # 0.1 K/mm3 (0-0.2); Basophils % 0.6 % (0.1-2.0); Eosinophils # 0.1 K/mm3 (0.0-0.4); Eosinophils % 0.6 % (0.1-12.0); Hematocrit 28.3 % (37.0-47.0); Hemoglobin 8.9 g/dL (12.2-16.2); Lymphocytes # 0.4 K/mm3 (0.7-4.5); Lymphocytes % 4.9 % (10-50); Mean Corpuscular HGB Conc 31.4 g/dL (31.8-35.4); Mean Corpuscular Hemoglobin 25.9 pg (27.0-31.2); Mean Corpuscular Volume 82.5 fl (81-99); Mean Platelet Volume 9.2 fl (7.4-10.4); Monocytes # 0.3 K/mm3 (0.1-1.0); Neutrophils # 7.7 K/mm3 (1.8-7.8); Platelet Count 259 K/mm3 (142-424); Red Blood Count 3.43 M/mm3 (4.20-5.40); Red Cell Distribution Width 17.4 % (11.5-17.5); White Blood Count 8.5 K/mm3 (4.8-10.8)
[2022-05-05 09:53] LABS: MANUAL DIFFERENTIAL MANUAL DIFFERENTIAL (MANUAL DIFF)
[2022-05-05 09:55] LABS: Chloride 106 mmol/L (98-107)
[2022-05-05 09:56] LABS: Potassium 3.6 mmoL/L (3.5-5.1); Sodium 141 mmol/L (136-145)
[2022-05-05 09:58] LABS: Alanine Aminotransferase 18 U/L (12-78); Aspartate Amino Transferase 30 U/L (14-36); Blood Urea Nitrogen 17 mg/dl (7-17); Creatinine Clearance Estimated 45 mL/min (50-200); Estimated Glomerular Filt Rate 37 ml/min (>60); GFR (African American) 45 ML/MIN (>60)
[2022-05-05 09:59] LABS: Albumin Level 3.8 g/dl (3.5-5.0); Albumin/Globulin Ratio 1.5 (1.1-1.8); Alkaline Phosphatase 72 U/L (38-126); Anion Gap 10.6 mEq/L (5-15); Bilirubin,Total 0.4 mg/dl (0.2-1.3); Calcium 8.2 mg/dl (8.4-10.2); Carbon Dioxide 28 mmol/L (22.0-30.0); Globulin 2.6 g/dL (1.3-3.2); Glucose 97 mg/dl (74-100); Total Protein,Serum 6.4 g/dl (6.3-8.2)
[2022-05-05 10:01] LABS: INR 3.91 (0.9-1.1); Prothrombin Time 39.1 seconds (10.1-12.5)
[2022-05-05 10:05] LABS: Hypochromasia 1+; Monocytes % 3 % (2-9); Neutrophils % 97 % (42-76); Total Cells Counted 100
[2022-05-05 10:06] LABS: Anisocytosis 1+; Ovalocytes 1+; Platelet Estimate Normal; Poikilocytosis 1+
[2022-05-05 10:45] VITALS: BP 142/83; PULSE 80; RESP 18; O2SAT 97
[2022-05-05 11:45] VITALS: BP 132/76; PULSE 76; RESP 16; O2SAT 98
[2022-05-05 12:45] VITALS: BP 134/69; PULSE 72; RESP 18; TEMP 36.6; O2SAT 98
[2022-05-05 13:45] VITALS: BP 126/75; PULSE 88; RESP 16; TEMP 36.6; O2SAT 97
== END 2022-05-05 13:55 | disposition home or self-care (01) ==
LOC: INF 09:22
PROVIDERS: PCP Nurse Practitioner Family; Visit Provider Nurse Practitioner Family
DX: E86.0 Dehydration (principal); Z51.81 Encounter for therapeutic drug level monitoring; Z79.01 Long term (current) use of anticoagulants
CPT/HCPCS: 80053; 85007; 85025; 85610; 96360; 96361

== ENCOUNTER 2022-05-11 11:26 | Outpatient (CLI) | payer MEDICARE, OTHER, SELFPAY ==
[2022-05-11 12:58] LABS: Basophils # 0.1 K/mm3 (0-0.2); Basophils % 0.6 % (0.1-2.0); Eosinophils % 0.4 % (0.1-12.0); Hematocrit 30.4 % (37.0-47.0); Hemoglobin 9.6 g/dL (12.2-16.2); Lymphocytes # 0.8 K/mm3 (0.7-4.5); Lymphocytes % 8.9 % (10-50); Mean Corpuscular HGB Conc 31.5 g/dL (31.8-35.4); Mean Corpuscular Hemoglobin 25.9 pg (27.0-31.2); Mean Corpuscular Volume 82.3 fl (81-99); Mean Platelet Volume 8.7 fl (7.4-10.4); Monocytes # 0.3 K/mm3 (0.1-1.0); Monocytes % 3.8 % (1.7-9.3); Neutrophils # 7.5 K/mm3 (1.8-7.8); Neutrophils % 86.3 % (37.0-80.0); Platelet Count 252 K/mm3 (142-424); Red Blood Count 3.69 M/mm3 (4.20-5.40); Red Cell Distribution Width 17.5 % (11.5-17.5); White Blood Count 8.6 K/mm3 (4.8-10.8)
[2022-05-11 13:01] LABS: MANUAL DIFFERENTIAL MANUAL DIFFERENTIAL (MANUAL DIFF)
[2022-05-11 14:02] LABS: PHA INR Fingerstick 2.3 (0.9-1.1)
[2022-05-11 14:23] LABS: Alanine Aminotransferase 24 U/L (12-78); Albumin Level 3.9 g/dl (3.5-5.0); Alkaline Phosphatase 67 U/L (38-126); Aspartate Amino Transferase 34 U/L (14-36); Bilirubin,Direct 0.3 mg/dl (0.0-0.4); Bilirubin,Indirect 0.1 mg/dL (0.0-0.9); Bilirubin,Total 0.4 mg/dl (0.2-1.3); Bilirubin,Unconjugated 0.1 mg/dL (0.0-1.1); Estimated Glomerular Filt Rate 37 ml/min (>60); GFR (African American) 45 ML/MIN (>60); Total Protein,Serum 6.5 g/dl (6.3-8.2)
[2022-05-11 19:30] LABS: Hypochromasia 1+; Lymphocytes % 11 % (10-50); Monocytes % 4 % (2-9); Neutrophils % 85 % (42-76); Total Cells Counted 100
[2022-05-11 19:31] LABS: Platelet Estimate Normal
== END 2022-05-11 14:12 ==
LOC: ACC 11:28
PROVIDERS: PCP Internal Medicine Adolescent Medicine; Visit Provider Physician Assistant
DX: Z51.81 Encounter for therapeutic drug level monitoring (principal); Z79.01 Long term (current) use of anticoagulants; Z79.899 Other long term (current) drug therapy
CPT/HCPCS: 36415; 80076; 82565; 85007; 85025; 85610; 99211; G0463

== ENCOUNTER 2022-05-20 12:50 | Outpatient (CLI) | payer MEDICARE, OTHER, SELFPAY ==
[2022-05-20 14:06] LABS: PHA INR Fingerstick 1.8 (0.9-1.1)
== END 2022-05-20 14:56 ==
LOC: ACC 12:53
PROVIDERS: PCP Internal Medicine Adolescent Medicine; Visit Provider Internal Medicine Adolescent Medicine
DX: Z51.81 Encounter for therapeutic drug level monitoring (principal); Z79.01 Long term (current) use of anticoagulants; Z95.2 Presence of prosthetic heart valve
CPT/HCPCS: 85610; 99211; G0463

== ENCOUNTER → 2022-06-02 09:59 | Outpatient (CLI) | payer MEDICARE, OTHER, SELFPAY ==
--- NOTE | 2022-06-02 | CA_ITS ---
APPROVED REPORT EXAM: Comprehensive 2D, Doppler, and color-flow Echocardiogram Director [facility]: Kristy Goss, AIMEE, RVS Ht: 5 ft 5 in Wt: 175lbs BSA: 1.87 BP: 152/78 mmHg Indications: AVR, MR, MURMUR, HTN, HLD 2D Dimensions LVDd 6.00 cm F: 3.9 - 5.3 LA Volume 127.20 mL Left Atrium 4.74 cm F: 2.7 - 3.8 LA Volume Index 68.733144 mL/m2 (M/F) 16-34 LVOT 2.02 cm (M/F) 1.5-2.5 M-Mode Dimensions RVDd 2.84 cm (0.9-2.6) LA Diam 4.88 cm (1.9-4.0) LVDd 6.26 cm (3.5-5.7) Ao Diam 3.31 cm (2.0-3.7) LVDs 4.06 cm (3.5-5.7) IVSd 0.99 cm (0.6-1.1) PWd 1.29 cm (0.6-1.1) EF (Teich) 63.40% EPSs 0.88 cm FS 35.10% EDV (Teich) 198.30 mL TAPSE 1.74 (<1.7) ESV (Teich) 72.50 mL LV Diastology E Decel Time 153.00 (160-240 msec) E/A Ratio 0.78 MED E' 3.70 (< 7 cm/sec) MED A' 7.60 cm/s E'/MED E' Ratio 27.86 (>14) LAT E' 4.90 (<10 cm/sec) LAT A' 6.60 cm/s E/LAT E' Ratio 21.04 (>14) Aortic Valve LVOT Max 89.00 (70-110 cm/s) LVOT VTI 19.19 cm AoV Peak Jos. 310.00 (50-130 cm/s) AO Peak GR. 38.60 mmHg AO Mean GR. 21.30 (<5 mmHg) AO VTI 61.41 (18-25 cm) ANA M (VTI) 1.00 (2.5-4.5 cm2) Mitral Valve MV A Velocity 132.00 (40-130 cm/s) E/A Ratio 0.78 MV Decel. Time 153.00 (160-240 ms) MV PHT 57.00 ms Pulmonary Valve PV Peak Velocity 82.00 (50-150 cm/s) Left Ventricle Left atrium is mildly enlarged, left ventricle is normal size, mild concentric left ventricular hypertrophy, estimated ejection fraction 50% with no regional wall motion abnormality. Grade 1 diastolic dysfunction seen with tissue Doppler evidence of raise left atrial pressure. Right Ventricle Right atrium and right ventricle are mildly enlarged with normal contractility. Aortic Valve There is a mechanical prosthetic valve noted in the aortic position, valve is well-seated, the maximum aortic outflow velocity is modestly 3.2 m/s, resulting in a mean gradient across prosthetic valve of 20 mmHg, valve area is not accurately calculated, there is no significant aortic insufficiency. Mitral Valve Mitral valve has mitral annular calcification, there is no mitral inflow obstruction, there is mitral regurgitation present which is difficult to quantify, this is likely in the moderate range. Tricuspid Valve Tricuspid valve grossly normal, there is mild tricuspid regurgitation, tricuspid regurgitation jet velocity is inadequate for calculation of the right ventricular systolic pressure. Pulmonic Valve Pulmonic valve is poorly visualized. Great Vessels Aortic root is normal size. Inferior vena cava is mildly dilated with less than 50% inspiratory collapse. Pericardium No significant pericardial effusion noted. Conclusion 1. Biatrial enlargement, normal left ventricular size, mild concentric left ventricular hypertrophy, estimated ejection fraction 50% with no regional wall motion abnormality, grade 1 diastolic dysfunction seen with tissue Doppler evidence of raise left atrial pressure. 2. Mildly enlarged right ventricle with normal contractility. 3. Mechanical prosthetic valve in the aortic position, the valve is well-seated, the mean gradient across valve is 20 mmHg, there is no significant aortic insufficiency. 4. Likely moderate mitral and mild tricuspid regurgitation. 5. No significant pericardial effusion noted. 6. Inferior vena cava is mildly dilated with less than 50% inspiratory collapse. Electronically signed by : Neymar Lazo MD
== END ==
PROVIDERS: PCP Internal Medicine Adolescent Medicine; Visit Provider Nurse Practitioner Family
DX: Z95.2 Presence of prosthetic heart valve (principal)
CPT/HCPCS: 93306

== ENCOUNTER 2022-06-03 13:11 | Outpatient (CLI) | payer MEDICARE, OTHER, SELFPAY ==
[2022-06-03 15:06] LABS: PHA INR Fingerstick 2.3 (0.9-1.1)
== END 2022-06-03 15:31 ==
LOC: ACC 13:12
PROVIDERS: PCP Internal Medicine Adolescent Medicine; Visit Provider Internal Medicine Adolescent Medicine
DX: Z51.81 Encounter for therapeutic drug level monitoring (principal); Z79.01 Long term (current) use of anticoagulants; Z95.2 Presence of prosthetic heart valve
CPT/HCPCS: 85610; 99211; G0463

== ENCOUNTER 2022-06-17 10:50 | Outpatient (CLI) | payer MEDICARE, OTHER, SELFPAY ==
[2022-06-17 16:21] LABS: PHA INR Fingerstick 3.1 (0.9-1.1)
== END 2022-06-17 16:26 ==
LOC: ACC 10:51
PROVIDERS: PCP Internal Medicine Adolescent Medicine; Visit Provider Internal Medicine Adolescent Medicine
DX: Z51.81 Encounter for therapeutic drug level monitoring (principal); Z79.01 Long term (current) use of anticoagulants; Z95.2 Presence of prosthetic heart valve
CPT/HCPCS: 85610; 99211; G0463

== ENCOUNTER 2022-06-28 12:07 | Outpatient (CLI) | payer MEDICARE, OTHER, SELFPAY ==
[2022-06-28 13:03] LABS: PHA INR Fingerstick 2.8 (0.9-1.1)
== END 2022-06-28 13:05 ==
LOC: ACC 12:08
PROVIDERS: PCP Internal Medicine Adolescent Medicine; Visit Provider Nurse Practitioner Family
DX: Z79.01 Long term (current) use of anticoagulants (principal)
CPT/HCPCS: 85610; 99211; G0463

== ENCOUNTER 2022-06-28 16:27 | Emergency (ER) | payer MEDICARE, OTHER, SELFPAY ==
[2022-06-28 16:28] VITALS: BP 145/71; PULSE 60; RESP 17; TEMP 36.6; O2SAT 98; BMI 33.6
[2022-06-28 17:00] VITALS: BP 152/117; PULSE 101; RESP 18; O2SAT 97
--- NOTE | 2022-06-28 17:09 | PC.NURSE ---
notified lab of type/screen order
--- NOTE | 2022-06-28 17:20 | PC.NURSE ---
LAB AT BEDSIDE
[2022-06-28 17:31] LABS: Basophils # 0.1 K/mm3 (0-0.2); Basophils % 0.9 % (0.1-2.0); Eosinophils # 0.1 K/mm3 (0.0-0.4); Eosinophils % 0.8 % (0.1-12.0); Hematocrit 28.9 % (37.0-47.0); Hemoglobin 9.3 g/dL (12.2-16.2); Lymphocytes # 1.3 K/mm3 (0.7-4.5); Lymphocytes % 9.4 % (10-50); Mean Corpuscular HGB Conc 32.1 g/dL (31.8-35.4); Mean Corpuscular Hemoglobin 25.3 pg (27.0-31.2); Mean Corpuscular Volume 78.8 fl (81-99); Mean Platelet Volume 10.2 fl (7.4-10.4); Monocytes # 0.7 K/mm3 (0.1-1.0); Monocytes % 5.1 % (1.7-9.3); Neutrophils # 11.4 K/mm3 (1.8-7.8); Neutrophils % 83.7 % (37.0-80.0); Platelet Count 277 K/mm3 (142-424); Red Blood Count 3.66 M/mm3 (4.20-5.40); Red Cell Distribution Width 17.4 % (11.5-17.5); White Blood Count 13.6 K/mm3 (4.8-10.8)
--- NOTE | 2022-06-28 17:34 | HMH.EDGENADL ---
Discharge Plan Disposition Patient Disposition: Home, Self-Care Condition: Good Prescriptions Prescriptions: No Action calcium carbonate 600 mg calcium (1,500 mg) tablet 600 mg PO DAILY leflunomide 10 mg tablet 10 mg PO DAILY multivitamin 1 EACH capsule 1 each PO DAILY trazodone 150 MG tablet 300 mg PO HS rosuvastatin 5 MG tablet 5 mg PO HS amlodipine 10 mg tablet 10 mg PO DAILY prednisone 10 mg tablet 10 mg PO DAILY Hold Instructions: Resume on 04/25/22. Label Comments: TAKE 1 TABLET BY MOUTH ONCE DAILY WITH FOOD DIRECTED FOR ARTHRITIS levothyroxine 200 mcg tablet 200 mcg PO DAILY Label Comments: TAKE 1 TABLET BY MOUTH EVERY DAY warfarin 3 mg tablet 1.5 mg PO SUTUTHSA Label Comments: TAKE 1 TABLET BY MOUTH EVERY DAY albuterol sulfate 1.25 mg/3 mL solution for nebulization 1.25 mg inhalation QID PRN (Reason: shortness of breath or wheezing) Qty: 90 0RF hydralazine 50 MG tablet 50 mg PO BID warfarin 3 MG tablet 3 mg PO MOWEFR ferrous fumarate 55 mg (18 mg iron) Tablet Extended Release 55 mg PO DAILY prednisone 20 mg tablet 40 mg PO DAILY tramadol 50 MG tablet 50 mg PO BID Qty: 60 0RF gabapentin 100 mg capsule 100 mg PO BID Qty: 60 0RF tramadol 50 mg tablet 50 mg PO BID PRN (Reason: pain) Qty: 60 0RF Referrals Follow up/Referrals: Luis Antonio Robins MD [Physician] - See instructions (Anterior epistaxis requiring packing. Needs follow-up) Sue Moore APRN [Primary Care Provider] - See instructions Activity Restrictions/Add. Instructions Additional Instructions/Restrictions: Follow-up with ENT, they will call you or you can call them to schedule an appointment. Follow-up within 3 days to make sure bleeding is stopped and to have your packing removed. If you have fevers or chills, or any other concerns, return to the ER for further evaluation. Clinical Impressions Clinical Impression: Acute anterior epistaxis Instructions Patient Instructions: DI for Nosebleed Discharge ED Provider: Julio Moody General Adult HPI General Chief complaint: Epistaxis Stated complaint: Nose Bleeds Time Seen by Provider: 06/28/22 16:36 Mode of Arrival: Ambulatory Limitations: No Limitations Description of Symptoms (Recalled from ER Triage Doc. by RN): PT SEEN BY PCP FOR INTERMITTENT NOSE BLEEDS SINCE MONDAY. NO ACTIVE BLEEDING AT THIS TIME, PT REPORTS FEELING BLOOD RUNNING DOWN THE BACK OF HER THROAT. PT ON COUMADIN History of Present Illness HPI narrative: This is a 71-year-old female with history of prosthetic valve repair currently on warfarin who is presenting with nosebleed. Patient states that she began having nosebleed 4 days prior to arrival. Since that time, she has had difficulty controlling the bleed. She woke up the morning of 06/28 and coughed up numerous large clots. Denies chest pain, shortness of breath, nausea, vomiting otherwise, lightheadedness, weakness. She has tried getting the bleeding to stop by holding pressure, but has been unable to, so was informed to come to the ER for further evaluation. Related Data Home Medications Medication Instructions Recorded Confirmed multivitamin 1 each PO DAILY Supplement 08/09/17 06/13/22 rosuvastatin 5 mg tablet 5 mg PO HS Cholesterol 05/31/19 06/13/22 trazodone 150 mg tablet 300 mg PO HS SLEEP 05/31/19 06/13/22 calcium carbonate 600 mg calcium 600 mg PO DAILY Supplement 11/25/19 06/13/22 (1,500 mg) tablet hydralazine 50 mg tablet 50 mg PO BID Hypertension 03/05/21 06/13/22 warfarin 3 mg tablet 3 mg PO MOWEFR mechanical valve 03/05/21 06/13/22 ferrous fumarate 55 mg (18 mg 55 mg PO DAILY Supplement 01/27/22 06/13/22 iron) tablet,extended release amlodipine 10 mg tablet 10 mg PO DAILY Hypertension 03/04/22 06/13/22 leflunomide 10 mg tablet 10 mg PO DAILY Arthritis 03/04/22 06/13/22 prednisone 10 mg tablet [address]
[2022-06-28 18:40] VITALS: BP 165/79; PULSE 69; RESP 17; TEMP 36.8; O2SAT 97
== END 2022-06-28 18:41 | disposition home or self-care (01) ==
PROVIDERS: Emergency Provider Emergency Medicine; PCP Nurse Practitioner Family
DX: R04.0 Epistaxis (principal); M19.90 Unspecified osteoarthritis, unspecified site; H26.9 Unspecified cataract; Z85.038 Personal history of other malignant neoplasm of large intestine; E78.5 Hyperlipidemia, unspecified; Z86.2 Personal history of diseases of the blood and blood-forming organs and certain disorders involving the immune mechanism; I10 Essential (primary) hypertension; E03.9 Hypothyroidism, unspecified; R33.9 Retention of urine, unspecified; Z85.850 Personal history of malignant neoplasm of thyroid; Z87.19 Personal history of other diseases of the digestive system; Z87.39 Personal history of other diseases of the musculoskeletal system and connective tissue; Z96.653 Presence of artificial knee joint, bilateral; Z95.828 Presence of other vascular implants and grafts; Z90.09 Acquired absence of other part of head and neck; Z80.9 Family history of malignant neoplasm, unspecified; Z80.3 Family history of malignant neoplasm of breast; Z82.49 Family history of ischemic heart disease and other diseases of the circulatory system; Z84.1 Family history of disorders of kidney and ureter
CPT/HCPCS: 30901; 36415; 85025; 85610; 86850; 99211; 99283; 99284; G0463

== ENCOUNTER → 2022-07-05 10:43 | Outpatient (CLI) | payer MEDICARE, OTHER, SELFPAY ==
--- NOTE | 2022-07-05 10:49 | XR_ITS ---
FINAL REPORT CLINICAL HISTORY: LEFT HAND PAIN, 2 weeks pain, swelling FINDINGS: AP, oblique, and lateral views of the left hand were obtained. There is no prior exam for comparison. There is no acute fracture of the left hand. There is multi joint degenerative disease, most pronounced in the 1st carpometacarpal and DIP joints of the fingers. There are some erosions at the DIP joints. Note is made of vascular calcification. IMPRESSION: Multi joint degenerative disease as detailed above. Reviewed, Interpreted and Dictated by Tameka Bailey MD Transcribed by Myra Curran Authenticated and [facility]
== END ==
PROVIDERS: PCP Nurse Practitioner Family; Visit Provider Nurse Practitioner Family
DX: M79.642 Pain in left hand (principal)
CPT/HCPCS: 73130

== ENCOUNTER 2022-07-23 10:38 | Emergency (ER) | payer MEDICARE, OTHER, SELFPAY ==
[2022-07-23] VITALS (8 sets, daily range): BP systolic 126–157; BP diastolic 64–126; PULSE 56–109; RESP 22–28; TEMP 36.4–36.8; O2SAT 86–99; BMI 27.6
--- NOTE | 2022-07-23 11:04 | EXP.UTC ---
Discharge Plan Disposition Patient Disposition: Still a Patient Prescriptions Prescriptions: No Action calcium carbonate 600 mg calcium (1,500 mg) tablet 600 mg PO DAILY leflunomide 10 mg tablet 10 mg PO DAILY multivitamin 1 EACH capsule 1 each PO DAILY trazodone 150 MG tablet 300 mg PO HS rosuvastatin 5 MG tablet 5 mg PO HS amlodipine 10 mg tablet 10 mg PO DAILY prednisone 10 mg tablet 10 mg PO DAILY Hold Instructions: Resume on 04/25/22. Label Comments: TAKE 1 TABLET BY MOUTH ONCE DAILY WITH FOOD DIRECTED FOR ARTHRITIS levothyroxine 200 mcg tablet 200 mcg PO DAILY Label Comments: TAKE 1 TABLET BY MOUTH EVERY DAY warfarin 3 mg tablet 1.5 mg PO SUTUTHSA Label Comments: TAKE 1 TABLET BY MOUTH EVERY DAY albuterol sulfate 1.25 mg/3 mL solution for nebulization 1.25 mg inhalation QID PRN (Reason: shortness of breath or wheezing) Qty: 90 0RF hydralazine 50 MG tablet 50 mg PO BID warfarin 3 MG tablet 3 mg PO MOWEFR ferrous fumarate 55 mg (18 mg iron) Tablet Extended Release 55 mg PO DAILY prednisone 20 mg tablet 40 mg PO DAILY tramadol 50 MG tablet 50 mg PO BID Qty: 60 0RF gabapentin 100 mg capsule 100 mg PO BID Qty: 60 0RF tramadol 50 mg tablet 50 mg PO BID PRN (Reason: pain) Qty: 60 0RF gabapentin 100 mg capsule 100 mg PO BID Qty: 60 0RF Referrals Follow up/Referrals: Atiya Etienne APRN [Primary Care Provider] - See instructions Clinical Impressions Clinical Impression: Suspected COVID-19 virus infection Discharge ED Provider: Julio Moody [facility] HPI General Stated complaint: Covid+ 07/23 retest, SOA, Cough Mode of Arrival: Ambulatory Source of Information: Patient Limitations: No Limitations Time Seen by Provider: 07/23/22 11:05 Description of Symptoms (Recalled from Triage Doc. by RN): PATIENT C/O SOA AND COUGH. SHE REPORTS A POSITIVE AT HOME COVID TEST HEENT Symptoms (Recalled from RN notes): No Resp Symptoms (Recalled from RN notes): Yes Skin Symptoms (Recalled from RN notes): No MS Symptoms (Recalled from RN notes): No Functional Status (Recalled from RN notes): WNL History of Present Illness Provider Complaint: 71 yr old female presents for soa,cough,body aches and wheezing for 5 days. home covid test is positive. pt states soa will come in waves and she losses her breath. Related Data Home Medications Medication Instructions Recorded Confirmed multivitamin 1 each PO DAILY Supplement 08/09/17 06/29/22 rosuvastatin 5 mg tablet 5 mg PO HS Cholesterol 05/31/19 06/29/22 trazodone 150 mg tablet 300 mg PO HS SLEEP 05/31/19 06/29/22 calcium carbonate 600 mg calcium 600 mg PO DAILY Supplement 11/25/19 06/29/22 (1,500 mg) tablet hydralazine 50 mg tablet 50 mg PO BID Hypertension 03/05/21 06/29/22 warfarin 3 mg tablet 3 mg PO MOWEFR mechanical valve 03/05/21 06/29/22 ferrous fumarate 55 mg (18 mg 55 mg PO DAILY Supplement 01/27/22 06/29/22 iron) tablet,extended release amlodipine 10 mg tablet 10 mg PO DAILY Hypertension 03/04/22 06/29/22 leflunomide 10 mg tablet 10 mg PO DAILY Arthritis 03/04/22 06/29/22 prednisone 10 mg tablet 10 mg PO DAILY STEROID 04/14/22 06/29/22 levothyroxine 200 mcg tablet 200 mcg PO DAILY THYROID 04/15/22 06/29/22 warfarin 3 mg tablet 1.5 mg PO SUTUTHSA MECHANICAL VALVE 04/15/22 06/29/22 prednisone 20 mg tablet 40 mg PO DAILY Breathing problems 04/28/22 06/29/22 Previous Rx's Medication Instructions Recorded albuterol sulfate 1.25 mg/3 mL 1.25 mg (3 mL) inhalation QID PRN 04/18/22 solution for nebulization shortness of breath or wheezing #90 mL tramadol 50 mg tablet 50 mg PO BID Pain #60 tabs 05/13/22 gabapentin 100 mg capsule 100 mg PO BID Pain #60 caps 06/07/22 tramadol 50 mg tablet 50 mg PO BID PRN pain #60 tabs 06/27/22 gabapentin 100 mg capsule 100 mg PO BID #60 caps 07/07/22 Allergies Allergy/AdvReac Type Severity
--- NOTE | 2022-07-23 11:12 | XR_ITS ---
PROCEDURE INFORMATION: Exam: XR Chest Exam date and time: 07/23/2022 11:35 AM Age: 71 years old Clinical indication: Shortness of breath; Additional info: NANO de la garza TECHNIQUE: Imaging protocol: Radiologic exam of the chest. Views: 1 view. COMPARISON: CR XR CHEST 2V 05/03/2022 9:40 AM FINDINGS: Lungs: Unremarkable. No consolidation. Pleural spaces: Unremarkable. No pleural effusion. No pneumothorax. Heart/Mediastinum: Cardiac silhouette stable. Bones/joints: Median sternotomy wires. IMPRESSION: No acute findings.
--- NOTE | 2022-07-23 11:29 | PC.NURSE ---
ambulated the pt with oxygen sat around 98-99
--- NOTE | 2022-07-23 11:44 | HMH.EDGENADL ---
Discharge Plan Disposition Patient Disposition: Home, Self-Care Condition: Good Prescriptions Prescriptions: New dexamethasone 6 mg tablet 6 mg PO DAILY Qty: 5 0RF No Action calcium carbonate 600 mg calcium (1,500 mg) tablet 600 mg PO DAILY leflunomide 10 mg tablet 10 mg PO DAILY multivitamin 1 EACH capsule 1 each PO DAILY trazodone 150 MG tablet 300 mg PO HS rosuvastatin 5 MG tablet 5 mg PO HS amlodipine 10 mg tablet 10 mg PO DAILY prednisone 10 mg tablet 10 mg PO DAILY Hold Instructions: Resume on 04/25/22. Label Comments: TAKE 1 TABLET BY MOUTH ONCE DAILY WITH FOOD DIRECTED FOR ARTHRITIS levothyroxine 200 mcg tablet 200 mcg PO DAILY Label Comments: TAKE 1 TABLET BY MOUTH EVERY DAY warfarin 3 mg tablet 1.5 mg PO SUTUTHSA Label Comments: TAKE 1 TABLET BY MOUTH EVERY DAY albuterol sulfate 1.25 mg/3 mL solution for nebulization 1.25 mg inhalation QID PRN (Reason: shortness of breath or wheezing) Qty: 90 0RF hydralazine 50 MG tablet 50 mg PO BID warfarin 3 MG tablet 3 mg PO MOWEFR ferrous fumarate 55 mg (18 mg iron) Tablet Extended Release 55 mg PO DAILY prednisone 20 mg tablet 40 mg PO DAILY tramadol 50 MG tablet 50 mg PO BID Qty: 60 0RF gabapentin 100 mg capsule 100 mg PO BID Qty: 60 0RF tramadol 50 mg tablet 50 mg PO BID PRN (Reason: pain) Qty: 60 0RF gabapentin 100 mg capsule 100 mg PO BID Qty: 60 0RF Referrals Follow up/Referrals: Atiya Etienne APRN [Primary Care Provider] - See instructions Clinical Impressions Clinical Impression: Suspected COVID-19 virus infection Discharge ED Provider: Julio Moody General Adult HPI General Chief complaint: Shortness of Breath/Dyspnea Stated complaint: Covid+ / retest, SOA, Cough Time Seen by Provider: 07/23/22 11:05 Mode of Arrival: Ambulatory Source of Information: Patient and Medical Record Limitations: No Limitations Description of Symptoms (Recalled from ER Triage Doc. by RN): per [employer] has tested at home for covid, tested positive but unsure how long she had had it, possible 5 days, she c/o soa with walking. [employer]ER got the oxygen level at 89 when checked, prior nurse got 99, respriatory rate 28. Pt states that she took 2 home covid test and was positive, with soa with activity for a few days. History of Present Illness HPI narrative: This is a 71-year-old female with history of asthma, prosthetic aortic valve replacement currently on warfarin at therapeutic INR, recent diagnosis of COVID 6 days prior to arrival who is presenting with shortness of breath. Patient states that she was taking oxygen saturations at home via pulse ox 1 level dropped to 89. Came to the hospital given few days of worsening symptoms. Patient states that she has had shortness of breath and cough that have worsened over the past 5 days and is having nonproductive cough. Has had loss of sense of smell and taste. Denies chest pain, nausea, vomiting, fevers, chills, inability to tolerate p.o. intake. Patient has been tolerating all her p.o. medications as prescribed without complication. No history of DVT or PE, no other risk factors. Related Data Home Medications Medication Instructions Recorded Confirmed multivitamin 1 each PO DAILY Supplement 08/09/17 06/29/22 rosuvastatin 5 mg tablet 5 mg PO HS Cholesterol 05/31/19 06/29/22 trazodone 150 mg tablet 300 mg PO HS SLEEP 05/31/19 06/29/22 calcium carbonate 600 mg calcium 600 mg PO DAILY Supplement 11/25/19 06/29/22 (1,500 mg) tablet hydralazine 50 mg tablet 50 mg PO BID Hypertension 03/05/21 06/29/22 warfarin 3 mg tablet 3 mg PO MOWEFR mechanical valve 03/05/21 06/29/22 ferrous fumarate 55 mg (18 mg 55 mg PO DAILY Supplement 01/27/22 06/29/22 iron) tablet,extended release amlodipine 10 mg tablet 10 mg PO DAILY Hypertension 03/04/22 06/29/22 leflunomide 10 mg tablet 10 mg PO DAILY
[2022-07-23 11:45] LABS: Coronavirus 19, PCR Not Detected (NotDetected); Influenza A, PCR Not Detected (NotDetected); Influenza B, PCR Not Detected (NotDetected)
== END 2022-07-23 14:11 | disposition home or self-care (01) ==
LOC: UTC 10:44 → ER 11:06
PROVIDERS: Emergency Provider Emergency Medicine; PCP Nurse Practitioner Family
DX: R06.02 Shortness of breath (principal); R06.2 Wheezing; R05.9 Cough, unspecified
CPT/HCPCS: 71045; 99283; 99284; C9803; U0003; U0005

== ENCOUNTER → 2022-07-25 11:23 | Outpatient (POV) | payer MEDICARE, OTHER, SELFPAY ==
[2022-07-25 11:34] VITALS: BP 136/88; PULSE 57; RESP 18; O2SAT 97; BMI 27.6
--- NOTE | 2022-07-25 11:43 | EXP.PAIN.SOA ---
[facility] Pain Management SOAP Note Subjective:: Patient is a pleasant 71-year-old female who presents today for medication refill and follow-up. We are currently treating the patient for osteoarthritis bilateral knees. Today she rates her pain a 0 out of 10. Patient denies any new trauma or injury. Patient denies any change location or type of pain she experiences. Patient is currently managed with tramadol 50 mg twice a day and gabapentin 100 mg twice a day. Patient denies any side effects from this medication. She is requesting a refill at today's visit. Her Kyaw is [id number]. Its been reviewed and appropriate. Review of Systems: General: No recent weight changes, no fever, no sleep disturbances Respiratory: No cough, no shortness of air, no recurring pulmonary infections Cardiovascular/peripheral vascular: No chest pain, no palpitations, no edema, no shortness of breath Gastrointestinal: No new onset incontinence, normal bowel movements reported Genitourinary: No new onset incontinence Musculoskeletal: Knee pain Psychiatric: [Normal mood/affect] Neurological: [Denies weakness in extremities], [denies balance issues] Objective:: Physical Exam: General: Alert and oriented x3, no acute distress, pleasant and cooperative Lungs: Respirations even and unlabored, symmetrical chest expansion Eyes: PERRL Musculoskeletal: Flexion and extension of bilateral knees somewhat guarded secondary to pain, [antalgic gait noted] Neurological: Speech clear, no gross sensory deficit ORT score updated with low risk Assessment:: Osteoarthritis bilateral knees Plan:: Patient continues to do well with her current medication regimen. I will refill her tramadol 50 mg twice a day and gabapentin 100 mg twice a day and provide a 1 month supply of this medication. Patient will return to clinic in 1 month for reevaluation of symptoms, medication refill and follow-up. Patient has been instructed to contact the clinic with any concerns before the next appointment. Dr. Valderrama has reviewed this note and agrees with this plan of care. This note was dictated using voice recognition software and make contain errors or omissions. [facility] Disclaimer: The information contained in this section may have been updated after the patient was seen, as this information can be updated by other users. 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) History of carpal tunnel surgery of left wrist History of carpal tunnel surgery of right wrist History of colon resection History of total left knee replacement History of total right knee replacement Hx of thyroidectomy Mechanical heart valve present Status post aortic valve replacement Family History , 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
== END | disposition home or self-care (01) ==
PROVIDERS: PCP Nurse Practitioner Family; Visit Provider Nurse Practitioner Family
DX: M17.0 Bilateral primary osteoarthritis of knee (principal)
CPT/HCPCS: 99212; G0463

== ENCOUNTER → 2022-07-27 08:55 | Outpatient (CLI) | payer MEDICARE, OTHER, SELFPAY ==
[2022-07-27 09:16] LABS: Blood Urea Nitrogen 30 mg/dl (7-17); Estimated Glomerular Filt Rate 34 ml/min (>60); GFR (African American) 42 ML/MIN (>60)
== END ==
PROVIDERS: PCP Nurse Practitioner Family; Visit Provider Nurse Practitioner Family
DX: Z01.812 Encounter for preprocedural laboratory examination (principal); R42 Dizziness and giddiness; H53.9 Unspecified visual disturbance
CPT/HCPCS: 36415; 82565; 84520

== ENCOUNTER 2022-07-29 10:36 | Outpatient (CLI) | payer MEDICARE, OTHER, SELFPAY ==
[2022-07-29 12:32] LABS: Prothrombin Time 50.3 seconds (10.1-12.5)
[2022-07-29 12:33] LABS: INR 5.11 (0.9-1.1)
[2022-07-29 13:12] LABS: PHA INR Fingerstick 4.9 (0.9-1.1)
== END 2022-07-29 13:14 ==
PROVIDERS: Pharmacist; PCP Internal Medicine Adolescent Medicine; Visit Provider Internal Medicine Adolescent Medicine
DX: Z51.81 Encounter for therapeutic drug level monitoring (principal); Z79.01 Long term (current) use of anticoagulants
CPT/HCPCS: 36415; 85610; 99211; G0463

== ENCOUNTER 2022-08-12 10:51 | Outpatient (CLI) | payer MEDICARE, OTHER, SELFPAY ==
[2022-08-12 12:16] LABS: INR 3.78 (0.9-1.1); Prothrombin Time 37.9 seconds (10.1-12.5)
[2022-08-12 15:51] LABS: PHA INR Fingerstick 4.1 (0.9-1.1)
== END 2022-08-12 16:01 ==
PROVIDERS: PCP Internal Medicine Adolescent Medicine; Visit Provider Internal Medicine Adolescent Medicine
DX: Z51.81 Encounter for therapeutic drug level monitoring (principal); Z79.01 Long term (current) use of anticoagulants
CPT/HCPCS: 36415; 85610; 99211; G0463

== ENCOUNTER → 2022-08-22 10:25 | Outpatient (CLI) | payer MEDICARE, OTHER, SELFPAY ==
[2022-08-22 11:54] LABS: Basophils # 0.1 K/mm3 (0-0.2); Basophils % 0.6 % (0.1-2.0); Eosinophils # 0.1 K/mm3 (0.0-0.4); Eosinophils % 0.6 % (0.1-12.0); Hematocrit 25.7 % (37.0-47.0); Hemoglobin 7.8 g/dL (12.2-16.2); Lymphocytes # 0.7 K/mm3 (0.7-4.5); Lymphocytes % 7.8 % (10-50); Mean Corpuscular HGB Conc 30.3 g/dL (31.8-35.4); Mean Corpuscular Hemoglobin 23.7 pg (27.0-31.2); Mean Corpuscular Volume 78.2 fl (81-99); Mean Platelet Volume 8.8 fl (7.4-10.4); Monocytes # 0.5 K/mm3 (0.1-1.0); Monocytes % 5.6 % (1.7-9.3); Neutrophils # 7.2 K/mm3 (1.8-7.8); Neutrophils % 85.5 % (37.0-80.0); Platelet Count 290 K/mm3 (142-424); Red Blood Count 3.29 M/mm3 (4.20-5.40); Red Cell Distribution Width 19.2 % (11.5-17.5); White Blood Count 8.5 K/mm3 (4.8-10.8)
[2022-08-22 11:58] LABS: MANUAL DIFFERENTIAL MANUAL DIFFERENTIAL (MANUAL DIFF)
[2022-08-22 12:07] LABS: INR 3.01 (0.9-1.1); Prothrombin Time 30.5 seconds (10.1-12.5)
[2022-08-22 12:30] LABS: Alanine Aminotransferase 21 U/L (12-78); Albumin Level 3.1 g/dl (3.5-5.0); Albumin/Globulin Ratio 1.3 (1.1-1.8); Alkaline Phosphatase 85 U/L (38-126); Anion Gap 6.5 mEq/L (5-15); Aspartate Amino Transferase 30 U/L (14-36); Bilirubin,Total 0.3 mg/dl (0.2-1.3); Blood Urea Nitrogen 23 mg/dl (7-17); Calcium 7.7 mg/dl (8.4-10.2); Carbon Dioxide 27 mmol/L (22.0-30.0); Chloride 106 mmol/L (98-107); Estimated Glomerular Filt Rate 32 ml/min (>60); GFR (African American) 39 ML/MIN (>60); Globulin 2.4 g/dL (1.3-3.2); Glucose 102 mg/dl (74-100); Magnesium 1.5 mg/dl (1.6-2.3); Potassium 3.5 mmoL/L (3.5-5.1); Sodium 136 mmol/L (136-145); Total Protein,Serum 5.5 g/dl (6.3-8.2)
[2022-08-22 12:38] LABS: Hypochromasia 1+; Lymphocytes % 5 % (10-50); Microcytosis 1+; Monocytes % 5 % (2-9); Neutrophils % 90 % (42-76); Total Cells Counted 100
[2022-08-22 12:39] LABS: Platelet Estimate Normal
[2022-08-22 12:40] LABS: Anisocytosis 1+; NT Pro Brain Natriuretic Pep. 2130 pg/mL (0-125); Ovalocytes 1+
[2022-08-22 12:41] LABS: Poikilocytosis 1+
[2022-08-22 13:01] LABS: Thyroid Stimulating Hormone 2.22 uIU/mL (0.465-4.68)
== END ==
PROVIDERS: PCP Nurse Practitioner Family; Visit Provider Nurse Practitioner Family
DX: R06.02 Shortness of breath (principal); E03.9 Hypothyroidism, unspecified; I49.1 Atrial premature depolarization; E78.5 Hyperlipidemia, unspecified; Z51.81 Encounter for therapeutic drug level monitoring; Z79.01 Long term (current) use of anticoagulants; Z95.2 Presence of prosthetic heart valve
CPT/HCPCS: 36415; 80053; 83735; 83880; 84443; 85007; 85025; 85610

== ENCOUNTER 2022-08-24 07:59 | Outpatient (CLI) | payer MEDICARE, OTHER, SELFPAY ==
[2022-08-24] VITALS (11 sets, daily range): BP systolic 131–165; BP diastolic 65–90; PULSE 93–116; RESP 18; TEMP 36.4–36.6; O2SAT 96–98; BMI 33.5
[2022-08-24 10:19] LABS: Iron 65 ug/dL (37-170)
[2022-08-24 10:35] LABS: Total Iron Binding Capacity 325 ug/dL (265-497)
--- NOTE | 2022-08-24 10:39 | PC.NURSE ---
1 unit PRBC ordered per Evelia Etienne for symptomatic anemia. Pt reports extreme fatigue and SOA.
[2022-08-24 10:56] LABS: Ferritin 31.9 ng/ml (11.1-264)
[2022-08-24 10:57] LABS: Vitamin B12 467 pg/mL (239-931)
[2022-08-24 11:03] LABS: Folate > 20.00 ng/mL
== END 2022-08-24 12:41 | disposition home or self-care (01) ==
LOC: INF 08:00
PROVIDERS: PCP Nurse Practitioner Family; Visit Provider Nurse Practitioner Family
DX: D50.9 Iron deficiency anemia, unspecified (principal)
CPT/HCPCS: 36430; 82607; 82728; 82746; 83540; 83550; 86850; P9016

== ENCOUNTER → 2022-08-25 11:27 | Outpatient (POV) | payer MEDICARE, OTHER, SELFPAY ==
--- NOTE | 2022-08-25 11:46 | EXP.PAIN.SOA ---
[facility] Pain Management SOAP Note Subjective:: Patient is a pleasant 72-year-old female who presents today for follow-up and medication refill. We are currently treating the patient for osteoarthritis bilateral knees. Today she rates her pain a 3 out of 10. Patient denies any new trauma or injury. Patient denies any change location or type of pain she experiences. She is currently managed on tramadol 50 mg twice a day and gabapentin 100 mg twice a day. Patient denies any side effects from these medications. She is requesting a refill at today's visit. Her Kyaw is [id number]. Its been reviewed and appropriate. Review of Systems: General: No recent weight changes, no fever, no sleep disturbances Respiratory: No cough, no shortness of air, no recurring pulmonary infections Cardiovascular/peripheral vascular: No chest pain, no palpitations, no edema, no shortness of breath Gastrointestinal: No new onset incontinence, normal bowel movements reported Genitourinary: No new onset incontinence Musculoskeletal: Bilateral knee pain Psychiatric: [Normal mood/affect] Neurological: [Denies weakness in extremities], [denies balance issues] Objective:: Physical Exam: General: Alert and oriented x3, no acute distress, pleasant and cooperative Lungs: Respirations even and unlabored, symmetrical chest expansion Eyes: PERRL Musculoskeletal: Flexion and extension of bilateral knees somewhat guarded secondary to pain, [antalgic gait noted] Neurological: Speech clear, no gross sensory deficit Assessment:: Osteoarthritis bilateral knees Plan:: Patient is doing well with her current medication regimen. I will refill her gabapentin 100 mg twice a day and tramadol 50 mg twice a day and provide a 1 month supply of this medication. Patient will return to clinic in 1 month for reevaluation of symptoms, medication refill and follow-up. Patient has been instructed to contact the clinic with any concerns before the next appointment. Dr. Valderrama has reviewed this note and agrees with this plan of care. This note was dictated using voice recognition software and make contain errors or omissions. [facility] Disclaimer: The information contained in this section may have been updated after the patient was seen, as this information can be updated by other users. 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) History of carpal tunnel surgery of left wrist History of carpal tunnel surgery of right wrist History of colon resection History of total left knee replacement History of total right knee replacement Hx of thyroidectomy Mechanical heart valve present Status post aortic valve replacement Family History , LINING LAYER) Kidney disease Mother Breast cancer Sister Cancer Father Hypertension Brother Social History Smoking Status: Former smoker second hand exposure: No alcohol intake: never substance use type: prescription drug current occupational status: retired Travel in the last 8 weeks: None household members: none housing: house 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
[2022-08-25 12:38] VITALS: BP 156/78; PULSE 103; RESP 18; O2SAT 97; BMI 29.4
== END | disposition home or self-care (01) ==
PROVIDERS: PCP Nurse Practitioner Family; Visit Provider Nurse Practitioner Family
DX: M17.0 Bilateral primary osteoarthritis of knee (principal)
CPT/HCPCS: 99212; G0463

== ENCOUNTER → 2022-09-02 11:29 | Outpatient (CLI) | payer MEDICARE, OTHER, SELFPAY ==
[2022-09-02 12:17] LABS: Basophils # 0.1 K/mm3 (0-0.2); Basophils % 0.8 % (0.1-2.0); Eosinophils # 0.1 K/mm3 (0.0-0.4); Eosinophils % 1.3 % (0.1-12.0); Hematocrit 33.2 % (37.0-47.0); Hemoglobin 9.9 g/dL (12.2-16.2); Lymphocytes # 1.1 K/mm3 (0.7-4.5); Lymphocytes % 9.7 % (10-50); Mean Corpuscular HGB Conc 29.9 g/dL (31.8-35.4); Mean Corpuscular Hemoglobin 23.8 pg (27.0-31.2); Mean Corpuscular Volume 79.5 fl (81-99); Mean Platelet Volume 8.8 fl (7.4-10.4); Monocytes # 0.6 K/mm3 (0.1-1.0); Monocytes % 5.3 % (1.7-9.3); Neutrophils # 9.3 K/mm3 (1.8-7.8); Neutrophils % 82.9 % (37.0-80.0); Platelet Count 322 K/mm3 (142-424); Red Blood Count 4.17 M/mm3 (4.20-5.40); Red Cell Distribution Width 18.6 % (11.5-17.5); White Blood Count 11.2 K/mm3 (4.8-10.8)
[2022-09-02 14:21] LABS: INR 5.71 (0.9-1.1); Prothrombin Time 55.9 seconds (10.1-12.5)
== END ==
PROVIDERS: Nurse Practitioner Family; PCP Internal Medicine Adolescent Medicine; Visit Provider Internal Medicine Adolescent Medicine
DX: Z51.81 Encounter for therapeutic drug level monitoring (principal); Z79.01 Long term (current) use of anticoagulants; Z95.2 Presence of prosthetic heart valve
CPT/HCPCS: 36415; 85025; 85610

== ENCOUNTER → 2022-09-05 11:30 | Outpatient (CLI) | payer MEDICARE, OTHER, SELFPAY ==
[2022-09-05 12:55] LABS: Basophils # 0.1 K/mm3 (0-0.2); Basophils % 0.4 % (0.1-2.0); Eosinophils # 0.1 K/mm3 (0.0-0.4); Hematocrit 31.2 % (37.0-47.0); Hemoglobin 9.5 g/dL (12.2-16.2); Lymphocytes # 1.1 K/mm3 (0.7-4.5); Lymphocytes % 8.7 % (10-50); Mean Corpuscular HGB Conc 30.5 g/dL (31.8-35.4); Mean Corpuscular Volume 78.7 fl (81-99); Monocytes # 0.7 K/mm3 (0.1-1.0); Neutrophils # 11.1 K/mm3 (1.8-7.8); Neutrophils % 84.9 % (37.0-80.0); Platelet Count 324 K/mm3 (142-424); Red Blood Count 3.96 M/mm3 (4.20-5.40); Red Cell Distribution Width 18.7 % (11.5-17.5)
[2022-09-05 13:03] LABS: INR 3.58 (0.9-1.1)
[2022-09-05 13:09] LABS: Chloride 104 mmol/L (98-107); Potassium 3.1 mmoL/L (3.5-5.1); Sodium 142 mmol/L (136-145)
[2022-09-05 13:12] LABS: Anion Gap 6.1 mEq/L (5-15); Blood Urea Nitrogen 26 mg/dl (7-17); Calcium 7.9 mg/dl (8.4-10.2); Carbon Dioxide 35 mmol/L (22.0-30.0); Estimated Glomerular Filt Rate 34 ml/min (>60); GFR (African American) 42 ML/MIN (>60); Glucose 97 mg/dl (74-100); Magnesium 1.9 mg/dl (1.6-2.3)
[2022-09-05 14:18] LABS: Occult Blood,Stool Positive (Negative)
== END ==
PROVIDERS: PCP Internal Medicine Adolescent Medicine; Visit Provider Nurse Practitioner Family
DX: D50.9 Iron deficiency anemia, unspecified (principal); E83.42 Hypomagnesemia; I48.0 Paroxysmal atrial fibrillation; Z51.81 Encounter for therapeutic drug level monitoring; Z79.01 Long term (current) use of anticoagulants
CPT/HCPCS: 36415; 80048; 82272; 83735; 85025; 85610; G0328

== ENCOUNTER 2022-09-09 12:18 | Outpatient (CLI) | payer MEDICARE, OTHER, SELFPAY ==
[2022-09-09 14:53] LABS: PHA INR Fingerstick 2.3 (0.9-1.1)
== END 2022-09-09 14:59 ==
LOC: ACC 12:19
PROVIDERS: PCP Internal Medicine Adolescent Medicine; Visit Provider Nurse Practitioner Family
DX: Z51.81 Encounter for therapeutic drug level monitoring (principal); Z79.01 Long term (current) use of anticoagulants; Z95.2 Presence of prosthetic heart valve
CPT/HCPCS: 85610; 99211; G0463

== ENCOUNTER 2022-09-21 12:01 | Outpatient (CLI) | payer MEDICARE, OTHER, SELFPAY ==
[2022-09-21 12:49] LABS: PHA INR Fingerstick 3.2 (0.9-1.1)
== END 2022-09-21 12:52 ==
LOC: ACC 12:02
PROVIDERS: PCP Internal Medicine Adolescent Medicine; Visit Provider Internal Medicine Adolescent Medicine
DX: Z51.81 Encounter for therapeutic drug level monitoring (principal); Z79.01 Long term (current) use of anticoagulants; Z95.2 Presence of prosthetic heart valve
CPT/HCPCS: 85610; 99211; G0463

== ENCOUNTER → 2022-09-22 11:35 | Outpatient (POV) | payer MEDICARE, OTHER, SELFPAY ==
[2022-09-22 12:22] VITALS: BP 109/79; PULSE 88; RESP 18; O2SAT 97; BMI 30.4
--- NOTE | 2022-09-22 12:27 | EXP.PAIN.SOA ---
[facility] Pain Management SOAP Note Subjective:: Patient is a pleasant 72-year-old female who presents today for medication refill and follow-up. We are currently treating the patient for generalized joint pain and osteoarthritis of bilateral knees. Today she rates her pain a 10 out of 10. She states that she continues to have overall joint pain however her shoulders have been killing her lately. Patient denies any new trauma or injury. Patient does describe this as an aching, throbbing sensation that is worse with increased activity. She states she has very limited range of motion of these joints due to her pain. It does interfere with her ability to perform activities of daily living such as cooking and cleaning. This has been going on for years and states that they had discussed with an orthopedic doctor about replacements however she does not want to do surgery due to her age and the extent of recovery. Patient is currently managed on tramadol 50 mg twice a day and gabapentin 100 mg twice a day. Patient denies any side effects from these medications. Her Kyaw is [id number]. Its been reviewed and appropriate. Review of Systems: General: No recent weight changes, no fever, no sleep disturbances Respiratory: No cough, no shortness of air, no recurring pulmonary infections Cardiovascular/peripheral vascular: No chest pain, no palpitations, no edema, no shortness of breath Gastrointestinal: No new onset incontinence, normal bowel movements reported Genitourinary: No new onset incontinence Musculoskeletal: Bilateral shoulder pain, generalized joint pain Psychiatric: [Normal mood/affect] Neurological: [Denies weakness in extremities], [denies balance issues] Objective:: Physical Exam: General: Alert and oriented x3, no acute distress, pleasant and cooperative Lungs: Respirations even and unlabored, symmetrical chest expansion Eyes: PERRL Musculoskeletal: Flexion and extension of bilateral shoulders somewhat guarded secondary to pain, [antalgic gait noted] Neurological: Speech clear, no gross sensory deficit Assessment:: Generalized joint pain, osteoarthritis bilateral knees, bilateral shoulder pain Plan:: Patient is experiencing significant pain in her bilateral shoulders with limited range of motion. I have discussed with the patient that she may benefit from intra-articular shoulder injections. Risk and benefits were discussed with the patient and she would like to proceed forward with this plan of care. I will also refill her tramadol 50 mg and change it to 3 times daily along with her gabapentin 100 mg twice a day and provide a 1 month supply of these medications. I have also counseled the patient that in the future if she does not get significant relief with these injections we may try a suprascapular nerve block or proceed forward with a peripheral nerve stimulator. We will discuss these options at later visits. Patient will be scheduled for bilateral intra-articular shoulder injections. Patient has been instructed to contact the clinic with any concerns before the next appointment. Dr. Valderrama has reviewed this note and agrees with this plan of care. This note was dictated using voice recognition software and make contain errors or omissions. [facility] Disclaimer: The information contained in this section may have been updated after the patient was seen, as this information can be updated by other users. 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
== END | disposition home or self-care (01) ==
PROVIDERS: PCP Nurse Practitioner Family; Visit Provider Nurse Practitioner Family
DX: M19.90 Unspecified osteoarthritis, unspecified site (principal); M25.50 Pain in unspecified joint; M17.0 Bilateral primary osteoarthritis of knee
CPT/HCPCS: 99212; G0463

== ENCOUNTER → 2022-09-22 12:06 | Outpatient (CLI) | payer MEDICARE, OTHER, SELFPAY ==
[2022-09-22 13:03] LABS: Amphetamine/Metha Screen,Urine Negative ng/ml (<1000)
[2022-09-22 13:04] LABS: Barbiturates Screen,Urine Negative ng/ml (<200)
[2022-09-22 13:05] LABS: Benzodiazepines Screen,Urine Negative ng/ml (<200); Cannabinoid Screen,Urine Negative ng/ml (<50)
[2022-09-22 13:06] LABS: Cocaine Screen,Urine Negative ng/ml (<300); Methadone Screen,Urine Negative ng/ml (<300)
[2022-09-22 13:07] LABS: Opiate Screen,Urine Negative ng/ml (<300)
[2022-09-22 13:08] LABS: Phencyclidine Screen,Urine Negative ng/ml (<25)
[2022-09-27 17:37] LABS: Opiates Negative (Cutoff=100)
== END ==
PROVIDERS: Nurse Practitioner Family; PCP Nurse Practitioner Family; Visit Provider Anesthesiology
DX: Z79.891 Long term (current) use of opiate analgesic (principal)
CPT/HCPCS: 80305; 80361; 80365; 99212; G0463; G0480

== ENCOUNTER 2022-10-04 11:38 | Day surgery (SDC) | payer MEDICARE, OTHER, SELFPAY ==
[2022-10-04 11:49] VITALS: BP 155/83; PULSE 101; RESP 18; TEMP 36.5; O2SAT 94; BMI 28.5
[2022-10-04 11:57] VITALS: BP 166/75; PULSE 87; RESP 18; O2SAT 94
--- NOTE | 2022-10-04 11:59 | P.PCN_ITS ---
Procedure Date: 10/04/22 Time: 11:45 Anesthesiologist:: Kt Jorgensen CRNA Complications:: None Pre-procedure Diagnosis:: Bilateral shoulder osteoarthritis. Post-procedure Diagnosis:: Same. Indications for Procedure:: Patient is a pleasant 72-year-old female comes our clinic today for bilateral intra-articular shoulder injections. Patient has limited range of motion bilateral shoulders. Upon examination she has good strength and equal bilateral arms. Patient is describes having difficulty with reaching overhead due to pain. Procedure Details:: Procedure Details: Bilateral shoulder intra-articular injection Informed consent was obtained risk and benefits of the procedure were explained to the patient. Patient was taken to the procedure room. The right shoulder was prepped using ChloraPrep. A 25-gauge needle was used first anteriorly, laterally, and then posteriorly to inject 10 mL bupivacaine 0.25% and Depo- Medrol 40 mg. Patient tolerated procedure well with no complications. Plan and Disposition:: Patient was discharged without incident.
== END 2022-10-04 11:57 | disposition home or self-care (01) ==
PROVIDERS: PCP Nurse Practitioner Family; Visit Provider Nurse Anesthetist, Certified Registered
DX: M19.011 Primary osteoarthritis, right shoulder (principal); M19.012 Primary osteoarthritis, left shoulder
CPT/HCPCS: 20610; J1040

== ENCOUNTER → 2022-10-10 09:06 | Outpatient (CLI) | payer MEDICARE, OTHER, SELFPAY ==
[2022-10-10 11:04] LABS: Basophils % 0.3 % (0.1-2.0); Eosinophils # 0.2 K/mm3 (0.0-0.4); Eosinophils % 2.3 % (0.1-12.0); Hematocrit 29.9 % (37.0-47.0); Hemoglobin 8.9 g/dL (12.2-16.2); Lymphocytes % 9.7 % (10-50); Mean Corpuscular HGB Conc 29.8 g/dL (31.8-35.4); Mean Corpuscular Hemoglobin 22.9 pg (27.0-31.2); Mean Corpuscular Volume 76.7 fl (81-99); Mean Platelet Volume 9.2 fl (7.4-10.4); Monocytes # 0.7 K/mm3 (0.1-1.0); Monocytes % 6.9 % (1.7-9.3); Neutrophils # 8.6 K/mm3 (1.8-7.8); Neutrophils % 80.7 % (37.0-80.0); Platelet Count 312 K/mm3 (142-424); Red Cell Distribution Width 18.5 % (11.5-17.5); White Blood Count 10.6 K/mm3 (4.8-10.8)
[2022-10-10 11:22] LABS: Iron 81 ug/dL (37-170)
[2022-10-10 11:31] LABS: Total Iron Binding Capacity 305 ug/dL (265-497)
[2022-10-10 11:58] LABS: Ferritin 53.6 ng/ml (11.1-264)
[2022-10-10 12:26] LABS: Vitamin B12 558 pg/mL (239-931)
[2022-10-10 12:58] LABS: Folate > 20.00 ng/mL
[2022-10-11 08:20] LABS: CEA 4.7 ng/mL (0.0-4.7)
== END ==
PROVIDERS: PCP Nurse Practitioner Family; Visit Provider Internal Medicine Medical Oncology
DX: D64.9 Anemia, unspecified (principal); C18.9 Malignant neoplasm of colon, unspecified
CPT/HCPCS: 36415; 82378; 82607; 82728; 82746; 83540; 83550; 85025

== ENCOUNTER → 2022-10-11 12:06 | Outpatient (CLI) | payer MEDICARE, OTHER, SELFPAY | PROVIDERS: PCP Nurse Practitioner Family; Visit Provider Nurse Practitioner Family | DX: G47.33 Obstructive sleep apnea (adult) (pediatric) (principal); R06.83 Snoring | CPT/HCPCS: G0399 ==

== ENCOUNTER 2022-10-14 15:31 | Emergency (ER) | payer MEDICARE, OTHER, SELFPAY ==
[2022-10-14] VITALS (7 sets, daily range): BP systolic 148–161; BP diastolic 66–83; PULSE 75–87; RESP 16; TEMP 36.6; O2SAT 97–100; BMI 26.4
--- NOTE | 2022-10-14 15:43 | HMH.EDEPIS ---
Discharge Plan Disposition Patient Disposition: Home, Self-Care Chief Complaint: Epistaxis Prescriptions Prescriptions: No Action calcium carbonate 600 mg calcium (1,500 mg) tablet 600 mg PO DAILY potassium chloride 10 mEq tablet extended release 30 meq PO DAILY Label Comments: TAKE 3 TABLETS BY MOUTH EVERY DAY amoxicillin 875 mg tablet 875 mg PO DAILY magnesium oxide 400 mg (241.3 mg magnesium) tablet 400 mg PO DAILY Label Comments: TAKE 1 TABLET BY MOUTH EVERY DAY metoprolol tartrate 50 mg tablet 50 mg PO BID omeprazole 20 mg capsule,delayed release(DR/EC) 20 mg PO BID Label Comments: TAKE 1 CAPSULE BY MOUTH TWICE DAILY Otezla Starter 10 mg (4)-20 mg (4)-30 mg (47) tablets,dose pack 1 tab PO multivitamin 1 EACH capsule 1 each PO DAILY rosuvastatin 5 MG tablet 5 mg PO HS levothyroxine 200 mcg tablet 200 mcg PO DAILY Label Comments: TAKE 1 TABLET BY MOUTH EVERY DAY warfarin 3 mg tablet 1.5 mg PO MOWEFR Label Comments: TAKE 1 TABLET BY MOUTH EVERY DAY warfarin 3 MG tablet 3 mg PO SUTUTHSA ferrous fumarate 55 mg (18 mg iron) Tablet Extended Release 55 mg PO DAILY tramadol 50 MG tablet 50 mg PO TID Qty: 90 0RF gabapentin 100 mg capsule 100 mg PO BID Qty: 60 0RF Referrals Follow up/Referrals: Atiya Etienne APRN [Primary Care Provider] - See instructions Activity Restrictions/Add. Instructions Additional Instructions/Restrictions: Follow-up with your ear nose and throat doctor early next week. Return to the emergency department immediately if you feel worse in any way. Continue taking all medications as prescribed. Clinical Impressions Clinical Impression: Epistaxis Instructions Patient Instructions: DI for Nosebleed Discharge ED Provider: Alfredo Hester Epistaxis HPI General Chief complaint: Epistaxis Stated complaint: Nose Bleed,now coughing up blood Time Seen by Provider: 10/14/22 15:38 Mode of Arrival: Family Vehicle Source of Information: Patient History of Present Illness HPI Narrative: The patient presents to the emergency department complaining of coughing up blood after having had a nosebleed earlier today. She is on Coumadin for an artificial heart valve. She has a history of frequent nosebleeds. She was seen by an learning and development officer a few weeks ago for cauterization. She states that when she says coughing she means that she is gagging from a discomfort in her posterior pharynx. Related Data Home Medications Medication Instructions Recorded Confirmed multivitamin 1 each PO DAILY Supplement 08/09/17 10/10/22 rosuvastatin 5 mg tablet 5 mg PO HS Cholesterol 05/31/19 10/10/22 calcium carbonate 600 mg calcium 600 mg PO DAILY Supplement 11/25/19 10/10/22 (1,500 mg) tablet warfarin 3 mg tablet 3 mg PO SUTUTHSA mechanical valve 03/05/21 10/10/22 ferrous fumarate 55 mg (18 mg 55 mg PO DAILY Supplement 01/27/22 10/10/22 iron) tablet,extended release levothyroxine 200 mcg tablet 200 mcg PO DAILY THYROID 04/15/22 10/10/22 warfarin 3 mg tablet 1.5 mg PO MOWEFR MECHANICAL VALVE 04/15/22 10/10/22 amoxicillin 875 mg tablet 875 mg PO DAILY 10/10/22 10/10/22 apremilast 10 mg (4)-20 mg (4)-30 1 tab PO 10/10/22 10/10/22 mg (47) tablets in a dose pack (Otezla Starter) magnesium oxide 400 mg (241.3 mg 400 mg PO DAILY 10/10/22 10/10/22 magnesium) tablet metoprolol tartrate 50 mg tablet 50 mg PO BID 10/10/22 10/10/22 omeprazole 20 mg capsule,delayed 20 mg PO BID 10/10/22 10/10/22 release potassium chloride 10 mEq 30 meq PO DAILY 10/10/22 10/10/22 tablet,extended release Previous Rx's Medication Instructions Recorded gabapentin 100 mg capsule 100 mg PO BID Pain #60 caps 09/22/22 tramadol 50 mg tablet 50 mg PO TID Pain #90 tabs 09/22/22 Allergies Allergy/AdvReac Type Severity Reaction Status Date / Time No Known Allergies Allergy
[2022-10-14 16:17] LABS: INR 2.88 (0.9-1.1); Prothrombin Time 29.3 seconds (10.1-12.5)
--- NOTE | 2022-10-14 16:45 | PC.NURSE ---
gave pt bLanket son at beside nothing else needed at this time
--- NOTE | 2022-10-14 16:50 | PC.NURSE ---
Rounded on paiet updated on plan of care. Call duarte within reach of patient
--- NOTE | 2022-10-14 17:41 | PC.NURSE ---
updated pt that we were still waiting for er md to finish paperwork, nothing needed at this time
== END 2022-10-14 18:11 | disposition home or self-care (01) ==
PROVIDERS: Emergency Provider Emergency Medicine; PCP Nurse Practitioner Family
DX: R04.0 Epistaxis (principal); I10 Essential (primary) hypertension; E03.9 Hypothyroidism, unspecified; E78.5 Hyperlipidemia, unspecified; Z95.2 Presence of prosthetic heart valve
CPT/HCPCS: 85610; 99283

== ENCOUNTER → 2022-10-19 14:56 | Outpatient (CLI) | payer MEDICARE, OTHER, SELFPAY ==
[2022-10-19 16:05] LABS: Basophils # 0.1 K/mm3 (0-0.2); Basophils % 0.4 % (0.1-2.0); Eosinophils # 0.1 K/mm3 (0.0-0.4); Eosinophils % 0.8 % (0.1-12.0); Hematocrit 26.6 % (37.0-47.0); Hemoglobin 7.9 g/dL (12.2-16.2); Lymphocytes # 0.8 K/mm3 (0.7-4.5); Lymphocytes % 5.8 % (10-50); Mean Corpuscular HGB Conc 29.6 g/dL (31.8-35.4); Mean Corpuscular Hemoglobin 22.9 pg (27.0-31.2); Mean Corpuscular Volume 77.4 fl (81-99); Mean Platelet Volume 8.5 fl (7.4-10.4); Monocytes # 0.6 K/mm3 (0.1-1.0); Monocytes % 4.5 % (1.7-9.3); Neutrophils # 11.7 K/mm3 (1.8-7.8); Neutrophils % 88.4 % (37.0-80.0); Platelet Count 366 K/mm3 (142-424); Red Blood Count 3.44 M/mm3 (4.20-5.40); Red Cell Distribution Width 18.3 % (11.5-17.5); White Blood Count 13.2 K/mm3 (4.8-10.8)
[2022-10-19 16:07] LABS: MANUAL DIFFERENTIAL MANUAL DIFFERENTIAL (MANUAL DIFF)
[2022-10-19 16:14] LABS: Chloride 106 mmol/L (98-107); Sodium 140 mmol/L (136-145)
[2022-10-19 16:15] LABS: Potassium 4.5 mmoL/L (3.5-5.1)
[2022-10-19 16:18] LABS: Anion Gap 13.5 mEq/L (5-15); Blood Urea Nitrogen 16 mg/dl (7-17); Calcium 8.1 mg/dl (8.4-10.2); Carbon Dioxide 25 mmol/L (22.0-30.0); Estimated Glomerular Filt Rate 40 ml/min (>60); GFR (African American) 49 ML/MIN (>60); Glucose 132 mg/dl (74-100)
[2022-10-19 17:46] LABS: Prothrombin Time 55.3 seconds (10.1-12.5)
[2022-10-19 17:47] LABS: INR 5.65 (0.9-1.1)
[2022-10-19 20:42] LABS: Anisocytosis 2+; Hypochromasia 2+; Lymphocytes % 14 % (10-50); Monocytes % 5 % (2-9); Neutrophils % 81 % (42-76); Platelet Estimate Normal; Total Cells Counted 100
== END ==
PROVIDERS: PCP Nurse Practitioner Family; Visit Provider Nurse Practitioner Family
DX: R04.0 Epistaxis (principal); D62 Acute posthemorrhagic anemia; Z95.2 Presence of prosthetic heart valve
CPT/HCPCS: 36415; 80048; 85007; 85025; 85610; 86850

== ENCOUNTER 2022-10-20 08:24 | Outpatient (CLI) | payer MEDICARE, OTHER, SELFPAY ==
[2022-10-20] VITALS (19 sets, daily range): BP systolic 127–191; BP diastolic 74–97; PULSE 91–108; RESP 16–18; TEMP 36.3–36.9; O2SAT 94–97; BMI 26.4
--- NOTE | 2022-10-20 09:19 | PC.NURSE ---
PT HAS HAD NOSE BLEED SINCE 10/14/22 AND HAD RHINO ROCKET PLACED IN LEFT NOSTRIL ON 10/17/22 WITH ACUTE BLOOD LOSS ANEMIA. PT IS ON WARFARIN FOR ARTIFICIAL AORTIC HEART VALVE AND INR WAS 5.65. PT IS FEELING WEAKER, LIGHT HEADED, NAUSEOUS, AND MORE FATIGUED. HGB 7.9 YESTERDAY.
[2022-10-20 09:35] LABS: INR 6.32 (0.9-1.1); Prothrombin Time 61.5 seconds (10.1-12.5)
--- NOTE | 2022-10-20 10:08 | PC.NURSE ---
1006-RATE INCREASED FROM 100 ML/HR TO 150 ML/HR AT THIS TIME.
--- NOTE | 2022-10-20 10:43 | PC.NURSE ---
1036-INCREASED RATE TO 200 ML/HR AT THIS TIME.
--- NOTE | 2022-10-20 11:45 | PC.NURSE ---
RATE WAS INCREASED TO 250 ML/HR AT 1106.
--- NOTE | 2022-10-20 11:58 | PC.NURSE ---
1155-BLOOD TRANSFUSION STARTED AT 100 ML/HR AT THIS TIME.
--- NOTE | 2022-10-20 12:31 | PC.NURSE ---
1225-INCREASED RATE TO 150 ML/HR AT THIS TIME.
--- NOTE | 2022-10-20 13:18 | PC.NURSE ---
1255-INCREASED RATE TO 200 ML/HR AT THIS TIME.
--- NOTE | 2022-10-20 14:53 | PC.NURSE ---
TRANSFUSION RATE WAS INCREASED TO 250 ML/HR AT 1325.
== END 2022-10-20 14:58 | disposition home or self-care (01) ==
LOC: INF 08:25
PROVIDERS: PCP Nurse Practitioner Family; Visit Provider Nurse Practitioner Family
DX: Z51.81 Encounter for therapeutic drug level monitoring (principal); Z79.01 Long term (current) use of anticoagulants; D62 Acute posthemorrhagic anemia
CPT/HCPCS: 36430; 85610; P9016

== ENCOUNTER → 2022-10-21 11:52 | Outpatient (CLI) | payer MEDICARE, OTHER, SELFPAY ==
--- NOTE | 2022-10-21 14:07 | HMH.PHAINT1 ---
Pharmacy Intervention Comments: PATIENT INR WAS 5.12 TODAY IN LAB. HAVING PATIENT HOLD DOSE TODAY 10/21/22 AND TAKE 1.5 MG DAILY OVER WEEKEND. WILL FOLLOW UP ON MONDAY.
[2022-10-21 14:30] LABS: INR 5.12 (0.9-1.1); Prothrombin Time 50.4 seconds (10.1-12.5)
== END ==
PROVIDERS: PCP Nurse Practitioner Family; Visit Provider Nurse Practitioner Family
DX: Z51.81 Encounter for therapeutic drug level monitoring (principal); Z79.01 Long term (current) use of anticoagulants; Z95.2 Presence of prosthetic heart valve
CPT/HCPCS: 36415; 85610

== ENCOUNTER 2022-10-24 10:08 | Outpatient (CLI) | payer MEDICARE, OTHER, SELFPAY ==
[2022-10-24 13:53] LABS: PHA INR Fingerstick 2.7 (0.9-1.1)
== END 2022-10-24 15:00 ==
LOC: ACC 10:09
PROVIDERS: PCP Internal Medicine Adolescent Medicine; Visit Provider Internal Medicine Adolescent Medicine
DX: Z51.81 Encounter for therapeutic drug level monitoring (principal); Z79.01 Long term (current) use of anticoagulants
CPT/HCPCS: 85610; 99211; G0463

== ENCOUNTER 2022-10-28 13:50 | Outpatient (CLI) | payer MEDICARE, OTHER, SELFPAY ==
[2022-10-28 14:54] LABS: PHA INR Fingerstick 3.1 (0.9-1.1)
== END 2022-10-28 15:03 ==
LOC: ACC 13:51
PROVIDERS: PCP Internal Medicine Adolescent Medicine; Visit Provider Internal Medicine Adolescent Medicine
DX: Z51.81 Encounter for therapeutic drug level monitoring (principal); Z79.01 Long term (current) use of anticoagulants; Z95.2 Presence of prosthetic heart valve
CPT/HCPCS: 85610; 99211; G0463

== ENCOUNTER 2022-11-04 10:57 | Outpatient (CLI) | payer MEDICARE, OTHER, SELFPAY ==
--- NOTE | 2022-11-04 10:57 | CT_ITS ---
FINAL REPORT TECHNIQUE: Thin section axial CT images of the facial bones and sinuses were obtained without contrast. Coronal reformatted images were also obtained.This study was performed with techniques to keep radiation doses as low as reasonably achievable, (ALARA). Individualized dose reduction techniques using automated exposure control or adjustment of mA and/or kV according to the patient''''s size were employed. CLINICAL HISTORY: recurrent epistaxis FINDINGS: There is mild mucosal thickening in the maxillary sinuses and left sphenoid sinus. There is opacification of the right mastoid air cells. No fluid levels are identified. The ostiomeatal units have an unremarkable appearance. The nasal septum is in the midline. No fracture or acute bony abnormality is identified. IMPRESSION: Mild mucosal thickening of the maxillary sinuses and left sphenoid with opacification of the right mastoid air cells. No fluid levels identified Reviewed, Interpreted and Dictated by Rosendo Jean III, MD Transcribed by Sylvia Nielson Authenticated and [facility]
[2022-11-04 12:23] LABS: PHA INR Fingerstick 2.6 (0.9-1.1)
== END 2022-11-04 13:29 ==
PROVIDERS: PCP Internal Medicine Adolescent Medicine; Visit Provider Nurse Practitioner
DX: R04.0 Epistaxis (principal); Z79.01 Long term (current) use of anticoagulants
CPT/HCPCS: 70486; 85610; 99211; G0463

== ENCOUNTER 2022-11-09 11:36 | Outpatient (CLI) | payer MEDICARE, OTHER, SELFPAY ==
[2022-11-09 14:38] LABS: PHA INR Fingerstick 2.3 (0.9-1.1)
== END 2022-11-09 14:52 ==
LOC: ACC 11:37
PROVIDERS: PCP Internal Medicine Adolescent Medicine; Visit Provider Internal Medicine Adolescent Medicine
DX: Z79.01 Long term (current) use of anticoagulants (principal); Z51.81 Encounter for therapeutic drug level monitoring; Z95.2 Presence of prosthetic heart valve
CPT/HCPCS: 85610; 99211; G0463

== ENCOUNTER → 2022-11-11 12:15 | Outpatient (CLI) | payer MEDICARE, OTHER, SELFPAY ==
[2022-11-11 13:17] LABS: Basophils # 0.1 K/mm3 (0-0.2); Basophils % 0.6 % (0.1-2.0); Eosinophils # 0.2 K/mm3 (0.0-0.4); Eosinophils % 2.9 % (0.1-12.0); Hematocrit 32.4 % (37.0-47.0); Hemoglobin 9.8 g/dL (12.2-16.2); Lymphocytes # 1.1 K/mm3 (0.7-4.5); Lymphocytes % 14.1 % (10-50); Mean Corpuscular HGB Conc 30.3 g/dL (31.8-35.4); Mean Corpuscular Hemoglobin 24.1 pg (27.0-31.2); Mean Corpuscular Volume 79.5 fl (81-99); Mean Platelet Volume 9.2 fl (7.4-10.4); Monocytes # 0.2 K/mm3 (0.1-1.0); Monocytes % 2.5 % (1.7-9.3); Neutrophils # 6.1 K/mm3 (1.8-7.8); Neutrophils % 79.8 % (37.0-80.0); Platelet Count 281 K/mm3 (142-424); Red Blood Count 4.07 M/mm3 (4.20-5.40); Red Cell Distribution Width 18.7 % (11.5-17.5); White Blood Count 7.6 K/mm3 (4.8-10.8)
[2022-11-11 14:40] LABS: Anion Gap 11.3 mEq/L (5-15); Blood Urea Nitrogen 21 mg/dl (7-17); Calcium 8.5 mg/dl (8.4-10.2); Carbon Dioxide 23 mmol/L (22.0-30.0); Chloride 112 mmol/L (98-107); Estimated Glomerular Filt Rate 37 ml/min (>60); GFR (African American) 45 ML/MIN (>60); Glucose 109 mg/dl (74-100); Potassium 4.3 mmoL/L (3.5-5.1); Sodium 142 mmol/L (136-145)
== END ==
PROVIDERS: PCP Internal Medicine Adolescent Medicine; Visit Provider Nurse Practitioner Family
DX: D50.9 Iron deficiency anemia, unspecified (principal)
CPT/HCPCS: 36415; 80048; 85025

== ENCOUNTER 2022-11-15 10:24 | Outpatient (CLI) | payer MEDICARE, OTHER, SELFPAY ==
[2022-11-15 13:15] LABS: PHA INR Fingerstick 2.4 (0.9-1.1)
== END 2022-11-15 13:30 ==
LOC: ACC 10:25
PROVIDERS: Internal Medicine Adolescent Medicine; PCP Nurse Practitioner Family; Visit Provider Nurse Practitioner Family
DX: Z79.01 Long term (current) use of anticoagulants (principal); Z51.81 Encounter for therapeutic drug level monitoring; Z95.2 Presence of prosthetic heart valve
CPT/HCPCS: 85610; 99211; G0463

== ENCOUNTER → 2022-11-18 10:57 | Outpatient (POV) | payer MEDICARE, OTHER, SELFPAY ==
--- NOTE | 2022-11-18 11:35 | EXP.PAIN.SOA ---
[facility] Pain Management SOAP Note Subjective:: Patient is a pleasant 72-year-old female that comes our clinic today for follow-up visit after receiving bilateral intra-articular shoulder injections on 10/04/2022. Patient reports moderate improvement terms of her right shoulder following injection. However, patient reports minimal to no relief with the left shoulder. Patient has been told by orthopedic surgery she needs bilateral shoulder replacements. However, due to past experience with joint replacements patient is not interested in having shoulder joint replacement. I discussed in detail with her regarding repeating the injections. She wishes to proceed. I told her it be reasonable for her to have 2 to 3 injections each shoulder in a 12-month cycle. Patient also takes tramadol 50 mg 1 p.o. 2 times daily. Gabapentin 100 mg 1 p.o. twice daily. Her Kyaw #[id number] has been reviewed and appropriate. Objective:: Patient is awake alert [place] x3. In no acute distress. Flexion-extension lumbar spine somewhat guarded secondary to pain. Deep tendon reflexes upper lower extremities normal. Motor strength upper and lower extremities normal. There is no gross sensory deficit. Gait is normal. Assessment:: Degenerative osteoarthritis bilateral shoulders. Chronic shoulder pain bilaterally. Plan:: We will plan repeat bilateral intra-articular shoulder injections. We will send refills for her medications as well. [facility] Disclaimer: The information contained in this section may have been updated after the patient was seen, as this information can be updated by other users. 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 (Updated 11/09/22 @ 11:25 by Rowan Sherman CMA) Anticoagulation adequate Arthritis Cataract Cholecystectomy planned Colon cancer Dyslipidemia History of anemia History of cataract HTN (hypertension) Hyperlipidemia Hypothyroid Infection and inflammatory reaction due to internal left knee prosthesis, initial encounter Infection of prosthetic left knee joint Left-sided epistaxis Thyroid cancer Tympanosclerosis, right ear Urinary retention Surgical History History of artificial heart valve History of carpal tunnel surgery of left wrist History of carpal tunnel surgery of right wrist History of colon resection History of total left knee replacement History of total right knee replacement Hx of thyroidectomy Mechanical heart valve present Status post aortic valve replacement Family History Brother Hypertension Mother Kidney disease Father Cancer Sister Breast cancer Social History (Reviewed 11/09/22 @ 10:57 by KIANA Shankar Smoking Status: Never smoker second hand exposure: No alcohol intake: never substance use type: prescription drug current occupational status: retired Travel in the last 8 weeks: None household members: none housing: house 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
[2022-11-18 11:40] VITALS: BP 169/80; PULSE 53; RESP 18; O2SAT 95; BMI 25.6
== END | disposition home or self-care (01) ==
PROVIDERS: PCP Nurse Practitioner Family; Visit Provider Nurse Practitioner Family
DX: M19.011 Primary osteoarthritis, right shoulder (principal); M19.012 Primary osteoarthritis, left shoulder; M25.511 Pain in right shoulder; M25.512 Pain in left shoulder; G89.29 Other chronic pain
CPT/HCPCS: 99212; G0463

== ENCOUNTER 2022-11-29 13:10 | Day surgery (SDC) | payer MEDICARE, OTHER, SELFPAY ==
[2022-11-29 13:16] VITALS: BP 162/82; PULSE 83; RESP 16; TEMP 36.4; O2SAT 95; BMI 26.6
[2022-11-29 13:34] VITALS: BP 161/75; PULSE 73; RESP 18; O2SAT 98
--- NOTE | 2022-11-29 13:37 | P.PCN_ITS ---
Procedure Date: 11/29/22 Time: 13:30 Anesthesiologist:: Kt Jorgensen CRNA Complications:: None Pre-procedure Diagnosis:: Degenerative osteoarthritis bilateral shoulders. Chronic bilateral shoulder pain. Post-procedure Diagnosis:: Same. Indications for Procedure:: Patient is a pleasant 72-year-old female that comes our clinic today for bilateral intra-articular shoulder injections. Patient had bilateral intra- articular shoulder injections in the recent past with minimal results. These injections were given in the posterior approach. Today, we will give half of the injectate posteriorly and half anteriorly. Procedure Details:: Procedure Details: Bilateral shoulder intra-articular injection Informed consent was obtained risk and benefits of the procedure were explained to the patient. Patient was taken to the procedure room. The right shoulder was prepped using ChloraPrep. A 25-gauge needle was used first anteriorly, laterally, and then posteriorly to inject 10 mL bupivacaine 0.25% and Depo- Medrol 40 mg. The same procedure was carried out on the left shoulder. Patient tolerated procedure well with no complications. Plan and Disposition:: Patient was discharged without incident.
== END 2022-11-29 13:34 | disposition home or self-care (01) ==
LOC: SC.PAINP 13:10
PROVIDERS: PCP Nurse Practitioner Family; Visit Provider Nurse Anesthetist, Certified Registered
DX: M19.011 Primary osteoarthritis, right shoulder (principal); M19.012 Primary osteoarthritis, left shoulder; M25.511 Pain in right shoulder; M25.512 Pain in left shoulder; G89.29 Other chronic pain
CPT/HCPCS: 20610; J1040

== ENCOUNTER 2022-11-30 11:23 | Outpatient (CLI) | payer MEDICARE, OTHER, SELFPAY ==
[2022-11-30 13:40] LABS: PHA INR Fingerstick 2.1 (0.9-1.1)
== END 2022-11-30 13:49 ==
LOC: ACC 11:24
PROVIDERS: PCP Nurse Practitioner Family; Visit Provider Internal Medicine Adolescent Medicine
DX: Z79.01 Long term (current) use of anticoagulants (principal); Z51.81 Encounter for therapeutic drug level monitoring; Z95.2 Presence of prosthetic heart valve
CPT/HCPCS: 85610; 99211; G0463

== ENCOUNTER 2022-12-08 13:07 | Emergency (ER) | payer MEDICARE, OTHER, SELFPAY ==
[2022-12-08] VITALS (8 sets, daily range): BP systolic 152–185; BP diastolic 75–93; PULSE 67–75; RESP 16–18; TEMP 36.8–37; O2SAT 95–98; BMI 25.7
--- NOTE | 2022-12-08 13:27 | ECG_ITS ---
APPROVED REPORT Exam: Resting ECG HR:77 bpm ECG Measurements Heart Rate 77 AXES PA 158 P 71 QRSd 146 QRS -52 QT 428 T 118 QTc 460 Conclusion SINUS RHYTHM WITH OCCASIONAL SUPRAVENTRICULAR PREMATURE COMPLEXES LEFT AXIS DEVIATION [QRS AXIS < -30] INTRAVENTRICULAR CONDUCTION DELAY [130+ ms QRS DURATION] ABNORMAL ECG UNCONFIRMED REPORT Electronically signed by : Tal Pantoja MD 12/08/2022 17:36:39
--- NOTE | 2022-12-08 13:48 | HMH.EDGENADL ---
Discharge Plan Disposition Patient Disposition: Admitted Prescriptions Prescriptions: No Action calcium carbonate 600 mg calcium (1,500 mg) tablet 600 mg PO DAILY potassium chloride 10 mEq tablet extended release 30 meq PO DAILY Patient Comments: TAKE 3 TABLETS BY MOUTH EVERY DAY magnesium oxide 400 mg (241.3 mg magnesium) tablet 400 mg PO DAILY Patient Comments: TAKE 1 TABLET BY MOUTH EVERY DAY metoprolol tartrate 50 mg tablet 50 mg PO BID omeprazole 20 mg capsule,delayed release(DR/EC) 20 mg PO BID Patient Comments: TAKE 1 CAPSULE BY MOUTH TWICE DAILY multivitamin 1 EACH capsule 1 each PO DAILY rosuvastatin 5 MG tablet 5 mg PO HS levothyroxine 200 mcg tablet 200 mcg PO DAILY Patient Comments: TAKE 1 TABLET BY MOUTH EVERY DAY warfarin 3 mg tablet 1.5 mg PO DIRECTED Patient Comments: TAKE 1 TABLET BY MOUTH EVERY DAY Rx Instructions: monday- monday tramadol 50 mg tablet 50 mg PO TID Qty: 90 0RF gabapentin 100 mg capsule 100 mg PO BID Qty: 60 0RF warfarin 3 MG tablet See Rx Instructions .ROUTE .COMPLEX Rx Instructions: 3 mg orally, monday only ferrous fumarate 55 mg (18 mg iron) Tablet Extended Release 55 mg PO DAILY amoxicillin 875 mg tablet 875 mg PO DAILY Patient Comments: TAKE 1 TABLET BY MOUTH ONCE DAILY DIRECTED Referrals Follow up/Referrals: Paulino Jett MD [Staff Physician] - See instructions Atiya Etienne APRN [Primary Care Provider] - See instructions Clinical Impressions Clinical Impression: CHF (congestive heart failure) Discharge ED Provider: Julio Moody General Adult HPI General Chief complaint: Dizziness Stated complaint: fatigue, soa Time Seen by Provider: 12/08/22 13:14 Mode of Arrival: Ambulatory Source of Information: Patient Limitations: No Limitations Description of Symptoms (Recalled from ER Triage Doc. by RN): Pt reports no energy x1 week, feels tired all time but sleeping at night. Reports dizzy upon standing and position changes. Pt denies fever, SOA. Pt states no known falls, states is on warfarin r/t artifical heart valve. History of Present Illness HPI narrative: This is a 72-year-old female with history of hypertension, hyperlipidemia, psoriatic arthritis currently on sulfasalazine, aortic valve replacement currently on warfarin presenting with general malaise. Patient states that she was started on sulfasalazine about 2 weeks prior to arrival. She has been feeling progressively weak and tired since that time. Patient states that she denies any pain anywhere in her body, nausea or vomiting, dysuria, hematuria, blood in her stool, chest pain, shortness of breath, neurologic deficits, or any other concerns. She states that she was at work today, 12/08 and because she was not acting herself, her employer told her to come to the emergency department for further evaluation. Related Data Home Medications Medication Instructions Recorded Confirmed multivitamin 1 each PO DAILY Supplement 08/09/17 11/29/22 rosuvastatin 5 mg tablet 5 mg PO HS Cholesterol 05/31/19 11/29/22 calcium carbonate 600 mg calcium 600 mg PO DAILY Supplement 11/25/19 11/29/22 (1,500 mg) tablet warfarin 3 mg tablet See Rx Instructions .Route 03/05/21 11/29/22 .COMPLEX mechanical valve ferrous fumarate 55 mg (18 mg 55 mg PO DAILY Supplement 01/27/22 11/29/22 iron) tablet,extended release levothyroxine 200 mcg tablet 200 mcg PO DAILY THYROID 04/15/22 11/29/22 warfarin 3 mg tablet 1.5 mg PO DIRECTED MECHANICAL 04/15/22 11/29/22 VALVE magnesium oxide 400 mg (241.3 mg 400 mg PO DAILY Supplement 10/10/22 11/29/22 magnesium) tablet metoprolol tartrate 50 mg tablet 50 mg PO BID Hypertension 10/10/22 11/29/22 omeprazole 20 mg capsule,delayed 20 mg PO BID GERD 10/10/22 11/29/22 release potassium chloride 10 mEq 30 meq PO DAILY Supplement
[2022-12-08 14:03] LABS: Alanine Aminotransferase 39 U/L (12-78); Albumin Level 3.5 g/dl (3.5-5.0); Albumin/Globulin Ratio 1.4 (1.1-1.8); Alkaline Phosphatase 102 U/L (38-126); Anion Gap 8.6 mEq/L (5-15); Aspartate Amino Transferase 30 U/L (14-36); Bilirubin,Total 0.3 mg/dl (0.2-1.3); Blood Urea Nitrogen 19 mg/dl (7-17); Calcium 8.1 mg/dl (8.4-10.2); Carbon Dioxide 29 mmol/L (22.0-30.0); Chloride 109 mmol/L (98-107); Creatinine Clearance Estimated 53 mL/min (50-200); Estimated Glomerular Filt Rate 49 ml/min (>60); GFR (African American) 59 ML/MIN (>60); Globulin 2.5 g/dL (1.3-3.2); Glucose 163 mg/dl (74-100); Potassium 3.6 mmoL/L (3.5-5.1); Sodium 143 mmol/L (136-145)
[2022-12-08 14:11] LABS: Basophils % 0.2 % (0.1-2.0); Eosinophils # 0.2 K/mm3 (0.0-0.4); Eosinophils % 1.9 % (0.1-12.0); Hematocrit 33.7 % (37.0-47.0); Hemoglobin 10.1 g/dL (12.2-16.2); Lymphocytes # 0.5 K/mm3 (0.7-4.5); Lymphocytes % 5.7 % (10-50); Mean Corpuscular HGB Conc 30.1 g/dL (31.8-35.4); Mean Corpuscular Hemoglobin 24.1 pg (27.0-31.2); Mean Platelet Volume 8.7 fl (7.4-10.4); Monocytes # 0.4 K/mm3 (0.1-1.0); Monocytes % 4.8 % (1.7-9.3); Neutrophils # 6.9 K/mm3 (1.8-7.8); Neutrophils % 87.5 % (37.0-80.0); Platelet Count 185 K/mm3 (142-424); Red Blood Count 4.21 M/mm3 (4.20-5.40); Red Cell Distribution Width 20.9 % (11.5-17.5); White Blood Count 7.9 K/mm3 (4.8-10.8)
[2022-12-08 14:12] LABS: NT Pro Brain Natriuretic Pep. 9090 pg/mL (0-125)
[2022-12-08 14:13] LABS: MANUAL DIFFERENTIAL MANUAL DIFFERENTIAL (MANUAL DIFF)
[2022-12-08 14:14] LABS: Troponin I 0.02 ng/ml (0.00-0.034)
[2022-12-08 14:22] LABS: INR 1.96 (0.9-1.1); Prothrombin Time 20.3 seconds (10.1-12.5)
[2022-12-08 14:33] LABS: Eosinophils % 4 % (0-3); Lymphocytes % 5 % (10-50); Neutrophils % 35 % (42-76); Total Cells Counted 100
[2022-12-08 14:34] LABS: Acanthocytes 2+; Hypochromasia 2+; Platelet Estimate Slight Decrease; Poikilocytosis 2+
--- NOTE | 2022-12-08 15:27 | XR_ITS ---
FINAL REPORT CLINICAL HISTORY: CHF FINDINGS: SINGLE-VIEW CHEST There is cardiomegaly. The patient is status post median sternotomy. The lungs are clear. There is no pneumothorax. There are degenerative changes of the shoulders. IMPRESSION: No acute cardiopulmonary process. Reviewed, Interpreted and Dictated by Rosendo Jean III, MD Transcribed by Myra Curran Authenticated and [facility]
--- NOTE | 2022-12-08 16:05 | PC.NURSE ---
ER MD reis has spoken with hospitalist, dr. hess states he will come down and see pt and will evaluate for admit
--- NOTE | 2022-12-08 16:31 | PC.NURSE ---
Dr. Rios at [facility]
--- NOTE | 2022-12-08 16:48 | EXP.MED.CON ---
History of Present Illness *Admission Date: 12/08/22 *Reason for visit:: weakness *History of present illness: Elba Tripp is a 72 year old female with a past medical history of psoriatic arthritis, atrial fibrillation, s/p aortic valve replacement with a mechanical valve (currently on coumadin), htn, hld, hypothyroidism, and colon cancer s/p partial colectomy now in remission. She presented to the ED with 2-3 weeks of generalized weakness. She denies chest pain, shortness of breath, weight gain, lower extremity edema, orthopnea, paroxysmal nocturnal dyspnea, cough, fever, abdominal pain and dysuria. She hasn't recently changed her diet. She believes the onset of her weakness was preceded by starting sulfasalzine one month ago. No other recent changes to any of her medications. [facility] Disclaimer: The information contained in this section may have been updated after the patient was seen, as this information can be updated by other users. 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 (Updated 12/08/22 @ 16:54 by Keegan Rios MD) Anticoagulation adequate Arthritis Cataract Cholecystectomy planned Colon cancer Dyslipidemia History of anemia History of cataract HTN (hypertension) Hyperlipidemia Hypothyroid Infection and inflammatory reaction due to internal left knee prosthesis, initial encounter Infection of prosthetic left knee joint Left-sided epistaxis Thyroid cancer Tympanosclerosis, right ear Urinary retention Surgical History History of artificial heart valve History of carpal tunnel surgery of left wrist History of carpal tunnel surgery of right wrist History of colon resection History of total left knee replacement History of total right knee replacement Hx of thyroidectomy Mechanical heart valve present Status post aortic valve replacement Family History Brother Hypertension Mother Kidney disease Father Cancer Sister Breast cancer Social History (Updated 11/29/22 @ 13:17 by Florencia Miguel RN) Smoking Status: Never smoker second hand exposure: No alcohol intake: never substance use type: prescription drug current occupational status: retired Travel in the last 8 weeks: None household members: none housing: house 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 Review of Systems Review of Systems Review of systems:: pertinent systems reviewed and negative unless documented below Constitutional Constitutional: Reports weakness *Neurologic Neurologic: Reports weakness Exam Data for Last 24 hours Vital signs and Labs for Last 24 Hours: Temp Pulse Resp BP Pulse Ox O2 Del Method 98.6 F 67 18 164/93 H 98 Room Air 12/08/22 13:08 12/08/22 16:31 12/08/22 14:02 12/08/22 16:31 12/08/22 16:31 12/08/22 16:31 Laboratory Results - last 24 hr 12/08/22 13:40: WBC 7.9, RBC 4.21, Hgb 10.1 L, Hct 33.7 L, MCV 80.0 L, MCH 24.1 L, MCHC 30.1 L, RDW 20.9 H, Plt Count 185, MPV 8.7, Neut % (Auto) 87.5 H, Lymph % (Auto) 5.7 L, Stephens % (Auto) 4.8, Eos % (Auto) 1.9, Baso % (Auto) 0.2, Neut # (Auto) 6.9, Lymph # (Auto) 0.5 L, Stephens # (Auto) 0.4, Eos # (Auto) 0.2, Baso # (Auto) 0.0, Total Counted 100, Neutrophils % (Manual) 35 L, Band Neutrophils % 54.0 H, Lymphocytes % (Manual) 5 L, Eosinophils % (Manual) 4 H, Metamyelocytes % 2.0 H, Platelet Estimate Slight decrease, Hypochromasia 2+, Poikilocytosis 2+, Acanthocytes (Spur) 2+, PT 20.3 H, INR 1.96 H, Sodium 143, Potassium 3.6, Chloride 109 H, Carbon Dioxide 29, Anion Gap 8.6, BUN 19 H, Creatinine 1.10 H, Estimated Creat Clear 53, Estimated GFR 49 L, Est GFR ( Amer) 59, Glucose 163 H, Calcium 8.1 L, Total Bilirubin 0.3, AST 30, ALT 39, Alkaline Phosphatase 102, Troponin I 0.02, NT-Pro-B Natriuret Pep 9090 H, Total Protein 6.0 L, Albumin 3.5, Globulin 2.5, Albumin/Globulin Ratio 1.4 I & O for Last 24 hours: Intake & Outp
--- NOTE | 2022-12-08 16:49 | PC.NURSE ---
Dr. Moody at [facility]
[2022-12-08 17:18] LABS: T4 (Thyroxine) 8.3 ug/dl (5.53-11.0)
== END 2022-12-08 17:09 | disposition home or self-care (01) ==
PROVIDERS: Emergency Provider Emergency Medicine; PCP Nurse Practitioner Family
DX: I11.0 Hypertensive heart disease with heart failure (principal); I50.9 Heart failure, unspecified; E78.5 Hyperlipidemia, unspecified; L40.59 Other psoriatic arthropathy; E89.0 Postprocedural hypothyroidism; I49.3 Ventricular premature depolarization
CPT/HCPCS: 71045; 80053; 83880; 84436; 84443; 84484; 85007; 85025; 85610; 93005; 96361; 96374; 99285

== ENCOUNTER → 2022-12-13 11:27 | Outpatient (CLI) | payer MEDICARE, OTHER, SELFPAY ==
[2022-12-13 12:35] LABS: Basophils % 0.3 % (0.1-2.0); Eosinophils # 0.1 K/mm3 (0.0-0.4); Eosinophils % 0.8 % (0.1-12.0); Hematocrit 37.1 % (37.0-47.0); Hemoglobin 11.2 g/dL (12.2-16.2); Lymphocytes # 0.8 K/mm3 (0.7-4.5); Lymphocytes % 6.9 % (10-50); Mean Corpuscular HGB Conc 30.1 g/dL (31.8-35.4); Mean Corpuscular Hemoglobin 24.4 pg (27.0-31.2); Mean Corpuscular Volume 81.3 fl (81-99); Mean Platelet Volume 8.4 fl (7.4-10.4); Monocytes # 0.6 K/mm3 (0.1-1.0); Monocytes % 5.1 % (1.7-9.3); Neutrophils # 10.6 K/mm3 (1.8-7.8); Platelet Count 267 K/mm3 (142-424); Red Blood Count 4.57 M/mm3 (4.20-5.40); Red Cell Distribution Width 20.6 % (11.5-17.5); White Blood Count 12.2 K/mm3 (4.8-10.8)
[2022-12-13 12:57] LABS: Alanine Aminotransferase 33 U/L (12-78); Albumin Level 4.2 g/dl (3.5-5.0); Alkaline Phosphatase 116 U/L (38-126); Anion Gap 10.4 mEq/L (5-15); Aspartate Amino Transferase 46 U/L (14-36); Bilirubin,Indirect 0.3 mg/dL (0.0-0.9); Bilirubin,Total 0.3 mg/dl (0.2-1.3); Bilirubin,Unconjugated 0.3 mg/dL (0.0-1.1); Blood Urea Nitrogen 24 mg/dl (7-17); Carbon Dioxide 30 mmol/L (22.0-30.0); Chloride 106 mmol/L (98-107); Chol/HDL Ratio 3.7 (1-3.5); Cholesterol 220 mg/dl (140-200); Estimated Glomerular Filt Rate 49 ml/min (>60); GFR (African American) 59 ML/MIN (>60); Glucose 92 mg/dl (74-100); HDL Cholesterol 59 mg/dl (40-60); MANUAL DIFFERENTIAL MANUAL DIFFERENTIAL (MANUAL DIFF); Magnesium 1.9 mg/dl (1.6-2.3); Potassium 4.4 mmoL/L (3.5-5.1); Sodium 142 mmol/L (136-145); Total Protein,Serum 6.8 g/dl (6.3-8.2); Triglycerides 339 mg/dl (30-150); VLDL Cholesterol 68 mg/dL (0-40)
[2022-12-13 13:09] LABS: Direct LDL Cholesterol 86.46 mg/dL (100-129)
[2022-12-13 13:16] LABS: Free T4 (Free Thyroxine) 1.01 ng/dl (0.78-2.19)
[2022-12-13 13:21] LABS: Eosinophils % 1 % (0-3); Lymphocytes % 4 % (10-50); Monocytes % 2 % (2-9); Neutrophils % 90 % (42-76); Total Cells Counted 100
[2022-12-13 13:23] LABS: Platelet Estimate Normal
[2022-12-13 13:24] LABS: Anisocytosis 3+; Hypochromasia 2+; Microcytosis 2+
[2022-12-13 13:25] LABS: Acanthocytes 1+
[2022-12-13 13:27] LABS: Thyroid Stimulating Hormone 3.74 uIU/mL (0.465-4.68)
== END ==
PROVIDERS: PCP Nurse Practitioner Family; Visit Provider Internal Medicine
DX: I50.30 Unspecified diastolic (congestive) heart failure (principal); I50.9 Heart failure, unspecified; R79.89 Other specified abnormal findings of blood chemistry; Z95.2 Presence of prosthetic heart valve
CPT/HCPCS: 36415; 80048; 80061; 80076; 83735; 84439; 84443; 85007; 85025; 93225

== ENCOUNTER → 2022-12-14 09:58 | Outpatient (POV) | payer MEDICARE, OTHER, SELFPAY ==
[2022-12-14 10:23] VITALS: BP 179/91; PULSE 79; RESP 18; O2SAT 96; BMI 25.7
--- NOTE | 2022-12-14 10:33 | EXP.PAIN.SOA ---
[facility] Pain Management SOAP Note Subjective:: Patient is a pleasant 72-year-old female who presents today for follow-up of bilateral intra-articular shoulder injections on 11/29/2022. We are currently treating the patient for osteoarthritis bilateral shoulders, bilateral shoulder pain. Today she rates her pain a 3 out of 10. Patient states that she only had approximately 25% improvement following these injections. Patient denies any new trauma or injury. She does state that her right shoulder is doing better however her left continues to give her significant pain. Patient is currently managed with tramadol 50 mg twice a day and gabapentin 100 mg twice a day. She denies any side effects from this medication. Patient does have questions regarding possible CBD Gummies for additional help with her pain. Her [place] is [phone]. It has been reviewed and appropriate. Review of Systems: General: No recent weight changes, no fever, no sleep disturbances Respiratory: No cough, no shortness of air, no recurring pulmonary infections Cardiovascular/peripheral vascular: No chest pain, no palpitations, no edema, no shortness of breath Gastrointestinal: No new onset incontinence, normal bowel movements reported Genitourinary: No new onset incontinence Musculoskeletal: Bilateral shoulder pain Psychiatric: [Normal mood/affect] Neurological: [Denies weakness in extremities], [denies balance issues] Objective:: Physical Exam: General: Alert and oriented x3, no acute distress, pleasant and cooperative Lungs: Respirations even and unlabored, symmetrical chest expansion Eyes: PERRL Musculoskeletal: Flexion and extension of bilateral shoulders somewhat guarded secondary to pain, [antalgic gait noted] Neurological: Speech clear, no gross sensory deficit Assessment:: Bilateral shoulder pain, bilateral shoulder osteoarthritis Plan:: Patient continues to experience significant pain in her left shoulder with limited range of motion. I have discussed with the patient that she may benefit from a left suprascapular nerve block however at this time we will wait and discuss at future visits. I will refill the patient's gabapentin 100 mg twice a day and tramadol 50 mg twice a day and provide a 1 month supply of this medication. I will also order the patient a compounding cream today. I have counseled the patient that the CBD Gummies are an option and that I can have our [place] office reach out with more additional information on this products and pricing. Patient will return to clinic in 1 month for reevaluation of symptoms, medication refill and follow-up. Patient has been instructed to contact the clinic with any concerns before the next appointment. Dr. Valderrama has reviewed this note and agrees with this plan of care. This note was dictated using voice recognition software and make contain errors or omissions. [facility] Disclaimer: The information contained in this section may have been updated after the patient was seen, as this information can be updated by other users. 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 (Updated 12/13/22 @ 11:06 by Lelo Mackenzie RN) (HFpEF) heart failure with preserved ejection fraction Anticoagulation adequate Arthritis Cataract Cholecystectomy planned Colon cancer Dyslipidemia History of anemia History of cataract HTN (hypertension) Hyperlipidemia Hypothyroid Infection and inflammatory reaction due to internal left knee prosthesis, initial encounter Infection of prosthetic left knee joint Left-sided epistaxis Thyroid cancer Tympanosclerosis, right ear Urinary retention Surgical History History of artificial heart valve History of carpal tunnel surgery of left wrist History of carpal tunnel surgery of right wrist History of colon resection History of total left knee replacement History of total right knee replacement Hx of thyroidectomy Mechanical heart valve present Status post aortic valve replacemen
== END | disposition home or self-care (01) ==
PROVIDERS: PCP Nurse Practitioner Family; Visit Provider Nurse Practitioner Family
DX: M19.011 Primary osteoarthritis, right shoulder (principal); M19.012 Primary osteoarthritis, left shoulder; M25.511 Pain in right shoulder; M25.512 Pain in left shoulder
CPT/HCPCS: 99212; G0463

== ENCOUNTER 2022-12-23 06:53 | Outpatient (CLI) | payer MEDICARE, OTHER, SELFPAY ==
--- NOTE | 2022-12-23 06:59 | NM_ITS ---
APPROVED REPORT Exam: Nuclear Stress Test Indication: palpitations..fatigue Patient Location: Outpatient Stress Tech: Khloe Whitney AR Tech:KRYSTLE Aguilera RT(R)(N) Ht: 5 ft 5 in Wt: 160 lbs Bra Size: 42d HR: 61 bpm BP: 153/68 mmHg BSA: 1.80 m2 Rhythm: NSR, frequent PACs TID: 1.07 BMI: 26.6 History: palpitations..fatigue Procedure: Patient received 0.4 mg of intravenous Lexiscan, resting heart rate 61 bpm, resting blood pressure 153/68 mmHg, with Lexiscan maximum heart rate achieved was 98 bpm which is 85 % of the maximum predicted heart rate and blood pressure was 170/65 mmHg. With Lexiscan, patient denied any complaint of chest pain. Cardiac Stress and Resting SPECT Images: Cardiac Stress and Resting SPECT images were obtained using technetium 99m Myoview 32.9 mCi stress and 10.65 mCi at rest. The left ventricle appears dilated (LVEDVi=98 ml/m2). Resting and stress imaging in supine position demonstrates a large sized, moderate, fixed perfusion defect in the basal to mid anterior and anterolateral LV leonard, as well as a large sized, moderate, fixed perfusion defect in the basal to mid inferior and inferolateral LV leonard. These findings are no longer visualized in prone stress imaging. While this may represent possible diaphragmatic and soft tissue attenuation, a true perfusion defect cannot be ruled out in the setting of associated wall motion abnormalities in the corresponding regions. Gated imaging demonstrates moderate reduction in global LV systolic function. There is severe hypokinesis in the anterior, inferior, and inferolateral LV leonard. LVEF is calculated at 31%. Conclusion: The left ventricle appears dilated (LVEDVi=98 ml/m2). Resting and stress imaging in supine position demonstrates a large sized, moderate, fixed perfusion defect in the basal to mid anterior and anterolateral LV leonard, as well as a large sized, moderate, fixed perfusion defect in the basal to mid inferior and inferolateral LV leonard. These findings are no longer visualized in prone stress imaging. While this may represent possible diaphragmatic and soft tissue attenuation, a true perfusion defect cannot be ruled out in the setting of associated wall motion abnormalities in the corresponding regions. Gated imaging demonstrates moderate reduction in global LV systolic function. There is severe hypokinesis in the anterior, inferior, and inferolateral LV leonard. LVEF is calculated at 31%. Further ischemic work-up is recommended to rule out perfusion defects in the setting of inconclusive study, as well as further evaluation for underlying dilated cardiomypathy. However, the pattern of LV basal hypokinesis with apical sparing, as well as known history of atrial fibrillation, CHF with thickened LV leonard, and carpal tunnel syndrome, should also warrant evaluation for cardiac amyloidosis. Electronically signed by : Corinne Brownlee, 12/25/2022 19:50:38
--- NOTE | 2022-12-23 09:55 | CA_ITS ---
APPROVED REPORT Exam: Pharmacologic Technologist: Khloe Gaines, Ht: 5 ft 5 in Wt: 155 lbs BSA: 1.77 m2 HR: 59 bpm BP: 153/68 mmHg Rhythm: NSR 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 Medications: Amlodipine,,,,, Omeprazole,,,,, Levothyroxine,,,,, Warfarin,,,,, Gabapentin,,,,, HCTZ,,,,, Tramadol,,,,, AmOXICILLIAN,,,,, Magnesium OXIDE,,,,, RoSUVASTATIN,,,,, Multivitamin,,,,, Potassium,,,,, Stress Test Details Test: LEXISCAN Reason for pharmacologic stress test: physical limitation. HR Resting HR: 61 bpm Max Heart Rate (APMHR): 150 bpm Max HR Achieved: 98 bpm Target HR (85% APMHR): 128 bpm % of APMHR: 65 Recovery HR: 75 bpm BP Resting BP: 153.0/68.0 mmHg Max BP: 170.0/65.0 mmHg Recovery BP: 151.0/67.0 mmHg ECG Resting ECG: NSR, frequent PACs, PVCs, IVCD, left axis deviation, poor R wave progression, nonspecific T wave abnormalities Stress ECG: No change Arrhythmia: Frequent PACs, PVCs Clinical Exercise duration: 04:01 min Highest Stage Achieved: Stress ECG Conclusion Symptoms: very mild head discomfort. No CP. Arrhythmias/Ectopy: Frequent PACs, occasional PVCs ST-T Changes: No significant ST changes. Conclusion: No evidence of ischemic ST changes on Lexiscan stress test. Patient noted to have frequent PACs and occasional PVCs at baseline and after stress. Myoview images reported separately. Test Summary REST . . . . . . . Resting REST 11:03 . . 61 . 153/ 68 . . Stage 1 01:00 . . 75 . . . . Stage 2 01:00 . . 82 . . . . Stage 3 01:00 . . 77 . 168/ 72 . . Stage 4 01:00 . . 73 . 170/ 65 . . Stage 4 01:01 . . 73 . 170/ 65 . Stop exercise at 04:01 RECOVERY 01:00 . . 88 . 138/ 62 . . RECOVERY 02:00 . . 78 . 145/ 64 . . RECOVERY 03:00 . . 78 . 151/ 67 . . RECOVERY 03:19 . . 77 . 151/ 67 . . Electronically signed by : Corinne Brownlee, 12/25/2022 19:31:40
[2022-12-23 12:20] LABS: PHA INR Fingerstick 3.9 (0.9-1.1)
== END 2022-12-23 12:24 ==
PROVIDERS: Internal Medicine Adolescent Medicine; PCP Nurse Practitioner Family; Visit Provider Internal Medicine
DX: E78.2 Mixed hyperlipidemia (principal); E78.5 Hyperlipidemia, unspecified; I15.8 Other secondary hypertension; I50.9 Heart failure, unspecified; R06.00 Dyspnea, unspecified; Z86.79 Personal history of other diseases of the circulatory system; Z95.2 Presence of prosthetic heart valve; Z79.01 Long term (current) use of anticoagulants; Z51.81 Encounter for therapeutic drug level monitoring
CPT/HCPCS: 78452; 85610; 93017; 99211; A9502; G0463; J2785

== ENCOUNTER 2023-01-06 10:25 | Outpatient (CLI) | payer MEDICARE, OTHER, SELFPAY ==
--- NOTE | 2023-01-06 10:33 | CA_ITS ---
APPROVED REPORT EXAM: Comprehensive 2D, Doppler, and color-flow Echocardiogram Crib Pad Maker: AIMEE Mccann, RVS Ht: 5 ft 5 in Wt: 155lbs BSA: 1.77 BP: 172/81 mmHg Indications: Mechanical AVR-20years ago, A-fib, HTN, HLD, Fatigue, SOB 2D Dimensions Aortic Root 2.72 cm LA Volume 165.70 mL Left Atrium 4.28 cm LA Volume Index [id number] mL/m2 (M/F) 16-34 LVOT 1.97 cm (M/F) 1.5-2.5 M-Mode Dimensions RVDd 2.03 cm (0.9-2.6) LA Diam 4.54 cm (1.9-4.0) LVDd 6.12 cm (3.5-5.7) Ao Diam 4.00 cm (2.0-3.7) LVDs 4.07 cm (3.5-5.7) IVSd 1.12 cm (0.6-1.1) PWd 1.08 cm (0.6-1.1) EF (Teich) 61.30% EPSs 0.61 cm FS 33.50% EDV (Teich) 188.30 mL TAPSE 2.24 (<1.7) ESV (Teich) 72.90 mL LV Diastology E Decel Time 210.00 (160-240 msec) E/A Ratio 0.84 MED E' 4.40 (< 7 cm/sec) MED A' 9.50 cm/s E'/MED E' Ratio 25.59 (>14) LAT E' 9.50 (<10 cm/sec) LAT A' 8.40 cm/s E/LAT E' Ratio 11.85 (>14) Pulm Vein s 40.00 cm/sec Pulm Vein d 26.00 cm/sec Ar-A Duration 150.00 msec Aortic Valve LVOT Max 108.00 (70-110 cm/s) LVOT VTI 23.60 cm AoV Peak Jos. 355.00 (50-130 cm/s) AI PHT 437.00 ms AO Peak GR. 50.40 mmHg AO Mean GR. 25.20 (<5 mmHg) AO VTI 72.98 (18-25 cm) ANA M (VTI) 0.99 (2.5-4.5 cm2) Mitral Valve MV A Velocity 134.00 (40-130 cm/s) E/A Ratio 0.84 MV Decel. Time 210.00 (160-240 ms) MV Mean Gr. 4.00 (<2mmHg) Pulmonary Valve PV Peak Velocity 113.00 (50-150 cm/s) Left Ventricle The left ventricle is moderately dilated (LVEDVi = 89 ml/m2) The left ventricular systolic function is low normal. The left ventricular ejection fraction is within the normal range. There is increased LV wall thickness. Mild concentric hypertrophy is present. There is moderate hypokinesis of the inferior and inferoseptal LV leonard. The septum appears asynchronous. Grade II diastolic dysfunction is present. LVEF is 50% Right Ventricle Right ventricle is mildly dilated. The right ventricular systolic function is normal. Atria Left atrium is severely dilated. Right atrium is mildly dilated. Aortic Valve s/p mechanical AVR. There mechanical prosthesis is well-seated. Peak velocity is 3.8 m/s. Mean AV gradient is 28 mmHg. Peak AV gradient is 58 mmHg. DVI = 0.35. Acceleration time is 80 ms. Unindexed effective orifice area (EOA) is 1.1 cm2. Findings are suggestive of possible patient-prosthesis mismatch (PPM). There is mild central AI. There is no paravalvular AI. Mitral Valve There is moderate mitral annular calcification (MAC). The mitral valve leaflets are moderately thickened. The posterior leaflet appears tethered and has restricted motion. No evidence of mitral valve stenosis. MV gradient is 4 mmHg (HR 64 bpm). There is at least moderate mitral regurgitation. The MR jet is eccentric and is posteriorly directed along the posterior LA wall (Coanda effect). Tricuspid Valve The tricuspid valve leaflets are thin and pliable. Trace tricuspid regurgitation. RVSP is 10 mmHg + RA pressure. Pulmonic Valve The pulmonary valve is normal in structure. Trace pulmonic regurgitation. Great Vessels The aortic root is normal in size. The ascending aorta is not well visualized. The IVC is not well visualized. Pericardium There is no pericardial effusion. Other Information Study Quality: Fair Conclusion Moderately dilated LV with low-normal LV systolic function (LVEF 50%) Grade II diastolic dysfunction. Mild concentric LVH. Inferior and inferoseptal LV wall hypokinesis. Mild RV dilation with normal RV function Biatrial dilatio
[2023-01-06 11:08] LABS: INR 4.58 (0.9-1.1); Prothrombin Time 44.8 seconds (10.1-12.5)
[2023-01-06 11:27] LABS: PHA INR Fingerstick 4.8 (0.9-1.1)
[2023-01-06 12:53] LABS: Alanine Aminotransferase 17 U/L (12-78); Albumin Level 3.4 g/dl (3.5-5.0); Alkaline Phosphatase 100 U/L (38-126); Aspartate Amino Transferase 32 U/L (14-36); Bilirubin,Indirect 0.3 mg/dL (0.0-0.9); Bilirubin,Total 0.3 mg/dl (0.2-1.3); Bilirubin,Unconjugated 0.4 mg/dL (0.0-1.1); Chol/HDL Ratio 3.9 (1-3.5); Cholesterol 120 mg/dl (140-200); HDL Cholesterol 31 mg/dl (40-60); Total Protein,Serum 5.9 g/dl (6.3-8.2); Triglycerides 220 mg/dl (30-150); VLDL Cholesterol 44 mg/dL (0-40)
[2023-01-06 13:05] LABS: Direct LDL Cholesterol 49.87 mg/dL (100-129)
== END 2023-01-06 11:30 ==
LOC: RT 10:26
PROVIDERS: Nurse Practitioner; PCP Nurse Practitioner Family; Visit Provider Internal Medicine
DX: E78.5 Hyperlipidemia, unspecified; I15.8 Other secondary hypertension; I50.9 Heart failure, unspecified; Z86.79 Personal history of other diseases of the circulatory system; Z95.2 Presence of prosthetic heart valve; Z79.01 Long term (current) use of anticoagulants; R06.09 Other forms of dyspnea; Z51.81 Encounter for therapeutic drug level monitoring
CPT/HCPCS: 36415; 80061; 80076; 85610; 93306; 99211; G0463

== ENCOUNTER 2023-01-11 12:07 | Outpatient (CLI) | payer MEDICARE, OTHER, SELFPAY | END 2023-01-11 15:55 | PROVIDERS: PCP Nurse Practitioner Family; Visit Provider Internal Medicine Adolescent Medicine | DX: Z95.2 Presence of prosthetic heart valve (principal); Z51.81 Encounter for therapeutic drug level monitoring; Z79.01 Long term (current) use of anticoagulants | CPT/HCPCS: 36415; 85610; 99211; G0463 ==

== ENCOUNTER → 2023-01-13 13:46 | Outpatient (CLI) | payer MEDICARE, OTHER, SELFPAY ==
[2023-01-13 14:11] LABS: Hematocrit 29.9 % (37.0-47.0); Hemoglobin 9.4 g/dL (12.2-16.2)
[2023-01-13 15:19] LABS: INR 6.72 (0.9-1.1); Prothrombin Time 64.1 seconds (10.1-12.5)
[2023-01-13 15:58] LABS: Anion Gap 17.1 mEq/L (5-15); Blood Urea Nitrogen 41 mg/dl (7-17); Calcium 7.8 mg/dl (8.4-10.2); Carbon Dioxide 24 mmol/L (22.0-30.0); Chloride 103 mmol/L (98-107); Estimated Glomerular Filt Rate 17 ml/min (>60); GFR (African American) 20 ML/MIN (>60); Glucose 109 mg/dl (74-100); Potassium 3.1 mmoL/L (3.5-5.1); Sodium 141 mmol/L (136-145)
== END ==
PROVIDERS: PCP Internal Medicine Adolescent Medicine; Visit Provider Nurse Practitioner Family
DX: Z79.01 Long term (current) use of anticoagulants (principal)
CPT/HCPCS: 36415; 80048; 85014; 85018; 85610

== ENCOUNTER → 2023-01-13 14:00 | Outpatient (POV) | payer MEDICARE, OTHER, SELFPAY ==
--- NOTE | 2023-01-13 14:31 | A.OFFVIS_ITS ---
[facility] Pain Management SOAP Note Subjective:: This patient is a very pleasant 72-year-old female comes our clinic today for medication refills regarding chronic osteoarthritis bilateral shoulder pain. Patient has had orthopedic consultation regarding bilateral shoulder pain. Patient has been told she has pathology in each shoulder. However, patient not interested in having any surgery at this time. Not interested in having any intra-articular cortisone at this time. We have been medically managing the patient with tramadol 50 mg 1 p.o. 3 times daily and gabapentin 100 mg 1 p.o. twice daily. Patient does not complain of any side effects or complications regarding the medication management. She rates her pain today 7/10. Objective:: Patient is awake alert [place] x3. No acute distress. Flexion-extension cervical lumbar spine normal. Deep tendon reflexes upper lower extremities normal. Motor strength upper and lower extremities normal. There is no gross sensory deficit. Gait is normal. Assessment:: Degenerative osteoarthritis bilateral shoulder joints. Chronic bilateral shoulder pain. Plan:: She will return to see us in 1 month. [facility] Disclaimer: The information contained in this section may have been updated after the patient was seen, as this information can be updated by other users. 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 (HFpEF) heart failure with preserved ejection fraction Anticoagulation adequate Arthritis Cataract cataract surgery - left eye Cholecystectomy planned Colon cancer Dyslipidemia History of anemia History of cataract HTN (hypertension) Hyperlipidemia Hypothyroid Infection and inflammatory reaction due to internal left knee prosthesis, initial encounter Infection of prosthetic left knee joint Left-sided epistaxis Thyroid cancer Tympanosclerosis, right ear Urinary retention Surgical History History of artificial heart valve History of carpal tunnel surgery of left wrist History of carpal tunnel surgery of right wrist History of colon resection History of total left knee replacement pt states she had 3 total left knee replacements 2 left knee surgeries with spacers placed History of total right knee replacement bilat knee surgery Hx of thyroidectomy Mechanical heart valve present Status post aortic valve replacement Family History Brother Hypertension Mother Kidney disease Father Cancer Sister Breast cancer Social History Smoking Status: Never smoker second hand exposure: No alcohol intake: never substance use type: prescription drug current occupational status: retired Travel in the last 8 weeks: None household members: none housing: house 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
[2023-01-13 15:31] VITALS: BP 140/72; PULSE 64; RESP 18; O2SAT 100; BMI 24.0
== END | disposition home or self-care (01) ==
PROVIDERS: Visit Provider Nurse Anesthetist, Certified Registered
DX: M19.011 Primary osteoarthritis, right shoulder (principal); M19.012 Primary osteoarthritis, left shoulder; G89.29 Other chronic pain; M25.511 Pain in right shoulder; M25.512 Pain in left shoulder
CPT/HCPCS: 99212; G0463

== ENCOUNTER 2023-01-13 16:00 | Emergency (ER) | payer MEDICARE, OTHER, SELFPAY ==
[2023-01-13] VITALS (7 sets, daily range): BP systolic 151–177; BP diastolic 66–115; PULSE 65–92; RESP 16–18; TEMP 36.7–36.8; O2SAT 98–100; BMI 23.9; BMI 24.0
--- NOTE | 2023-01-13 16:23 | EXP.UTC ---
Discharge Plan Disposition Patient Disposition: Still a Patient Prescriptions Prescriptions: No Action calcium carbonate 600 mg calcium (1,500 mg) tablet 600 mg PO DAILY potassium chloride 10 mEq tablet extended release 30 meq PO DAILY Patient Comments: TAKE 3 TABLETS BY MOUTH EVERY DAY magnesium oxide 400 mg (241.3 mg magnesium) tablet 400 mg PO DAILY Patient Comments: TAKE 1 TABLET BY MOUTH EVERY DAY omeprazole 20 mg capsule,delayed release(DR/EC) 20 mg PO BID Patient Comments: TAKE 1 CAPSULE BY MOUTH TWICE DAILY Trintellix 20 mg tablet 20 mg PO DAILY multivitamin 1 EACH capsule 1 each PO DAILY rosuvastatin 5 MG tablet 5 mg PO HS levothyroxine 200 mcg tablet 200 mcg PO DAILY Patient Comments: TAKE 1 TABLET BY MOUTH EVERY DAY warfarin 3 mg tablet 1.5 mg PO DIRECTED Patient Comments: TAKE 1 TABLET BY MOUTH EVERY DAY Rx Instructions: monday- monday metoprolol succinate [Toprol XL] 50 mg tablet extended release 24 hr 50 mg PO DAILY amlodipine [Norvasc] 5 mg tablet 5 mg PO DAILY hydrochlorothiazide 25 mg tablet 25 mg PO DAILY warfarin 3 MG tablet See Rx Instructions .ROUTE .COMPLEX Rx Instructions: 3 mg orally, monday only ferrous fumarate 55 mg (18 mg iron) Tablet Extended Release 55 mg PO DAILY tramadol 50 mg tablet 50 mg PO TID Qty: 90 0RF gabapentin 100 mg capsule 100 mg PO BID Qty: 60 0RF Referrals Follow up/Referrals: Atiya Etienne APRN [Primary Care Provider] - See instructions Discharge ED Provider: Wei Nathan [facility] HPI General Stated complaint: weakness Mode of Arrival: Ambulatory Source of Information: Patient Limitations: No Limitations Time Seen by Provider: 01/13/23 16:23 Description of Symptoms (Recalled from Triage Doc. by RN): Patient states she is very weak and having diarrhea that is very dark in color and abnormal labs. States she feels like she did when her blood was low. HEENT Symptoms (Recalled from RN notes): No Resp Symptoms (Recalled from RN notes): No Skin Symptoms (Recalled from RN notes): No MS Symptoms (Recalled from RN notes): Yes Functional Status (Recalled from RN notes): wnl History of Present Illness Provider Complaint: Patient states that for the last week she has been feeling weak and having bad diarrhea States that it is dark in color and smells really bad States that the weakness has got worse over the last week and today she was in [place] and was nodding off while driving home having a hard time staying awake States that she feels like did when he blood was low She had lab work done earlier today she [facility] and they held her Coumadin since Mon and today she had some lab work done earlier and they recommended she come in Related Data Home Medications Medication Instructions Recorded Confirmed multivitamin 1 each PO DAILY Supplement 08/09/17 01/13/23 rosuvastatin 5 mg tablet 5 mg PO HS Cholesterol 05/31/19 01/13/23 calcium carbonate 600 mg calcium 600 mg PO DAILY Supplement 11/25/19 01/13/23 (1,500 mg) tablet warfarin 3 mg tablet See Rx Instructions .Route 03/05/21 01/13/23 .COMPLEX mechanical valve ferrous fumarate 55 mg (18 mg 55 mg PO DAILY Supplement 01/27/22 01/13/23 iron) tablet,extended release levothyroxine 200 mcg tablet 200 mcg PO DAILY THYROID 04/15/22 01/13/23 warfarin 3 mg tablet 1.5 mg PO DIRECTED MECHANICAL 04/15/22 01/13/23 VALVE magnesium oxide 400 mg (241.3 mg 400 mg PO DAILY Supplement 10/10/22 01/13/23 magnesium) tablet omeprazole 20 mg capsule,delayed 20 mg PO BID GERD 10/10/22 01/13/23 release potassium chloride 10 mEq 30 meq PO DAILY Supplement 10/10/22 01/13/23 tablet,extended release amlodipine 5 mg tablet (Norvasc) 5 mg PO DAILY blood pressure 12/14/22 01/13/23 hydrochlorothiazide 25 mg tablet 25 mg PO DAILY Fluid 12/14/22 01/13/23 metoprolo
--- NOTE | 2023-01-13 16:31 | PC.NURSE ---
pt brought over from [facility] by Carmen Calvert RN
--- NOTE | 2023-01-13 16:33 | ECG_ITS ---
APPROVED REPORT Exam: Resting ECG HR:71 bpm ECG Measurements Heart Rate 71 AXES NE 166 P 77 QRSd 152 QRS -54 QT 442 T 86 QTc 465 Conclusion SINUS RHYTHM WITH SINUS ARRHYTHMIA LEFT AXIS DEVIATION [QRS AXIS < -30] LEFT BUNDLE BRANCH BLOCK [120+ ms QRS DURATION, 80+ ms Q/S IN V1/V2, 85+ ms R IN I/aVL/V5/V6] ABNORMAL ECG UNCONFIRMED REPORT Electronically signed by : Tal Pantoja MD 01/14/2023 06:48:50
--- NOTE | 2023-01-13 16:45 | PC.NURSE ---
Dr. Nathan at [facility]
--- NOTE | 2023-01-13 16:50 | CT_ITS ---
PROCEDURE INFORMATION: Exam: CT Abdomen And Pelvis Without Contrast Exam date and time: 01/13/2023 5:03 PM Age: 72 years old Clinical indication: Vomiting and other: Diarrhea; Additional info: Diarrhea, possibly bloody TECHNIQUE: Imaging protocol: Computed tomography of the abdomen and pelvis without contrast. Radiation optimization: All CT scans at this facility use at least one of these dose optimization techniques: automated exposure control; mA and/or kV adjustment per patient size (includes targeted exams where dose is matched to clinical indication); or iterative reconstruction. REPORTING DATA: Count of CT and Cardiac NM exams in prior 12 months: This patient has received [address] and 0 known cardiac nuclear medicine studies in the 12 months prior to the current study. COMPARISON: CT ABDOMEN PELVIS WO CON 05/31/2019 4:05 PM FINDINGS: Heart: There is dense mitral annular calcification. Liver: There is early morphologic changes of cirrhosis with volume redistribution. No concerning focal liver lesion. Gallbladder and bile ducts: The patient is status post cholecystectomy. Pancreas: Normal. No ductal dilation. Spleen: Stable calcified lesion in the anterior pole of the spleen (image 13 series 3). Tiny punctate calcification in the posteroinferior pole of the spleen is unchanged. Adrenal glands: Normal. No mass. Kidneys and ureters: There are bilateral simple appearing renal cysts. There are nonobstructing bilateral intrarenal calculi. Stomach and bowel: The patient is status post sleeve gastrectomy. Appendix: No evidence of appendicitis. Intraperitoneal space: Unremarkable. No free air. No significant fluid collection. Vasculature: There is atherosclerotic disease of the visualized aorta and its major branch vessels. Lymph nodes: Unremarkable. No enlarged lymph nodes. Urinary bladder: There is mild bladder wall thickening, possibly due to under distention and a nonspecific finding. Reproductive: Unremarkable as visualized. Bones/joints: There is diffuse degenerative disease of the visualized osseous structures. There is significant expansion of the right femoroacetabular joint capsule with low-density fluid concerning for advanced synovitis. The patient is status post median sternotomy. Soft tissues: There is a complex bilobed hyperdense collection within right gluteus medius measuring 8.3 x 7.1 x 4.4 cm likely reflecting an intramuscular hematoma. Other findings: The kidneys demonstrate thin cortices compatible with atrophy. IMPRESSION: 8 cm bilobed collection in the right gluteus medius concerning for intramuscular hematoma with significant synovitis of the adjacent femoroacetabular joint. COMMENTS: Consistent with the [place] [employer]'s Incidental Findings Committee white paper (J Am Brigido Radiol 2018): Any incidental renal lesion less than 1 cm or classified as too small to characterize, or any incidental cystic renal lesion characterized as simple-appearing, is likely benign. No follow-up imaging is recommended for these lesions per consensus recommendations based on imaging criteria.
[2023-01-13 17:02] LABS: Basophils % 0.5 % (0.1-2.0); Eosinophils % 0.1 % (0.1-12.0); Hematocrit 31.3 % (37.0-47.0); Hemoglobin 9.7 g/dL (12.2-16.2); Lymphocytes # 1.1 K/mm3 (0.7-4.5); Lymphocytes % 12.4 % (10-50); Mean Corpuscular HGB Conc 30.9 g/dL (31.8-35.4); Mean Corpuscular Hemoglobin 25.6 pg (27.0-31.2); Mean Corpuscular Volume 82.7 fl (81-99); Mean Platelet Volume 7.2 fl (7.4-10.4); Monocytes # 0.4 K/mm3 (0.1-1.0); Monocytes % 4.9 % (1.7-9.3); Neutrophils # 7.2 K/mm3 (1.8-7.8); Neutrophils % 82.1 % (37.0-80.0); Platelet Count 385 K/mm3 (142-424); Red Blood Count 3.79 M/mm3 (4.20-5.40); White Blood Count 8.8 K/mm3 (4.8-10.8)
[2023-01-13 17:04] LABS: Chloride 103 mmol/L (98-107); Potassium 3.1 mmoL/L (3.5-5.1); Sodium 142 mmol/L (136-145)
[2023-01-13 17:07] LABS: Alanine Aminotransferase 22 U/L (12-78); Albumin Level 3.7 g/dl (3.5-5.0); Albumin/Globulin Ratio 1.1 (1.1-1.8); Alkaline Phosphatase 115 U/L (38-126); Anion Gap 17.1 mEq/L (5-15); Aspartate Amino Transferase 40 U/L (14-36); Bilirubin,Total 0.5 mg/dl (0.2-1.3); Blood Urea Nitrogen 44 mg/dl (7-17); Carbon Dioxide 25 mmol/L (22.0-30.0); Creatinine Clearance Estimated 18 mL/min (50-200); Estimated Glomerular Filt Rate 15 ml/min (>60); GFR (African American) 19 ML/MIN (>60); Globulin 3.3 g/dL (1.3-3.2)
[2023-01-13 17:08] LABS: Calcium 8.6 mg/dl (8.4-10.2); Glucose 98 mg/dl (74-100); Lipase 132 U/L (23-300); Magnesium 1.5 mg/dl (1.6-2.3); Phosphorous 5.7 mg/dl (2.5-4.5)
[2023-01-13 17:24] LABS: Free T4 (Free Thyroxine) 2.28 ng/dl (0.78-2.19)
[2023-01-13 17:26] LABS: Troponin I 0.04 ng/ml (0.00-0.034)
[2023-01-13 17:28] LABS: Prothrombin Time 61.2 seconds (10.1-12.5)
--- NOTE | 2023-01-13 17:28 | PC.NURSE ---
Deb from lab called critical on patient. PT 61.2 and INR 6.4 . Repeated and verifed with Deb.
[2023-01-13 17:39] LABS: Thyroid Stimulating Hormone 0.47 uIU/mL (0.465-4.68)
[2023-01-13 17:44] LABS: NT Pro Brain Natriuretic Pep. 4920 pg/mL (0-125)
--- NOTE | 2023-01-13 18:16 | PC.NURSE ---
Pt provided with warm blanket
--- NOTE | 2023-01-13 20:26 | PC.NURSE ---
Rounded on patient, no issues at this time.
[2023-01-13 21:17] LABS: Troponin I 0.04 ng/ml (0.00-0.034)
--- NOTE | 2023-02-06 19:51 | HMH.EDGENADL ---
Discharge Plan Disposition Patient Disposition: Home, Self-Care Condition: Fair Prescriptions Prescriptions: No Action calcium carbonate 600 mg calcium (1,500 mg) tablet 600 mg PO DAILY omeprazole 20 mg capsule,delayed release(DR/EC) 20 mg PO BID Patient Comments: TAKE 1 CAPSULE BY MOUTH TWICE DAILY Trintellix 20 mg tablet 20 mg PO DAILY leflunomide 10 mg tablet 10 mg PO DAILY magnesium oxide 400 mg (241.3 mg magnesium) tablet 400 mg PO DAILY Qty: 30 5RF multivitamin 1 EACH capsule 1 each PO DAILY rosuvastatin 5 MG tablet 5 mg PO HS levothyroxine 200 mcg tablet 200 mcg PO DAILY Patient Comments: TAKE 1 TABLET BY MOUTH EVERY DAY warfarin 3 mg tablet 1.5 mg PO DIRECTED Patient Comments: TAKE 1 TABLET BY MOUTH EVERY DAY Rx Instructions: monday- monday metoprolol succinate [Toprol XL] 50 mg tablet extended release 24 hr 50 mg PO DAILY warfarin 3 MG tablet See Rx Instructions .ROUTE .COMPLEX Rx Instructions: 3 mg orally, monday only ferrous fumarate 55 mg (18 mg iron) Tablet Extended Release 55 mg PO DAILY tramadol 50 mg tablet 50 mg PO TID Qty: 90 0RF gabapentin 100 mg capsule 100 mg PO BID Qty: 60 0RF Referrals Follow up/Referrals: Atiya Etienne APRN [Primary Care Provider] - See instructions Activity Restrictions/Add. Instructions Additional Instructions/Restrictions: As discussed, your kidney function is markedly worsened over the past month, as well as you have been discovered to have a hematoma of your right thigh area. You have elected to not be admitted to the hospital even though this would be my recommendation at this time, however please follow-up very closely with your primary care provider as you will need further treatment urgently. Please return with any new or worsening symptoms. Clinical Impressions Clinical Impression: Acute kidney injury, Acute hypokalemia, Hypomagnesemia Instructions Patient Instructions: DI for Diarrhea and Traveler's Diarrhea -- Adult, DI for Diarrhea and Traveler's Diarrhea -- Child, DI for Nausea -- Adult, DI for Nausea -- Child Discharge ED Provider: Wei Nathan Adult HPI General Chief complaint: Nausea/Vomiting/Diarrhea Stated complaint: weakness Time Seen by Provider: 01/13/23 16:23 Mode of Arrival: Ambulatory Source of Information: Patient Limitations: No Limitations Description of Symptoms (Recalled from ER Triage Doc. by RN): Pt arrived to ed from [facility] with c/o diarrhea for the last week with dark watery stools. Pt also c/o generalized weakness. Pt is on coumadin and was told (per pt) to hold her coumadin due to low lab values. History of Present Illness HPI narrative: Patient presents for evaluation of generalized weakness, in the absence of any focal neurologic deficit, gradual in onset starting within the past 24 hours, constant, stable course, no previous therapies, patient presents as a transfer from urgent care, associated symptoms include diarrhea, dark watery stools, has not had similar symptoms before. No sick contacts. Related Data Home Medications Medication Instructions Recorded Confirmed multivitamin 1 each PO DAILY Supplement 08/09/17 01/18/23 rosuvastatin 5 mg tablet 5 mg PO HS Cholesterol 05/31/19 01/18/23 calcium carbonate 600 mg calcium 600 mg PO DAILY Supplement 11/25/19 01/18/23 (1,500 mg) tablet warfarin 3 mg tablet See Rx Instructions .Route 03/05/21 01/18/23 .COMPLEX mechanical valve ferrous fumarate 55 mg (18 mg 55 mg PO DAILY Supplement 01/27/22 01/18/23 iron) tablet,extended release levothyroxine 200 mcg tablet 200 mcg PO DAILY THYROID 04/15/22 01/18/23 warfarin 3 mg tablet 1.5 mg PO DIRECTED MECHANICAL 04/15/22 01/18/23 VALVE omeprazole 20 mg capsule,delayed 20 mg PO BID GERD 10/10/22 01/18/23 release metoprolol succinate 50 mg 50 mg PO DAILY blood pressure 12/14/22 01/18/23
== END 2023-01-13 22:00 | disposition home or self-care (01) ==
LOC: UTC 16:02 → ER 16:27
PROVIDERS: Emergency Provider Emergency Medicine; PCP Nurse Practitioner Family
DX: R53.1 Weakness (principal); R19.7 Diarrhea, unspecified; I11.0 Hypertensive heart disease with heart failure; I50.30 Unspecified diastolic (congestive) heart failure; E78.5 Hyperlipidemia, unspecified; E89.0 Postprocedural hypothyroidism; Z85.850 Personal history of malignant neoplasm of thyroid; N17.9 Acute kidney failure, unspecified; E87.6 Hypokalemia; E83.42 Hypomagnesemia; G47.33 Obstructive sleep apnea (adult) (pediatric); Z87.891 Personal history of nicotine dependence
CPT/HCPCS: 36415; 74176; 80048; 80053; 83690; 83735; 83880; 84100; 84439; 84443; 84484; 85014; 85018; 85025; 85610; 86850; 93005; 96360; 99212; 99285; G0463

== ENCOUNTER 2023-01-16 12:03 | Outpatient (CLI) | payer MEDICARE, OTHER, SELFPAY ==
[2023-01-16 12:24] LABS: PHA INR Fingerstick 3.2 (0.9-1.1)
== END 2023-01-16 12:29 ==
LOC: ACC 12:04
PROVIDERS: PCP Internal Medicine Adolescent Medicine; Visit Provider Internal Medicine Adolescent Medicine
DX: Z79.01 Long term (current) use of anticoagulants (principal); Z51.81 Encounter for therapeutic drug level monitoring; Z95.2 Presence of prosthetic heart valve
CPT/HCPCS: 85610; 99211; G0463

== ENCOUNTER → 2023-01-17 11:57 | Outpatient (CLI) | payer MEDICARE, OTHER, SELFPAY ==
[2023-01-17 12:26] LABS: Basophils # 0.1 K/mm3 (0-0.2); Basophils % 0.4 % (0.1-2.0); Eosinophils % 0.4 % (0.1-12.0); Hematocrit 29.4 % (37.0-47.0); Hemoglobin 9.3 g/dL (12.2-16.2); Lymphocytes # 1.4 K/mm3 (0.7-4.5); Lymphocytes % 13.3 % (10-50); Mean Corpuscular HGB Conc 31.8 g/dL (31.8-35.4); Mean Corpuscular Hemoglobin 25.9 pg (27.0-31.2); Mean Corpuscular Volume 81.3 fl (81-99); Mean Platelet Volume 8.1 fl (7.4-10.4); Monocytes # 0.4 K/mm3 (0.1-1.0); Monocytes % 3.2 % (1.7-9.3); Neutrophils # 8.8 K/mm3 (1.8-7.8); Neutrophils % 82.6 % (37.0-80.0); Platelet Count 358 K/mm3 (142-424); Red Blood Count 3.61 M/mm3 (4.20-5.40); White Blood Count 10.7 K/mm3 (4.8-10.8)
[2023-01-17 14:18] LABS: Anion Gap 13.5 mEq/L (5-15); Blood Urea Nitrogen 36 mg/dl (7-17); Calcium 8.1 mg/dl (8.4-10.2); Carbon Dioxide 25 mmol/L (22.0-30.0); Chloride 103 mmol/L (98-107); Estimated Glomerular Filt Rate 22 ml/min (>60); GFR (African American) 27 ML/MIN (>60); Glucose 92 mg/dl (74-100); Magnesium 1.4 mg/dl (1.6-2.3); Potassium 3.5 mmoL/L (3.5-5.1); Sodium 138 mmol/L (136-145); Total Protein,Serum 6.2 g/dl (6.3-8.2)
[2023-01-19 12:21] LABS: Albumin, U 24.4 % (.); Alpha-1-Globulin, U 7.1 % (.); Beta Globulin, U 30.6 % (.); Gamma Globulin, U 25.9 % (.); M-Spike, % 13.5 % (Not Observed)
[2023-01-19 16:06] LABS: Albumin 3.2 g/dL (2.9-4.4); Alpha-1-Globulin 0.4 g/dL (0.0-0.4); Alpha-2-Globulin 0.7 g/dL (0.4-1.0); Gamma Globulin 0.9 g/dL (0.4-1.8)
[2023-01-23 12:39] LABS: Immunoglobulin A, Qn 188; Immunoglobulin G, Qn 839; Immunoglobulin M, Qn 94
[2023-01-23 12:40] LABS: Free Kappa Lt Chains 69.6
== END ==
PROVIDERS: PCP Nurse Practitioner Family; Visit Provider Internal Medicine
DX: E78.5 Hyperlipidemia, unspecified (principal); I10 Essential (primary) hypertension; I50.9 Heart failure, unspecified; Z86.79 Personal history of other diseases of the circulatory system; Z95.2 Presence of prosthetic heart valve
CPT/HCPCS: 36415; 80048; 82784; 83735; 83883; 84155; 84156; 84165; 84166; 85025; 86334; 86335

== ENCOUNTER 2023-01-20 12:07 | Outpatient (CLI) | payer MEDICARE, OTHER, SELFPAY ==
[2023-01-20 14:42] LABS: PHA INR Fingerstick 1.8 (0.9-1.1)
== END 2023-01-20 15:02 ==
LOC: ACC 12:07
PROVIDERS: PCP Internal Medicine Adolescent Medicine; Visit Provider Internal Medicine Adolescent Medicine
DX: Z79.01 Long term (current) use of anticoagulants (principal); Z51.81 Encounter for therapeutic drug level monitoring; Z95.2 Presence of prosthetic heart valve
CPT/HCPCS: 85610; 99211; G0463

== ENCOUNTER 2023-01-27 12:55 | Outpatient (CLI) | payer MEDICARE, OTHER, SELFPAY ==
[2023-01-27 16:08] LABS: PHA INR Fingerstick 1.5 (0.9-1.1)
== END 2023-01-27 16:13 ==
LOC: ACC 12:56
PROVIDERS: Internal Medicine Adolescent Medicine; PCP Nurse Practitioner Family; Visit Provider Nurse Practitioner Family
DX: Z79.01 Long term (current) use of anticoagulants (principal); Z51.81 Encounter for therapeutic drug level monitoring; Z95.2 Presence of prosthetic heart valve
CPT/HCPCS: 85610; 99211; G0463

== ENCOUNTER 2023-02-02 10:32 | Outpatient (CLI) | payer MEDICARE, OTHER, SELFPAY ==
[2023-02-02 14:53] LABS: PHA INR Fingerstick 1.5 (0.9-1.1)
== END 2023-02-02 14:54 ==
LOC: ACC 10:33
PROVIDERS: PCP Nurse Practitioner Family; Visit Provider Internal Medicine Adolescent Medicine
DX: Z79.01 Long term (current) use of anticoagulants (principal); Z51.81 Encounter for therapeutic drug level monitoring; Z95.2 Presence of prosthetic heart valve
CPT/HCPCS: 85610; 99211; G0463

== ENCOUNTER 2023-02-08 11:35 | Outpatient (CLI) | payer MEDICARE, OTHER, SELFPAY ==
--- OUTSIDE RECORDS SUMMARY | 2023-02-08 11:39 | XMS_ITS | Clinical Summary ---
Author Name Unknown Address [address] [place] [address] Phone Organization [facility] Address [address] [place] [address] Phone Care Team Providers Care Pulp Machine Operator Name Role Phone Juan JARQUIN, [place] Unavailable [phone] Evelia Etienne Primary Care Provider Unavaila ble Atiya Etienne APRN Unavailable Marisela vailable Reason for Referral Date Encounter Description Provider Reason for Referral 08/05/22 Follow Up Carl Thomson PA-C Referral To Physician Reason for Visit and Chief Complaint The Chief Complaint is: LEFT KNEE PAIN Problems Includes: Problems addressed during this encounter and other active Problems All Visits Onset Date Resolved Date Provider Condition S tatus Joint Pain, Localized in the Left Shoulder 09/07/2020 Darien randle MD Active Plan of Treatment the patient is very pleased with her knee surgery, no complaints today. She is working without any discomfort or swelling, very pleased. We will plan for follow-up five-year postop intervals - Last Documented On 08/05/2022 2:29PM ; [facility] Instructions to patient Lose weight Last Documented On 1:18PM ; [facility] Assessments Includes: Asse
--- OUTSIDE RECORDS SUMMARY | 2023-02-08 11:39 | XMS_ITS | Clinical Summary ---
Author Name Unknown Address [address] [place] [address] Phone Organization [facility] Address [address] [place] [address] Phone Care Team Providers Care Netezza Developer Name Role Phone Juan JARQUIN, [place] Unavailable Evelia Peoples Primary Care Provider Unavaila Atiya Davison APRN Unavailable Marisela vailable Reason for Referral Date Encounter Description Provider Reason for Referral 09/07/20 Follow Up Darien Reese MD Refe rral To Physician - see pcp for bp Reason for Visit and Chief Complaint The Chief Complaint is: Leftl shoulder pain Problems Includes: Problems addressed during this encounter and other active Problems Current Visit Onset Date Resolved Date Provider Condezequielo n Status Joint Pain, Localized in the Left Shoulder 09/07/2020 Darien randle MD Active Past Visits Onset Date Resolved Date Provider Condition Status Joint Pain in the Left Knee 02/01/2017 Justen Coats MD Active Plan of Treatment She does not want any surgical intervention will see her back in 3 months likely for future injections - Last Documented On 09/07/2020 4:37PM ; [facility], [facility] Instructions to patient
--- OUTSIDE RECORDS SUMMARY | 2023-02-08 11:39 | XMS_ITS | Clinical Summary ---
Author Name Unknown Address [address] [place] [address] Phone Organization [facility] Address [address] [place] [address] Phone Care Team Providers Care Sponsorship Manager Name Role Phone Johnson Martinez MD Unavailable [phone] Evelia Etienne Primary Care Provider Unavaila ble Atiya Etienne APRN Unavailable Marisela vailable Reason for Visit and Chief Complaint INJECTION Problems Includes: Problems addressed during this encounter and other active Problems All Visits Onset Date Resolved Date Provider Condition S tatus Joint Pain, Localized in the Left Shoulder 09/07/2020 Darien randle MD Active Plan of Treatment No Plan of Treatment Recorded Assessments Includes: Assessments from this encounter No Assessments Recorded Medical Equipment - Implanted Devices Includes: Current Devices No Medical Equipment Recorded Medications Includes: Medications discussed during this encounter and other current Medications Current Medications (continue as prescribed) Amoxicillin 875 MG Oral Tablet 12/03/2020 Provider: AMANDA HENSON MD Diagnosis: Levothyroxine Sodium 200 MCG Oral Tablet 11/25/2020 Prov
--- OUTSIDE RECORDS SUMMARY | 2023-02-08 11:39 | XMS_ITS | Clinical Summary ---
Author Name Unknown Address [address] [place] [address] Phone Organization [facility] Address [address] [place] [address] Phone Care Team Providers Care Stencil Sprayer Name Role Phone Johnson Martinez MD Unavailable [phone] Evelia Etienne Primary Care Provider Unavaila ble Atiya Etienne APRN Unavailable Marisela vailable Reason for Referral Date Encounter Description Provider Reason for Referral 12/07/20 Follow Up Darien Reese MD Refe rral To Physician - see pcp for bp Reason for Visit and Chief Complaint The Chief Complaint is: Leftl shoulder pain Problems Includes: Problems addressed during this encounter and other active Problems All Visits Onset Date Resolved Date Provider Condition S tatus Joint Pain, Localized in the Left Shoulder 09/07/2020 Darien randle MD Active Plan of Treatment We will reinject the shoulder will do that here in the office. She understands her options. The risk and benefits of the injection were outlined to the patient. They understand these and wished to proceed. The anterior portion of the shoulder over the glenohumeral joint was prepped with alcohol and Betadine. Using a 27-gauge needle and 5 cc syringe I pierced the skin breaching the anterior joint capsule. I then aspirated to confirm no presence of a vascular bed I then injected a solution of 40 mg Kenalog / 2 cc of lidocaine/2 cc of Marcaine into the
--- OUTSIDE RECORDS SUMMARY | 2023-02-08 11:39 | XMS_ITS ---
Care Plan - [facility] Created on: February 08, 2023 QasimElba : 1950 Sex: Female Author Name Unknown Address [address] [place] [address] Phone Organization [facility] Address [address] [place] [address] Phone Care Team Providers Care Self Pay Specialist Name Role Phone Johnson Martinez MD Unavailable [phone] Evelia Etienne Primary Care Provider Unavaila ble Atiya Etienne APRN Unavailable Marisela vailable
--- OUTSIDE RECORDS SUMMARY | 2023-02-08 11:39 | XMS_ITS ---
Author Name Unknown Address [address] [place] [address] Phone Organization [facility] Address [address] [place] [address] Phone Care Team Providers Care Director Of Philanthropy Name Role Phone Johnson Martinez MD Unavailable [phone] Evelia Etienne Primary Care Provider Unavaila ble Atiya Etienne APRN Unavailable Marisela vailable Reason for Referral Date Encounter Description Provider Reason for Referral 08/05/22 Follow Up Carl Thomson PA-C Referral To Physician 08/10/21 Follow Up Carl Thomson PA-C Referral To Physician 12/07/20 Follow Up Darien Reese MD Refe rral To Physician - see pcp for bp 09/07/20 Follow Up Darien Reese MD Refe rral To Physician - see pcp for bp 07/27/20 Follow Up Darien Reese MD Refe rral To Physician - see pcp for bp 06/29/20 Follow Up Darien Reese MD Refe rral To Physician - see pcp for bp 05/29/20 IN HOUSE REFERRAL Darien Reese MD Referral To Physician - see pcp for bp Problems Includes: Active, inactive, and resolved Problems All Visits Onset Date Resolved Date Provider Condition S tatus Joint Pain, Localized in the Left Shoulder 09/07/2020 Darien randle MD Active
--- OUTSIDE RECORDS SUMMARY | 2023-02-08 11:39 | XMS_ITS | Clinical Summary ---
Author Name Unknown Address [address] [place] [address] Phone Organization [facility] , [facility] Address [address] [place] [address] Phone Care Team Providers Care Change Coordinator Name Role Phone Juan JARQUIN, [place] Unavailable [phone] Evelia Etienne Primary Care Provider Unavaila ble Atiya Etienne APRN Unavailable Marisela vailable Reason for Referral Date Encounter Description Provider Reason for Referral 08/10/21 Follow Up Carl Thomson PA-C Referral To Physician Reason for Visit and Chief Complaint The Chief Complaint is: LEFT KNEE PAIN Problems Includes: Problems addressed during this encounter and other active Problems All Visits Onset Date Resolved Date Provider Condition S tatus Joint Pain, Localized in the Left Shoulder 09/07/2020 Darien randle MD Active Plan of Treatment Overall the patient is pleased with her knee surgery, it allows her to walk, function and work. She has occasional discomfort. On exam motion baseline. X-rays demonstrate patellar cracking on the sunrise view that was not seen in last interval x-ray. We will plan for follow-up 1 year for repeat x-ray - Last Documented On 08/10/2021 2:06PM ; [facility], [facility] Instructions to patient Lose weight Last
[2023-02-08 14:39] LABS: PHA INR Fingerstick 2.3 (0.9-1.1)
== END 2023-02-08 14:46 ==
LOC: ACC 11:35
PROVIDERS: PCP Nurse Practitioner Family; Visit Provider Internal Medicine Adolescent Medicine
DX: Z79.01 Long term (current) use of anticoagulants (principal); Z51.81 Encounter for therapeutic drug level monitoring; Z95.2 Presence of prosthetic heart valve
CPT/HCPCS: 85610; 99211; G0463

== ENCOUNTER → 2023-02-13 11:29 | Outpatient (POV) | payer MEDICARE, OTHER, SELFPAY ==
[2023-02-13 11:50] VITALS: BP 148/69; PULSE 74; RESP 20; BMI 23.9
--- NOTE | 2023-02-13 12:17 | A.OFFVIS_ITS ---
[facility] Pain Management SOAP Note Subjective:: This patient is a very pleasant 72-year-old female that comes our clinic today for medication refills regarding chronic osteoarthritis bilateral shoulder pain patient has seen orthopedics for shoulder consultation. Patient has been told she has pathology regarding her shoulder pain however, patient not interested in having any kind of surgery at this time. 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 She is on her feet 8 to 10 hours a day. We medically manage the patient with tramadol 50 mg 1 p.o. 3 times daily. Gabapentin 100 mg 1 p.o. twice daily. Patient states the medication helps her pain 75%. She does not report any side effects or complications regarding the pain medication. I will refill the patient's medication. I will give her 2 refills on each medication. She will return to see us in 3 months. Objective:: Patient is awake alert Silt x3. In no acute distress. Flexion-extension lumbar spine somewhat guarded secondary to pain. Deep tendon reflexes upper and lower extremities normal. Motor strength upper and lower extremities normal. There is no gross sensory deficit. Gait is normal. Assessment:: Degenerative joint disease bilateral shoulders. Chronic osteoarthritis bilateral shoulders. Chronic bilateral shoulder pain. Plan:: I will send in refills for tramadol 50 mg 1 p.o. 3 times daily. Gabapentin 100 mg 1 p.o. twice daily. Patient's Kyaw #[id number] has been reviewed and appropriate. [facility] Disclaimer: The information contained in this section may have been updated after the patient was seen, as this information can be updated by other users. 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 (Updated 01/18/23 @ 12:03 by Nicho Hassan APRN) (HFpEF) heart failure with preserved ejection fraction Anticoagulation adequate Arthritis Cataract Cholecystectomy planned Colon cancer Dyslipidemia History of anemia History of cataract HTN (hypertension) Hyperlipidemia Hypothyroid Infection and inflammatory reaction due to internal left knee prosthesis, initial encounter Infection of prosthetic left knee joint Left-sided epistaxis SUNI (obstructive sleep apnea) Thyroid cancer Tympanosclerosis, right ear Urinary retention Surgical History History of artificial heart valve History of carpal tunnel surgery of left wrist History of carpal tunnel surgery of right wrist History of colon resection History of total left knee replacement History of total right knee replacement Hx of thyroidectomy Mechanical heart valve present Status post aortic valve replacement Family History Brother Hypertension Mother Kidney disease Father Cancer Sister Breast cancer Social History (Updated 01/18/23 @ 10:04 by Cece Yu) Smoking Status: Former smoker second hand exposure: No alcohol intake: never substance use type: prescription drug current occupational status: employed and retired Travel in the last 8 weeks: None household members: none housing: house 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
== END | disposition home or self-care (01) ==
PROVIDERS: PCP Nurse Practitioner Family; Visit Provider Nurse Anesthetist, Certified Registered
DX: M19.011 Primary osteoarthritis, right shoulder (principal); M19.012 Primary osteoarthritis, left shoulder; M25.511 Pain in right shoulder; M25.512 Pain in left shoulder; G89.29 Other chronic pain
CPT/HCPCS: 99212; G0463

== ENCOUNTER 2023-02-17 11:11 | Outpatient (CLI) | payer MEDICARE, OTHER, SELFPAY ==
[2023-02-17 12:50] LABS: INR 6.69 (0.9-1.1); Prothrombin Time 63.8 seconds (10.1-12.5)
[2023-02-17 15:22] LABS: PHA INR Fingerstick 5.9 (0.9-1.1)
== END 2023-02-17 15:24 ==
PROVIDERS: PCP Nurse Practitioner Family; Visit Provider Internal Medicine Adolescent Medicine
DX: Z79.01 Long term (current) use of anticoagulants (principal); Z51.81 Encounter for therapeutic drug level monitoring; Z95.2 Presence of prosthetic heart valve
CPT/HCPCS: 36415; 85610; 99211; G0463

== ENCOUNTER 2023-02-24 11:58 | Outpatient (CLI) | payer MEDICARE, OTHER, SELFPAY ==
[2023-02-24 14:10] LABS: PHA INR Fingerstick 2.4 (0.9-1.1)
== END 2023-02-24 14:14 ==
LOC: ACC 11:59
PROVIDERS: Internal Medicine Adolescent Medicine; PCP Nurse Practitioner Family; Visit Provider Nurse Practitioner Family
DX: Z79.01 Long term (current) use of anticoagulants (principal); Z51.81 Encounter for therapeutic drug level monitoring; Z95.2 Presence of prosthetic heart valve
CPT/HCPCS: 85610; 99211; G0463

== ENCOUNTER → 2023-03-02 15:49 | Outpatient (CLI) | payer MEDICARE, OTHER, SELFPAY ==
[2023-03-02 16:06] LABS: Adenovirus F 40/41, stool Not Detected (NotDetected); Astrovirus Not Detected (NotDetected); Campylobacter Not Detected (NotDetected); Clostridium Difficile A/B, PCR Not Detected (NotDetected); Cryptosporidium Not Detected (NotDetected); Cyclospora Cayetanesis Not Detected (NotDetected); Entamoeba histolytica Not Detected (NotDetected); Enteroaggregative E coli Not Detected (NotDetected); Enteropathogenic E coli Not Detected (NotDetected); Enterotoxigenic E coli Not Detected (NotDetected); Giardia lamblia Not Detected (NotDetected); Norovirus Not Detected (NotDetected); Plesimonas Shigalloides, PCR Not Detected (NotDetected); Salmonella, PCR Not Detected (NotDetected); Shiga-like toxin E coli Not Detected (NotDetected); Shigella Enterovasive E coli Not Detected (NotDetected); Vibrio Cholerae Not Detected (NotDetected); Vibrio, PCR Not Detected (NotDetected); Yersinia Entercolitica, PCR Not Detected (NotDetected)
[2023-03-02 16:07] LABS: Rotavirus A Not Detected (NotDetected); Sapovirus Not Detected (NotDetected)
[2023-03-02 17:17] LABS: Basophils % 0.2 % (0.1-2.0); Eosinophils # 0.1 K/mm3 (0.0-0.4); Eosinophils % 0.5 % (0.1-12.0); Hematocrit 30.2 % (37.0-47.0); Hemoglobin 10.2 g/dL (12.2-16.2); Lymphocytes # 0.7 K/mm3 (0.7-4.5); Lymphocytes % 3.6 % (10-50); Mean Corpuscular HGB Conc 33.7 g/dL (31.8-35.4); Mean Corpuscular Hemoglobin 27.6 pg (27.0-31.2); Mean Corpuscular Volume 81.8 fl (81-99); Mean Platelet Volume 9.3 fl (7.4-10.4); Monocytes # 0.5 K/mm3 (0.1-1.0); Monocytes % 2.8 % (1.7-9.3); Neutrophils # 17.3 K/mm3 (1.8-7.8); Platelet Count 260 K/mm3 (142-424); Red Blood Count 3.69 M/mm3 (4.20-5.40); Red Cell Distribution Width 16.8 % (11.5-17.5); White Blood Count 18.6 K/mm3 (4.8-10.8)
[2023-03-02 17:28] LABS: MANUAL DIFFERENTIAL MANUAL DIFFERENTIAL (MANUAL DIFF)
[2023-03-02 17:37] LABS: Alanine Aminotransferase 28 U/L (12-78); Albumin Level 3.2 g/dl (3.5-5.0); Albumin/Globulin Ratio 1.2 (1.1-1.8); Alkaline Phosphatase 89 U/L (38-126); Anion Gap 19.2 mEq/L (5-15); Aspartate Amino Transferase 49 U/L (14-36); Bilirubin,Total 0.4 mg/dl (0.2-1.3); Blood Urea Nitrogen 51 mg/dl (7-17); Calcium 6.4 mg/dl (8.4-10.2); Carbon Dioxide 21 mmol/L (22.0-30.0); Chloride 98 mmol/L (98-107); Estimated Glomerular Filt Rate 18 ml/min (>60); GFR (African American) 22 ML/MIN (>60); Globulin 2.6 g/dL (1.3-3.2); Glucose 75 mg/dl (74-100); Potassium 3.2 mmoL/L (3.5-5.1); Sodium 135 mmol/L (136-145); Total Protein,Serum 5.8 g/dl (6.3-8.2)
[2023-03-02 18:19] LABS: Magnesium 0.9 mg/dl (1.6-2.3)
[2023-03-02 20:05] LABS: Eosinophils % 1 % (0-3); Hypochromasia 1+; Lymphocytes % 5 % (10-50); Monocytes % 1 % (2-9); Neutrophils % 93 % (42-76); Ovalocytes 1+; Platelet Estimate Normal; Total Cells Counted 100
== END ==
PROVIDERS: Nurse Practitioner Family; PCP Nurse Practitioner Family; Visit Provider Nurse Practitioner Family
DX: I10 Essential (primary) hypertension (principal); K52.9 Noninfective gastroenteritis and colitis, unspecified; E83.42 Hypomagnesemia
CPT/HCPCS: 80053; 83735; 85007; 85025; 85610; 87507

== ENCOUNTER 2023-03-03 10:13 | Outpatient (CLI) | payer MEDICARE, OTHER, SELFPAY ==
[2023-03-03 10:40] VITALS: BP 127/72; PULSE 79; RESP 17; O2SAT 97
[2023-03-03 11:05] VITALS: BMI 23.3
[2023-03-03 11:40] VITALS: BP 132/72; PULSE 73; RESP 18
[2023-03-03 12:03] LABS: Basophils % 0.1 % (0.1-2.0); Eosinophils # 0.1 K/mm3 (0.0-0.4); Eosinophils % 0.3 % (0.1-12.0); Hematocrit 24.8 % (37.0-47.0); Lymphocytes # 0.4 K/mm3 (0.7-4.5); Lymphocytes % 2.7 % (10-50); Mean Corpuscular HGB Conc 33.9 g/dL (31.8-35.4); Mean Corpuscular Hemoglobin 27.8 pg (27.0-31.2); Mean Corpuscular Volume 81.9 fl (81-99); Mean Platelet Volume 9.4 fl (7.4-10.4); Monocytes # 0.4 K/mm3 (0.1-1.0); Monocytes % 2.5 % (1.7-9.3); Neutrophils # 14.5 K/mm3 (1.8-7.8); Neutrophils % 94.4 % (37.0-80.0); Platelet Count 200 K/mm3 (142-424); Red Blood Count 3.03 M/mm3 (4.20-5.40); Red Cell Distribution Width 16.6 % (11.5-17.5); White Blood Count 15.4 K/mm3 (4.8-10.8)
[2023-03-03 12:05] LABS: Chloride 101 mmol/L (98-107)
[2023-03-03 12:06] LABS: Sodium 135 mmol/L (136-145)
[2023-03-03 12:09] LABS: Anion Gap 14.8 mEq/L (5-15); Blood Urea Nitrogen 54 mg/dl (7-17); Carbon Dioxide 22 mmol/L (22.0-30.0); Creatinine Clearance Estimated 23 mL/min (50-200); Estimated Glomerular Filt Rate 21 ml/min (>60); GFR (African American) 25 ML/MIN (>60); Glucose 88 mg/dl (74-100)
[2023-03-03 12:10] LABS: Hemoglobin 8.4 g/dL (12.2-16.2); MANUAL DIFFERENTIAL MANUAL DIFFERENTIAL (MANUAL DIFF)
[2023-03-03 12:22] LABS: Lymphocytes % 2 % (10-50); Monocytes % 2 % (2-9); Neutrophils % 96 % (42-76); Platelet Estimate Normal; RBC Morphology Normal; Total Cells Counted 100
[2023-03-03 12:31] LABS: Potassium 2.8 mmoL/L (3.5-5.1)
== END 2023-03-03 12:45 | disposition home or self-care (01) ==
LOC: INF 10:13
PROVIDERS: PCP Nurse Practitioner Family; Visit Provider Nurse Practitioner Family
DX: D64.9 Anemia, unspecified (principal); Z95.2 Presence of prosthetic heart valve
CPT/HCPCS: 80048; 83735; 85007; 85025; 85610; 96360

== ENCOUNTER 2023-03-05 10:56 | Inpatient (IN) | payer MEDICARE, OTHER, SELFPAY ==
[2023-03-05] VITALS (20 sets, daily range): BP systolic 142–187; BP diastolic 61–117; PULSE 59–107; RESP 15–20; TEMP 37.1–37.8; O2SAT 90–96; BMI 189.7; BMI 69.5
--- NOTE | 2023-03-05 11:11 | XR_ITS ---
PROCEDURE INFORMATION: Exam: XR Chest Exam date and time: 03/05/2023 11:34 AM Age: 72 years old Clinical indication: Pain; Chest pressure; Additional info: L chest pain TECHNIQUE: Imaging protocol: Radiologic exam of the chest. Views: 1 view. COMPARISON: CR XR CHEST PORTABLE 12/08/2022 3:42 PM FINDINGS: Lungs: Patchy and coalescent left upper lobe opacity. Background of interstitial changes. Pleural spaces: Unremarkable. No pleural effusion. No pneumothorax. Heart/Mediastinum: Cardiomegaly noted. Bones/joints: Sternotomy wires are intact. Other findings: Status post valvuloplasty. IMPRESSION: Findings concerning for left upper lobe pneumonia. Background of interstitial changes
--- NOTE | 2023-03-05 11:14 | HMH.EDGENADL ---
Discharge Plan Disposition Patient Disposition: Still a Patient Condition: Fair Prescriptions Prescriptions: New cefdinir 300 mg capsule 300 mg PO BID 5 Days Qty: 10 0RF azithromycin 250 mg tablet See Rx Instructions .ROUTE .COMPLEX Qty: 6 0RF Rx Instructions: For 250 mg dose pack: take 500 mg today (day 1), then 250 mg for 4 days (days 2-5) No Action calcium carbonate 600 mg calcium (1,500 mg) tablet 600 mg PO DAILY omeprazole 20 mg capsule,delayed release(DR/EC) 20 mg PO BID Patient Comments: TAKE 1 CAPSULE BY MOUTH TWICE DAILY leflunomide 10 mg tablet 10 mg PO DAILY magnesium oxide 400 mg (241.3 mg magnesium) tablet 400 mg PO DAILY Qty: 30 5RF levothyroxine 200 mcg tablet 200 mcg PO DAILY warfarin 3 mg tablet 1.5 mg PO SUTUWETHSA Patient Comments: TAKE 1 TABLET BY MOUTH EVERY DAY metoprolol succinate [Toprol XL] 50 mg tablet extended release 24 hr 50 mg PO DAILY tramadol 50 mg tablet 50 mg PO TID Qty: 90 2RF potassium chloride 10 mEq capsule, extended release 10 meq PO BID Patient Comments: TAKE ONE CAPSULE BY MOUTH TWICE DAILY amlodipine 10 mg tablet 10 mg PO DAILY Patient Comments: TAKE 1 TABLET BY MOUTH EVERY DAY rosuvastatin 10 mg tablet 10 mg PO HS Patient Comments: TAKE 1 TABLET BY MOUTH EVERY DAY gabapentin 100 mg capsule 100 mg PO BID vancomycin 125 mg capsule 125 mg PO Q6H Patient Comments: TAKE ONE CAPSULE BY MOUTH EVERY 6 HOURS FOR 10 DAYS -- FINISH ALL MEDICINE -- warfarin 3 MG tablet 3 mg PO MOFR Clinical Impressions Clinical Impression: Hypomagnesemia, Elevated troponin, Hypocalcemia Urinary tract infection Qualifiers: Urinary tract infection type: site unspecified Hematuria presence: without hematuria Qualified Code(s): N39.0 - Urinary tract infection, site not specified Pneumonia Qualifiers: Pneumonia type: due to unspecified organism Laterality: bilateral Lung location: unspecified part of lung Qualified Code(s): J18.9 - Pneumonia, unspecified organism Discharge ED Provider: Phil Bullard General Adult HPI <Joaquin Swann MD - Last Filed: 03/05/23 16:42> General Chief complaint: Shortness of Breath/Dyspnea Stated complaint: SOA, left side abd pain, positive covid test @home Time Seen by Provider: 03/05/23 11:02 Mode of Arrival: Ambulatory Source of Information: Patient Limitations: No Limitations Description of Symptoms (Recalled from ER Triage Doc. by RN): 72 yo F presents to ED with c/o + at home covid test. pt reports shortness of air and pain in left sided lung pain. pt reports she began to have symptoms yesterday. History of Present Illness HPI narrative: This 72-year-old female with a history of heart failure with preserved ejection fraction, artificial valve on warfarin, hyperlipidemia, hypertension, hypothyroid presents to the emergency department with concerns of left-sided chest wall pain as well as positive home COVID test. Patient also states her labs are all out of whack, everything is off stating her potassium and magnesium were low. She states that she had an INR of 8 on Monday and is currently off of her warfarin. She takes warfarin for mechanical valve. She states she is also on electrolyte supplementation now. She says she needs a note for work and wants to have her left-sided chest pain evaluated. She did have 2 episodes of emesis yesterday but has had very little oral intake. It was nonbloody, nonbilious, she does not have any abdominal pain at this time. No dysuria. She does admit she was started on antibiotics because her primary thought she may have C. difficile but her stool sample is not back. She states that her diarrhea completely stopped. Related Data Home Medications Medication Instructions Recorded Confirmed calcium carbonate 600 mg calcium 600 mg PO DAILY Supplement 11/25/19 03/05/23 (1,500 mg) t
[2023-03-05 11:18] LABS: Microscopic, Urine URINE MICROSCOPIC (MICROSCOPIC)
[2023-03-05 11:18] LABS: Coronavirus 19, PCR Not Detected (NotDetected); Influenza A, PCR Not Detected (NotDetected); Influenza B, PCR Not Detected (NotDetected)
--- NOTE | 2023-03-05 11:18 | PC.NURSE ---
XR AT BEDSIDE
[2023-03-05 11:22] LABS: Appearance,Urine CLEAR (Clear); Bilirubin,Urine Negative (Negative); Blood, Urine Negative (Negative); Color,Urine YELLOW (Yellow); Glucose,Urine (UA) Negative (Negative); Ketones,Urine Negative (Negative); Leukocyte Esterase,Urine 1+ (Negative); Nitrate,Urine Negative (Negative); Protein,Urine 1+ (Negative); Urobilinogen,Urine 0.2 EU/dl (0.2)
--- NOTE | 2023-03-05 11:29 | ECG_ITS ---
APPROVED REPORT Exam: Resting ECG HR:85 bpm ECG Measurements Heart Rate 85 AXES FL 155 P 71 QRSd 143 QRS -51 QT 404 T 103 QTc 446 Conclusion SINUS RHYTHM POSSIBLE LEFT ATRIAL ENLARGEMENT [-0.1mV P-WAVE IN V1/V2] LEFT AXIS DEVIATION [QRS AXIS < -30] LEFT BUNDLE BRANCH BLOCK [120+ ms QRS DURATION, 80+ ms Q/S IN V1/V2, 85+ ms R IN I/aVL/V5/V6] ABNORMAL ECG UNCONFIRMED REPORT Electronically signed by : Tal Pantoja MD 03/06/2023 20:27:04
[2023-03-05 11:37] LABS: Bacteria,Urine 1+ /lpf; Yeast,Urine Occasional /lpf
[2023-03-05 12:40] LABS: Chloride 107 mmol/L (98-107); Potassium 3.7 mmoL/L (3.5-5.1); Sodium 133 mmol/L (136-145)
[2023-03-05 13:27] LABS: Basophils % 0.2 % (0.1-2.0); Eosinophils # 0.1 K/mm3 (0.0-0.4); Eosinophils % 0.5 % (0.1-12.0); Hematocrit 28.2 % (37.0-47.0); Hemoglobin 9.3 g/dL (12.2-16.2); Lymphocytes # 0.6 K/mm3 (0.7-4.5); Lymphocytes % 4.7 % (10-50); Mean Corpuscular HGB Conc 32.9 g/dL (31.8-35.4); Mean Corpuscular Hemoglobin 27.2 pg (27.0-31.2); Mean Corpuscular Volume 82.6 fl (81-99); Mean Platelet Volume 8.7 fl (7.4-10.4); Monocytes # 0.7 K/mm3 (0.1-1.0); Monocytes % 5.4 % (1.7-9.3); Neutrophils # 10.6 K/mm3 (1.8-7.8); Neutrophils % 89.1 % (37.0-80.0); Platelet Count 226 K/mm3 (142-424); Red Blood Count 3.42 M/mm3 (4.20-5.40); Red Cell Distribution Width 16.6 % (11.5-17.5); White Blood Count 11.9 K/mm3 (4.8-10.8)
[2023-03-05 13:35] LABS: Alanine Aminotransferase 23 U/L (12-78); Albumin Level 3.3 g/dl (3.5-5.0); Albumin/Globulin Ratio 1.1 (1.1-1.8); Alkaline Phosphatase 108 U/L (38-126); Anion Gap 2.7 mEq/L (5-15); Aspartate Amino Transferase 31 U/L (14-36); Bilirubin,Total 0.4 mg/dl (0.2-1.3); Blood Urea Nitrogen 33 mg/dl (7-17); Calcium 7.9 mg/dl (8.4-10.2); Carbon Dioxide 27 mmol/L (22.0-30.0); Creatinine Clearance Estimated 29 mL/min (50-200); Estimated Glomerular Filt Rate 32 ml/min (>60); GFR (African American) 39 ML/MIN (>60); Glucose 72 mg/dl (74-100); Total Protein,Serum 6.3 g/dl (6.3-8.2)
[2023-03-05 13:36] LABS: Lactic Acid 1.5 mmol/L (0.7-2.1); MANUAL DIFFERENTIAL MANUAL DIFFERENTIAL (MANUAL DIFF)
--- NOTE | 2023-03-05 13:36 | PC.NURSE ---
pt resting in bed no needs at this time,call light at bs
[2023-03-05 13:50] LABS: Magnesium 1.3 mg/dl (1.6-2.3)
[2023-03-05 14:12] LABS: Lymphocytes % 6 % (10-50); Monocytes % 3 % (2-9); Neutrophils % 91 % (42-76); Platelet Estimate Normal; RBC Morphology Normal; Total Cells Counted 100
[2023-03-05 17:11] LABS: Troponin I 0.07 ng/ml (0.00-0.034)
--- NOTE | 2023-03-05 17:24 | ECG_ITS ---
APPROVED REPORT Exam: Resting ECG HR:82 bpm ECG Measurements Heart Rate 82 AXES IN 168 P -11 QRSd 143 QRS 115 QT 417 T -29 QTc 455 Conclusion SINUS RHYTHM INTRAVENTRICULAR CONDUCTION DELAY [130+ ms QRS DURATION] PROBABLE INFERIOR MYOCARDIAL INFARCTION , OF INDETERMINATE AGE [35 ms Q WAVE IN II/aVF] ABNORMAL ECG UNCONFIRMED REPORT Electronically signed by : Tal Pantoja MD 03/06/2023 20:24:16
--- NOTE | 2023-03-05 17:50 | PC.NURSE ---
DR TOLBERT SPEAKING WITH DR VEGA
--- NOTE | 2023-03-05 17:54 | PC.NURSE ---
CHEMICAL MAKER NOTIFIED OF ADMISSION
--- NOTE | 2023-03-05 18:35 | PC.NURSE ---
report called to patel casiano on second floor
--- NOTE | 2023-03-05 18:47 | PC.NURSE ---
arrived to floor by w/c from ED
[2023-03-05 21:11] LABS: Troponin I 0.06 ng/ml (0.00-0.034)
[2023-03-05 23:21] LABS: Troponin I 0.07 ng/ml (0.00-0.034)
[2023-03-06] VITALS: BP 150/84; PULSE 98; RESP 18; TEMP 37.6; O2SAT 94
--- NOTE | 2023-03-06 00:06 | PC.NURSE ---
HAD BLUEPRINT MACHINE OPERATOR PAGE DR SILVIA SIDDIQUI LEFT CHEST WALL PAIN
[2023-03-06 04:00] VITALS: BP 151/79; PULSE 86; RESP 18; TEMP 37.1; O2SAT 94; BMI 69.7
--- NOTE | 2023-03-06 05:56 | PC.NURSE ---
PATIENT WAS AWAKE MOST OF NIGHT WATCHING TV. NORCO 5/325 EFFECTIVE FOR PAIN CONTROL OF PLEURISY TYPE PAIN IN LEFT RIB CAGE WHEN MOVING OR ATTEMPTING TO TAKE A DEEP BREATH. NO RESP DISTRES NOTED. NO COUGH NOTED.02 SAT 94-95% ON ROOM AIR.
[2023-03-06 06:55] LABS: Chloride 106 mmol/L (98-107); Potassium 4.1 mmoL/L (3.5-5.1); Sodium 138 mmol/L (136-145)
[2023-03-06 06:58] LABS: Alanine Aminotransferase 24 U/L (12-78); Alkaline Phosphatase 105 U/L (38-126); Anion Gap 8.1 mEq/L (5-15); Aspartate Amino Transferase 38 U/L (14-36); Bilirubin,Total 0.3 mg/dl (0.2-1.3); Blood Urea Nitrogen 25 mg/dl (7-17); Carbon Dioxide 28 mmol/L (22.0-30.0); Creatinine Clearance Estimated 30 mL/min (50-200); Estimated Glomerular Filt Rate 34 ml/min (>60); GFR (African American) 42 ML/MIN (>60); Globulin 2.9 g/dL (1.3-3.2); Glucose 71 mg/dl (74-100); Magnesium 1.9 mg/dl (1.6-2.3); Total Protein,Serum 5.9 g/dl (6.3-8.2)
[2023-03-06 06:59] LABS: Basophils % 0.5 % (0.1-2.0); Eosinophils # 0.1 K/mm3 (0.0-0.4); Eosinophils % 1.7 % (0.1-12.0); Hemoglobin 9.3 g/dL (12.2-16.2); Lymphocytes # 0.7 K/mm3 (0.7-4.5); Lymphocytes % 8.5 % (10-50); Mean Corpuscular HGB Conc 33.3 g/dL (31.8-35.4); Mean Corpuscular Hemoglobin 27.2 pg (27.0-31.2); Mean Corpuscular Volume 81.7 fl (81-99); Monocytes # 0.8 K/mm3 (0.1-1.0); Monocytes % 9.8 % (1.7-9.3); Neutrophils # 6.3 K/mm3 (1.8-7.8); Neutrophils % 79.5 % (37.0-80.0); Platelet Count 203 K/mm3 (142-424); Red Cell Distribution Width 16.6 % (11.5-17.5); White Blood Count 7.9 K/mm3 (4.8-10.8)
[2023-03-06 07:08] LABS: Hematocrit 27.8 % (37.0-47.0)
[2023-03-06 07:44] VITALS: BP 149/83; PULSE 98; RESP 21; TEMP 37.2; O2SAT 92
--- NOTE | 2023-03-06 08:16 | EXP.HP ---
History of Present Illness *Admission Date: 03/06/23 *Reason for visit:: Chest pain/diarrhea *History of present illness: 72-year-old white female with multiple medical problems including mechanical valve, chronic heart failure with preserved ejection fraction, chronic electrolyte disturbances, sleep apnea, etc. Over the past couple of days she had a diarrheal illness, treated with oral vancomycin and electrolyte replacement as an outpatient. She has declined admission to the hospital or coming to the ER, but decided that she needed to come to the ER yesterday evening because of some chest pain that was occurring when she was taking a deep breath and with some splinting. Also had improvement of her diarrhea then worsening yesterday. In the ER was found to have infiltrate. Evidence of pneumonia. Her labs had improved slightly with improving electrolytes but INR remained very supratherapeutic at 8.0. No evidence of active bleeding. Admitted to hospital for IV antibiotics. Correction of her hypomagnesemia and other electrolyte issues. This morning she feels somewhat better except for 1 more episode of diarrhea that she had this morning. [facility] Disclaimer: The information contained in this section may have been updated after the patient was seen, as this information can be updated by other users. 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 (Updated 03/06/23 @ 08:20 by Tal Pantoja MD) (HFpEF) heart failure with preserved ejection fraction Anticoagulation adequate Arthritis Cataract Cholecystectomy planned Colon cancer Dyslipidemia History of anemia History of cataract HTN (hypertension) Hyperlipidemia Hypothyroid Infection and inflammatory reaction due to internal left knee prosthesis, initial encounter Infection of prosthetic left knee joint Left-sided epistaxis SUNI (obstructive sleep apnea) Thyroid cancer Tympanosclerosis, right ear Urinary retention Surgical History History of artificial heart valve History of carpal tunnel surgery of left wrist History of carpal tunnel surgery of right wrist History of colon resection History of total left knee replacement History of total right knee replacement Hx of thyroidectomy Mechanical heart valve present Status post aortic valve replacement Family History Brother Hypertension Mother Kidney disease Father Cancer Sister Breast cancer Social History (Updated 03/05/23 @ 19:02 by Cece Whitt RN) Smoking Status: Former smoker second hand exposure: No alcohol intake: never substance use type: prescription drug current occupational status: other Travel in the last 8 weeks: None household members: none housing: house 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 Review of Systems Constitutional Constitutional: Denies headache(s) and Denies weakness ENT Ears, Nose, Mouth, and Throat: Denies dizziness and Denies headache(s) *Musculoskeletal Musculoskeletal: Denies numbness and Denies tingling *Neurologic Neurologic: Denies dizziness, Denies headache(s), Denies numbness, Denies tingling and Denies weakness Meds Home Medications and Allergies Home Medications Medication Instructions Recorded Confirmed Type calcium carbonate 600 mg calcium 600 mg PO DAILY Supplement 11/25/19 03/05/23 History (1,500 mg) tablet warfarin 3 mg tablet 3 mg PO MOFR Mechanical valve 03/05/21 03/05/23 History levothyroxine 200 mcg tablet 200 mcg PO DAILY Thyroid 04/15/22 03/05/23 History warfarin 3 mg tablet 1.5 mg PO SUTUWETHSA Mechanical 04/15/22 03/05/23 History valve omeprazole 20 mg capsule,delayed 20 mg PO BID GERD 10/10/22 03/05/23 History release metoprolol succinate 50 mg 50 mg PO DAILY Hypertension 12/14/22 03/05/23 History tablet,extended release 24 hr (Toprol XL) leflunomide 10 mg tablet 10 mg PO DAILY Arthritis
--- NOTE | 2023-03-06 10:00 | INFXCTL.NOTE ---
Incentive spirometer given to patient. Discussed using IS and ambulating as tolerated. Pt. agreeable.
[2023-03-06 12:00] VITALS: BP 124/74; PULSE 83; RESP 18; TEMP 36.4; O2SAT 95
--- OUTSIDE RECORDS SUMMARY | 2023-03-06 13:10 | XMS_ITS ---
Author Name Unknown Address [address] [facility] [address] [place] [address] Phone Organization [facility] Address [address] [place] [address] Phone Care Team Providers Care Scrap Handler Name Role Phone Anneliese JARQUIN, Bernardo Ivy Unavailable [phone] [ ] Conditions or Problems No information available. Medications Medication Instructions Start Date Stop Date Generic Name NDC Provider AMOXICILLIN 875 MG TABS Take 1 tablet by mouth once a day 8 amoxicillin [id number] Bernardo Coy MD LEFLUNOMIDE 10 MG TABS once a day leflunomide 17681600496 Christina Conley PREDNISONE 5 MG TABS once a day prednisone 26658332862 Christina Conley Medications Administered No information available. Allergies, Adverse Reactions, Alerts No information available. Results Date Name Value Unit Range Flag Description Office Visit: Office Visit: 3 ORALTOBACUSE Never Tobacco smoking status SMOK STATUS Former smoker Tob acco smoking status MEDS REVIEW Done Documenta tion of current medications (procedure) Plan of Care Type Date Detail Appointment 10:15 AM Bernardo nicholas MD, [address] [facility], [address], [place], [address], Pending order STAT Labs Pending order CMP Pending order CBC with Differe ntial Pending order C- reactive prot ein
--- OUTSIDE RECORDS SUMMARY | 2023-03-06 13:10 | XMS_ITS ---
Author Name Unknown Address [address] [place] [address] Phone Organization [facility] Address [address] [place] [address] Phone Care Team Providers Care Developmental Psychologist Name Role Phone Anneliese JARQUIN, Bernardo Golden [phone] [ ] Conditions or Problems Problem Name Problem Code Onset Date Status Entry Date Provider Comment Standard Description Annotate Aortic valve replacement 47433194 (SNOMED CT) Active Bernardo Coy MD Replacement of aortic valve Anemia 178038209 (SNOMED CT) Active Bernardo Coy MD Anemia Medications Medication Instructions Start Date Stop Date Generic Name NDC Provider AMOXICILLIN 875 MG TABS Take 1 tablet by mouth once a day 8 amoxicillin [id number] Bernardo Coy MD Medications Administered No information available. Allergies, Adverse Reactions, Alerts No information available. Results Date Name Value Unit Range Flag Description Office Visit: 4 MEDS REVIEW Done Documenta tion of current medications (procedure) ORALTOBACUSE Never Tobacco smoking status SMOK STATUS Former smoker
--- OUTSIDE RECORDS SUMMARY | 2023-03-06 13:10 | XMS_ITS | Clinical Summary ---
Author Name Unknown Address [address] [place] [address] Phone Organization [facility] Address [address] [place] [address] Phone Care Team Providers Care Shot Polisher And Inspector Name Role Phone Anneliese JARQUIN, Bernardo Ivy [facility] [ ] Conditions or Problems Problem Name Problem Code Onset Date Status Entry Date Provider Comment Standard Description Annotate Aortic valve replacement 94296814 (SNOMED CT) 08/23 Active 08/23 Bernardo Coy MD Replacement of aortic valve Anemia 788129907 (SNOMED CT) 08/23 Active 08/23 Bernardo Coy MD Anemia Chronic kidney disease stage 2 336608483 (SNOMED CT) Active Antoinette Anneliese Chronic kidney disease stage 2 Propionibac terium infection B96.89 (ICD-10-CM) 08/10 Active 08/10 Bernardo Coy MD Other specified bacterial agents as the cause of diseases classified elsewhere Health advice, education, or counseling 246551439 (SNOMED CT)
--- OUTSIDE RECORDS SUMMARY | 2023-03-06 13:11 | XMS_ITS ---
Care Plan - [facility] Created on: March 06, 2023 QasimElba : 1950 Sex: Female Author Name Unknown Address [address] [place] [address] Phone Organization [facility] Address [address] [place] [address] Phone Care Team Providers Care Molding Machine Operator Name Role Phone Johnson Martinez MD Unavailable [phone] Evelia Etienne Primary Care Provider Unavaila ble Atiya Etienne APRN Unavailable Marisela vailable
--- OUTSIDE RECORDS SUMMARY | 2023-03-06 13:11 | XMS_ITS | Clinical Summary ---
Author Name Unknown Address [address] [place] [address] Phone Organization [facility] Address [address] [place] [address] Phone Care Team Providers Care Cyber Security Specialist Name Role Phone Juan JARQUIN, Johnson [place] [...] - Last Documented On 08/05/2022 2:29PM ; [facility], [facility] Instructions to patient Lose weight Last Documented On 1:18PM ; [facility], [facility] Assessments Includes: Asse
--- OUTSIDE RECORDS SUMMARY | 2023-03-06 13:11 | XMS_ITS ---
Author Name Unknown Address [address] [place] [address] Phone Organization [facility] Address [address] [place] [address] Phone Care Team Providers Care Electrocardiogram Technician Name Role Phone Johnson Martinez MD Unavailable [...]
--- OUTSIDE RECORDS SUMMARY | 2023-03-06 13:11 | XMS_ITS | Clinical Summary ---
Author Name Unknown Address [address] [place] [address] Phone Organization [facility] Address [address] [place] [address] Phone Care Team Providers Care Gill Box Tender Name Role Phone Juan JARQUIN, [place] [...] - Last Documented On 08/10/2021 2:06PM ; [facility], [facility] Instructions to patient Lose weight Last
--- OUTSIDE RECORDS SUMMARY | 2023-03-06 13:11 | XMS_ITS | Clinical Summary ---
Author Name Unknown Address [address] [place] [address] Phone Organization [facility] , [facility] Address [address] [place] [address] Phone Care Team Providers Care Swine Extension Field Specialist Name Role Phone Johnson Martinez MD [...]
--- OUTSIDE RECORDS SUMMARY | 2023-03-06 13:12 | XMS_ITS | Clinical Summary ---
Author Name Unknown Address [address] [place] [address] Phone Organization [facility] , [facility] Address [address] [place] [address] Phone Care Team Providers Care Customer Care Specialist Name Role Phone Johnson Martinez MD [...]
--- OUTSIDE RECORDS SUMMARY | 2023-03-06 13:12 | XMS_ITS | Clinical Summary ---
Author Name Unknown Address [address] [place] [address] Phone Organization [facility] , [facility] Address [address] [place] [address] Phone Care Team Providers Care Sap Ppm Consultant Name Role Phone Juan JARQUIN, Johnson [place] [...] - Last Documented On 09/07/2020 4:37PM ; [facility], [facility] Instructions to patient
[2023-03-06 14:12] LABS: Adenovirus F 40/41, stool Not Detected (NotDetected); Astrovirus Not Detected (NotDetected); Campylobacter Not Detected (NotDetected); Clostridium Difficile A/B, PCR Not Detected (NotDetected); Cryptosporidium Not Detected (NotDetected); Cyclospora Cayetanesis Not Detected (NotDetected); Entamoeba histolytica Not Detected (NotDetected); Enteroaggregative E coli Not Detected (NotDetected); Enteropathogenic E coli Not Detected (NotDetected); Enterotoxigenic E coli Not Detected (NotDetected); Giardia lamblia Not Detected (NotDetected); Norovirus Not Detected (NotDetected); Plesimonas Shigalloides, PCR Not Detected (NotDetected); Rotavirus A Not Detected (NotDetected); Salmonella, PCR Not Detected (NotDetected); Sapovirus Not Detected (NotDetected); Shiga-like toxin E coli Not Detected (NotDetected); Shigella Enterovasive E coli Not Detected (NotDetected); Vibrio Cholerae Not Detected (NotDetected); Vibrio, PCR Not Detected (NotDetected); Yersinia Entercolitica, PCR Not Detected (NotDetected)
[2023-03-06 16:00] VITALS: BP 165/86; PULSE 77; RESP 18; TEMP 36.5; O2SAT 96
[2023-03-06 20:00] VITALS: BP 147/81; PULSE 83; RESP 18; TEMP 37.2; O2SAT 95
[2023-03-07] VITALS: BP 144/74; PULSE 67; RESP 20; TEMP 36.7; O2SAT 95
--- NOTE | 2023-03-07 03:27 | PC.NURSE ---
Patient able to sleep during most of shift. Patient ambulated in hallway twice. Some pain noted in left side abdomen but easily relived with medication. VS stable.
[2023-03-07 04:00] VITALS: BP 141/82; PULSE 85; RESP 20; TEMP 36.7; O2SAT 92; BMI 23.7
[2023-03-07 06:48] LABS: Chloride 106 mmol/L (98-107); Potassium 4.4 mmoL/L (3.5-5.1); Sodium 136 mmol/L (136-145)
[2023-03-07 06:51] LABS: Alanine Aminotransferase 25 U/L (12-78); Albumin/Globulin Ratio 1.1 (1.1-1.8); Alkaline Phosphatase 91 U/L (38-126); Anion Gap 6.4 mEq/L (5-15); Aspartate Amino Transferase 34 U/L (14-36); Bilirubin,Total 0.2 mg/dl (0.2-1.3); Blood Urea Nitrogen 22 mg/dl (7-17); Calcium 7.8 mg/dl (8.4-10.2); Carbon Dioxide 28 mmol/L (22.0-30.0); Creatinine Clearance Estimated 36 mL/min (50-200); Estimated Glomerular Filt Rate 34 ml/min (>60); GFR (African American) 42 ML/MIN (>60); Globulin 2.8 g/dL (1.3-3.2); Glucose 88 mg/dl (74-100); INR 1.48 (0.9-1.1); Prothrombin Time 15.6 seconds (10.1-12.5); Total Protein,Serum 5.8 g/dl (6.3-8.2)
[2023-03-07 06:52] LABS: Magnesium 1.5 mg/dl (1.6-2.3)
[2023-03-07 08:00] VITALS: BP 150/85; PULSE 79; RESP 19; TEMP 36.5; O2SAT 97
--- NOTE | 2023-03-07 08:37 | EXP.ACUTE.PN ---
Subjective *Date: 03/07/23 *Time: 08:37 Interval history: Patient is up in a chair, without oxygen requirement, looks comfortable, but states she feels poorly because of her splinting chest pain. She reports pleuritic pain with a cough when she takes a big breath. Has eaten a little bit, reports that the food is not up to her quality standards, but also notes that she continues to have loose stools Medical Exam Vital signs and Labs for Last 24 Hours: Vital Signs Temp Pulse Resp BP Pulse Ox O2 Del Method 03/07/23 08:00 97.7 F 79 19 150/85 H 97 Room Air 03/07/23 07:00 Room Air 03/07/23 04:00 98.1 F 85 20 141/82 H 92 L Room Air 03/07/23 04:54 Room Air 03/07/23 03:00 Room Air 03/07/23 00:00 98.1 F 67 20 144/74 H 95 Room Air 03/07/23 01:00 Room Air 03/06/23 22:50 Room Air 03/06/23 19:52 Room Air 03/06/23 21:10 Room Air 03/06/23 20:00 98.9 F 83 18 147/81 H 95 Room Air 03/06/23 19:00 Room Air 03/06/23 17:00 Room Air 03/06/23 16:00 97.7 F 77 18 165/86 H 96 Room Air 03/06/23 15:00 Room Air 03/06/23 13:00 Room Air 03/06/23 12:00 97.5 F L 83 18 124/74 95 Room Air 03/06/23 11:00 Room Air 03/06/23 09:00 Room Air Intake and Output 03/06/23 03/07/23 03/07/23 19:59 03:59 11:59 Intake Total 720 / 1310 50 / 1310 540 / 1310 Output Total 0 / 0 0 / 0 Balance 720 / 1310 50 / 1310 540 / 1310 Intake: Intake, Oral Amount 720 / 1260 540 / 1260 Intake, Total IV Amount 50 / 50 Ceftriaxone 1 gm 1 gm In 0.9 % 50 / 50 Sodium Chloride 50 ml @ 100 mls /hr IV 0900 [facility] Rx#:[id number] Output: Output, Urine Amount 0 / 0 0 / 0 Other: Number of Voids 1 0 Number of Unmeasured Voids 1 1 Number of Bowel Movements 1 Weight 142 lb 5 oz Patient Weight 03/07/23 11:59 Weight 142 lb 5 oz Laboratory Results - last 24 hr 03/07/23 06:25: PT 15.6 H, INR 1.48 H, Sodium 136, Potassium 4.4, Chloride 106, Carbon Dioxide 28, Anion Gap 6.4, BUN 22 H, Creatinine 1.50 H, Estimated Creat Clear 36, Estimated GFR 34 L, Est GFR ( Amer) 42 L, Glucose 88, Calcium 7.8 L, Magnesium 1.5 L D, Total Bilirubin 0.2, AST 34, ALT 25, Alkaline Phosphatase 91, Total Protein 5.8 L, Albumin 3.0 L, Globulin 2.8, Albumin/Globulin Ratio 1.1 I & O for Labs for Last 24 Hours: Intake & Output 03/04/23 03/05/23 03/06/23 03/07/23 11:59 11:59 11:59 11:59 Intake Total 750 / 750 1310 / 1310 Output Total 0 / 0 0 / 0 Balance 750 / 750 1310 / 1310 Weight 1140 lb 418 lb 3.47 oz 142 lb 5 oz Comment:: Patient is pleasant, talkative. Lungs have rhonchi and crackles in the left lower and middle lung field. Right side is fairly clear. Heart rate regular with mechanical valve sound. No extremity edema or clubbing. She is oriented x3. Assessment and Plan *Assessment and plan (1) Urinary tract infection: Status: Acute Qualifiers: Hematuria presence: without hematuria Urinary tract infection type: site unspecified Qualified Code(s): N39.0 - Urinary tract infection, site not specified Category: Medical Code(s): N39.0 - Urinary tract infection, site not specified (2) Pneumonia: Status: Acute Qualifiers: Laterality: bilateral Lung location: unspecified part of lung Pneumonia type: due to unspecified organism Qualified Code(s): J18.9 - Pneumonia, unspecified organism Category: Medical Code(s): J18.9 - Pneumonia, unspecified organism (3) Hypomagnesemia: Status: Acute Category: Medical Code(s): E83.42 - Hypomagnesemia (4) Elevated troponin: Status: Acute Category: Medical Code(s): R79.89 - Other specified abnormal findings of blood chemistry (5) Hypocalcemia: Status: Acute Category: Medical Code(s): E83.51 - Hypocalcemia (6) Acute kidney injury: Status: Acute Category: Medi
--- NOTE | 2023-03-07 10:05 | HMH.OTEV ---
OT Inpatient Evaluation Rehab OT IP Evaluation Start: 03/07/23 08:36 Freq: ONCE Status: Active Protocol: Document 03/07/23 10:02 AGUSTIN (Rec: 03/07/23 10:05 [id number] Rehab OT IP Assessment Subjective History Pt oriented x 4 on arrival. Pt agreeable to engage in therapy evaluation. Pt admitted on 03/06/23 due to chest pain associated with PNA and UTI. Pt is a 72-year-old white female with multiple medical problems including mechanical valve, chronic heart failure with preserved ejection fraction, chronic electrolyte disturbances, sleep apnea, etc. Prior to being in the hosptial, pt lived at home alone. Pt claims she was independent with all ADLs and IADLs. 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 She did not require any type of AE during ambulation. She also still drove. Subjective I am ready to go. Objective Patient Orientation Person,Place,Birthday,Month Upper Extremity Gross ROM WFL Transfer Training Sit/Stand Transfer Assist Level Supervision/Stand by Chair Transfer Ability Supervision/Stand by Chair Transfer Technique Sit to/from Ambulatory Chair Transfer Assistive Devices None Lower Body Dressing Ability Standby Assistance Rehab OT IP prob,goals,plan Problems Date of Evaluation: 03/07/23 Rehab Potential Rehab Potential Innapropriate for Skilled Therapy Discharge Plan OT Discharge Plan At this time, pt appears to be at her baseline with functional transfers and ADL independence. Pt can return home once medically stable per physician. Eval Complexity Eval Charge Codes 18668 - Low Complexity PHYSICIAN CERTIFICATION: I certify the specified therapy services for Elba Tripp are required, authorized, and reviewed every 30 days.
--- NOTE | 2023-03-07 11:12 | HMH.PTEV ---
Physical Therapy Evaluation Rehab PT IP Evaluation Start: 03/07/23 08:36 Freq: ONCE Status: Active Protocol: Document 03/07/23 11:06 JAMES (Rec: 03/07/23 11:11 PHOBRENDAN [id number]) Subjective/History History History 72 yowf adm to [facility] with PNA and UTI. She has PMH of HF, SUNI, aortic valve replacement, B TKA. She reports she lives alone, no steps to enter the home, and she is generally independent with all mobility and ADLs without an AD. I work 40 hours a week. Subjective Subjective Pt has no new c/o this am. She does reports that she has disomfort in her L flank When I get a little short of breath. New diagnosis of cancer in past 12 No months? Rehab PT IP Eval Objective Appearance Patient Behavior Appropriate,Cooperative Patient Orientation Person,Place,Time Difficulty following instructions none Speech Pattern Clear Ambulation Patient Able to Ambulate Yes Ambulation Observation IP General Gait Pattern Observation No Deviations/Normal Ambulation Distance (feet) 300 Ambulation Assistive Device None Ambulation Ability Independent Balance Ability to Arise Able, w/o using arms Sitting Balance Steady, safe Standing Balance Narrow stance w/o support Dynamic Sitting Balance Ability Normal Dynamic Standing Balance Ability Normal Transfers Bed Transfer Ability Independent Chair Transfer Ability Independent Sit to Stand Bed Transfer Ability Independent Sit to Stand Chair Transfer Ability Independent ROM All Extremities PT ROM Status WFL MMT All Extremities PT MMT WFL Rehab PT IP prob,goals,plan Problems Date of Evaluation: 03/07/23 Discharge Plan PT Discharge Plan Pt is currently at baseline for all mobility and is appropriate to return home once medically stable for d/c. Eval Complexity Eval Charge Codes 80087 - High Complexity PHYSICIAN CERTIFICATION: I certify the specified therapy services for Elba Tripp are required, authorized, and reviewed every 30 days.
[2023-03-07 12:00] VITALS: BP 152/75; PULSE 72; RESP 18; TEMP 36.4; O2SAT 95
--- NOTE | 2023-03-07 14:12 | EXP.DC.SUM ---
General Admission date:: 03/05/23 Discharge date: 03/07/23 HPI HPI HPI: 72-year-old white female with multiple medical problems including mechanical valve, chronic heart failure with preserved ejection fraction, chronic electrolyte disturbances, sleep apnea, etc. Over the past couple of days she had a diarrheal illness, treated with oral vancomycin and electrolyte replacement as an outpatient. She has declined admission to the hospital or coming to the ER, but decided that she needed to come to the ER yesterday evening because of some chest pain that was occurring when she was taking a deep breath and with some splinting. Also had improvement of her diarrhea then worsening yesterday. In the ER was found to have infiltrate. Evidence of pneumonia. Her labs had improved slightly with improving electrolytes but INR remained very supratherapeutic at 8.0. No evidence of active bleeding. Admitted to hospital for IV antibiotics. Correction of her hypomagnesemia and other electrolyte issues. This morning she feels somewhat better except for 1 more episode of diarrhea that she had this morning. Hospital Course Hospital Course Hospital Course: Patient was admitted. She was stabilized with IV fluids and magnesium replacement. Her electrolytes improved with acute kidney injury improving, hypomagnesemia improving. She continues to have some pleuritic chest pain, did receive some pain medication and steroids which helped. This morning she was really back to her baseline, she reported some diarrhea but nurses reported that her stools are actually fairly firm. We watched her through the day and she ate lunch well. This afternoon she is on no oxygen requirements, doing her and ADLs. PT was evaluated for her safety issues and they reported that she was at her baseline. Plan be to discharge home, 48-hour follow-up on . We will continue antibiotics prescribed by the ER and we will do pain medication for pleuritic pain for short-term benefit. Pharmacy will educate her about warfarin before discharge given her significant elevation of her INR over 8 but no evidence of bleeding. This morning it was subtherapeutic and we will allow them to manage this on an ongoing basis. Exam Data for Last 24 hours Vital signs and Labs for Last 24 Hours: Temp Pulse Resp BP Pulse Ox O2 Del Method 97.5 F L 72 18 152/75 H 95 Room Air 03/07/23 12:00 03/07/23 12:00 03/07/23 12:00 03/07/23 12:00 03/07/23 12:00 03/07/23 13:00 Laboratory Results - last 24 hr 03/07/23 06:25: PT 15.6 H, INR 1.48 H, Sodium 136, Potassium 4.4, Chloride 106, Carbon Dioxide 28, Anion Gap 6.4, BUN 22 H, Creatinine 1.50 H, Estimated Creat Clear 36, Estimated GFR 34 L, Est GFR ( Amer) 42 L, Glucose 88, Calcium 7.8 L, Magnesium 1.5 L D, Total Bilirubin 0.2, AST 34, ALT 25, Alkaline Phosphatase 91, Total Protein 5.8 L, Albumin 3.0 L, Globulin 2.8, Albumin/Globulin Ratio 1.1 I & O for Last 24 hours: Intake & Output 03/05/23 03/06/23 03/07/23 03/08/23 11:59 11:59 11:59 11:59 Intake Total 750 / 750 1310 / 1310 470 / 470 Output Total 0 / 0 0 / 0 Balance 750 / 750 1310 / 1310 470 / 470 Weight 1140 lb 418 lb 3.47 oz 142 lb 5 oz Constitutional Constitutional: no acute distress *Routine HEENT Exam Head: Present normocephalic Eye: Present EOMI and PERRL ENT: Present mucous membranes moist *Routine Neck Exam Neck: Present supple; Absent lymphadenopathy *Routine Respiratory Exam Respiratory: Absent accessory muscle use or respiratory distress Comments: mild inspiratory cracklers left lower lung field *Routine Cardiovascular Exam Cardiovascular: Present RRR Comments: Mechanical valve sounds crisp, no murmur *Routine Abdominal Exam Abdominal: Present soft and normoactive bowel sounds; Absent tenderness *Routine Extremities Exam Extremities: Absent cyanosis, clubbing or edema *Routine Skin Exam Skin: Present warm; Absent rash *Routine Neurological Exam Neuro
--- NOTE | 2023-03-08 14:53 | CARE MANAGER ---
Contacted patient related to hospital discharge. She states she picked up her pain medication and stopped her antibiotic as directed. She denies any questions or concerns at this time. Denies questions or concerns. SHONDA Sharma
== END 2023-03-07 15:35 | disposition home or self-care (01) | DRG 194 ==
LOC: ER 16:54 → 2ND 18:06
PROVIDERS: Emergency Medicine; Admitting Provider Internal Medicine Adolescent Medicine; Emergency Provider Emergency Medicine; PCP Nurse Practitioner Family; Visit Provider Internal Medicine Adolescent Medicine
DX: J18.9 Pneumonia, unspecified organism (principal); I50.32 Chronic diastolic (congestive) heart failure; N17.9 Acute kidney failure, unspecified; N39.0 Urinary tract infection, site not specified; E83.42 Hypomagnesemia; R79.89 Other specified abnormal findings of blood chemistry; E83.51 Hypocalcemia; E87.6 Hypokalemia; Z95.2 Presence of prosthetic heart valve; R19.7 Diarrhea, unspecified; Z79.01 Long term (current) use of anticoagulants; I11.0 Hypertensive heart disease with heart failure; Z85.038 Personal history of other malignant neoplasm of large intestine; Z96.653 Presence of artificial knee joint, bilateral
CPT/HCPCS: 36415; 71045; 80048; 80053; 81001; 83605; 83735; 84484; 85007; 85025; 85610; 87086; 87507; 87636; 93005; 96360; 97163; 97165; 99285; J0456; J0696; J2405; J3475

== ENCOUNTER 2023-03-09 10:28 | Outpatient (CLI) | payer MEDICARE, OTHER, SELFPAY ==
[2023-03-09 13:53] LABS: PHA INR Fingerstick 1.5 (0.9-1.1)
== END 2023-03-09 13:56 ==
LOC: ACC 10:30
PROVIDERS: PCP Nurse Practitioner Family; Visit Provider Nurse Practitioner Family
DX: Z79.01 Long term (current) use of anticoagulants (principal); Z51.81 Encounter for therapeutic drug level monitoring; Z95.2 Presence of prosthetic heart valve
CPT/HCPCS: 85610; 99211; G0463